=== PATIENT | male | born 1955 | race Two or more races ===

== ENCOUNTER 2023-08-20 12:10 | Inpatient (IN) | payer MEDICARE, MEDICAID ==
[~2023-08-20] VITALS: Ht 185.4 cm; Wt 116.0 kg
[2023-08-20] MEDS: HYDROmorphone HCL 2 MG/ML VL/or syr IV ONE (15:00)
[2023-08-20] MEDS: METOCLOPRAMIDE HCL 5MG/ml INJ 2ml VIAL IM ONE (15:00)
[2023-08-20] MEDS: CLINDAMYCIN 900MG IV 50 ML IV ONE (15:10)
[2023-08-20] MEDS: SODIUM CHLORIDE 0.9% 1,000 ML IV ONE (15:10)
[2023-08-20 16:13] LABS: Basophils # (auto) 0 10 ^3/uL (0-0.2); Basophils % (auto) 0.7 % (0.0-2.0); Eosinophils # (auto) 0.2 10 ^3/uL (0-0.8); Eosinophils % (auto) 2.4 % (0.0-7.0); Hemoglobin 12.8 g/dL (13.5-17.5); Mean Corpuscular Hemoglobin 29.1 pg (28.0-32.0); Mean Corpuscular Hgb Conc. 32.9 g/dL (32.0-36.0); Mean Corpuscular Volume 88.5 fL (80.0-100.0); Monocytes # (auto) 0.7 10 ^3/uL (0-1.3); Monocytes % (auto) 11.3 % (0.0-12.0); Neutrophils # (auto) 4.5 10 ^3/uL (1.6-8.6); Neutrophils % (auto) 69.6 % (37.0-80.0); Nucleated Red Blood Cells % 0.1 %; Red Blood Cells 4.41 10^6/uL (4.5-5.90); Red Cell Distribution Width 15.5 % (11.8-14.3); White Blood Cell 6.4 10^3/uL (4.4-10.8)
[2023-08-20 16:28] LABS: INR 1.22 (0.9-1.15); Partial Thromboplastin Time 29.7 SEC (24.5-34.5); Prothrombin Time 12.7 sec (9.3-11.8)
[2023-08-20 16:29] LABS: Alanine Aminotransferase 15 U/L (7-40); Alkaline Phosphatase 85 U/L (46-116); Anion Gap 7 (5-15); BUN/Creatinine Ratio 17.4 (10.0-20.0); Blood Urea Nitrogen 23 mg/dL (9-23); Calcium 9.4 mg/dL (8.7-10.4); Carbon Dioxide 25 mmol/L (20-30); Chloride 105 mmol/L (98-107); Glucose 234 mg/dL (74-106); Magnesium 2.2 mg/dL (1.6-2.6); Potassium 4.3 mmol/L (3.5-5.1); Sodium 137 mmol/L (136-145)
[2023-08-20 16:30] LABS: Albumin 3.8 g/dL (3.2-4.8); Aspartate Aminotransferase 15 U/L (13-40); Bilirubin, Total 0.4 mg/dL (0.2-1.0)
[2023-08-20] MEDS ORDERED: HYDROcodone-ACET 5/325MG TAB PO PRN (16:45)
[2023-08-20] MEDS ORDERED: VANCOMYCIN PER PHARMACY 0 MG IV SCH (16:45)
[2023-08-20] MEDS ORDERED: ACETAMINOPHEN 325 MG TAB PO PRN (16:45)
[2023-08-20] MEDS: cefTRIAXone 1GM/50ML D5W 50 ML IV ONE (17:00)
[2023-08-20] MEDS: VANCOMYCIN 1GM/200ML 200 ML IV ONE (17:01)
[2023-08-20 17:14] LABS: Erythrocyte Sedimentation Rate 46 mm/hr (0-20)
[2023-08-20 17:20] LABS: Triglycerides 174 mg/dL (< 150)
[2023-08-20 17:21] LABS: LDL Cholesterol 108 mg/dL (< 100)
[2023-08-20 17:22] LABS: Cholesterol 156 mg/dL (< 200); HDL Cholesterol 29 mg/dL (40-59)
[2023-08-20 17:31] LABS: Urine Bacteria FEW /hpf (None Seen); Urine Blood Negative /uL (Negative); Urine Clarity Clear (Clear); Urine Color Light-Yellow (Yellow); Urine Protein, UAD TRACE (Negative); Urine Urobilinogen Normal (Negative); Urine WBC 9 /hpf (0 - 3)
[2023-08-20 18:24] VITALS: RESP 21; O2SAT 94
[2023-08-20] MEDS ORDERED: SACU1TAB PO (18:52)
[2023-08-20] MEDS ORDERED: METO25TA5 PO (18:52)
[2023-08-20] MEDS ORDERED: ATOR20TA50 PO (18:52)
[2023-08-20] MEDS ORDERED: GABA-339 PO (18:52)
[2023-08-20] MEDS ORDERED: FURO1TAB33 PO ×2 (18:52)
[2023-08-20] MEDS ORDERED: APIX5TAB PO ×2 (18:52)
[2023-08-20 21:00] VITALS: BP 129/85; PULSE 65; RESP 20; O2SAT 90
[2023-08-20] MEDS ORDERED: ONDANSETRON HCL 4 MG/2 ML VIAL IV PRN (21:00)
[2023-08-20] MEDS ORDERED: DEXTROSE (50%) 50ML SYRG IV PRN (21:00)
[2023-08-20] MEDS: ASCORBIC ACID 500 MG TAB PO SCH (22:01)
[2023-08-20] MEDS: traZODone HCL 50 MG TAB PO ONE (22:01)
[2023-08-21] MEDS: ACCU-CHEK COMFORT CURVE STRIP VI SCH (00:11)
[2023-08-21] MEDS: InsuLIN REG 1unit/0.01ml Soln (100units/ml) SC SCH (00:13)
[2023-08-21 01:00] VITALS: BP 117/64; PULSE 76; RESP 20; O2SAT 95
[2023-08-21] MEDS: VANCOMYCIN 1GM/200ML 200 ML IV SCH (04:37)
[2023-08-21 05:00] VITALS: BP 133/89; PULSE 73; RESP 20; TEMP 97.3; O2SAT 96
[2023-08-21 06:18] LABS: Basophils # (auto) 0 10 ^3/uL (0-0.2); Basophils % (auto) 0.6 % (0.0-2.0); Eosinophils # (auto) 0.1 10 ^3/uL (0-0.8); Eosinophils % (auto) 2.9 % (0.0-7.0); Hematocrit 38.8 % (41.0-53.0); Hemoglobin 12.8 g/dL (13.5-17.5); Lymphocytes # (auto) 0.7 10 ^3/uL (0.4-5.4); Mean Corpuscular Hemoglobin 29.3 pg (28.0-32.0); Mean Corpuscular Hgb Conc. 32.9 g/dL (32.0-36.0); Monocytes # (auto) 0.5 10 ^3/uL (0-1.3); Monocytes % (auto) 9.5 % (0.0-12.0); Neutrophils # (auto) 3.7 10 ^3/uL (1.6-8.6); Nucleated Red Blood Cells % 0.1 %; Red Blood Cells 4.36 10^6/uL (4.5-5.90); Red Cell Distribution Width 15.2 % (11.8-14.3); White Blood Cell 5.1 10^3/uL (4.4-10.8)
[2023-08-21 06:34] LABS: Alanine Aminotransferase 15 U/L (7-40); Alkaline Phosphatase 76 U/L (46-116); Calcium 9.7 mg/dL (8.7-10.4); Carbon Dioxide 28 mmol/L (20-30); Chloride 104 mmol/L (98-107)
[2023-08-21 06:35] LABS: Albumin 3.7 g/dL (3.2-4.8); Anion Gap 6 (5-15); BUN/Creatinine Ratio 17.7 (10.0-20.0); Blood Urea Nitrogen 22 mg/dL (9-23); Glucose 221 mg/dL (74-106); Potassium 4.3 mmol/L (3.5-5.1); Sodium 138 mmol/L (136-145)
[2023-08-21 06:36] LABS: Aspartate Aminotransferase 12 U/L (13-40); Bilirubin, Total 0.5 mg/dL (0.2-1.0); Total Protein 7.1 g/dL (5.7-8.2)
[2023-08-21] MEDS ORDERED: cefTRIAXone 1GM/50ML D5W 50 ML IV SCH (09:00)
[2023-08-21] MEDS ORDERED: ZINC SULFATE 220mg CAP or TAB PO SCH (10:00)
[2023-08-21] MEDS ORDERED: MULTIPLE VITAMIN TAB PO SCH (10:00)
== END 2023-08-21 08:30 | disposition left against medical advice (07) | DRG 380 ==
LOC: ER 12:10 → OVERFLOW 16:44 → EAST 18:00
PROVIDERS: ADMIT Nurse Practitioner Family; ATTEND Nurse Practitioner Family
DX: E11.621 Type 2 diabetes mellitus with foot ulcer (principal); L97.512 Non-pressure chronic ulcer of other part of right foot with fat layer exposed; E11.40 Type 2 diabetes mellitus with diabetic neuropathy, unspecified; E11.618 Type 2 diabetes mellitus with other diabetic arthropathy; L03.115 Cellulitis of right lower limb; L02.611 Cutaneous abscess of right foot; S91.239A Puncture wound without foreign body of unspecified toe(s) with damage to nail, initial encounter; Z53.29 Procedure and treatment not carried out because of patient's decision for other reasons; I50.42 Chronic combined systolic (congestive) and diastolic (congestive) heart failure; N30.00 Acute cystitis without hematuria; E66.01 Morbid (severe) obesity due to excess calories; H54.8 Legal blindness, as defined in USA; I48.91 Unspecified atrial fibrillation; I25.10 Atherosclerotic heart disease of native coronary artery without angina pectoris; Z85.038 Personal history of other malignant neoplasm of large intestine; Z95.1 Presence of aortocoronary bypass graft; Z79.4 Long term (current) use of insulin
CPT/HCPCS: 36415; 71046; 73700; 80053; 80061; 81001; 82962; 83036; 83735; 83880; 84443; 85025; 85379; 85610; 85652; 85730; 86141; 87086; 87088; 93005; 96365; 96372; 96375; G0378; J1815; J3490

== ENCOUNTER 2023-08-21 17:41 | Inpatient (IN) | payer MEDICARE, MEDICAID ==
[~2023-08-21] VITALS: Ht 185.4 cm; Wt 112.0 kg
[~2023-08-21 17:41] MED LIST: APIX5TAB PO; ATOR20TA50 PO; FURO1TAB33 PO; GABA-339 PO; METO25TA5 PO; SACU1TAB PO
[2023-08-21 19:49] LABS: Chloride 105 mmol/L (98-107); Potassium 4.3 mmol/L (3.5-5.1); Sodium 136 mmol/L (136-145)
[2023-08-21 19:50] LABS: Anion Gap 6 (5-15); Carbon Dioxide 25 mmol/L (20-30)
[2023-08-21 19:51] LABS: Calcium 9.8 mg/dL (8.5-10.1)
[2023-08-21 19:54] LABS: Basophils # (auto) 0.1 10 ^3/uL (0-0.2); Basophils % (auto) 0.7 % (0.0-2.0); Eosinophils # (auto) 0.2 10 ^3/uL (0-0.8); Eosinophils % (auto) 2.4 % (0.0-7.0); Hematocrit 42.6 % (41.0-53.0); Hemoglobin 13.9 g/dL (13.5-17.5); Lymphocytes # (auto) 0.7 10 ^3/uL (0.4-5.4); Lymphocytes % (auto) 8.7 % (10.0-50.0); Mean Corpuscular Hemoglobin 29.1 pg (28.0-32.0); Mean Corpuscular Hgb Conc. 32.7 g/dL (32.0-36.0); Mean Corpuscular Volume 88.9 fL (80.0-100.0); Monocytes # (auto) 0.7 10 ^3/uL (0-1.3); Monocytes % (auto) 8.4 % (0.0-12.0); Neutrophils # (auto) 6.4 10 ^3/uL (1.6-8.6); Neutrophils % (auto) 79.8 % (37.0-80.0); Nucleated Red Blood Cells % 0.1 %; Red Blood Cells 4.79 10^6/uL (4.5-5.90); Red Cell Distribution Width 15.3 % (11.8-14.3)
[2023-08-21 19:55] LABS: BUN/Creatinine Ratio 13.1 (10.0-20.0); Blood Urea Nitrogen 17 mg/dL (9-23)
[2023-08-21 19:56] LABS: Glucose 140 mg/dL (74-106)
[2023-08-21] MEDS: PIPERACILLIN-TAZOB 3.375GM 100 ML IV ONE (19:56)
[2023-08-21] MEDS: VANCOMYCIN 1GM/200ML 200 ML IV ONE (19:56)
[2023-08-21 19:58] VITALS: O2SAT 95
[2023-08-21] MEDS ORDERED: ONDANSETRON HCL 4 MG/2 ML VIAL IV PRN (21:00)
[2023-08-21] MEDS ORDERED: VANCOMYCIN PER PHARMACY 0 MG IV SCH (21:00)
[2023-08-21] MEDS ORDERED: DEXTROSE (50%) 50ML SYRG IV PRN (21:00)
[2023-08-21] MEDS ORDERED: ACETAMINOPHEN 325 MG TAB PO PRN (21:00)
[2023-08-21] MEDS ORDERED: DOCUSATE SOD 100 MG CAP PO PRN (21:00)
[2023-08-21] MEDS: SODIUM CHLOR 0.9% PF (SALINE LOCK) 10ML VIAL/SYR IV SCH (22:13)
[2023-08-21] MEDS: ACCU-CHEK COMFORT CURVE STRIP VI SCH (22:13)
[2023-08-21] MEDS ORDERED: NITROGLYCERIN 0.4 MG SL TAB SL PRN (22:15)
[2023-08-21] MEDS ORDERED: MORPHINE SULFATE INJ 2 MG/ml SYRG IV PRN (22:15)
[2023-08-21] MEDS: ATORVASTATIN 20 MG TAB PO SCH (22:22)
[2023-08-21] MEDS: CARVEDILOL 12.5 MG TAB PO SCH (22:23)
[2023-08-21] MEDS: FUROSEMIDE 20 MG/2 ML VIAL IV ONE (22:24)
[2023-08-21] MEDS: InsuLIN REG 1unit/0.01ml Soln (100units/ml) SC SCH (22:24)
[2023-08-21 22:57] VITALS: PULSE 114; RESP 18; O2SAT 93
[2023-08-22] VITALS (7 sets, daily range): BP systolic 118–128; BP diastolic 64–93; PULSE 74–109; RESP 16–20; TEMP 97.8–98; O2SAT 94–98
[2023-08-22 04:09] LABS: Basophils # (auto) 0.1 10 ^3/uL (0-0.2); Basophils % (auto) 0.8 % (0.0-2.0); Eosinophils # (auto) 0.2 10 ^3/uL (0-0.8); Eosinophils % (auto) 3.7 % (0.0-7.0); Hematocrit 40.9 % (41.0-53.0); Hemoglobin 13.5 g/dL (13.5-17.5); Lymphocytes # (auto) 0.8 10 ^3/uL (0.4-5.4); Lymphocytes % (auto) 11.2 % (10.0-50.0); Mean Corpuscular Hemoglobin 29.3 pg (28.0-32.0); Mean Corpuscular Volume 88.7 fL (80.0-100.0); Monocytes # (auto) 0.7 10 ^3/uL (0-1.3); Monocytes % (auto) 9.7 % (0.0-12.0); Neutrophils # (auto) 5.1 10 ^3/uL (1.6-8.6); Neutrophils % (auto) 74.6 % (37.0-80.0); Nucleated Red Blood Cells % 0.1 %; Red Blood Cells 4.61 10^6/uL (4.5-5.90); Red Cell Distribution Width 15.5 % (11.8-14.3); White Blood Cell 6.8 10^3/uL (4.4-10.8)
[2023-08-22 04:24] LABS: Alanine Aminotransferase 18 U/L (7-40); Alkaline Phosphatase 87 U/L (46-116); Anion Gap 7 (5-15); Aspartate Aminotransferase 15 U/L (13-40); BUN/Creatinine Ratio 12.7 (10.0-20.0); Blood Urea Nitrogen 18 mg/dL (9-23); Calcium 9.5 mg/dL (8.5-10.1); Carbon Dioxide 27 mmol/L (20-30); Chloride 102 mmol/L (98-107); Potassium 4.4 mmol/L (3.5-5.1); Sodium 136 mmol/L (136-145)
[2023-08-22 04:25] LABS: Bilirubin, Total 0.4 mg/dL (0.2-1.0); Total Protein 7.4 g/dL (5.7-8.2)
[2023-08-22 04:32] LABS: Glucose 252 mg/dL (74-106)
[2023-08-22] MEDS: PIPERACILLIN-TAZOB 3.375GM 100 ML IV SCH (06:22)
[2023-08-22] MEDS: VANCOMYCIN 1GM/200ML 200 ML IV SCH (09:17)
[2023-08-22] MEDS: FUROSEMIDE 20 MG/2 ML VIAL IV SCH (09:18)
[2023-08-22] MEDS: ASPirin 81 mg TAB PO SCH (09:18)
[2023-08-22] MEDS: GABAPENTIN 300 MG CAP PO SCH (16:42)
[2023-08-22] MEDS: SACUBITRIL-VALSARTAN 24mg/26mg TAB PO SCH (21:28)
[2023-08-22] MEDS: HYDROcodone-ACET 5/325MG TAB PO PRN (21:29)
[2023-08-22] MEDS: APIXABAN 5 MG TAB PO SCH (21:30)
[2023-08-22] MEDS ORDERED: METOPROLOL TARTRATE 25 MG TAB PO SCH (22:00)
[2023-08-23] VITALS (8 sets, daily range): BP systolic 98–121; BP diastolic 51–80; PULSE 56–106; RESP 18–20; TEMP 97.7–99.1; O2SAT 91–97
[2023-08-23 05:32] LABS: Basophils # (auto) 0.1 10 ^3/uL (0-0.2); Eosinophils # (auto) 0.3 10 ^3/uL (0-0.8); Eosinophils % (auto) 4.3 % (0.0-7.0); Hematocrit 43.2 % (41.0-53.0); Hemoglobin 14.3 g/dL (13.5-17.5); Lymphocytes # (auto) 0.9 10 ^3/uL (0.4-5.4); Lymphocytes % (auto) 13.6 % (10.0-50.0); Mean Corpuscular Hemoglobin 29.1 pg (28.0-32.0); Mean Corpuscular Volume 88.1 fL (80.0-100.0); Monocytes # (auto) 0.6 10 ^3/uL (0-1.3); Monocytes % (auto) 9.8 % (0.0-12.0); Neutrophils # (auto) 4.5 10 ^3/uL (1.6-8.6); Neutrophils % (auto) 71.3 % (37.0-80.0); Red Cell Distribution Width 15.4 % (11.8-14.3); White Blood Cell 6.3 10^3/uL (4.4-10.8)
[2023-08-23 05:34] LABS: Chloride 104 mmol/L (98-107); Potassium 4.2 mmol/L (3.5-5.1); Sodium 138 mmol/L (136-145)
[2023-08-23 05:35] LABS: Anion Gap 5 (5-15); Carbon Dioxide 29 mmol/L (20-30)
[2023-08-23 05:40] LABS: BUN/Creatinine Ratio 16.3 (10.0-20.0); Blood Urea Nitrogen 20 mg/dL (9-23); Glucose 257 mg/dL (74-106)
[2023-08-23] MEDS ORDERED: GABA800T97 PO ×2 (13:36)
[2023-08-23] MEDS ORDERED: ATOR80TA PO ×2 (13:36)
[2023-08-23] MEDS ORDERED: METO1TAB9 PO ×2 (13:36)
[2023-08-23] MEDS ORDERED: LANS30CA57 PO ×2 (13:42)
[2023-08-23] MEDS ORDERED: INSU100I54 SC ×2 (13:42)
[2023-08-23] MEDS ORDERED: INSU100I70 SC ×2 (13:42)
[2023-08-23] MEDS ORDERED: FLUT50SP28 EACHNOSTRI ×2 (13:42)
[2023-08-23] MEDS ORDERED: FLUT1AER17 INH ×2 (13:42)
[2023-08-23] MEDS ORDERED: TRI05TP TOP ×2 (13:42)
[2023-08-23] MEDS ORDERED: TRAZ-227 PO (13:42)
[2023-08-23] MEDS ORDERED: EMPA1TAB PO ×2 (13:42)
[2023-08-23] MEDS ORDERED: SPIR25TA8 PO ×2 (13:42)
[2023-08-23] MEDS ORDERED: ASPI81CH59 PO ×2 (13:42)
[2023-08-24 01:00] VITALS: BP 115/69; PULSE 62; RESP 18; TEMP 98.3; O2SAT 92
[2023-08-24 05:00] VITALS: BP 111/59; PULSE 98; RESP 17; TEMP 98.2; O2SAT 95
[2023-08-24 07:39] LABS: Anion Gap 4 (5-15); Calcium 9.7 mg/dL (8.5-10.1); Carbon Dioxide 30 mmol/L (20-30); Chloride 103 mmol/L (98-107); Potassium 4.2 mmol/L (3.5-5.1); Sodium 137 mmol/L (136-145)
[2023-08-24 07:42] LABS: Basophils # (auto) 0.1 10 ^3/uL (0-0.2); Basophils % (auto) 0.9 % (0.0-2.0); Eosinophils # (auto) 0.2 10 ^3/uL (0-0.8); Eosinophils % (auto) 3.9 % (0.0-7.0); Hematocrit 43.5 % (41.0-53.0); Hemoglobin 14.6 g/dL (13.5-17.5); Lymphocytes # (auto) 0.9 10 ^3/uL (0.4-5.4); Lymphocytes % (auto) 14.6 % (10.0-50.0); Mean Corpuscular Hemoglobin 29.3 pg (28.0-32.0); Mean Corpuscular Hgb Conc. 33.5 g/dL (32.0-36.0); Mean Corpuscular Volume 87.4 fL (80.0-100.0); Monocytes # (auto) 0.6 10 ^3/uL (0-1.3); Neutrophils # (auto) 4.2 10 ^3/uL (1.6-8.6); Neutrophils % (auto) 70.6 % (37.0-80.0); Red Blood Cells 4.97 10^6/uL (4.5-5.90); Red Cell Distribution Width 15.3 % (11.8-14.3)
[2023-08-24 07:45] LABS: Glucose 237 mg/dL (74-106)
[2023-08-24 07:46] LABS: Blood Urea Nitrogen 16 mg/dL (9-23)
[2023-08-24 08:00] VITALS: PULSE 90
[2023-08-24 09:00] VITALS: BP 129/77; PULSE 70; RESP 18; TEMP 98.2; O2SAT 93
[2023-08-24] MEDS ORDERED: AUG875T PO ×2 (11:11)
[2023-08-24] MEDS ORDERED: SACU1TAB PO ×2 (11:28)
[2023-08-24] MEDS ORDERED: TRAZ-227 PO ×2 (11:28)
[2023-08-24 12:49] VITALS: BP 105/72; PULSE 58; RESP 20; TEMP 97.6; O2SAT 97
[2023-08-24 17:00] VITALS: BP 110/71; PULSE 72; RESP 18; TEMP 98; O2SAT 94
== END 2023-08-24 18:50 | disposition home or self-care (01) | DRG 844 ==
LOC: ER 17:41 → TELE 22:11 → TELE-WESTW 08-22 09:35
PROVIDERS: ADMIT Nurse Practitioner Family; ATTEND Internal Medicine
DX: T25.021A Burn of unspecified degree of right foot, initial encounter (principal); N17.0 Acute kidney failure with tubular necrosis; A41.9 Sepsis, unspecified organism; I50.33 Acute on chronic diastolic (congestive) heart failure; L03.115 Cellulitis of right lower limb; E11.40 Type 2 diabetes mellitus with diabetic neuropathy, unspecified; I11.0 Hypertensive heart disease with heart failure; I48.91 Unspecified atrial fibrillation; R06.03 Acute respiratory distress; I25.10 Atherosclerotic heart disease of native coronary artery without angina pectoris; E78.5 Hyperlipidemia, unspecified; X08.8XXA Exposure to other specified smoke, fire and flames, initial encounter; E11.51 Type 2 diabetes mellitus with diabetic peripheral angiopathy without gangrene; Z95.1 Presence of aortocoronary bypass graft; Z85.038 Personal history of other malignant neoplasm of large intestine; Z79.899 Other long term (current) drug therapy; Y93.89 Activity, other specified; Y92.89 Other specified places as the place of occurrence of the external cause; Y99.8 Other external cause status; Z79.01 Long term (current) use of anticoagulants; Z79.82 Long term (current) use of aspirin
CPT/HCPCS: 36415; 80048; 80053; 80202; 82962; 83605; 83880; 84484; 85025; 87040; 93005; G0378; J1815; J2543

== ENCOUNTER 2023-09-04 22:45 | Inpatient (IN) | payer MEDICARE, MEDICAID ==
[~2023-09-04] VITALS: Ht 185.4 cm; Wt 109.5 kg
[~2023-09-04 22:45] MED LIST changes: +ASPI81CH59 PO; -ATOR20TA50 PO; +ATOR80TA PO; +AUG875T PO; +EMPA1TAB PO; +FLUT1AER17 INH; +FLUT50SP28 EACHNOSTRI; -GABA-339 PO; +GABA800T97 PO; +INSU100I54 SC; +INSU100I70 SC; +LANS30CA57 PO; +METO1TAB9 PO; -METO25TA5 PO; +SPIR25TA8 PO; +TRAZ-227 PO; +TRI05TP TOP
[2023-09-04 23:54] VITALS: PULSE 141; RESP 22; O2SAT 96
[2023-09-04 23:59] LABS: Chloride 99 mmol/L (98-107); Sodium 136 mmol/L (136-145)
[2023-09-05] VITALS (11 sets, daily range): BP systolic 106–112; BP diastolic 64–70; PULSE 74–112; RESP 18; TEMP 97.7–98; O2SAT 94–98
[2023-09-05] LABS: Anion Gap 10 (5-15); Calcium 10.9 mg/dL (8.7-10.4); Carbon Dioxide 27 mmol/L (20-30)
[2023-09-05 00:03] LABS: Basophils # (auto) 0.1 10 ^3/uL (0-0.2); Basophils % (auto) 0.9 % (0.0-2.0); Eosinophils # (auto) 0.1 10 ^3/uL (0-0.8); Eosinophils % (auto) 0.7 % (0.0-7.0); Hematocrit 49.5 % (41.0-53.0); Hemoglobin 16.3 g/dL (13.5-17.5); Lymphocytes # (auto) 1.3 10 ^3/uL (0.4-5.4); Lymphocytes % (auto) 12.8 % (10.0-50.0); Mean Corpuscular Hemoglobin 29.3 pg (28.0-32.0); Mean Corpuscular Volume 88.7 fL (80.0-100.0); Monocytes # (auto) 0.9 10 ^3/uL (0-1.3); Monocytes % (auto) 8.2 % (0.0-12.0); Neutrophils # (auto) 8.1 10 ^3/uL (1.6-8.6); Neutrophils % (auto) 77.4 % (37.0-80.0); Nucleated Red Blood Cells % 0.1 %; Red Blood Cells 5.58 10^6/uL (4.5-5.90); Red Cell Distribution Width 15.5 % (11.8-14.3); White Blood Cell 10.4 10^3/uL (4.4-10.8)
[2023-09-05 00:05] LABS: BUN/Creatinine Ratio 11.6 (10.0-20.0); Blood Urea Nitrogen 24 mg/dL (9-23)
[2023-09-05] MEDS: dilTIAZem 25 MG/5 ML VIAL IV ONE (00:12)
[2023-09-05 00:17] LABS: Glucose 401 mg/dL (74-106)
[2023-09-05] MEDS: InsuLIN REG 1unit/0.01ml Soln (100units/ml) IV ONE (00:35)
[2023-09-05] MEDS: FUROSEMIDE 100 MG/10ML VIAL IV ONE (00:58)
[2023-09-05] MEDS ORDERED: DOCUSATE SOD 100 MG CAP PO PRN (01:15)
[2023-09-05] MEDS ORDERED: ACETAMINOPHEN 325 MG TAB PO PRN (01:15)
[2023-09-05] MEDS ORDERED: DEXTROSE (50%) 50ML SYRG IV PRN (01:15)
[2023-09-05] MEDS ORDERED: NITROGLYCERIN 0.4 MG SL TAB SL PRN (01:45)
[2023-09-05 02:59] LABS: Basophils # (auto) 0.1 10 ^3/uL (0-0.2); Basophils % (auto) 1.2 % (0.0-2.0); Eosinophils # (auto) 0.1 10 ^3/uL (0-0.8); Eosinophils % (auto) 0.5 % (0.0-7.0); Hematocrit 48.8 % (41.0-53.0); Hemoglobin 16.3 g/dL (13.5-17.5); Lymphocytes # (auto) 1.7 10 ^3/uL (0.4-5.4); Lymphocytes % (auto) 16.7 % (10.0-50.0); Mean Corpuscular Hemoglobin 29.4 pg (28.0-32.0); Mean Corpuscular Hgb Conc. 33.5 g/dL (32.0-36.0); Mean Corpuscular Volume 87.9 fL (80.0-100.0); Monocytes % (auto) 9.6 % (0.0-12.0); Neutrophils # (auto) 7.3 10 ^3/uL (1.6-8.6); Nucleated Red Blood Cells % 0.1 %; Red Blood Cells 5.55 10^6/uL (4.5-5.90); Red Cell Distribution Width 15.6 % (11.8-14.3); White Blood Cell 10.1 10^3/uL (4.4-10.8)
[2023-09-05] MEDS ORDERED: VANCOMYCIN PER PHARMACY 0 MG IV SCH (03:00)
[2023-09-05 03:07] LABS: Alanine Aminotransferase 30 U/L (7-40); Albumin 4.4 g/dL (3.2-4.8); Alkaline Phosphatase 86 U/L (46-116); Anion Gap 8 (5-15); Aspartate Aminotransferase 14 U/L (13-40); BUN/Creatinine Ratio 12.9 (10.0-20.0); Blood Urea Nitrogen 23 mg/dL (9-23); Calcium 10.9 mg/dL (8.7-10.4); Carbon Dioxide 28 mmol/L (20-30); Chloride 102 mmol/L (98-107); Potassium 3.9 mmol/L (3.5-5.1); Sodium 138 mmol/L (136-145)
[2023-09-05 03:08] LABS: Bilirubin, Total 0.9 mg/dL (0.2-1.0); Total Protein 8.7 g/dL (5.7-8.2)
[2023-09-05] MEDS ORDERED: ALBUTEROL SULF 2.5 MG/0.5ML(0.5%) NEB SOLN NEB PRN (03:15)
[2023-09-05 03:22] LABS: Glucose 146 mg/dL (74-106)
[2023-09-05] MEDS: ONDANSETRON HCL 4 MG/2 ML VIAL IV PRN (03:35)
[2023-09-05] MEDS: MORPHINE SULFATE INJ 2 MG/ml SYRG IV PRN ×2 (03:36→13:29)
[2023-09-05] MEDS: VANCOMYCIN 1GM/200ML 200 ML IV ONE (03:36)
[2023-09-05] MEDS: InsuLIN REG 1unit/0.01ml Soln (100units/ml) SC SCH (04:00)
[2023-09-05] MEDS: ACCU-CHEK COMFORT CURVE STRIP VI SCH (04:09)
[2023-09-05] MEDS: SODIUM CHLOR 0.9% PF (SALINE LOCK) 10ML VIAL/SYR IV SCH (06:18)
[2023-09-05] MEDS ORDERED: APIXABAN 5 MG TAB PO SCH (10:00)
[2023-09-05] MEDS ORDERED: CARVEDILOL 3.125 MG TAB PO SCH (10:00)
[2023-09-05 10:14] LABS: Magnesium 2.3 mg/dL (1.6-2.6)
[2023-09-05] MEDS: FUROSEMIDE 40 MG/4 ML VIAL IV SCH (10:21)
[2023-09-05] MEDS: FUROSEMIDE 20 MG TAB PO ONE (10:45)
[2023-09-05 10:50] LABS: Hepatitis B Surface Antigen Negative (Negative)
[2023-09-05] MEDS ORDERED: CEPH500C PO (10:53)
[2023-09-05 11:12] LABS: Hepatitis C Antibody Negative (Negative)
[2023-09-05] MEDS: SPIRONOLACTONE 25 MG TAB PO ONE (11:30)
[2023-09-05] MEDS: METOPROLOL TARTRATE 25 MG TAB PO ONE (11:31)
[2023-09-05] MEDS: ASPirin 81 mg TAB PO ONE (11:32)
[2023-09-05] MEDS: VANCOMYCIN 1GM/200ML 200 ML IV SCH (20:27)
[2023-09-05] MEDS: traZODone HCL 50 MG TAB PO SCH (21:13)
[2023-09-05] MEDS: APIXABAN 5 MG TAB PO SCH (21:13)
[2023-09-05] MEDS: ATORVASTATIN 20 MG TAB PO SCH (21:13)
[2023-09-05] MEDS: METOPROLOL TARTRATE 25 MG TAB PO SCH (21:21)
[2023-09-05] MEDS: CEFEPIME 1GM/ 50ML 50 ML IV SCH (21:47)
[2023-09-05] MEDS ORDERED: ATORVASTATIN 20 MG TAB PO SCH (22:00)
[2023-09-05] MEDS ORDERED: ENOXAPARIN SOD 120 MG/0.8 ML SYRINGE SC SCH (22:00)
[2023-09-05] MEDS ORDERED: ENOXAPARIN SOD 100 MG/1 ML SYRINGE SC SCH (22:00)
[2023-09-06] VITALS (12 sets, daily range): BP systolic 92–129; BP diastolic 57–77; PULSE 53–109; RESP 16–22; TEMP 97.1–98.6; O2SAT 92–98
[2023-09-06] MEDS: INSULIN LANTUS (GLARGINE) 1 /0.01ml (100units/ml) SC SCH (05:57)
[2023-09-06 07:10] LABS: Basophils # (auto) 0.1 10 ^3/uL (0-0.2); Basophils % (auto) 0.8 % (0.0-2.0); Eosinophils # (auto) 0.3 10 ^3/uL (0-0.8); Eosinophils % (auto) 4.7 % (0.0-7.0); Hematocrit 43.5 % (41.0-53.0); Hemoglobin 14.4 g/dL (13.5-17.5); Lymphocytes # (auto) 1.6 10 ^3/uL (0.4-5.4); Lymphocytes % (auto) 21.9 % (10.0-50.0); Mean Corpuscular Hemoglobin 29.2 pg (28.0-32.0); Mean Corpuscular Hgb Conc. 33.1 g/dL (32.0-36.0); Mean Corpuscular Volume 88.3 fL (80.0-100.0); Monocytes # (auto) 0.7 10 ^3/uL (0-1.3); Neutrophils # (auto) 4.5 10 ^3/uL (1.6-8.6); Neutrophils % (auto) 62.6 % (37.0-80.0); Nucleated Red Blood Cells % 0.1 %; Red Blood Cells 4.92 10^6/uL (4.5-5.90); Red Cell Distribution Width 15.3 % (11.8-14.3); White Blood Cell 7.2 10^3/uL (4.4-10.8)
[2023-09-06 07:15] LABS: Alanine Aminotransferase 24 U/L (7-40); Alkaline Phosphatase 79 U/L (46-116); Anion Gap 9 (5-15); BUN/Creatinine Ratio 19.5 (10.0-20.0); Blood Urea Nitrogen 31 mg/dL (9-23); Calcium 9.6 mg/dL (8.7-10.4); Carbon Dioxide 28 mmol/L (20-30); Chloride 98 mmol/L (98-107); Glucose 167 mg/dL (74-106); Potassium 3.8 mmol/L (3.5-5.1); Sodium 135 mmol/L (136-145)
[2023-09-06 07:16] LABS: Albumin 3.8 g/dL (3.2-4.8); Aspartate Aminotransferase 17 U/L (13-40); Bilirubin, Total 0.7 mg/dL (0.2-1.0); Total Protein 7.4 g/dL (5.7-8.2)
[2023-09-06] MEDS: SPIRONOLACTONE 25 MG TAB PO SCH (08:46)
[2023-09-06] MEDS: ASPirin 81 mg TAB PO SCH (08:46)
[2023-09-06] MEDS: FUROSEMIDE 20 MG TAB PO SCH (08:48)
[2023-09-06 16:58] LABS: Amphetamine Screen, Urine Pos (NEGATIVE); Barbiturate Scree,Urine Neg (NEGATIVE); Benzodiazephine Screen, Urine Neg (NEGATIVE); Cannabinoid Screen, Urine Neg (NEGATIVE); Cocaine Screen, Urine Neg (NEGATIVE); Opiate Scree,Urine Neg (NEGATIVE); Phencyclidine Screen, Urine Neg (NEGATIVE)
[2023-09-06] MEDS: HYDROcodone-ACET 5/325MG TAB PO PRN (19:50)
[2023-09-07] VITALS (9 sets, daily range): BP systolic 92–133; BP diastolic 52–95; PULSE 71–92; RESP 18–22; TEMP 97.3–98.7; O2SAT 90–97
[2023-09-07] MEDS: INSULIN LISPRO (HUMAN) 100 UNITS/ML ML SC SCH ×2 (06:34→22:00)
[2023-09-07] MEDS: EMPAGLIFLOZIN 10 MG TAB PO SCH (08:43)
[2023-09-07 08:49] LABS: Basophils # (auto) 0 10 ^3/uL (0-0.2); Basophils % (auto) 0.7 % (0.0-2.0); Eosinophils # (auto) 0.2 10 ^3/uL (0-0.8); Eosinophils % (auto) 3.8 % (0.0-7.0); Hematocrit 45.7 % (41.0-53.0); Hemoglobin 14.8 g/dL (13.5-17.5); Lymphocytes # (auto) 0.8 10 ^3/uL (0.4-5.4); Mean Corpuscular Hemoglobin 28.4 pg (28.0-32.0); Mean Corpuscular Hgb Conc. 32.4 g/dL (32.0-36.0); Mean Corpuscular Volume 87.9 fL (80.0-100.0); Monocytes # (auto) 0.4 10 ^3/uL (0-1.3); Neutrophils # (auto) 4.5 10 ^3/uL (1.6-8.6); Neutrophils % (auto) 74.5 % (37.0-80.0); Nucleated Red Blood Cells % 0.2 %; Red Blood Cells 5.21 10^6/uL (4.5-5.90)
[2023-09-07 09:11] LABS: Alanine Aminotransferase 24 U/L (7-40); Alkaline Phosphatase 84 U/L (46-116); Anion Gap 4 (5-15); Aspartate Aminotransferase 18 U/L (13-40); BUN/Creatinine Ratio 20.4 (10.0-20.0); Blood Urea Nitrogen 23 mg/dL (9-23); Calcium 9.6 mg/dL (8.5-10.1); Carbon Dioxide 29 mmol/L (20-30); Chloride 102 mmol/L (98-107); Glucose 173 mg/dL (74-106); Potassium 4.5 mmol/L (3.5-5.1); Sodium 135 mmol/L (136-145)
[2023-09-07 09:12] LABS: Bilirubin, Total 0.8 mg/dL (0.2-1.0); Total Protein 7.6 g/dL (5.7-8.2)
[2023-09-07] MEDS: GABAPENTIN 400 MG CAP PO SCH (16:08)
[2023-09-07] MEDS: LACTULOSE 20Gm/30ML SOLN PO SCH (17:37)
[2023-09-07] MEDS: ACCU-CHEK COMFORT CURVE STRIP VI SCH (17:37)
[2023-09-07] MEDS: SACUBITRIL-VALSARTAN 24mg/26mg TAB PO SCH (23:28)
[2023-09-08] VITALS (11 sets, daily range): BP systolic 101–121; BP diastolic 58–76; PULSE 54–119; RESP 1–20; TEMP 97.6–98.6; O2SAT 92–100
[2023-09-08] MEDS ORDERED: VANCOMYCIN PER PHARMACY 0 MG IV SCH (14:30)
[2023-09-08] MEDS: FLUCONAZOLE 100 MG TAB PO SCH (15:43)
[2023-09-08] MEDS: VANCOMYCIN 1GM/200ML 200 ML IV SCH (22:37)
[2023-09-08] MEDS: DAKINS QUARTER STR 0.125% (NaHypochlorite) 473 ML TOPICAL SOL TOP SCH (23:16)
[2023-09-09] VITALS (11 sets, daily range): BP systolic 94–142; BP diastolic 60–85; PULSE 54–96; RESP 16–20; TEMP 97.7–99; O2SAT 91–96
[2023-09-09 08:08] LABS: INR 1.18 (0.9-1.15); Partial Thromboplastin Time 29.9 SEC (24.5-34.5); Prothrombin Time 12.4 sec (9.3-11.8)
[2023-09-09] MEDS: SULFAMETHOX W/TRIMETH(800/160MG) DS TAB PO SCH (10:41)
[2023-09-09] MEDS ORDERED: fentaNYL CITRATE 100 MCG/2 ML VL IV PRN (12:30)
[2023-09-09] MEDS ORDERED: HYDROmorphone HCL 2 MG/ML VL/or syr IV PRN ×2 (12:30)
[2023-09-09] MEDS ORDERED: MORPHINE SULFATE INJ 2 MG/ml SYRG IV PRN (12:30)
[2023-09-09] MEDS: ACCU-CHEK COMFORT CURVE STRIP VI ONE (12:30)
[2023-09-09] MEDS: KETOROLAC TROMETH 30 MG/ML 1ML VIAL IV ONE (12:30)
[2023-09-09] MEDS: METOCLOPRAMIDE HCL 5MG/ml INJ 2ml VIAL IV ONE (12:30)
[2023-09-10] VITALS (10 sets, daily range): BP systolic 109–138; BP diastolic 69–103; PULSE 57–98; RESP 16–19; TEMP 97.9–98.7; O2SAT 91–96
[2023-09-10 06:08] LABS: Basophils # (auto) 0.1 10 ^3/uL (0-0.2); Basophils % (auto) 0.9 % (0.0-2.0); Eosinophils # (auto) 0.2 10 ^3/uL (0-0.8); Eosinophils % (auto) 3.5 % (0.0-7.0); Hematocrit 45.9 % (41.0-53.0); Hemoglobin 15.3 g/dL (13.5-17.5); Lymphocytes # (auto) 1.4 10 ^3/uL (0.4-5.4); Lymphocytes % (auto) 22.5 % (10.0-50.0); Mean Corpuscular Hemoglobin 29.4 pg (28.0-32.0); Mean Corpuscular Hgb Conc. 33.3 g/dL (32.0-36.0); Mean Corpuscular Volume 88.1 fL (80.0-100.0); Monocytes # (auto) 0.7 10 ^3/uL (0-1.3); Monocytes % (auto) 11.3 % (0.0-12.0); Neutrophils % (auto) 61.8 % (37.0-80.0); Nucleated Red Blood Cells % 0.1 %; Red Blood Cells 5.21 10^6/uL (4.5-5.90); Red Cell Distribution Width 15.5 % (11.8-14.3); White Blood Cell 6.4 10^3/uL (4.4-10.8)
[2023-09-10 06:20] LABS: Alanine Aminotransferase 27 U/L (7-40); Albumin 4.1 g/dL (3.2-4.8); Alkaline Phosphatase 84 U/L (46-116); Anion Gap 3 (5-15); Aspartate Aminotransferase 19 U/L (13-40); BUN/Creatinine Ratio 17.5 (10.0-20.0); Blood Urea Nitrogen 22 mg/dL (9-23); Calcium 9.9 mg/dL (8.5-10.1); Carbon Dioxide 31 mmol/L (20-30); Chloride 104 mmol/L (98-107); Glucose 151 mg/dL (74-106); Potassium 3.8 mmol/L (3.5-5.1); Sodium 138 mmol/L (136-145)
[2023-09-10 06:21] LABS: Bilirubin, Total 0.5 mg/dL (0.2-1.0); Total Protein 7.6 g/dL (5.7-8.2)
[2023-09-11] VITALS (10 sets, daily range): BP systolic 101–140; BP diastolic 57–85; PULSE 58–96; RESP 16–20; TEMP 97.7–98.4; O2SAT 10–98
[2023-09-12] VITALS (8 sets, daily range): BP systolic 108–120; BP diastolic 67–92; PULSE 62–91; RESP 16–20; TEMP 97.9–98.6; O2SAT 92–98
[2023-09-12] MEDS ORDERED: ATOR80TA PO (06:13)
[2023-09-12] MEDS ORDERED: INSUINJ37 SC (06:13)
[2023-09-12] MEDS ORDERED: ASPI-325 PO (06:13)
[2023-09-12] MEDS ORDERED: METO25TA93 PO (06:13)
[2023-09-12] MEDS ORDERED: APIX5TAB PO (06:13)
[2023-09-12] MEDS ORDERED: BACDST PO (06:13)
[2023-09-12] MEDS ORDERED: INSU100I74 SC (06:13)
[2023-09-12] MEDS ORDERED: ASPI1TAB59 PO (06:17)
[2023-09-12] MEDS ORDERED: SILV1CRE82 TOP (06:26)
== END 2023-09-12 19:10 | disposition home health service (06) | DRG 133 ==
LOC: ER 22:45 → TELE 09-05 01:42 → TELE-E-ADS 09-05 09:00 → TELE-WESTW 09-05 18:05 → TELE-EAST 09-07 21:50
PROVIDERS: ADMIT Internal Medicine; ATTEND Internal Medicine
PROC: 0JBQ0ZZ Excision of Right Foot Subcutaneous Tissue and Fascia, Open Approach (ICD-10-PCS; principal; 2023-09-09)
DX: J96.00 Acute respiratory failure, unspecified whether with hypoxia or hypercapnia (principal); N17.0 Acute kidney failure with tubular necrosis; I50.23 Acute on chronic systolic (congestive) heart failure; E11.52 Type 2 diabetes mellitus with diabetic peripheral angiopathy with gangrene; I48.19 Other persistent atrial fibrillation; L03.115 Cellulitis of right lower limb; L97.519 Non-pressure chronic ulcer of other part of right foot with unspecified severity; E86.1 Hypovolemia; I13.0 Hypertensive heart and chronic kidney disease with heart failure and stage 1 through stage 4 chronic kidney disease, or unspecified chronic kidney disease; L02.611 Cutaneous abscess of right foot; T25.221A Burn of second degree of right foot, initial encounter; E11.621 Type 2 diabetes mellitus with foot ulcer; E66.01 Morbid (severe) obesity due to excess calories; E11.22 Type 2 diabetes mellitus with diabetic chronic kidney disease; E11.65 Type 2 diabetes mellitus with hyperglycemia; I25.10 Atherosclerotic heart disease of native coronary artery without angina pectoris; E78.5 Hyperlipidemia, unspecified; I25.5 Ischemic cardiomyopathy; F15.10 Other stimulant abuse, uncomplicated; N18.2 Chronic kidney disease, stage 2 (mild); X11.8XXA Contact with other hot tap-water, initial encounter; Z95.1 Presence of aortocoronary bypass graft; Z85.038 Personal history of other malignant neoplasm of large intestine; Z90.49 Acquired absence of other specified parts of digestive tract; Z86.79 Personal history of other diseases of the circulatory system; Z80.0 Family history of malignant neoplasm of digestive organs; Y93.89 Activity, other specified; Z83.3 Family history of diabetes mellitus; Z87.891 Personal history of nicotine dependence; Z82.49 Family history of ischemic heart disease and other diseases of the circulatory system; Z79.01 Long term (current) use of anticoagulants; Z79.82 Long term (current) use of aspirin; Y92.89 Other specified places as the place of occurrence of the external cause; Y99.8 Other external cause status; Z68.31 Body mass index [BMI] 31.0-31.9, adult
CPT/HCPCS: 11042; 36415; 71045; 73700; 74176; 80048; 80053; 80061; 80202; 80307; 82565; 82962; 83735; 83880; 84443; 84484; 85025; 85610; 85730; 86803; 87077; 87186; 87205; 87340; 93005; 93306; G0378; J1815; J2405

== ENCOUNTER 2023-09-19 09:33 | Inpatient (IN) | payer MEDICARE, MEDICAID ==
[2023-09-19] VITALS (7 sets, daily range): BP systolic 114–132; BP diastolic 81–95; PULSE 51–100; RESP 18–24; TEMP 97.6–97.9; O2SAT 93–97
[~2023-09-19] VITALS: Ht 185.4 cm; Wt 110.8 kg
[~2023-09-19 09:33] MED LIST changes: +ASPI-325 PO; -ASPI81CH59 PO; -AUG875T PO; +BACDST PO; -FLUT1AER17 INH; -FLUT50SP28 EACHNOSTRI; -INSU100I54 SC; -INSU100I70 SC; +INSUINJ37 SC; -LANS30CA57 PO; -METO1TAB9 PO; +METO25TA93 PO; +SILV1CRE82 TOP; -TRI05TP TOP
[2023-09-19 10:52] LABS: Basophils # (auto) 0.1 10 ^3/uL (0-0.2); Eosinophils # (auto) 0.2 10 ^3/uL (0-0.8); Eosinophils % (auto) 2.6 % (0.0-7.0); Hematocrit 45.7 % (41.0-53.0); Hemoglobin 15.6 g/dL (13.5-17.5); Lymphocytes # (auto) 1.6 10 ^3/uL (0.4-5.4); Lymphocytes % (auto) 26.1 % (10.0-50.0); Mean Corpuscular Hemoglobin 30.1 pg (28.0-32.0); Mean Corpuscular Hgb Conc. 34.1 g/dL (32.0-36.0); Mean Corpuscular Volume 88.2 fL (80.0-100.0); Monocytes # (auto) 0.6 10 ^3/uL (0-1.3); Monocytes % (auto) 10.4 % (0.0-12.0); Neutrophils # (auto) 3.7 10 ^3/uL (1.6-8.6); Neutrophils % (auto) 59.9 % (37.0-80.0); Nucleated Red Blood Cells % 0.1 %; Red Blood Cells 5.18 10^6/uL (4.5-5.90); Red Cell Distribution Width 15.4 % (11.8-14.3); White Blood Cell 6.1 10^3/uL (4.4-10.8)
[2023-09-19 11:28] LABS: Chloride 102 mmol/L (98-107); Potassium 5.2 mmol/L (3.5-5.1); Sodium 134 mmol/L (136-145)
[2023-09-19 11:29] LABS: Anion Gap 7 (5-15); Calcium 9.8 mg/dL (8.5-10.1); Carbon Dioxide 25 mmol/L (20-30)
[2023-09-19 11:34] LABS: Blood Urea Nitrogen 63 mg/dL (9-23); Glucose 184 mg/dL (74-106)
[2023-09-19] MEDS: FUROSEMIDE 40 MG/4 ML VIAL IV ONE (12:23)
[2023-09-19] MEDS ORDERED: ACETAMINOPHEN 325 MG TAB PO PRN (14:00)
[2023-09-19] MEDS ORDERED: DOCUSATE SOD 100 MG CAP PO PRN (14:00)
[2023-09-19] MEDS ORDERED: MORPHINE SULFATE INJ 2 MG/ml SYRG IV PRN (14:00)
[2023-09-19] MEDS ORDERED: DEXTROSE (50%) 50ML SYRG IV ONE (14:00)
[2023-09-19] MEDS ORDERED: ONDANSETRON HCL 4 MG/2 ML VIAL IV PRN (14:00)
[2023-09-19] MEDS ORDERED: DEXTROSE (50%) 50ML SYRG IV PRN (14:00)
[2023-09-19] MEDS ORDERED: NITROGLYCERIN 0.4 MG SL TAB SL PRN (14:00)
[2023-09-19] MEDS: InsuLIN REG 1unit/0.01ml Soln (100units/ml) IV ONE (14:50)
[2023-09-19 15:29] LABS: Urine Bacteria None Seen /hpf (None Seen)
[2023-09-19] MEDS: SODIUM BICARB 8.4% 50Meq/50ml SYR INJ ONE (15:29)
[2023-09-19] MEDS: SODIUM BICARB 8.4% 50Meq/50ml SYR INJ IV ONE (15:29)
[2023-09-19] MEDS: HYDROcodone-ACET 5/325MG TAB PO PRN (15:29)
[2023-09-19 15:49] LABS: Urine Blood Negative /uL (Negative); Urine Clarity Clear (Clear); Urine Color Light-Yellow (Yellow); Urine Hyaline Cast MOD /lpf (0 - 2); Urine Protein, UAD Negative (Negative); Urine Specific Gravity 1.013 (1.001-1.035); Urine Urobilinogen Normal (Negative); Urine WBC 1 /hpf (0 - 3)
[2023-09-19] MEDS: ACCU-CHEK COMFORT CURVE STRIP VI SCH (16:38)
[2023-09-19] MEDS: InsuLIN REG 1unit/0.01ml Soln (100units/ml) SC SCH (16:39)
[2023-09-19] MEDS ORDERED: ALBUTEROL SULF 2.5 MG/0.5ML(0.5%) NEB SOLN NEB PRN (18:15)
[2023-09-19] MEDS ORDERED: IPRATROPIUM BROM 0.5 MG/2.5ML INH SOL NEB PRN (18:15)
[2023-09-19] MEDS: APIXABAN 5 MG TAB PO SCH (22:36)
[2023-09-19] MEDS: METOPROLOL TARTRATE 25 MG TAB PO SCH (22:36)
[2023-09-20] VITALS (11 sets, daily range): BP systolic 104–133; BP diastolic 54–90; PULSE 57–91; RESP 16–20; TEMP 97.2–98.8; O2SAT 91–96
[2023-09-20 06:04] LABS: Basophils # (auto) 0.1 10 ^3/uL (0-0.2); Basophils % (auto) 0.9 % (0.0-2.0); Eosinophils # (auto) 0.3 10 ^3/uL (0-0.8); Eosinophils % (auto) 4.9 % (0.0-7.0); Hematocrit 43.5 % (41.0-53.0); Hemoglobin 14.4 g/dL (13.5-17.5); Lymphocytes # (auto) 1.8 10 ^3/uL (0.4-5.4); Lymphocytes % (auto) 27.4 % (10.0-50.0); Mean Corpuscular Hemoglobin 29.3 pg (28.0-32.0); Mean Corpuscular Hgb Conc. 33.1 g/dL (32.0-36.0); Mean Corpuscular Volume 88.4 fL (80.0-100.0); Monocytes # (auto) 0.7 10 ^3/uL (0-1.3); Monocytes % (auto) 10.2 % (0.0-12.0); Neutrophils # (auto) 3.7 10 ^3/uL (1.6-8.6); Neutrophils % (auto) 56.6 % (37.0-80.0); Nucleated Red Blood Cells % 0.1 %; Red Blood Cells 4.92 10^6/uL (4.5-5.90); Red Cell Distribution Width 15.3 % (11.8-14.3); White Blood Cell 6.5 10^3/uL (4.4-10.8)
[2023-09-20 06:18] LABS: Alanine Aminotransferase 29 U/L (7-40); Alkaline Phosphatase 83 U/L (46-116); Anion Gap 5 (5-15); BUN/Creatinine Ratio 17.4 (10.0-20.0); Calcium 9.3 mg/dL (8.5-10.1); Carbon Dioxide 28 mmol/L (20-30); Chloride 102 mmol/L (98-107); Glucose 198 mg/dL (74-106); Potassium 4.8 mmol/L (3.5-5.1); Sodium 135 mmol/L (136-145)
[2023-09-20 06:20] LABS: Albumin 3.8 g/dL (3.2-4.8); Aspartate Aminotransferase 20 U/L (13-40); Bilirubin, Total 0.5 mg/dL (0.2-1.0); Total Protein 7.3 g/dL (5.7-8.2)
[2023-09-20 06:29] LABS: Blood Urea Nitrogen 46 mg/dL (9-23)
[2023-09-20] MEDS ORDERED: DEXTROSE (50%) 50ML SYRG IV PRN (09:45)
[2023-09-20] MEDS: ATORVASTATIN 20 MG TAB PO SCH (09:58)
[2023-09-20] MEDS ORDERED: FUROSEMIDE 20 MG TAB PO SCH (10:00)
[2023-09-20] MEDS ORDERED: ENOXAPARIN SOD 40 MG/0.4 ML SYRINGE SC SCH (10:00)
[2023-09-20] MEDS ORDERED: ENOXAPARIN SOD 30 MG/0.3 ML SYRINGE SC SCH (10:00)
[2023-09-20] MEDS: EMPAGLIFLOZIN 10 MG TAB PO SCH (12:54)
[2023-09-20] MEDS: ASPirin-EC 81 mg tab PO SCH (12:54)
[2023-09-20] MEDS: MORPHINE SULFATE INJ 2 MG/ml SYRG IV PRN (12:55)
[2023-09-20] MEDS: SODIUM CHLORIDE 0.9% 1,000 ML IV ONE (13:00)
[2023-09-20] MEDS: ACCU-CHEK COMFORT CURVE STRIP VI SCH (13:06)
[2023-09-20] MEDS: InsuLIN REG 1unit/0.01ml Soln (100units/ml) SC SCH ×2 (13:09→21:34)
[2023-09-20] MEDS: TAMSULOSIN HYDROCHLORIDE 0.4 MG CAP PO SCH (18:22)
[2023-09-21] VITALS (10 sets, daily range): BP systolic 99–121; BP diastolic 63–90; PULSE 70–92; RESP 18–78; TEMP 97.1–97.9; O2SAT 93–99
[2023-09-21 05:38] LABS: Basophils # (auto) 0 10 ^3/uL (0-0.2); Basophils % (auto) 0.7 % (0.0-2.0); Eosinophils # (auto) 0.2 10 ^3/uL (0-0.8); Eosinophils % (auto) 3.1 % (0.0-7.0); Hematocrit 45.8 % (41.0-53.0); Hemoglobin 15.3 g/dL (13.5-17.5); Lymphocytes # (auto) 1.2 10 ^3/uL (0.4-5.4); Mean Corpuscular Hemoglobin 29.6 pg (28.0-32.0); Mean Corpuscular Hgb Conc. 33.4 g/dL (32.0-36.0); Mean Corpuscular Volume 88.4 fL (80.0-100.0); Monocytes # (auto) 0.6 10 ^3/uL (0-1.3); Monocytes % (auto) 8.3 % (0.0-12.0); Neutrophils # (auto) 4.7 10 ^3/uL (1.6-8.6); Neutrophils % (auto) 69.9 % (37.0-80.0); Nucleated Red Blood Cells % 0.1 %; Red Blood Cells 5.18 10^6/uL (4.5-5.90); Red Cell Distribution Width 15.1 % (11.8-14.3); White Blood Cell 6.7 10^3/uL (4.4-10.8)
[2023-09-21 05:45] LABS: Chloride 106 mmol/L (98-107); Potassium 5.5 mmol/L (3.5-5.1); Sodium 137 mmol/L (136-145)
[2023-09-21 05:46] LABS: Anion Gap 1 (5-15); Carbon Dioxide 30 mmol/L (20-30)
[2023-09-21 05:51] LABS: BUN/Creatinine Ratio 18.5 (10.0-20.0); Glucose 140 mg/dL (74-106)
[2023-09-21 06:13] LABS: Blood Urea Nitrogen 31 mg/dL (9-23)
[2023-09-21 08:06] LABS: PSA Free 0.13 ng/mL; Prostate Specific Antigen 0.3 ng/mL (0.0-4.0)
[2023-09-21] MEDS: SODIUM ZIRCONIUM CYCL 10 GM PAK PO SCH (12:01)
[2023-09-22] VITALS (8 sets, daily range): BP systolic 124–145; BP diastolic 54–89; PULSE 72–91; RESP 17–20; TEMP 36.4; O2SAT 94–97
[2023-09-22 06:38] LABS: Anion Gap 4 (5-15); Carbon Dioxide 30 mmol/L (20-30); Chloride 105 mmol/L (98-107); Sodium 139 mmol/L (136-145)
[2023-09-22 06:39] LABS: Calcium 9.7 mg/dL (8.5-10.1)
[2023-09-22 06:44] LABS: Blood Urea Nitrogen 23 mg/dL (9-23); Glucose 114 mg/dL (74-106)
[2023-09-22] MEDS ORDERED: TAMS-35 PO (11:42)
== END 2023-09-22 14:32 | disposition home or self-care (01) | DRG 501 ==
LOC: ER 09:33 → TELE 14:01 → TELE-EAST 21:46
PROVIDERS: ADMIT Nurse Practitioner Family; ATTEND Internal Medicine
DX: N40.1 Benign prostatic hyperplasia with lower urinary tract symptoms (principal); J96.20 Acute and chronic respiratory failure, unspecified whether with hypoxia or hypercapnia; N17.0 Acute kidney failure with tubular necrosis; J44.1 Chronic obstructive pulmonary disease with (acute) exacerbation; D68.69 Other thrombophilia; N13.8 Other obstructive and reflux uropathy; I13.0 Hypertensive heart and chronic kidney disease with heart failure and stage 1 through stage 4 chronic kidney disease, or unspecified chronic kidney disease; I50.9 Heart failure, unspecified; E11.22 Type 2 diabetes mellitus with diabetic chronic kidney disease; E78.5 Hyperlipidemia, unspecified; E87.5 Hyperkalemia; I25.10 Atherosclerotic heart disease of native coronary artery without angina pectoris; I48.91 Unspecified atrial fibrillation; J98.11 Atelectasis; N18.2 Chronic kidney disease, stage 2 (mild); R33.8 Other retention of urine; E11.51 Type 2 diabetes mellitus with diabetic peripheral angiopathy without gangrene; E66.9 Obesity, unspecified; Z86.79 Personal history of other diseases of the circulatory system; Z85.038 Personal history of other malignant neoplasm of large intestine; Z95.1 Presence of aortocoronary bypass graft; Z79.01 Long term (current) use of anticoagulants; Z82.49 Family history of ischemic heart disease and other diseases of the circulatory system; Z83.3 Family history of diabetes mellitus; Z80.0 Family history of malignant neoplasm of digestive organs; Z68.32 Body mass index [BMI] 32.0-32.9, adult
CPT/HCPCS: 36415; 71045; 76775; 80048; 80053; 81001; 82962; 83880; 84154; 84484; 85025; 87040; 87081; 97163; 99291; G0378; J1815

== ENCOUNTER 2023-10-01 10:27 | Inpatient (IN) | payer MEDICARE, MEDICAID ==
[~2023-10-01] VITALS: Ht 182.9 cm; Wt 110.0 kg
[~2023-10-01 10:27] MED LIST changes: +TAMS-35 PO
[2023-10-01 11:43] LABS: Basophils # (auto) 0.1 10 ^3/uL (0-0.2); Basophils % (auto) 0.9 % (0.0-2.0); Eosinophils # (auto) 0.1 10 ^3/uL (0-0.8); Eosinophils % (auto) 0.8 % (0.0-7.0); Hematocrit 42.2 % (41.0-53.0); Hemoglobin 14.1 g/dL (13.5-17.5); Lymphocytes # (auto) 1.3 10 ^3/uL (0.4-5.4); Lymphocytes % (auto) 20.1 % (10.0-50.0); Mean Corpuscular Hemoglobin 29.5 pg (28.0-32.0); Mean Corpuscular Hgb Conc. 33.5 g/dL (32.0-36.0); Mean Corpuscular Volume 88.1 fL (80.0-100.0); Monocytes # (auto) 0.8 10 ^3/uL (0-1.3); Monocytes % (auto) 12.4 % (0.0-12.0); Neutrophils # (auto) 4.3 10 ^3/uL (1.6-8.6); Neutrophils % (auto) 65.8 % (37.0-80.0); Red Blood Cells 4.79 10^6/uL (4.5-5.90); Red Cell Distribution Width 15.7 % (11.8-14.3); White Blood Cell 6.5 10^3/uL (4.4-10.8)
[2023-10-01 11:58] LABS: Alanine Aminotransferase 32 U/L (7-40); Alkaline Phosphatase 72 U/L (46-116); Anion Gap 9 (5-15); Aspartate Aminotransferase 26 U/L (13-40); BUN/Creatinine Ratio 18.1 (10.0-20.0); Blood Alcohol < 3.0 mg/dL (<10); Blood Urea Nitrogen 35 mg/dL (9-23); Calcium 10.4 mg/dL (8.5-10.1); Carbon Dioxide 24 mmol/L (20-30); Chloride 107 mmol/L (98-107); Glucose 109 mg/dL (74-106); Potassium 4.5 mmol/L (3.5-5.1); Sodium 140 mmol/L (136-145)
[2023-10-01 11:59] LABS: Albumin 4.3 g/dL (3.2-4.8); Bilirubin, Total 0.7 mg/dL (0.2-1.0); Total Protein 7.2 g/dL (5.7-8.2)
[2023-10-01] MEDS: HYDROcodone-ACET 10/325MG TAB PO ONE (12:04)
[2023-10-01 12:44] LABS: Erythrocyte Sedimentation Rate 35 mm/hr (0-20)
[2023-10-01 13:11] LABS: Amphetamine Screen, Urine Pos (NEGATIVE); Barbiturate Scree,Urine Neg (NEGATIVE); Benzodiazephine Screen, Urine Neg (NEGATIVE); Cannabinoid Screen, Urine Neg (NEGATIVE); Cocaine Screen, Urine Neg (NEGATIVE); Opiate Scree,Urine Neg (NEGATIVE); Phencyclidine Screen, Urine Neg (NEGATIVE)
[2023-10-01 13:16] LABS: Urine Bacteria FEW /hpf (None Seen); Urine Blood Negative /uL (Negative); Urine Clarity Clear (Clear); Urine Color Light-Yellow (Yellow); Urine Hyaline Cast MANY /lpf (0 - 2); Urine Mucus FEW (None Seen); Urine Protein, UAD TRACE (Negative); Urine Specific Gravity 1.014 (1.001-1.035); Urine Urobilinogen Normal (Negative); Urine WBC 1 /hpf (0 - 3); Urine pH 5.5 (5.0-9.0)
[2023-10-01] MEDS: ONDANSETRON HCL 4 MG/2 ML VIAL IV ONE (14:49)
[2023-10-01] MEDS: MORPHINE SULFATE 4 MG/ML SYR/VIAL IV ONE (14:50)
[2023-10-01] MEDS ORDERED: ACETAMINOPHEN 325 MG TAB PO PRN (18:15)
[2023-10-01] MEDS: SODIUM CHLORIDE 0.9% 1,000 ML IV ONE (19:58)
[2023-10-01 20:48] VITALS: RESP 29; O2SAT 92
[2023-10-01] MEDS: ASCORBIC ACID 500 MG TAB PO SCH (21:51)
[2023-10-01] MEDS: APIXABAN 5 MG TAB PO SCH (21:51)
[2023-10-01] MEDS: GABAPENTIN 400 MG CAP PO SCH (21:51)
[2023-10-01] MEDS: METOPROLOL SUCCINATE XL 50 MG TAB PO SCH (21:52)
[2023-10-01] MEDS: SACUBITRIL-VALSARTAN 24mg/26mg TAB PO SCH (21:52)
[2023-10-01 22:30] VITALS: BP 111/72; PULSE 75; RESP 20; TEMP 97.8; O2SAT 92
[2023-10-01 23:04] VITALS: RESP 16; O2SAT 98
[2023-10-02] VITALS (8 sets, daily range): BP systolic 90–105; BP diastolic 53–73; PULSE 61–79; RESP 16–20; TEMP 97.6–98.9; O2SAT 93–98
[2023-10-02 06:20] LABS: Basophils # (auto) 0 10 ^3/uL (0-0.2); Basophils % (auto) 0.8 % (0.0-2.0); Eosinophils # (auto) 0.2 10 ^3/uL (0-0.8); Eosinophils % (auto) 4.4 % (0.0-7.0); Hematocrit 41.6 % (41.0-53.0); Hemoglobin 13.9 g/dL (13.5-17.5); Lymphocytes # (auto) 1.6 10 ^3/uL (0.4-5.4); Lymphocytes % (auto) 32.2 % (10.0-50.0); Mean Corpuscular Hemoglobin 29.8 pg (28.0-32.0); Mean Corpuscular Hgb Conc. 33.3 g/dL (32.0-36.0); Mean Corpuscular Volume 89.4 fL (80.0-100.0); Monocytes # (auto) 0.6 10 ^3/uL (0-1.3); Monocytes % (auto) 12.3 % (0.0-12.0); Neutrophils # (auto) 2.4 10 ^3/uL (1.6-8.6); Neutrophils % (auto) 50.3 % (37.0-80.0); Red Blood Cells 4.66 10^6/uL (4.5-5.90); Red Cell Distribution Width 15.9 % (11.8-14.3); White Blood Cell 4.9 10^3/uL (4.4-10.8)
[2023-10-02 06:59] LABS: Alanine Aminotransferase 29 U/L (7-40); Albumin 3.8 g/dL (3.2-4.8); Alkaline Phosphatase 69 U/L (46-116); Anion Gap 5 (5-15); Aspartate Aminotransferase 26 U/L (13-40); BUN/Creatinine Ratio 20.1 (10.0-20.0); Blood Urea Nitrogen 31 mg/dL (9-23); Calcium 9.7 mg/dL (8.7-10.4); Carbon Dioxide 26 mmol/L (20-30); Chloride 105 mmol/L (98-107); Glucose 163 mg/dL (74-106); Potassium 4.3 mmol/L (3.5-5.1); Sodium 136 mmol/L (136-145)
[2023-10-02 07:00] LABS: Bilirubin, Total 0.4 mg/dL (0.2-1.0); Total Protein 6.9 g/dL (5.7-8.2)
[2023-10-02] MEDS: SPIRONOLACTONE 25 MG TAB PO SCH (10:38)
[2023-10-02] MEDS: ZINC SULFATE 220mg CAP or TAB PO SCH (10:38)
[2023-10-02] MEDS: MULTIPLE VITAMIN TAB PO SCH (10:39)
[2023-10-02] MEDS: SILVER SULFADIAZINE 1 % TOPICAL CREAM 50GM TOP SCH (10:39)
[2023-10-02] MEDS: ATORVASTATIN 20 MG TAB PO SCH (10:39)
[2023-10-02] MEDS: ASPirin-EC 81 mg tab PO SCH (13:31)
[2023-10-02] MEDS ORDERED: DEXTROSE (50%) 50ML SYRG IV PRN (17:45)
[2023-10-02] MEDS: TAMSULOSIN HYDROCHLORIDE 0.4 MG CAP PO SCH (18:02)
[2023-10-02] MEDS: HYDROcodone-ACET 5/325MG TAB PO PRN (20:43)
[2023-10-02] MEDS: PIPERACILLIN-TAZOB 3.375GM 100 ML IV SCH (21:44)
[2023-10-02] MEDS: ACCU-CHEK COMFORT CURVE STRIP VI SCH (21:52)
[2023-10-02] MEDS: InsuLIN REG 1unit/0.01ml Soln (100units/ml) SC SCH (22:23)
[2023-10-03] VITALS (8 sets, daily range): BP systolic 105–122; BP diastolic 68–81; PULSE 57–89; RESP 16–20; TEMP 97.4–98.3; O2SAT 92–99
[2023-10-03 11:57] LABS: Anion Gap 3 (5-15); Calcium 9.7 mg/dL (8.5-10.1); Carbon Dioxide 26 mmol/L (20-30); Chloride 105 mmol/L (98-107); Potassium 4.6 mmol/L (3.5-5.1); Sodium 134 mmol/L (136-145)
[2023-10-03 12:02] LABS: Glucose 201 mg/dL (74-106)
[2023-10-03 12:03] LABS: BUN/Creatinine Ratio 14.7 (10.0-20.0); Blood Urea Nitrogen 15 mg/dL (9-23)
[2023-10-03] MEDS: LORazepam 2MG/ML-1ML VIAL IV ONE (16:45)
[2023-10-03] MEDS ORDERED: VANCOMYCIN PER PHARMACY 0 MG IV SCH (16:45)
[2023-10-03] MEDS: VANCOMYCIN 1GM/200ML 200 ML IV ONE (21:25)
[2023-10-03] MEDS: CEFEPIME 2GM/50ML NS 50 ML IV SCH (23:14)
[2023-10-03] MEDS: traZODone HCL 50 MG TAB PO PRN (23:27)
[2023-10-04] VITALS (7 sets, daily range): BP systolic 98–121; BP diastolic 58–85; PULSE 61–105; RESP 17–21; TEMP 97.4–98.5; O2SAT 94–98
[2023-10-04] MEDS: VANCOMYCIN 1GM/200ML 200 ML IV ONE (05:23)
[2023-10-04 06:12] LABS: Chloride 106 mmol/L (98-107); Potassium 4.5 mmol/L (3.5-5.1); Sodium 137 mmol/L (136-145)
[2023-10-04 06:13] LABS: Anion Gap 5 (5-15); Carbon Dioxide 26 mmol/L (20-30)
[2023-10-04 06:14] LABS: Calcium 9.5 mg/dL (8.5-10.1)
[2023-10-04 06:18] LABS: Glucose 194 mg/dL (74-106)
[2023-10-04 06:19] LABS: BUN/Creatinine Ratio 14.3 (10.0-20.0); Blood Urea Nitrogen 16 mg/dL (9-23)
[2023-10-04] MEDS: VANCOMYCIN 1GM/200ML 200 ML IV SCH (18:54)
[2023-10-05 05:00] VITALS: BP 146/71; PULSE 81; RESP 19; TEMP 98.2; O2SAT 93
[2023-10-05 08:00] VITALS: PULSE 79; RESP 18; O2SAT 94
[2023-10-05 09:00] VITALS: BP 125/81; PULSE 63; RESP 17; TEMP 97.2; O2SAT 96
[2023-10-05] MEDS ORDERED: AUG875T PO (11:44)
[2023-10-05 12:31] VITALS: BP 130/79; PULSE 70; RESP 17; TEMP 97.5; O2SAT 96
== END 2023-10-05 15:38 | disposition home or self-care (01) | DRG 380 ==
LOC: ER 10:27 → OVERFLOW 18:15 → WEST WING 22:30 → EAST 10-04 06:50
PROVIDERS: ADMIT Nurse Practitioner Family; ATTEND Internal Medicine
DX: E11.621 Type 2 diabetes mellitus with foot ulcer (principal); L97.519 Non-pressure chronic ulcer of other part of right foot with unspecified severity; N17.0 Acute kidney failure with tubular necrosis; D68.69 Other thrombophilia; I13.0 Hypertensive heart and chronic kidney disease with heart failure and stage 1 through stage 4 chronic kidney disease, or unspecified chronic kidney disease; I50.42 Chronic combined systolic (congestive) and diastolic (congestive) heart failure; L03.031 Cellulitis of right toe; E11.22 Type 2 diabetes mellitus with diabetic chronic kidney disease; J44.1 Chronic obstructive pulmonary disease with (acute) exacerbation; J96.10 Chronic respiratory failure, unspecified whether with hypoxia or hypercapnia; E66.01 Morbid (severe) obesity due to excess calories; I25.10 Atherosclerotic heart disease of native coronary artery without angina pectoris; I48.91 Unspecified atrial fibrillation; K59.00 Constipation, unspecified; N18.32 Chronic kidney disease, stage 3b; S20.211A Contusion of right front wall of thorax, initial encounter; T25.021A Burn of unspecified degree of right foot, initial encounter; I71.40 Abdominal aortic aneurysm, without rupture, unspecified; E78.5 Hyperlipidemia, unspecified; N40.0 Benign prostatic hyperplasia without lower urinary tract symptoms; Z79.4 Long term (current) use of insulin; Z85.038 Personal history of other malignant neoplasm of large intestine; Z83.3 Family history of diabetes mellitus; Z68.32 Body mass index [BMI] 32.0-32.9, adult; Z82.49 Family history of ischemic heart disease and other diseases of the circulatory system; Z80.0 Family history of malignant neoplasm of digestive organs; Z95.1 Presence of aortocoronary bypass graft; X58.XXXA Exposure to other specified factors, initial encounter; Y93.89 Activity, other specified; Y92.89 Other specified places as the place of occurrence of the external cause; Y99.8 Other external cause status
CPT/HCPCS: 36415; 71250; 73630; 73718; 74176; 80048; 80053; 80202; 80307; 80320; 81001; 82565; 82962; 83605; 83880; 83930; 84484; 85025; 85652; 87040; 87081; 87205; 93005; 93925; 93970; 96361; 96374; 96375; G0378; J0692; J1815; J2405; J2543

== ENCOUNTER 2023-10-12 09:13 | Emergency (ER) | payer MEDICARE, MEDICAID ==
[~2023-10-12] VITALS: Ht 185.4 cm; Wt 107.0 kg
[~2023-10-12 09:13] MED LIST changes: +AUG875T PO; -BACDST PO
[2023-10-12 09:16] VITALS: BP 116/70; PULSE 83; RESP 20; O2SAT 95
== END 2023-10-12 09:33 | disposition left against medical advice (07) ==
LOC: ER 09:13
DX: R06.02 Shortness of breath (principal); Z53.21 Procedure and treatment not carried out due to patient leaving prior to being seen by health care provider

== ENCOUNTER 2023-11-01 00:10 | Emergency (ER) | payer MEDICARE, MEDICAID ==
[~2023-11-01] VITALS: Ht 185.4 cm; Wt 122.7 kg
[2023-11-01 00:23] VITALS: BP 142/100; PULSE 70; RESP 20; O2SAT 98
[2023-11-01] MEDS ORDERED: HYDR-4798 PO (03:04)
[2023-11-01] MEDS: HYDROcodone-ACET 10/325MG TAB PO ONE (03:06)
== END 2023-11-01 03:19 | disposition home or self-care (01) ==
LOC: ER 00:10
DX: M54.89 Other dorsalgia (principal); M25.531 Pain in right wrist; M79.672 Pain in left foot; M79.671 Pain in right foot; I48.91 Unspecified atrial fibrillation; I11.0 Hypertensive heart disease with heart failure; I50.89 Other heart failure; E11.9 Type 2 diabetes mellitus without complications; Z79.899 Other long term (current) drug therapy; Z79.82 Long term (current) use of aspirin; Z79.4 Long term (current) use of insulin; Z98.890 Other specified postprocedural states; W19.XXXA Unspecified fall, initial encounter; Y93.89 Activity, other specified; Y92.89 Other specified places as the place of occurrence of the external cause; Y99.8 Other external cause status

== ENCOUNTER 2023-11-06 11:44 | Inpatient (IN) | payer MEDICARE, MEDICAID ==
[~2023-11-06] VITALS: Ht 188 cm; Wt 105.0 kg
[2023-11-06] VITALS (7 sets, daily range): BP systolic 87–117; BP diastolic 42–82; PULSE 99–126; RESP 24–29; TEMP 98.3–98.5; O2SAT 82–100
[~2023-11-06 11:44] MED LIST changes: +HYDR-4798 PO
[2023-11-06] MEDS: LORazepam 2MG/ML-1ML VIAL IV ONE (12:02)
[2023-11-06] MEDS: SODIUM CHLORIDE 0.9% 1,000 ML IV ONE (12:17)
[2023-11-06] MEDS: PANTOPRAZOLE 40 MG/10 ML VIAL INJ IV ONE (12:17)
[2023-11-06] MEDS: ONDANSETRON HCL 4 MG/2 ML VIAL IV ONE (12:18)
[2023-11-06] MEDS: MORPHINE SULFATE 4 MG/ML SYR/VIAL IV ONE (12:31)
[2023-11-06 12:37] LABS: Basophils # (auto) 0 10 ^3/uL (0-0.2); Basophils % (auto) 0.6 % (0.0-2.0); Eosinophils # (auto) 0.1 10 ^3/uL (0-0.8); Eosinophils % (auto) 1.7 % (0.0-7.0); Hematocrit 39.1 % (41.0-53.0); Hemoglobin 12.9 g/dL (13.5-17.5); Lymphocytes # (auto) 1.1 10 ^3/uL (0.4-5.4); Lymphocytes % (auto) 16.6 % (10.0-50.0); Mean Corpuscular Hemoglobin 30.1 pg (28.0-32.0); Mean Corpuscular Volume 91.1 fL (80.0-100.0); Monocytes # (auto) 0.6 10 ^3/uL (0-1.3); Monocytes % (auto) 8.4 % (0.0-12.0); Neutrophils # (auto) 4.9 10 ^3/uL (1.6-8.6); Neutrophils % (auto) 72.7 % (37.0-80.0); Red Blood Cells 4.29 10^6/uL (4.5-5.90); Red Cell Distribution Width 16.1 % (11.8-14.3); White Blood Cell 6.8 10^3/uL (4.4-10.8)
[2023-11-06 13:19] LABS: Alanine Aminotransferase 25 U/L (7-40); Albumin 3.9 g/dL (3.2-4.8); Alkaline Phosphatase 81 U/L (46-116); Anion Gap 7 (5-15); Aspartate Aminotransferase 23 U/L (13-40); BUN/Creatinine Ratio 16.8 (10.0-20.0); Blood Alcohol < 3.0 mg/dL (<10); Blood Urea Nitrogen 32 mg/dL (9-23); Calcium 9.3 mg/dL (8.7-10.4); Carbon Dioxide 29 mmol/L (20-30); Chloride 105 mmol/L (98-107); Glucose 164 mg/dL (74-106); Potassium 4.1 mmol/L (3.5-5.1); Sodium 141 mmol/L (136-145)
[2023-11-06 13:20] LABS: Bilirubin, Total 0.5 mg/dL (0.2-1.0); Total Protein 6.9 g/dL (5.7-8.2)
[2023-11-06 13:29] LABS: Urine Bacteria None Seen /hpf (None Seen)
[2023-11-06 13:34] LABS: Lipase 23 U/L (12-53)
[2023-11-06 13:40] LABS: Urine Blood Negative /uL (Negative); Urine Clarity Clear (Clear); Urine Protein, UAD 1+ (Negative); Urine Specific Gravity 1.007 (1.001-1.035); Urine Urobilinogen Normal (Negative); Urine WBC <1 /hpf (0 - 3); Urine pH 5.5 (5.0-9.0)
[2023-11-06 13:41] LABS: Urine Color Straw (Yellow)
[2023-11-06 13:54] LABS: Amphetamine Screen, Urine Neg (NEGATIVE); Barbiturate Scree,Urine Neg (NEGATIVE)
[2023-11-06 13:55] LABS: Benzodiazephine Screen, Urine Neg (NEGATIVE); Cannabinoid Screen, Urine Neg (NEGATIVE); Cocaine Screen, Urine Neg (NEGATIVE); Opiate Scree,Urine Neg (NEGATIVE); Phencyclidine Screen, Urine Neg (NEGATIVE)
[2023-11-06] MEDS: IOHEXOL 350 MG/ML 100ML IJ ONE (14:32)
[2023-11-06] MEDS ORDERED: NITROGLYCERIN 0.4 MG SL TAB SL PRN (16:30)
[2023-11-06] MEDS: AZITHROMYCIN 500MG/ 250ML 250 ML IV ONE (16:55)
[2023-11-06 16:56] LABS: Triglycerides 102 mg/dL (< 150)
[2023-11-06 16:57] LABS: LDL Cholesterol 56 mg/dL (< 100)
[2023-11-06 16:59] LABS: Cholesterol 104 mg/dL (< 200); HDL Cholesterol 27 mg/dL (40-59)
[2023-11-06] MEDS ORDERED: DEXTROSE (50%) 50ML SYRG IV PRN (17:15)
[2023-11-06] MEDS: TAMSULOSIN HYDROCHLORIDE 0.4 MG CAP PO SCH (18:00)
[2023-11-06] MEDS: cefTRIAXone 1GM/50ML D5W 50 ML IV ONE (18:01)
[2023-11-06] MEDS: INSULIN LANTUS (GLARGINE) 1 /0.01ml (100units/ml) SC SCH (18:28)
[2023-11-06 18:31] LABS: Base Excess -4.1 mmol/L (-2.0-2.0)
[2023-11-06] MEDS: SODIUM CHLORIDE 0.9% 500 ML IV ONE (19:37)
[2023-11-06 20:33] LABS: Base Excess -2.5 mmol/L (-2.0-2.0)
[2023-11-06] MEDS: APIXABAN 5 MG TAB PO SCH (21:17)
[2023-11-06] MEDS: SACUBITRIL-VALSARTAN 24mg/26mg TAB PO SCH (21:18)
[2023-11-06] MEDS: ATORVASTATIN 20 MG TAB PO SCH (21:18)
[2023-11-06] MEDS: GABAPENTIN 400 MG CAP PO SCH (21:20)
[2023-11-06] MEDS: ACCU-CHEK COMFORT CURVE STRIP VI SCH (21:20)
[2023-11-06] MEDS: InsuLIN REG 1unit/0.01ml Soln (100units/ml) SC SCH (21:26)
[2023-11-06] MEDS ORDERED: METOPROLOL SUCCINATE XL 50 MG TAB PO SCH (22:00)
[2023-11-06] MEDS: TEMAZEPAM 15 MG CAP PO ONE (23:38)
[2023-11-07] VITALS (28 sets, daily range): BP systolic 92–144; BP diastolic 24–86; PULSE 76–127; RESP 12–23; TEMP 97–98.8; O2SAT 92–100
[2023-11-07 00:17] LABS: Base Excess -2.3 mmol/L (-2.0-2.0)
[2023-11-07] MEDS: FUROSEMIDE 20 MG/2 ML VIAL IV ONE (02:35)
[2023-11-07 05:08] LABS: Basophils # (auto) 0 10 ^3/uL (0-0.2); Basophils % (auto) 0.4 % (0.0-2.0); Eosinophils # (auto) 0 10 ^3/uL (0-0.8); Eosinophils % (auto) 0.2 % (0.0-7.0); Hematocrit 36.9 % (41.0-53.0); Hemoglobin 12.2 g/dL (13.5-17.5); Lymphocytes # (auto) 0.7 10 ^3/uL (0.4-5.4); Lymphocytes % (auto) 6.2 % (10.0-50.0); Mean Corpuscular Hemoglobin 30.6 pg (28.0-32.0); Mean Corpuscular Hgb Conc. 33.1 g/dL (32.0-36.0); Mean Corpuscular Volume 92.4 fL (80.0-100.0); Monocytes # (auto) 0.6 10 ^3/uL (0-1.3); Monocytes % (auto) 6.1 % (0.0-12.0); Neutrophils # (auto) 9.1 10 ^3/uL (1.6-8.6); Neutrophils % (auto) 87.1 % (37.0-80.0); Red Blood Cells 3.99 10^6/uL (4.5-5.90); Red Cell Distribution Width 16.2 % (11.8-14.3); White Blood Cell 10.5 10^3/uL (4.4-10.8)
[2023-11-07 05:45] LABS: Alanine Aminotransferase 19 U/L (7-40); Albumin 3.5 g/dL (3.2-4.8); Alkaline Phosphatase 60 U/L (46-116); Anion Gap 7 (5-15); Aspartate Aminotransferase 19 U/L (13-40); BUN/Creatinine Ratio 18.9 (10.0-20.0); Bilirubin, Total 1.1 mg/dL (0.2-1.0); Blood Urea Nitrogen 34 mg/dL (9-23); Calcium 8.8 mg/dL (8.7-10.4); Carbon Dioxide 26 mmol/L (20-30); Chloride 106 mmol/L (98-107); Glucose 208 mg/dL (74-106); Potassium 4.7 mmol/L (3.5-5.1); Sodium 139 mmol/L (136-145); Total Protein 6.2 g/dL (5.7-8.2)
[2023-11-07] MEDS: INSULIN LANTUS (GLARGINE) 1 /0.01ml (100units/ml) SC SCH (06:36)
[2023-11-07] MEDS: cefTRIAXone 1GM/50ML D5W 50 ML IV SCH (09:05)
[2023-11-07] MEDS: FUROSEMIDE 20 MG/2 ML VIAL IV SCH (09:06)
[2023-11-07] MEDS: AZITHROMYCIN 500MG/ 250ML 250 ML IV SCH (09:06)
[2023-11-07] MEDS ORDERED: EMPAGLIFLOZIN 10 MG TAB PO SCH (10:00)
[2023-11-07] MEDS ORDERED: ENOXAPARIN SOD 40 MG/0.4 ML SYRINGE SC SCH (10:00)
[2023-11-07] MEDS ORDERED: FUROSEMIDE 40 MG TAB PO SCH (10:00)
[2023-11-07] MEDS: SPIRONOLACTONE 25 MG TAB PO SCH (11:15)
[2023-11-07] MEDS: HYDROcodone-ACET 5/325MG TAB PO PRN (11:16)
[2023-11-07] MEDS: EMPAGLIFLOZIN 10 MG TAB PO SCH (11:16)
[2023-11-07] MEDS: ASPirin-EC 81 mg tab PO SCH (14:01)
[2023-11-07] MEDS: LACTULOSE 20Gm/30ML SOLN PO SCH (16:39)
[2023-11-07] MEDS: LEVALBUTEROL HCL 1.25 MG/3 ML NEB NEB SCH (18:00)
[2023-11-07] MEDS: APIXABAN 5 MG TAB PO SCH (22:04)
[2023-11-07] MEDS: FUROSEMIDE 40 MG/4 ML VIAL IV SCH (22:06)
[2023-11-07] MEDS: MORPHINE SULFATE INJ 2 MG/ml SYRG IV PRN (22:49)
[2023-11-08] VITALS (27 sets, daily range): BP systolic 90–163; BP diastolic 46–139; PULSE 89–146; RESP 14–25; TEMP 97.2–99.1; O2SAT 89–100
[2023-11-08] MEDS: dilTIAZem 25 MG/5 ML VIAL IV ONE (05:16)
[2023-11-08 06:10] LABS: Basophils # (auto) 0 10 ^3/uL (0-0.2); Basophils % (auto) 0.2 % (0.0-2.0); Eosinophils # (auto) 0.1 10 ^3/uL (0-0.8); Eosinophils % (auto) 1.3 % (0.0-7.0); Hematocrit 39.1 % (41.0-53.0); Hemoglobin 12.8 g/dL (13.5-17.5); Lymphocytes # (auto) 0.6 10 ^3/uL (0.4-5.4); Lymphocytes % (auto) 6.9 % (10.0-50.0); Mean Corpuscular Hemoglobin 30.2 pg (28.0-32.0); Mean Corpuscular Hgb Conc. 32.8 g/dL (32.0-36.0); Mean Corpuscular Volume 92.2 fL (80.0-100.0); Monocytes # (auto) 0.8 10 ^3/uL (0-1.3); Monocytes % (auto) 8.8 % (0.0-12.0); Neutrophils # (auto) 7.7 10 ^3/uL (1.6-8.6); Neutrophils % (auto) 82.8 % (37.0-80.0); Nucleated Red Blood Cells % 0.2 %; Red Blood Cells 4.24 10^6/uL (4.5-5.90); Red Cell Distribution Width 16.4 % (11.8-14.3); White Blood Cell 9.3 10^3/uL (4.4-10.8)
[2023-11-08 07:25] LABS: Urine Bacteria FEW /hpf (None Seen); Urine Blood 3+ /uL (Negative); Urine Clarity Turbid (Clear); Urine Color Yellow (Yellow); Urine Mucus FEW (None Seen); Urine Protein, UAD 1+ (Negative); Urine Specific Gravity 1.023 (1.001-1.035); Urine Urobilinogen Normal (Negative); Urine WBC 30 /hpf (0 - 3); Urine pH 5.5 (5.0-9.0)
[2023-11-08 08:16] LABS: Anion Gap 9 (5-15); Carbon Dioxide 24 mmol/L (20-30); Chloride 102 mmol/L (98-107); Potassium 4.3 mmol/L (3.5-5.1); Sodium 135 mmol/L (136-145)
[2023-11-08 08:17] LABS: Calcium 9.3 mg/dL (8.7-10.4)
[2023-11-08 08:22] LABS: BUN/Creatinine Ratio 19.9 (10.0-20.0); Blood Urea Nitrogen 38 mg/dL (9-23); Glucose 151 mg/dL (74-106); Magnesium 1.7 mg/dL (1.6-2.6)
[2023-11-08] MEDS: METOPROLOL TARTRATE 1MG/1ML-5ML VIAL IV ONE (08:37)
[2023-11-08 08:54] LABS: Base Excess -0.5 mmol/L (-2.0-2.0)
[2023-11-08] MEDS: FUROSEMIDE 40 MG/4 ML VIAL IV SCH (10:23)
[2023-11-08] MEDS: METOPROLOL SUCCINATE XL 50 MG TAB PO SCH (10:24)
[2023-11-08] MEDS: GABAPENTIN 300 MG CAP PO SCH (14:00)
[2023-11-08] MEDS ORDERED: CLINIMIX PER PHARMACY 0 ML IV SCH (14:15)
[2023-11-08] MEDS: PIPERACILLIN-TAZOB 3.375GM 100 ML IV SCH (16:39)
[2023-11-08] MEDS: MORPHINE SULFATE INJ 2 MG/ml SYRG IV PRN (17:05)
[2023-11-08] MEDS: AMIODARONE BOLUS KIT 100 ML IV ONE (19:36)
[2023-11-08] MEDS: AMIODARONE 450mg/250ml AE 250 ML IV SCH (19:55)
[2023-11-08] MEDS: AMINO ACID INFUSION IN D10W 1,000 ML IV SCH (20:06)
[2023-11-08] MEDS ORDERED: ENOXAPARIN SOD 100 MG/1 ML SYRINGE SC SCH (22:00)
[2023-11-08] MEDS: ENOXAPARIN SOD 120 MG/0.8 ML SYRINGE SC SCH (22:32)
[2023-11-09] VITALS (33 sets, daily range): BP systolic 114–213; BP diastolic 37–108; PULSE 116–156; RESP 14–29; TEMP 97.6–98.6; O2SAT 84–100
[2023-11-09] MEDS: METOPROLOL TARTRATE 1MG/1ML-5ML VIAL IV PRN (00:09)
[2023-11-09] MEDS: hydrALAZINE HCL 20 MG/ML VL IV ONE (01:49)
[2023-11-09] MEDS: AMIODARONE 450mg/250ml AE 250 ML IV SCH (01:50)
[2023-11-09 02:58] LABS: INR 1.29 (0.9-1.15); Partial Thromboplastin Time 29.4 SEC (24.5-34.5); Prothrombin Time 13.4 sec (9.3-11.8)
[2023-11-09 03:04] LABS: Alanine Aminotransferase 17 U/L (7-40); Albumin 3.8 g/dL (3.2-4.8); Alkaline Phosphatase 72 U/L (46-116); Anion Gap 10 (5-15); Aspartate Aminotransferase 19 U/L (13-40); BUN/Creatinine Ratio 27.8 (10.0-20.0); Blood Urea Nitrogen 37 mg/dL (9-23); Calcium 9.4 mg/dL (8.7-10.4); Carbon Dioxide 27 mmol/L (20-30); Chloride 102 mmol/L (98-107); Glucose 213 mg/dL (74-106); Magnesium 1.8 mg/dL (1.6-2.6); Potassium 4.1 mmol/L (3.5-5.1); Sodium 139 mmol/L (136-145)
[2023-11-09 03:05] LABS: Phosphorus 2.8 mg/dL (2.4-5.1); Total Protein 7.2 g/dL (5.7-8.2)
[2023-11-09] MEDS: METOPROLOL SUCCINATE XL 50 MG TAB PO SCH (04:04)
[2023-11-09] MEDS: DIGOXIN (250MCG/ML) 2 ML AMPULE IV ONE (09:41)
[2023-11-09] MEDS: MAGNESIUM SULFATE 1GM/100ML 100 ML IV ONE (09:41)
[2023-11-09] MEDS ORDERED: POLYETHYLENE GLYCOL 17 GM PWDR PO PRN (12:00)
[2023-11-09] MEDS ORDERED: DEXTROSE (50%) 50ML SYRG IV SCH (14:30)
[2023-11-09] MEDS: hydrALAZINE HCL 20 MG/ML VL IV PRN (16:16)
[2023-11-09] MEDS: ACCU-CHEK COMFORT CURVE STRIP VI SCH (17:52)
[2023-11-09] MEDS: InsuLIN REG 1unit/0.01ml Soln (100units/ml) SC SCH (17:53)
[2023-11-09] MEDS: METOPROLOL TARTRATE 1MG/1ML-5ML VIAL IV ONE (18:40)
[2023-11-09] MEDS: PANTOPRAZOLE 40 MG/10 ML VIAL INJ IV SCH (20:58)
[2023-11-09 21:14] LABS: Basophils # (auto) 0 10 ^3/uL (0-0.2); Basophils % (auto) 0.1 % (0.0-2.0); Eosinophils # (auto) 0 10 ^3/uL (0-0.8); Eosinophils % (auto) 0.2 % (0.0-7.0); Hematocrit 46.4 % (41.0-53.0); Hemoglobin 15.5 g/dL (13.5-17.5); Lymphocytes # (auto) 0.2 10 ^3/uL (0.4-5.4); Lymphocytes % (auto) 3.1 % (10.0-50.0); Mean Corpuscular Hemoglobin 30.2 pg (28.0-32.0); Mean Corpuscular Hgb Conc. 33.4 g/dL (32.0-36.0); Mean Corpuscular Volume 90.4 fL (80.0-100.0); Monocytes # (auto) 0.6 10 ^3/uL (0-1.3); Monocytes % (auto) 10.1 % (0.0-12.0); Neutrophils # (auto) 5.2 10 ^3/uL (1.6-8.6); Neutrophils % (auto) 86.5 % (37.0-80.0); Nucleated Red Blood Cells % 0.1 %; Red Blood Cells 5.13 10^6/uL (4.5-5.90); Red Cell Distribution Width 16.5 % (11.8-14.3)
[2023-11-10] VITALS (33 sets, daily range): BP systolic 120–167; BP diastolic 55–108; PULSE 98–146; RESP 13–24; TEMP 97.1–98.2; O2SAT 89–100
[2023-11-10 05:35] LABS: Alanine Aminotransferase 15 U/L (7-40); Albumin 3.8 g/dL (3.2-4.8); Alkaline Phosphatase 69 U/L (46-116); Anion Gap 9 (5-15); Aspartate Aminotransferase 17 U/L (13-40); BUN/Creatinine Ratio 29.1 (10.0-20.0); Bilirubin, Total 1.2 mg/dL (0.2-1.0); Blood Urea Nitrogen 30 mg/dL (9-23); Calcium 9.7 mg/dL (8.7-10.4); Carbon Dioxide 29 mmol/L (20-30); Chloride 106 mmol/L (98-107); Glucose 192 mg/dL (74-106); Phosphorus 2.5 mg/dL (2.4-5.1); Potassium 3.4 mmol/L (3.5-5.1); Sodium 144 mmol/L (136-145); Total Protein 7.4 g/dL (5.7-8.2)
[2023-11-10] MEDS: POTASSIUM CHL 20MEQ/100ML 100 ML IV ONE (08:54)
[2023-11-10] MEDS: POTASSIUM CHLORIDE 40 MEQ, LIDOCAINE 1% (LOCAL ANESTH.) 4 ML in SODIUM CHL 0.9% 250 ML IV ONE (09:45)
[2023-11-10] MEDS ORDERED: DIGOXIN 0.125 MG TAB PO SCH (10:00)
[2023-11-10] MEDS ORDERED: METOPROLOL SUCCINATE XL 50 MG TAB PO SCH (10:00)
[2023-11-10] MEDS: METOPROLOL TARTRATE 1MG/1ML-5ML VIAL IV SCH (10:15)
[2023-11-10] MEDS: DIGOXIN (250MCG/ML) 2 ML AMPULE IV ONE (10:42)
[2023-11-10] MEDS: METOPROLOL TARTRATE 25 MG TAB PO ONE (11:37)
[2023-11-10] MEDS: GASTROGRAFIN 120 ML SOL ONE ×2 (12:36→15:30)
[2023-11-10] MEDS: METOPROLOL TARTRATE 1MG/1ML-5ML VIAL IV PRN (19:43)
[2023-11-10] MEDS: METOPROLOL TARTRATE 25 MG TAB PO SCH (20:10)
[2023-11-10] MEDS: MUPIROCIN 2% OINT 15gm or 22gm FOR MRSA NARES EACHNOSTRI SCH (21:49)
[2023-11-11] VITALS (36 sets, daily range): BP systolic 134–185; BP diastolic 67–101; PULSE 101–141; RESP 14–23; TEMP 97.1–98.4; O2SAT 87–100
[2023-11-11 05:08] LABS: Alanine Aminotransferase 14 U/L (7-40); Albumin 3.6 g/dL (3.2-4.8); Alkaline Phosphatase 68 U/L (46-116); Anion Gap 12 (5-15); Aspartate Aminotransferase 14 U/L (13-40); BUN/Creatinine Ratio 35.2 (10.0-20.0); Blood Urea Nitrogen 32 mg/dL (9-23); Calcium 9.6 mg/dL (8.7-10.4); Carbon Dioxide 29 mmol/L (20-30); Chloride 110 mmol/L (98-107); Glucose 175 mg/dL (74-106); Magnesium 2.2 mg/dL (1.6-2.6); Phosphorus 3.4 mg/dL (2.4-5.1); Potassium 3.5 mmol/L (3.5-5.1)
[2023-11-11 05:09] LABS: Bilirubin, Total 0.9 mg/dL (0.2-1.0)
[2023-11-11 05:43] LABS: Sodium 151 mmol/L (136-145)
[2023-11-11 07:46] LABS: Hematocrit 47.3 % (41.0-53.0); Hemoglobin 15.6 g/dL (13.5-17.5); Mean Corpuscular Hgb Conc. 32.9 g/dL (32.0-36.0); Mean Corpuscular Volume 91.1 fL (80.0-100.0); Red Blood Cells 5.19 10^6/uL (4.5-5.90); Red Cell Distribution Width 16.3 % (11.8-14.3); White Blood Cell 4.3 10^3/uL (4.4-10.8)
[2023-11-11 07:53] LABS: Basophils % (manual) 0 (0.0-2.0); Blast Cells 0; Metamyelocytes % 0; Myelocytes % 0; Promyelocytes % 0; Reactive Lymphocytes 0
[2023-11-11] MEDS: DIGOXIN (250MCG/ML) 2 ML AMPULE IV SCH (08:24)
[2023-11-11 08:29] LABS: Band Neutrophils % (manual) 5; Eosinophils % (manual) 1 (0-7); Lymphocytes % (manual) 10 (10.0-50.0); Monocytes % (manual) 20 (0-12)
[2023-11-11 08:30] LABS: Anisocytosis Slight; Platelet Estimate Adequate
[2023-11-11] MEDS: POTASSIUM CHLORIDE 40 MEQ, LIDOCAINE 1% (LOCAL ANESTH.) 4 ML in SODIUM CHL 0.9% 250 ML IV ONE (12:15)
[2023-11-12] VITALS (31 sets, daily range): BP systolic 120–147; BP diastolic 74–99; PULSE 81–152; RESP 11–25; TEMP 97.1–97.8; O2SAT 8–100
[2023-11-12 05:32] LABS: Hematocrit 47.9 % (41.0-53.0); Hemoglobin 15.8 g/dL (13.5-17.5); Mean Corpuscular Hemoglobin 30.3 pg (28.0-32.0); Mean Corpuscular Hgb Conc. 33.1 g/dL (32.0-36.0); Mean Corpuscular Volume 91.6 fL (80.0-100.0); Red Blood Cells 5.23 10^6/uL (4.5-5.90); Red Cell Distribution Width 15.9 % (11.8-14.3)
[2023-11-12 05:35] LABS: Basophils % (manual) 0 (0.0-2.0); Blast Cells 0; Metamyelocytes % 0; Myelocytes % 0; Promyelocytes % 0; Reactive Lymphocytes 0
[2023-11-12 05:49] LABS: Alanine Aminotransferase 13 U/L (7-40); Albumin 3.8 g/dL (3.2-4.8); Alkaline Phosphatase 71 U/L (46-116); Anion Gap 8 (5-15); Aspartate Aminotransferase 15 U/L (13-40); BUN/Creatinine Ratio 31.5 (10.0-20.0); Bilirubin, Total 0.9 mg/dL (0.2-1.0); Blood Urea Nitrogen 29 mg/dL (9-23); Calcium 9.8 mg/dL (8.7-10.4); Carbon Dioxide 32 mmol/L (20-30); Chloride 110 mmol/L (98-107); Glucose 168 mg/dL (74-106); Magnesium 2.3 mg/dL (1.6-2.6); Phosphorus 3.7 mg/dL (2.4-5.1); Potassium 3.4 mmol/L (3.5-5.1); Sodium 150 mmol/L (136-145)
[2023-11-12 05:50] LABS: Band Neutrophils % (manual) 2; Eosinophils % (manual) 1 (0-7); Lymphocytes % (manual) 13 (10.0-50.0); Monocytes % (manual) 17 (0-12); Platelet Estimate Adequate
[2023-11-12] MEDS: POTASSIUM CHL 20MEQ/100ML 100 ML IV ONE (12:20)
[2023-11-12] MEDS: POLYETHYLENE GLYCOL 17 GM PWDR PO ONE (15:13)
[2023-11-13] VITALS (34 sets, daily range): BP systolic 95–152; BP diastolic 56–97; PULSE 75–130; RESP 11–22; TEMP 97.6–98.8; O2SAT 93–100
[2023-11-13 05:29] LABS: Basophils # (auto) 0 10 ^3/uL (0-0.2); Basophils % (auto) 0.6 % (0.0-2.0); Eosinophils # (auto) 0.1 10 ^3/uL (0-0.8); Eosinophils % (auto) 1.9 % (0.0-7.0); Hematocrit 47.4 % (41.0-53.0); Hemoglobin 15.6 g/dL (13.5-17.5); Lymphocytes # (auto) 0.6 10 ^3/uL (0.4-5.4); Lymphocytes % (auto) 9.4 % (10.0-50.0); Mean Corpuscular Hemoglobin 30.2 pg (28.0-32.0); Mean Corpuscular Volume 91.5 fL (80.0-100.0); Monocytes # (auto) 0.8 10 ^3/uL (0-1.3); Monocytes % (auto) 11.8 % (0.0-12.0); Neutrophils # (auto) 4.9 10 ^3/uL (1.6-8.6); Neutrophils % (auto) 76.3 % (37.0-80.0); Red Blood Cells 5.17 10^6/uL (4.5-5.90); Red Cell Distribution Width 16.1 % (11.8-14.3); White Blood Cell 6.5 10^3/uL (4.4-10.8)
[2023-11-13 05:50] LABS: Alanine Aminotransferase 20 U/L (7-40); Albumin 3.5 g/dL (3.2-4.8); Alkaline Phosphatase 68 U/L (46-116); Anion Gap 5 (5-15); Aspartate Aminotransferase 22 U/L (13-40); BUN/Creatinine Ratio 31.7 (10.0-20.0); Blood Urea Nitrogen 32 mg/dL (9-23); Calcium 9.6 mg/dL (8.7-10.4); Carbon Dioxide 35 mmol/L (20-30); Chloride 111 mmol/L (98-107); Glucose 120 mg/dL (74-106); Magnesium 2.3 mg/dL (1.6-2.6); Potassium 3.6 mmol/L (3.5-5.1); Sodium 151 mmol/L (136-145)
[2023-11-13 05:51] LABS: Bilirubin, Total 0.9 mg/dL (0.2-1.0); Total Protein 6.4 g/dL (5.7-8.2)
[2023-11-13] MEDS: AMIODARONE BOLUS KIT 100 ML IV ONE (10:22)
[2023-11-13] MEDS: AMIODARONE 450mg/250ml AE 250 ML IV SCH ×2 (10:34→15:45)
[2023-11-13] MEDS ORDERED: DEXTROSE (50%) 50ML SYRG IV PRN ×2 (17:30→17:45)
[2023-11-13] MEDS: ACCU-CHEK COMFORT CURVE STRIP VI SCH (21:33)
[2023-11-13] MEDS: InsuLIN REG 1unit/0.01ml Soln (100units/ml) SC SCH (21:34)
[2023-11-13] MEDS ORDERED: ACCU-CHEK COMFORT CURVE STRIP VI SCH (22:00)
[2023-11-13] MEDS ORDERED: InsuLIN REG 1unit/0.01ml Soln (100units/ml) SC SCH (22:00)
[2023-11-14] VITALS (35 sets, daily range): BP systolic 92–147; BP diastolic 47–86; PULSE 76–126; RESP 12–32; TEMP 97.6–98.2; O2SAT 94–100
[2023-11-14] MEDS: InsuLIN REG 1unit/0.01ml Soln (100units/ml) SC SCH (06:31)
[2023-11-14 07:20] LABS: Alanine Aminotransferase 29 U/L (7-40); Albumin 3.6 g/dL (3.2-4.8); Alkaline Phosphatase 81 U/L (46-116); Anion Gap 6 (5-15); Aspartate Aminotransferase 31 U/L (13-40); BUN/Creatinine Ratio 27.5 (10.0-20.0); Blood Urea Nitrogen 28 mg/dL (9-23); Calcium 9.5 mg/dL (8.7-10.4); Carbon Dioxide 33 mmol/L (20-30); Chloride 103 mmol/L (98-107); Glucose 168 mg/dL (74-106); Magnesium 2.2 mg/dL (1.6-2.6); Potassium 3.4 mmol/L (3.5-5.1); Sodium 142 mmol/L (136-145)
[2023-11-14 07:21] LABS: Bilirubin, Total 1.3 mg/dL (0.2-1.0); Total Protein 6.6 g/dL (5.7-8.2)
[2023-11-14 07:36] LABS: Basophils # (auto) 0 10 ^3/uL (0-0.2); Basophils % (auto) 0.1 % (0.0-2.0); Eosinophils # (auto) 0.1 10 ^3/uL (0-0.8); Eosinophils % (auto) 0.9 % (0.0-7.0); Hematocrit 47.6 % (41.0-53.0); Hemoglobin 15.5 g/dL (13.5-17.5); Lymphocytes # (auto) 0.7 10 ^3/uL (0.4-5.4); Lymphocytes % (auto) 6.4 % (10.0-50.0); Mean Corpuscular Hemoglobin 29.6 pg (28.0-32.0); Mean Corpuscular Hgb Conc. 32.4 g/dL (32.0-36.0); Mean Corpuscular Volume 91.1 fL (80.0-100.0); Monocytes # (auto) 0.6 10 ^3/uL (0-1.3); Monocytes % (auto) 5.4 % (0.0-12.0); Neutrophils # (auto) 9.7 10 ^3/uL (1.6-8.6); Neutrophils % (auto) 87.2 % (37.0-80.0); Red Blood Cells 5.23 10^6/uL (4.5-5.90); Red Cell Distribution Width 15.9 % (11.8-14.3); White Blood Cell 11.1 10^3/uL (4.4-10.8)
[2023-11-14] MEDS: DICYCLOMINE HCL 10 MG CAP PO ONE (10:47)
[2023-11-14] MEDS: POTASSIUM CHLORIDE 40 MEQ, LIDOCAINE 1% (LOCAL ANESTH.) 4 ML in SODIUM CHL 0.9% 250 ML IV ONE (10:57)
[2023-11-14] MEDS: DIGOXIN 0.125 MG TAB PO ONE (17:54)
[2023-11-15] VITALS (21 sets, daily range): BP systolic 88–145; BP diastolic 32–78; PULSE 77–119; RESP 11–20; TEMP 97.5–98; O2SAT 80–100
[2023-11-15 05:14] LABS: Basophils # (auto) 0 10 ^3/uL (0-0.2); Basophils % (auto) 0.2 % (0.0-2.0); Eosinophils # (auto) 0.1 10 ^3/uL (0-0.8); Eosinophils % (auto) 0.7 % (0.0-7.0); Hematocrit 46.5 % (41.0-53.0); Hemoglobin 15.6 g/dL (13.5-17.5); Lymphocytes # (auto) 0.7 10 ^3/uL (0.4-5.4); Lymphocytes % (auto) 6.4 % (10.0-50.0); Mean Corpuscular Hemoglobin 30.2 pg (28.0-32.0); Mean Corpuscular Hgb Conc. 33.5 g/dL (32.0-36.0); Mean Corpuscular Volume 90.2 fL (80.0-100.0); Monocytes # (auto) 0.6 10 ^3/uL (0-1.3); Monocytes % (auto) 5.8 % (0.0-12.0); Neutrophils # (auto) 8.8 10 ^3/uL (1.6-8.6); Neutrophils % (auto) 86.9 % (37.0-80.0); Red Blood Cells 5.16 10^6/uL (4.5-5.90); Red Cell Distribution Width 15.5 % (11.8-14.3); White Blood Cell 10.2 10^3/uL (4.4-10.8)
[2023-11-15 05:36] LABS: Alanine Aminotransferase 32 U/L (7-40); Albumin 3.4 g/dL (3.2-4.8); Alkaline Phosphatase 78 U/L (46-116); Anion Gap 7 (5-15); Aspartate Aminotransferase 30 U/L (13-40); Blood Urea Nitrogen 26 mg/dL (9-23); Calcium 9.2 mg/dL (8.7-10.4); Carbon Dioxide 30 mmol/L (20-30); Chloride 103 mmol/L (98-107); Glucose 141 mg/dL (74-106); Magnesium 2.2 mg/dL (1.6-2.6); Potassium 3.8 mmol/L (3.5-5.1); Sodium 140 mmol/L (136-145)
[2023-11-15 05:37] LABS: Bilirubin, Total 1.3 mg/dL (0.2-1.0); Total Protein 6.8 g/dL (5.7-8.2)
[2023-11-15] MEDS ORDERED: DOCUSATE SOD 100 MG CAP PO PRN (09:30)
[2023-11-15] MEDS: DIGOXIN 0.125 MG TAB PO SCH (09:38)
[2023-11-16] VITALS (14 sets, daily range): BP systolic 101–124; BP diastolic 40–85; PULSE 83–108; RESP 16–18; TEMP 97.5–98; O2SAT 90–100
[2023-11-16 07:00] LABS: Basophils # (auto) 0 10 ^3/uL (0-0.2); Basophils % (auto) 0.2 % (0.0-2.0); Eosinophils # (auto) 0.1 10 ^3/uL (0-0.8); Hematocrit 40.9 % (41.0-53.0); Hemoglobin 13.9 g/dL (13.5-17.5); Lymphocytes # (auto) 0.7 10 ^3/uL (0.4-5.4); Lymphocytes % (auto) 8.2 % (10.0-50.0); Mean Corpuscular Hemoglobin 30.3 pg (28.0-32.0); Mean Corpuscular Hgb Conc. 33.9 g/dL (32.0-36.0); Mean Corpuscular Volume 89.1 fL (80.0-100.0); Monocytes # (auto) 0.7 10 ^3/uL (0-1.3); Monocytes % (auto) 8.2 % (0.0-12.0); Neutrophils # (auto) 7.5 10 ^3/uL (1.6-8.6); Neutrophils % (auto) 82.4 % (37.0-80.0); Nucleated Red Blood Cells % 0.1 %; Red Blood Cells 4.59 10^6/uL (4.5-5.90); Red Cell Distribution Width 15.3 % (11.8-14.3); White Blood Cell 9.1 10^3/uL (4.4-10.8)
[2023-11-16 07:09] LABS: Anion Gap 4 (5-15); Carbon Dioxide 34 mmol/L (20-30); Chloride 101 mmol/L (98-107); Potassium 3.5 mmol/L (3.5-5.1); Sodium 139 mmol/L (136-145)
[2023-11-16 07:10] LABS: Calcium 8.9 mg/dL (8.7-10.4)
[2023-11-16 07:15] LABS: BUN/Creatinine Ratio 22.3 (10.0-20.0); Blood Urea Nitrogen 27 mg/dL (9-23); Glucose 175 mg/dL (74-106)
== END 2023-11-16 18:10 | disposition home or self-care (01) | DRG 133 ==
LOC: EDBD 11:44 → EDUNIT# 11:44 → ER 11:44 → TELE 16:25 → TELE-EAST 22:43 → DOU IN ICU 11-07 00:56 → TELE-EAST 11-15 16:04
PROVIDERS: ADMIT Registered Nurse; ATTEND Nurse Practitioner Acute Care
PROC: 5A09357 Assistance with Respiratory Ventilation, Less than 24 Consecutive Hours, Continuous Positive Airway Pressure (ICD-10-PCS; principal; 2023-11-06)
PROC: 5A09357 Assistance with Respiratory Ventilation, Less than 24 Consecutive Hours, Continuous Positive Airway Pressure (ICD-10-PCS; 2023-11-08)
DX: J96.21 Acute and chronic respiratory failure with hypoxia (principal); G93.41 Metabolic encephalopathy; I50.23 Acute on chronic systolic (congestive) heart failure; I13.0 Hypertensive heart and chronic kidney disease with heart failure and stage 1 through stage 4 chronic kidney disease, or unspecified chronic kidney disease; E87.0 Hyperosmolality and hypernatremia; I48.11 Longstanding persistent atrial fibrillation; I49.5 Sick sinus syndrome; I48.20 Chronic atrial fibrillation, unspecified; N17.9 Acute kidney failure, unspecified; E11.22 Type 2 diabetes mellitus with diabetic chronic kidney disease; N18.32 Chronic kidney disease, stage 3b; E78.5 Hyperlipidemia, unspecified; E87.6 Hypokalemia; K31.89 Other diseases of stomach and duodenum; I25.10 Atherosclerotic heart disease of native coronary artery without angina pectoris; I71.40 Abdominal aortic aneurysm, without rupture, unspecified; J44.1 Chronic obstructive pulmonary disease with (acute) exacerbation; G89.29 Other chronic pain; M54.9 Dorsalgia, unspecified; F15.10 Other stimulant abuse, uncomplicated; S91.301A Unspecified open wound, right foot, initial encounter; X58.XXXA Exposure to other specified factors, initial encounter; Z95.1 Presence of aortocoronary bypass graft; Z79.891 Long term (current) use of opiate analgesic; Z79.899 Other long term (current) drug therapy; Z79.4 Long term (current) use of insulin; Z79.01 Long term (current) use of anticoagulants; Z85.038 Personal history of other malignant neoplasm of large intestine; Z90.49 Acquired absence of other specified parts of digestive tract; Z80.0 Family history of malignant neoplasm of digestive organs; Z83.3 Family history of diabetes mellitus; Z82.49 Family history of ischemic heart disease and other diseases of the circulatory system; Y93.89 Activity, other specified; Y92.89 Other specified places as the place of occurrence of the external cause; Y99.8 Other external cause status; Z87.891 Personal history of nicotine dependence
CPT/HCPCS: 36415; 36600; 71045; 71260; 74018; 74176; 74177; 74250; 80048; 80053; 80061; 80162; 80307; 80320; 81001; 82378; 82805; 82962; 83036; 83605; 83690; 83735; 83880; 84100; 84443; 84484; 85007; 85025; 85027; 85379; 85610; 85730; 87040; 87070; 87081; 87086; 87205; 93005; 93886; 94640; 94660; 97110; 97116; 97163; 99291; G0378; J1815; J2001; J2405; J2470; J2543; J3480

== ENCOUNTER 2023-12-15 13:28 | Emergency (ER) | payer MEDICARE, OTHER ==
[~2023-12-15] VITALS: Ht 185.4 cm; Wt 122.7 kg
[~2023-12-15 13:28] MED LIST changes: -AUG875T PO; -HYDR-4798 PO; -TRAZ-227 PO
[2023-12-15] MEDS: IPRATROPIUM BROM 0.5 MG/2.5ML INH SOL NEB ONE (15:33)
[2023-12-15] MEDS: ALBUTEROL SULF 2.5 MG/0.5ML(0.5%) NEB SOLN NEB ONE (15:34)
[2023-12-15] MEDS: DexAMETHasone SOD PHOS 10MG/1ML VIAL INJ IM ONE (15:37)
[2023-12-15 15:40] VITALS: PULSE 115; RESP 18; O2SAT 95
[2023-12-15 16:27] LABS: Basophils # (auto) 0.1 10 ^3/uL (0-0.2); Basophils % (auto) 0.8 % (0.0-2.0); Eosinophils # (auto) 0.2 10 ^3/uL (0-0.8); Eosinophils % (auto) 2.5 % (0.0-7.0); Hematocrit 37.9 % (41.0-53.0); Hemoglobin 12.8 g/dL (13.5-17.5); Lymphocytes % (auto) 28.8 % (10.0-50.0); Mean Corpuscular Hemoglobin 30.1 pg (28.0-32.0); Mean Corpuscular Hgb Conc. 33.7 g/dL (32.0-36.0); Mean Corpuscular Volume 89.2 fL (80.0-100.0); Monocytes # (auto) 0.7 10 ^3/uL (0-1.3); Monocytes % (auto) 9.4 % (0.0-12.0); Neutrophils % (auto) 58.5 % (37.0-80.0); Nucleated Red Blood Cells % 0.2 %; Platelet Count (auto) 293 10^3/uL (140-450); Red Blood Cells 4.25 10^6/uL (4.5-5.90); Red Cell Distribution Width 16.3 % (11.8-14.3); White Blood Cell 6.9 10^3/uL (4.4-10.8)
[2023-12-15 16:36] LABS: Alanine Aminotransferase 28 U/L (7-40); Albumin 3.9 g/dL (3.2-4.8); Alkaline Phosphatase 113 U/L (46-116); Anion Gap 5 (5-15); Aspartate Aminotransferase 24 U/L (13-40); BUN/Creatinine Ratio 19.4 (10.0-20.0); Blood Urea Nitrogen 24 mg/dL (9-23); Calcium 9.5 mg/dL (8.7-10.4); Carbon Dioxide 30 mmol/L (20-30); Chloride 104 mmol/L (98-107); Glucose 236 mg/dL (74-106); Lipase 34 U/L (12-53); Sodium 139 mmol/L (136-145)
[2023-12-15 16:37] LABS: Bilirubin, Total 0.4 mg/dL (0.2-1.0); Total Protein 7.5 g/dL (5.7-8.2)
[2023-12-15 19:37] LABS: Urine Bacteria None Seen /hpf (None Seen)
[2023-12-15 20:15] LABS: Urine Blood Negative /uL (Negative); Urine Clarity Clear (Clear); Urine Color Yellow (Yellow); Urine Mucus FEW (None Seen); Urine Protein, UAD 1+ (Negative); Urine Urobilinogen 2 mg/dL (Negative); Urine WBC 1 /hpf (0 - 3); Urine pH 5.5 (5.0-9.0)
[2023-12-15] MEDS: SODIUM CHLORIDE 0.9% 1,000 ML IV ONE (20:37)
[2023-12-15 20:40] VITALS: BP 125/78; PULSE 84; RESP 19; TEMP 97.9; O2SAT 95
== END 2023-12-15 22:04 | disposition left against medical advice (07) ==
LOC: ER 13:28 → EDBD 13:28 → ER 22:04
DX: I48.91 Unspecified atrial fibrillation (principal); E11.65 Type 2 diabetes mellitus with hyperglycemia; D64.9 Anemia, unspecified; I11.0 Hypertensive heart disease with heart failure; I50.9 Heart failure, unspecified
CPT/HCPCS: 36415; 71045; 80053; 81001; 82962; 83605; 83690; 83880; 84484; 85025; 93005; 94640; 96360; 96372; 99285; J1100; J7030

== ENCOUNTER 2024-03-14 15:06 | Emergency (ER) | payer MEDICARE, OTHER ==
[~2024-03-14] VITALS: Ht 185.4 cm; Wt 118.1 kg
[2024-03-14 15:14] VITALS: BP 130/97; PULSE 86; RESP 20; O2SAT 94
== END 2024-03-14 18:57 | disposition left against medical advice (07) ==
LOC: EDBD 15:06 → ER 15:06
DX: T81.89XD Other complications of procedures, not elsewhere classified, subsequent encounter (principal); Z53.21 Procedure and treatment not carried out due to patient leaving prior to being seen by health care provider; X58.XXXD Exposure to other specified factors, subsequent encounter

== ENCOUNTER 2024-05-21 15:58 | Inpatient (IN) | payer MEDICARE, OTHER ==
[~2024-05-21] VITALS: Ht 185.4 cm; Wt 122.7 kg
--- NOTE | 2024-05-21 16:26 | ED.PDOC ---
SOB-HPI HPI Comments HPI: Poor Historian. 68 y.o male presents to the ED for a chief complaint of exertional SOB associated with generalized weakness that started 2 weeks ago. Patient reports SOB has worsened the past couple of days. Patient took all his medications today and is compliant. Patient denies any chest pain, fever, chills, nausea, vomiting. He reports recently finishing Doxycycline medication due to foot infection. No improvement despite being on 2 liters of oxygen via NC. On eliquis Vitals BP: 106/86 HR: 82 Temp: 98.6 F SPO2: 95% on 2 liters NC RR:20 Past medical history: Colon cancer, CHF, hyperlipidemia, HTN, DM, triple AAA, On eliquis, AFIB, Neuropathy, Gabapentin, insomnia Past surgical history: CABG and hernia repair No allergies reported REVIEW OF SYSTEMS: CONSTITUTIONAL: Denies acute: fever, diaphoresis, chills, HEAD: Denies acute: headache, photophobia Eyes: Denies acute: Double vision, vision loss, eye pain, eye discharge. EARS: Denies acute: tinnitus, hearing loss, ear discharge, ear pain, THROAT: Denies acute: sore throat, swelling, difficulty swallowing , pain with swallowing, change in voice. NECK: Denies acute: neck pain, neck swelling, stiff neck. HEART: Denies acute : chest pain, palpitations, LUNGS: Denies acute: wheezing, cough, hemoptysis ABDOMEN: Denies acute: abdominal pain, Nausea, Vomiting, diarrhea, melena , hematemesis, hematochezia SKIN: Denies acute: rash, redness, lesions, itchiness. EXTREMITIES: Denies acute: calf pain, numbness, tingling, weakness, denies pain in extremity. Denies acute: Low back pain. Neuro: Denies acute: focal neurological deficit, motor or sensory focal neurological deficit, tremors, seizure like activity, confusion, dizziness, change in mental status, loss of bowel or bladder function, cauda equina like symptoms. : Denies acute: dysuria, hematuria, flank pain, increase in urinary frequency. PSYCH: Denies acute: hallucination, suicidal ideation, homicidal ideation. PHYSICAL EXAM: General: no acute distress, awake and alert. Head: normocephalic, atraumatic. Neck: supple, trachea is midline, no swelling. Throat: Normal phonation. Eyes:, no erythema, no purulent discharge, no proptosis, no icterus. Heart: regular rate, regular rhythm, no significant murmur appreciated. Lungs: no apparent respiratory distress, Able to speak in full sentences. No wheezing, no rhonchi, no crackles. No stridors Clear to auscultation bilaterally. Abdomen: non tender to palpation, non distended, soft, no guarding, no rebound, + bowel sounds. Neuro: Awake, Alert, oriented to name, self, situation, follows commands GCS=15. Speech is normal. Skin: no petechia, no purpura, no cyanosis, non-pale, not jaundice. Lower extremities: --no - Pitting edema no deformity, no focal swelling, no calf TTP. Makes eye contact. moves all four extremities. Face: no apparent facial droop. ED COURSE: Chief Complaint: Shortness of Breath Time Seen by MD: 16:13 Primary Care Provider: NICHOLE Reviewed notes: Nurses Notes, Allergies Information Source: Patient Mode of Arrival: Wheelchair Severity: Moderate Past Medical History PAST MEDICAL HISTORY: AFIB, CAD, Cancer, CHF, DM, HTN Surgical History: CABG, Hernia Repair Family History Family History: Reviewed,noncontributory to illness, No family hx of Cancer, No family hx of DM, No family hx of Heart christie, No family hx of HTN, No family hx ofKidney christie, No family hx of Liver christie, No family hx of Lung christie, No family hx of Stroke Social History Smoker: Non-Smoker Alcohol: Denies ETOH Use Drugs: Denies Drug Use Lives In: Home Was a procedure done? Was a procedure done?: No Differential Dx Differential Diagnosis: Bronchitis, CHF, COPD, Pneumonia, Respiratory Distress, Other (DDx include ACS, unstable angina, anxiety, PE, pneumothroax, neoplasm, cardiac ischemia, COPD, asthma, CHF, pleural effusion, tobacco abuse, pneumonia, hypoxia, hypercapnia, anemia., infection/sepsis., pulmonary edema. Asthma, Cardiac tamponade, infection.) X-Ray, Labs, Meds, VS Vital Signs Date Time Temp Pulse Resp B/P (MAP) Pulse Ox O2 Delivery O2 Flow Rate FiO2 05/21/24 16:15 98.6 82 20 106/86 (93) 95 05/21/24 16:14 20 95 Nasal Cannula* 2 28 Lab Test 05/21/24 18:50 05/21/24 18:18 05/21/24 16:44 Range/Units Influenza Type A Antigen Pending Influenza Type B Antigen Pending SARS-CoV-2 Antigen (Rapid) Pending Troponin I High Sensitivity Pending 5 </=54 ng/L White Blood Count 7.2 4.4-10.8 10^3/uL Red Blood Count 5.49 4.5-5.90 10^6/uL Hemoglobin 15.3 13.5-17.5 g/dL Hematocrit 46.6 41.0-53.0 % Mean Corpuscular Volume 84.9 80.0-100.0 fL Mean Corpuscular Hemoglobin 28.0 28.0-32.0 pg Mean Corpuscular Hemoglobin Concent 32.9 32.0-36.0 g/dL Red Cell Distribution Width 17.5 H 11.8-14.3 % Platelet Count 207 140-450 10^3/uL Mean Platelet Volume 8.4 6.9-10.8 fL Neutrophils (%) (Auto) 60.4 37.0-80.0 % Lymphocytes (%) (Auto) 23.0 10.0-50.0 % Monocytes (%) (Auto) 11.5 0.0-12.0 % Eosinophils (%) (Auto) 4.2 0.0-7.0 % Basophils (%) (Auto) 0.9 0.0-2.0 % Neutrophils # (Auto) 4.3 1.6-8.6 10 ^3/uL Lymphocytes # (Auto) 1.7 0.4-5.4 10 ^3/uL Monocytes # (Auto) 0.8 0-1.3 10 ^3/uL Eosinophils # (Auto) 0.3 0-0.8 10 ^3/uL Basophils # (Auto) 0.1 0-0.2 10 ^3/uL Nucleated Red Blood Cells 0.0 % Sodium Level 140 136-145 mmol/L Potassium Level 4.3 3.5-5.1 mmol/L Chloride Level 105 98-107 mmol/L Carbon Dioxide Level 27 20-31 mmol/L Anion Gap 8 5-15 Blood Urea Nitrogen 34 H 9-23 mg/dL Creatinine 1.56 H 0.700-1.30 mg/dL Glomerular Filtration Rate Calc 49 >90 mL/min BUN/Creatinine Ratio 21.8 H 10.0-20.0 Serum Glucose 180 H 74-106 mg/dL Lactic Acid Level 1.3 0.4-2.0 mmol/L Calcium Level 10.0 8.7-10.4 mg/dL Total Bilirubin 0.4 0.2-1.0 mg/dL Aspartate Amino Transferase (AST) 15 13-40 U/L Alanine Aminotransferase (ALT) 22 7-40 U/L Alkaline Phosphatase 70 46-116 U/L B-Type Natriuretic Peptide 70.74 0-100 pg/mL Total Protein 7.1 5.7-8.2 g/dL Albumin 4.5 3.2-4.8 g/dL [place] [id number] Ph: [phone] DIAGNOSTIC IMAGING Diagnostic Imaging Report : [id number] Signed PATIENT: NICOLAS INGRAM ACCT: [id number] UNIT: [id number] : 1955 LOC: ER ROOM / BED: / AGE / SEX: 68 / M ADM STATUS: REG ER SERVICE 1606 ORDERING PHYSICIAN: ZORAN LOPEZ DO PROCEDURE(s): CXRP - CHEST PORTABLE REASON: sob ORDER NUMBER(s): [id number], ACCESSION NUMBER(s): [id number] EXAM: XR Chest, 1 View CLINICAL INDICATION: sob TECHNIQUE: Frontal view of the chest. COMPARISON: XY CHEST PORTABLE on DOS: 12/15/23, XY CHEST PORTABLE on DOS: 11/12/23, XY CHEST PORTABLE on DOS: 11/10/23, XY CHEST XRAY 1 VIEW on DOS: 11/08/23, XY CHEST PORTABLE on DOS: 11/08/23 FINDINGS: LUNGS AND PLEURAL SPACES: See below. HEART: Cardiomegaly with mild congestion. MEDIASTINUM: Unremarkable. Normal mediastinal contour. BONES/JOINTS: Unremarkable. No acute fracture. OTHER FINDINGS: . . . .. IMPRESSION: Cardiomegaly with mild congestion. ATED BY: SAMMIE SPRAGUE MD DICTATED DATE/TIME: 05/21/24 163 SIGNED BY: SAMMIE SPRAGUE MD SIGNED DATE/TIME: 05/21/24 1632 CC: Time of 1ST Reevaluation: 16:19 Reevaluation 1ST: Unchanged Patient Education/Counseling: Diagnosis, Treatment Family Education/Counseling: No Family Present Comments Patient presented with the above HPI.---dyspnea---workup was initiated. patient was found with the above mentioned diagnosis. the following medications were ordered: please refer to order lists of meds and tests obtained by myself Dr. Lopez. Patient ED course and VS have been stabilized. Patient has been reassessed in the ED and remained in a stable condition. Pertinent incidental findings were discussed with the patient and/or family. Patient/family voices understanding and is agreeable with plan. Patient has been observed in the ED adequate length of time to insure improvement/stability. Escalation of care considered: Consideration of escalation to observation or admission Patient was ADMITTED to the medicine team for further evaluation and treatment of their presentation. All the reports of any imaging studies that were ordered by myself were reviewed by myself. Departure 1 Departure Time of Disposition: 19:06 Impression: Primary Impression: Dyspnea Additional Impression: CHF exacerbation Disposition: ADMITTED INPATIENT Admit to: Tele Condition: Guarded Discharged With: Self Critical Care Note Critical Care Time?: No I personally scribed for ZORAN LOPEZ DO ([email or web address]) on 05/21/24 at 16:26. Electronically submitted by Jaquelin Jay ([facility]). I personally scribed for ZORAN LOPEZ DO ([email or web address]) on 05/21/24 at 18:10. Electronically submitted by Jaquelin Jay ([facility]). ZORAN LOPEZ DO May 21, 2024 16:26
--- NOTE | 2024-05-21 16:34 | DVH ---
EXAM: XR Chest, 1 View CLINICAL INDICATION: sob TECHNIQUE: Frontal view of the chest. COMPARISON: XY CHEST PORTABLE on DOS: 12/15/23, XY CHEST PORTABLE on DOS: 11/12/23, XY CHEST PORTABLE on DOS: 11/10/23, XY CHEST XRAY 1 VIEW on DOS: 11/08/23, XY CHEST PORTABLE on DOS: 11/08/23 FINDINGS: LUNGS AND PLEURAL SPACES: See below. HEART: Cardiomegaly with mild congestion. MEDIASTINUM: Unremarkable. Normal mediastinal contour. BONES/JOINTS: Unremarkable. No acute fracture. OTHER FINDINGS: . . . .. IMPRESSION: Cardiomegaly with mild congestion.
[2024-05-21 17:07] LABS: Basophils # (auto) 0.1 10 ^3/uL (0-0.2); Basophils % (auto) 0.9 % (0.0-2.0); Eosinophils # (auto) 0.3 10 ^3/uL (0-0.8); Eosinophils % (auto) 4.2 % (0.0-7.0); Hematocrit 46.6 % (41.0-53.0); Hemoglobin 15.3 g/dL (13.5-17.5); Lymphocytes # (auto) 1.7 10 ^3/uL (0.4-5.4); Mean Corpuscular Hgb Conc. 32.9 g/dL (32.0-36.0); Mean Corpuscular Volume 84.9 fL (80.0-100.0); Monocytes # (auto) 0.8 10 ^3/uL (0-1.3); Monocytes % (auto) 11.5 % (0.0-12.0); Neutrophils # (auto) 4.3 10 ^3/uL (1.6-8.6); Neutrophils % (auto) 60.4 % (37.0-80.0); Platelet Count (auto) 207 10^3/uL (140-450); Red Blood Cells 5.49 10^6/uL (4.5-5.90); Red Cell Distribution Width 17.5 % (11.8-14.3); White Blood Cell 7.2 10^3/uL (4.4-10.8)
[2024-05-21 17:25] LABS: Alanine Aminotransferase 22 U/L (7-40); Albumin 4.5 g/dL (3.2-4.8); Alkaline Phosphatase 70 U/L (46-116); Anion Gap 8 (5-15); Aspartate Aminotransferase 15 U/L (13-40); BUN/Creatinine Ratio 21.8 (10.0-20.0); Bilirubin, Total 0.4 mg/dL (0.2-1.0); Carbon Dioxide 27 mmol/L (20-31); Chloride 105 mmol/L (98-107); Potassium 4.3 mmol/L (3.5-5.1); Sodium 140 mmol/L (136-145); Total Protein 7.1 g/dL (5.7-8.2)
[2024-05-21 17:26] LABS: Blood Urea Nitrogen 34 mg/dL (9-23); Glucose 180 mg/dL (74-106)
[2024-05-21 19:00] VITALS: O2SAT 95
[2024-05-21 19:27] LABS: Rapid Influenza A Negative (Negative); Rapid Influenza B Negative (Negative)
[2024-05-21 19:28] LABS: COVID19 ANTIGEN SOFIA FIA NEGATIVE (NEGATIVE)
[2024-05-21] MEDS ORDERED: ONDANSETRON HCL 4 MG/2 ML VIAL IV PRN (19:45)
[2024-05-21] MEDS ORDERED: ACETAMINOPHEN 325 MG TAB PO PRN (19:45)
[2024-05-21] MEDS ORDERED: DEXTROSE (50%) 50ML SYRG IV PRN (19:45)
[2024-05-21] MEDS ORDERED: ALBUTEROL SULF 2.5 MG/0.5ML(0.5%) NEB SOLN NEB PRN (19:45)
[2024-05-21 21:22] VITALS: BP 106/86; PULSE 82; RESP 18; TEMP 98.6; O2SAT 95
--- NOTE | 2024-05-22 01:07 | DVH ---
Exam: CT CT AB PEL WO CON-NO ORAL OR IV History: abd. pain Comparison Study: CT CT AB PEL WO CON-NO ORAL OR IV on DOS: 11/08/23, CT CHST AB PEL WO CON-NO IV/ORAL on DOS: 10/01/23, CT CT AB PEL WO CON-NO ORAL OR IV on DOS: 09/08/23 Technique: Multidetector spiral CT of the abdomen was performed from lung bases to pubic symphysis. Imaging was performed without IV contrast. Axial, coronal and sagittal multiplanar reformats were ob tained from the axial data set by the technologist. Radiation Dose : 1. Abdomen/Pelvis: CTDIvol 27.47 mGy, DLP 1675.14 mGy*cm. Findings: Evaluation of solid organs is limited due to lack of intravenous contrast use. Lung Bases: Lung bases are clear with no pleural or pericardial effusion. Extensive coronary artery c alcifications noted. Liver: Liver is normal in size. No focal lesions. Gallbladder and Biliary Tree: No abnormality demonstrated. Spleen: No abnormality demonstrated. Pancreas: No abnormality demonstrated. Adrenal Glands: No abnormality demonstrated. Kidneys: No abnormality demonstrated. No evidence of renal calculus or hydroureteronephrosis. Bladder: Grossly unremarkable for degree of distention. Bowel: Stomach appears grossly unremarkable. No dilated or thick-walled loops of large or small bowel noted. Appendix is not visualized; however, no secondary findings of acute appendicitis identified. Ascites: Absent Lymphadenopathy: No evidence of lymphadenopathy. Abdominal Wall and Mesentery: Unremarkable. Vasculature: Atherosclerotic changes in abdominal aorta and iliac arteries with mild infrarenal AAA m easuring up to 3.8 cm. Pelvic Organs: Unremarkable Musculoskeletal: No bony lesions or fracture. IMPRESSION: 1. No acute abdominal or pelvic findings. Radiation optimization: All CT scans at this facility use at least one of these dose optimization marlene hniques: automated exposure control mA and/or kV adjustment per patient size (includes targeted exam s where dose is matched to clinical indication) or iterative reconstruction.
[2024-05-22] MEDS ORDERED: HYDROcodone-ACET 5/325MG TAB PO PRN (03:15)
[2024-05-22] MEDS ORDERED: ACETAMINOPHEN 325 MG TAB PO PRN (03:15)
[2024-05-22] MEDS: FUROSEMIDE 40 MG/4 ML VIAL IV ONE (04:25)
[2024-05-22 04:54] LABS: Chloride 105 mmol/L (98-107); Potassium 4.5 mmol/L (3.5-5.1); Sodium 140 mmol/L (136-145)
[2024-05-22 04:55] LABS: Anion Gap 6 (5-15); Calcium 9.9 mg/dL (8.7-10.4); Carbon Dioxide 29 mmol/L (20-31)
[2024-05-22 05:00] LABS: BUN/Creatinine Ratio 19.1 (10.0-20.0)
[2024-05-22 05:03] LABS: Blood Urea Nitrogen 27 mg/dL (9-23); Glucose 172 mg/dL (74-106)
--- NOTE | 2024-05-22 05:18 | DVHHP2 ---
History of Present Illness Reason for Visit: Shortness of breath History of Present Illness 68-year-old male presents for evaluation of shortness for breath. Patient with a history of congestive heart failure presents with complaints of worsening shortness for breath over the past two days. He also reports mild substernal chest pressure. Denies cough or fever. No nausea or vomiting. Past Medical History CHF, colon cancer, diabetes mellitus, hypertension, AAA, AFib Past Surgical History Hernia repair and CABG Family History Noncontributory Smoke: No ALCOHOL: none Drugs: None Lives: with Family Review of Systems Review of Systems Review of systems are currently negative otherwise addressed in HPI. Allergies: Coded Allergies: Morphine (Verified Allergy, Unknown, 05/21/24) Medications Current Medications Medications Dose Ordered Sig/Delilah Route Start Time Stop Time Status Last Admin Dose Admin Furosemide 20 mg BIDD IV 05/22/24 06:00 Apixaban 5 mg BID PO 05/21/24 22:00 Amiodarone HCl 200 mg DAILY PO 05/22/24 10:00 Aspirin 81 mg DAILY PO 05/22/24 10:00 Atorvastatin Calcium 80 mg HS PO 05/21/24 22:00 Gabapentin 800 mg BID PO 05/21/24 22:00 Metoprolol Tartrate 25 mg BID PO 05/21/24 22:00 Sacubitril/ Valsartan 1 tab BID PO 05/21/24 22:00 Tamsulosin HCl 0.4 mg QPM PO 05/22/24 18:00 Albuterol 2.5 mg Q6HPRN PRN NEB 05/21/24 19:45 Diagnostic Test (Pha) 1 strip ACHS 05/21/24 22:00 Insulin Human Regular ACHS SC 05/21/24 22:00 Dextrose 50 ml UD PRN IV 05/21/24 19:45 Ondansetron HCl 4 mg Q4HP PRN IV 05/21/24 19:45 Acetaminophen 650 mg Q6HP PRN PO 05/21/24 19:45 Acetaminophen/ Hydrocodone Bitart 1 tab Q4HP PRN PO 05/22/24 03:15 UNV Acetaminophen 650 mg Q6HP PRN PO 05/22/24 03:15 Exam Vital Signs Vital Signs Date Time Temp Pulse Resp B/P (MAP) Pulse Ox O2 Delivery O2 Flow Rate FiO2 05/21/24 21:22 98.6 82 18 106/86 95 2.0 28 98.6 05/21/24 19:00 Nasal Cannula Exam Gen: 68-year-old male in mild distress Skin: Warm, dry, normal color and texture, no rash. HEENT: Normocephalic atraumatic, mucous membranes moist and pink. Neck: Cervical and supraclavicular nodes normal without enlargement, trachea is midline, thyroid gland is normal without masses. Pulmonary: Clear to auscultation and percussion bilaterally. Cardiac: Regular rate and rhythm. No murmur Abdomen: Soft, nontender, nondistended, bowel sounds present all 4 quadrants, no guarding, no rigidity, no organomegaly. Extremities: No cyanosis, clubbing, no edema Neuro: Cranial nerves II through XII grossly intact, normal affect and speech, no focal motor deficits. Labs/Xrays ORDERING PHYSICIAN: ZAYRA ROMERO DNP PROCEDURE(s): ECIDC - ECHO 2D MODE CARDIAC DOP REASON: CHF exacerbation, unspecified ORDER NUMBER(s): [id number], ACCESSION NUMBER(s): [id number] APPROVED REPORT EXAM: Two-dimensional and M-mode echocardiogram with Doppler and color Doppler. Blood Pressure: 116/85 mmHg INDICATION CHF Exacerbation, unspecified RISK FACTORS Height: 73, Weight: 249 DIMENSIONS LVDd 3.9 (3.8-5.7cm) LA (2D) 4.2 (1.9-4.0cm) Aortic Root 3.4 (2.0- 3.7cm) LVDs 3.2 (2.5-4.0cm) LA (MM) (1.9-4.0cm) Aortic Cusp Exc 1.2 (1.5- 2.0cm) EF (%) 38.0 (55-70%) Rt. Atrium 3.8 (1.9-4.0cm) Asc. Aorta cm IVSd 1.3 (0.7-1.1cm) RV (D) (1.8-2.4cm) PWd 1.3 (0.7-1.1cm) Mitral Valve Mitral Mitral Stenosis A wave m/s MV Peak GR. 63mmHg E/A ratio 0.0 2D MVA cm2 Aortic Valve Aortic Valve Aortic Stenosis V1 0.67m/s AO Mean GR. 5mmHg V2 1.42m/s AO Peak GR. 8mmHg LVOT Diameter 1.8 (1.8-2.4cm) Doppler SHANELLE 1.20cm2 Pulmonic Valve V2 0.84m/s Tricuspid Valve TR Velocity 2.48m/s RVSP 30mmHg Conclusion Normal left ventricular size and dimension. Moderately reduced left ventricular systolic function, estimated ejection fraction of 35% ,there is a global wall hypokinesia. Patient is in atrial fibrillation so diastolic function could not be assessed. Normal right ventricular size and dimension. Normal right ventricular systolic function. Mildly elevated right ventricular systolic pressure 30 mm of mercury. Normal biatrial size and dimension. The aortic valve is mildly thickened no significant stenosis or regurgitation. Normal mitral valve structure and function Normal tricuspid valve structure and function. The pulmonary valve is grossly normal. No pericardial effusion. SIGNED BY: ANDRA ALMAGUER MD SIGNED DATE/TIME: 09/06/23822 ORDERING PHYSICIAN: ZORAN LOPEZ DO PROCEDURE(s): CXRP - CHEST PORTABLE REASON: sob ORDER NUMBER(s): [id number], ACCESSION NUMBER(s): [id number] EXAM: XR Chest, 1 View CLINICAL INDICATION: sob TECHNIQUE: Frontal view of the chest. COMPARISON: XY CHEST PORTABLE on DOS: 12/15/23, XY CHEST PORTABLE on DOS: 11/12/23, XY CHEST PORTABLE on DOS: 11/10/23, XY CHEST XRAY 1 VIEW on DOS: 11/08/23, XY CHEST PORTABLE on DOS: 11/08/23 FINDINGS: LUNGS AND PLEURAL SPACES: See below. HEART: Cardiomegaly with mild congestion. MEDIASTINUM: Unremarkable. Normal mediastinal contour. BONES/JOINTS: Unremarkable. No acute fracture. OTHER FINDINGS: . . . .. IMPRESSION: Cardiomegaly with mild congestion. RING PHYSICIAN: INGE ESCOBARCNVanita PROCEDURE(s): ABPL - CT AB PEL WO CON-NO ORAL OR IV REASON: abd. pain ORDER NUMBER(s): [id number], ACCESSION NUMBER(s): [id number] Exam: CT CT AB PEL WO CON-NO ORAL OR IV History: abd. pain Comparison Study: CT CT AB PEL WO CON-NO ORAL OR IV on DOS: 11/08/23, CT CHST AB PEL WO CON-NO IV/ORAL on DOS: 10/01/23, CT CT AB PEL WO CON-NO ORAL OR IV on DOS: 09/08/23 Technique: Multidetector spiral CT of the abdomen was performed from lung bases to pubic symphysis. Imaging was performed without IV contrast. Axial, coronal and sagittal multiplanar reformats were obtained from the axial data set by the technologist. Radiation Dose : 1. Abdomen/Pelvis: CTDIvol 27.47 mGy, DLP 1675.14 mGy*cm. Findings: Evaluation of solid organs is limited due to lack of intravenous contrast use. Lung Bases: Lung bases are clear with no pleural or pericardial effusion. Extensive coronary artery calcifications noted. Liver: Liver is normal in size. No focal lesions. Gallbladder and Biliary Tree: No abnormality demonstrated. Spleen: No abnormality demonstrated. Pancreas: No abnormality demonstrated. Adrenal Glands: No abnormality demonstrated. Kidneys: No abnormality demonstrated. No evidence of renal calculus or hydroureteronephrosis. Bladder: Grossly unremarkable for degree of distention. Bowel: Stomach appears grossly unremarkable. No dilated or thick-walled loops of large or small bowel noted. Appendix is not visualized; however, no secondary findings of acute appendicitis identified. Ascites: Absent Lymphadenopathy: No evidence of lymphadenopathy. Abdominal Wall and Mesentery: Unremarkable. Vasculature: Atherosclerotic changes in abdominal aorta and iliac arteries with mild infrarenal AAA measuring up to 3.8 cm. Pelvic Organs: Unremarkable Musculoskeletal: No bony lesions or fracture. IMPRESSION: 1. No acute abdominal or pelvic findings. Radiation optimization: All CT scans at this facility use at least one of these dose optimization techniques: automated exposure control mA and/or kV adjustment per patient size (includes targeted exams where dose is matched to clinical indication) or iterative reconstruction. Labs Test 05/22/24 04:30 05/21/24 20:44 05/21/24 20:18 05/21/24 18:50 Range/Units Sodium Level 140 136-145 mmol/L Potassium Level 4.5 3.5-5.1 mmol/L Chloride Level 105 98-107 mmol/L Carbon Dioxide Level 29 20-31 mmol/L Anion Gap 6 5-15 Blood Urea Nitrogen 27 H 9-23 mg/dL Creatinine 1.41 H 0.700-1.30 mg/dL Glomerular Filtration Rate Calc 55 >90 mL/min BUN/Creatinine Ratio 19.1 10.0-20.0 Serum Glucose 172 H 74-106 mg/dL Calcium Level 9.9 8.7-10.4 mg/dL D-Dimer, Quantitative 0.30 0.0-0.49 mg/L FEU Troponin I High Sensitivity 4 </=54 ng/L Influenza Type A Antigen Negative Negative Influenza Type B Antigen Negative Negative SARS-CoV-2 Antigen (Rapid) Negative NEGATIVE Test 05/21/24 16:44 Range/Units Eosinophils (%) (Auto) 4.2 0.0-7.0 % Eosinophils # (Auto) 0.3 0-0.8 10 ^3/uL Basophils # (Auto) 0.1 0-0.2 10 ^3/uL Nucleated Red Blood Cells 0.0 % Lactic Acid Level 1.3 0.4-2.0 mmol/L Total Bilirubin 0.4 0.2-1.0 mg/dL Aspartate Amino Transferase (AST) 15 13-40 U/L Alanine Aminotransferase (ALT) 22 7-40 U/L Alkaline Phosphatase 70 46-116 U/L B-Type Natriuretic Peptide 70.74 0-100 pg/mL Total Protein 7.1 5.7-8.2 g/dL Albumin 4.5 3.2-4.8 g/dL Assessment/Plan Assessment/Plan Assessment Acute on chronic respiratory failure CHF exacerbation Hypertension Diabetes mellitus acute kidney injury Plan Admit the patient to [facility] to the hospitalist CECILLE Mckenna Resume home medications Continue treatment per orders. Plan discussed with: Patient My Orders Orders - INGE ESCOBAR AGACNP Procedure Category Date Status Time Furosemide Injection PHA 05/22/24 In Process (Lasix Injection) 06:00 Apixaban (Eliquis) PHA 05/21/24 In Process 22:00 Amiodarone Tablet PHA 05/22/24 In Process (Cordarone Tablet) 10:00 Aspirin Tablet PHA 05/22/24 In Process 10:00 Atorvastatin (Lipitor) PHA 05/21/24 In Process 22:00 Gabapentin Capsule PHA 05/21/24 In Process (Neurontin Capsule) 22:00 Metoprolol Tartrate PHA 05/21/24 In Process Tablet (Lopressor Ta 22:00 Sacubitril-Valsartan PHA 05/21/24 In Process (Entresto 24-26 Mg 22:00 Tamsulosin PHA 05/22/24 In Process Hydrochloride (Flomax) 18:00 Albuterol Medneb PHA 05/21/24 In Process (Ventolin Medneb) 19:45 Glucose Blood PHA 05/21/24 In Process (Accu-Chek Comfort 22:00 Insulin R (Human) PHA 05/21/24 In Process (Insulin R) 22:00 Dextrose 50% Syringe PHA 05/21/24 In Process 19:45 Admit ADMIT 05/21/24 Transmitted 19:34 Ondansetron Hcl PHA 05/21/24 In Process (Zofran) 19:45 Complete Blood Count LAB 05/22/24 In Process 04:00 Cardiac DIET 05/22/24 Transmitted Diet-2gna,Lofat,Lochol Breakfast Condition: Stable ORIN 05/21/24 In Process 19:34 Acetaminophen Tablet PHA 05/21/24 In Process (Tylenol Tablet) 19:45 Bedrest With Bathroom ORIN 05/21/24 In Process Privileg 19:34 Ct Ab Pel Wo Con-No CT 05/22/24 Resulted Oral Or Iv 00:07 Hydrocodone-Acet PHA 05/22/24 Pending 5/325mg Tab (Banks 03:15 Acetaminophen Tablet PHA 05/22/24 In Process (Tylenol Tablet) 03:15 Date of Service: May 21, 2024 Billing Provider: INGE ESCOBAR Common Visit Codes: [id number] INP/OBS CARE (HIGH) INGE ESCOBAR May 22, 2024 05:18
[2024-05-22 05:25] VITALS: BP 129/73; PULSE 65; RESP 16; TEMP 97.6; O2SAT 98
[2024-05-22] MEDS: ACCU-CHEK COMFORT CURVE STRIP VI SCH (05:27)
[2024-05-22] MEDS: METOPROLOL TARTRATE 25 MG TAB PO SCH (05:35)
[2024-05-22] MEDS: GABAPENTIN 400 MG CAP PO SCH (05:35)
[2024-05-22] MEDS: APIXABAN 5 MG TAB PO SCH (05:35)
[2024-05-22] MEDS: InsuLIN REG 1unit/0.01ml Soln (100units/ml) SC SCH (05:36)
[2024-05-22] MEDS: ATORVASTATIN 20 MG TAB PO SCH (05:36)
[2024-05-22] MEDS: SACUBITRIL-VALSARTAN 24mg/26mg TAB PO SCH (05:36)
[2024-05-22] MEDS ORDERED: FUROSEMIDE 20 MG/2 ML VIAL IV SCH (06:00)
[2024-05-22 07:03] LABS: Basophils # (auto) 0 10 ^3/uL (0-0.2); Basophils % (auto) 0.7 % (0.0-2.0); Eosinophils # (auto) 0.2 10 ^3/uL (0-0.8); Eosinophils % (auto) 3.9 % (0.0-7.0); Hematocrit 47.7 % (41.0-53.0); Hemoglobin 15.3 g/dL (13.5-17.5); Lymphocytes # (auto) 1.5 10 ^3/uL (0.4-5.4); Lymphocytes % (auto) 23.2 % (10.0-50.0); Mean Corpuscular Hemoglobin 27.5 pg (28.0-32.0); Mean Corpuscular Volume 85.9 fL (80.0-100.0); Monocytes # (auto) 0.7 10 ^3/uL (0-1.3); Monocytes % (auto) 11.6 % (0.0-12.0); Neutrophils # (auto) 3.9 10 ^3/uL (1.6-8.6); Neutrophils % (auto) 60.6 % (37.0-80.0); Nucleated Red Blood Cells % 0.2 %; Platelet Count (auto) 204 10^3/uL (140-450); Red Blood Cells 5.55 10^6/uL (4.5-5.90); Red Cell Distribution Width 18.3 % (11.8-14.3); White Blood Cell 6.4 10^3/uL (4.4-10.8)
[2024-05-22] MEDS ORDERED: AMIODARONE HCL 200 MG TAB PO SCH (10:00)
[2024-05-22] MEDS ORDERED: ASPirin 81 mg TAB PO SCH (10:00)
[2024-05-22] MEDS ORDERED: TAMSULOSIN HYDROCHLORIDE 0.4 MG CAP PO SCH (18:00)
== END 2024-05-22 06:18 | disposition left against medical advice (07) | DRG 189 ==
LOC: ER 15:58 → OVERFLOW 19:34
PROVIDERS: ADMIT Nurse Practitioner Acute Care; ATTEND Nurse Practitioner Acute Care
DX: J96.20 Acute and chronic respiratory failure, unspecified whether with hypoxia or hypercapnia (principal); N17.9 Acute kidney failure, unspecified; I11.0 Hypertensive heart disease with heart failure; I50.9 Heart failure, unspecified; Z20.822 Contact with and (suspected) exposure to COVID-19; E78.5 Hyperlipidemia, unspecified; Z53.29 Procedure and treatment not carried out because of patient's decision for other reasons; E11.40 Type 2 diabetes mellitus with diabetic neuropathy, unspecified; I25.10 Atherosclerotic heart disease of native coronary artery without angina pectoris; I48.91 Unspecified atrial fibrillation; Z85.038 Personal history of other malignant neoplasm of large intestine; Z88.5 Allergy status to narcotic agent; Z95.1 Presence of aortocoronary bypass graft
CPT/HCPCS: 36415; 36600; 71045; 74176; 80048; 80053; 82805; 82962; 83605; 83880; 84484; 85025; 85379; 87426; 87804; G0378; J1815

== ENCOUNTER 2024-07-17 01:51 | Emergency (ER) | payer MEDICAID, OTHER ==
[~2024-07-17] VITALS: Ht 177.8 cm; Wt 113.0 kg
[2024-07-17] MEDS ORDERED: METOPROLOL TARTRATE 1MG/1ML-5ML VIAL IV ONE (02:15)
[2024-07-17 02:20] VITALS: PULSE 138; TEMP 98.4; O2SAT 95
--- NOTE | 2024-07-17 02:25 | ED.PDOC ---
GI ASSESSMENT HPI Comments HPI: Poor Historian. 69-year-old male brought in by ambulance from home for evaluation of nausea episode with the associated weakness and dizziness. Patient states he ate some bad food at a restaurant today and felt nauseated afterwards and felt dizzy. He was stopped by urgent care and he was given some pill in his mouth and was discharged home. Patient went home in stepped outside to go grab something and he felt very winded and weak and tired and had to sit down and rest. Denies any fall or trauma or injury or loss of consciousness. Patient uses oxygen at home 247. Patient states compliance with all his medications including Eliquis and Lasix. Past Medical History: Hypertension, hyperlipidemia, diabetes, atrial fibrillation, Past Surgical History: REVIEW OF SYSTEMS: CONSTITUTIONAL: Denies acute: fever, diaphoresis, chills, HEAD: Denies acute: headache, photophobia Eyes: Denies acute: Double vision, vision loss, eye pain, eye discharge. EARS: Denies acute: tinnitus, hearing loss, ear discharge, ear pain, THROAT: Denies acute: sore throat, swelling, difficulty swallowing , pain with swallowing, change in voice. NECK: Denies acute: neck pain, neck swelling, stiff neck. HEART: Denies acute : chest pain, palpitations, LUNGS: Denies acute: , wheezing, cough, hemoptysis ABDOMEN: Denies acute: , Vomiting, diarrhea, melena , hematemesis, hematochezia SKIN: Denies acute: rash, redness, lesions, itchiness. EXTREMITIES: Denies acute: calf pain, numbness, tingling, weakness, denies pain in extremity. Denies acute: Low back pain. Neuro: Denies acute: focal neurological deficit, motor or sensory focal neurological deficit, tremors, seizure like activity, confusion, , change in mental status, loss of bowel or bladder function, cauda equina like symptoms. : Denies acute: dysuria, hematuria, flank pain, increase in urinary frequency. PSYCH: Denies acute: hallucination, suicidal ideation, homicidal ideation. PHYSICAL EXAM: General: ----[id number]----acute distress, awake and alert. Head: normocephalic, atraumatic. Neck: supple, trachea is midline, no swelling. Throat: Normal phonation. Eyes:, no erythema, no purulent discharge, no proptosis, no icterus. Heart: Tachycardia, irregular, EKG shows atrial fibrillation with RVR. no significant murmur appreciated. Lungs: Mild respiratory distress, Able to speak in full sentences. No wheezing, no rhonchi, no crackles. No stridors Clear to auscultation bilaterally. Abdomen: Nonspecific generalized tender to palpation, non distended, soft, no guarding, no rebound, + bowel sounds. Obese. Neuro: Awake, Alert, oriented to name, self, situation, follows commands GCS=15. Speech is normal. Skin: no petechia, no purpura, no cyanosis, non-pale, not jaundice. Lower extremities: --2/4 b/l - Pitting edema no deformity, no focal swelling, no calf TTP. Makes eye contact. moves all four extremities. Face: no apparent facial droop. ED COURSE: Chief Complaint: Nausea/Vomiting Time Seen by MD: 01:54 Reviewed Notes: Nurses Notes, Allergies Allergies: Coded Allergies: Morphine (Verified Allergy, Unknown, 05/21/24) Home Meds Active Scripts Tamsulosin Hcl (Flomax) 0.4 Mg Cap, 0.4 MG PO QPM for 30 Days, #30 CAP 3 Refills Prov:INGE MENON MD 09/22/23 Silver Sulfadiazine (Silvadene) 1 % Cre, 1 APPLIC TOP DAILY, #50 GRAMS Prov:LUIS E DURAN MD 09/12/23 Insulin Glargine (Lantus Solostar) 100 Unit/Ml Inj, 25 UNIT SC QAM, 10 units sub Q QPM for 50 Days, #5 INJ Prov:LUIS E DURAN MD 09/12/23 Aspirin (Aspirin Low Dose) 81 Mg Tab, 81 MG PO DAILY@1400 for 90 Days, TAB Hold if internal bleeding Called PMD if internal bleeding Prov:LUIS E DURAN MD 09/12/23 Metoprolol Succinate (Metoprolol Succinate Er) 25 Mg Tab, 1 TAB PO BID, #180 TAB 1 Refill Prov:LUIS E DURAN MD 09/12/23 Atorvastatin Calcium (Lipitor) 80 Mg Tab, 1 TAB PO DAILY, #90 TAB 5 Refills Hold if calf muscle pains Prov:LUIS E DURAN MD 09/12/23 Apixaban Base (ELIQUIS) 5 Mg Tab, 5 MG PO BID for 90 Days, #180 TAB Hold if internal bleeding Called PMD if internal bleeding Prov:LUIS E DURAN MD 09/12/23 Sacubitril-Valsartan (Entresto 24-26 mg) 1 Tab Tab, 1 TAB PO BID for 90 Days, #180 TAB Prov:BIENVENIDO MADRIGAL MD 08/24/23 Reported Medications Spironolactone (Spironolactone) 25 Mg Tab, 1 TAB PO DAILY 08/23/23 Empagliflozin (Jardiance) 10 Mg Tab, 1 TAB PO DAILY 08/23/23 Gabapentin (Gabapentin) 800 Mg Tab, 1 TAB PO TID, TAB 08/23/23 Furosemide (Lasix) 20 Mg Tb, 2 TAB PO DAILY 08/20/23 Information Source: Patient, Emergency Med Personnel Mode of Arrival: EMS Was a procedure done? Was a procedure done?: No GI differential Dx Differential Diagnosis: Other (DDX include but not limited to diverticulitis, colitis, gastroenteritis, acute abdomen, SBO, enteritis, constipation, volvulus, appendicitis, Gallbladder disease, choledocolithiasis, ascending cholangitis, pancreatitis, intraAbdominal mass/neoplasm, hepatitis, UTI, pylonephritis, kidney stone, aneurysm, dissection, Inflammatory bowel disease, gastroparesis, ischemic bowel.) X-Ray, Labs, Meds, VS Vital Signs Date Time Temp Pulse Resp B/P (MAP) Pulse Ox O2 Delivery O2 Flow Rate FiO2 07/17/24 03:00 127 33 123/81 (95) 96 07/17/24 02:20 138 95 Nasal Cannula* 2 28 07/17/24 02:20 98.4 138 17 119/91 (100) 91 98.4 07/17/24 01:57 150 07/17/24 01:51 97.7 120 22 122/85 (97) 90 97.7 PATIENT: PARAS INGRAMCCT: [id number]: [id number] : 1955 LOC: ER ROOM / BED: / AGE / SEX: 69 / M ADM STATUS: REG ER SERVICE 0155 ORDERING PHYSICIAN: ZORAN LOPEZ DO PROCEDURE(s): CXRP - CHEST PORTABLE REASON: n/ abd pain/ sob/ weakness ORDER NUMBER(s): [id number], ACCESSION NUMBER(s): [id number] CHEST RADIOGRAPH Indication: n/ abd pain/ sob/ weakness Technique: Single frontal view of the chest was obtained Comparison: None IMPRESSION: Heart appears enlarged with postsurgical changes and median sternotomy wires. The lungs appear clear without focal airspace opacity, effusion, or pneumothorax ATED BY: JUAN CARLOS LOPEZ MD DICTATED DATE/TIME: 07/17/24241 SIGNED BY: JUAN CARLOS LOPEZ MD SIGNED DATE/TIME: 07/17/24241 PATIENT: NICOLAS INGRAM ACCT: [id number] UNIT: [id number] : 1955 LOC: ER ROOM / BED: / AGE / SEX: 69 / M ADM STATUS: REG ER SERVICE ORDERING PHYSICIAN: ZORAN LOPEZ DO PROCEDURE(s): ABPL - CT AB PEL WO CON-NO ORAL OR IV REASON: n/ abd pain/ sob/ weakness ORDER NUMBER(s): [id number], ACCESSION NUMBER(s): [id number] Exam: CT CT AB PEL WO CON-NO ORAL OR IV History: n/ abd pain/ sob/ weakness Comparison Study: None available at time of dictation. TECHNIQUE: Multidetector CT of the abdomen and pelvis was performed from lung bases to pubic symphysis. Imaging was performed without IV contrast. Axial, coronal and sagittal multiplanar reformats were obtained from the axial data set by the technologist. Radiation optimization: All CT scans at this facility use at least one of these dose optimization techniques: automated exposure control mA and/or kV adjustment per patient size (includes targeted exams where dose is matched to clinical indication) or iterative reconstruction. Radiation Dose Information: CT Dose: CTDI volume is 26.98 mGy. Dose-length product is 1658.78 mGy*cm FINDINGS: Evaluation of solid organs is limited due to lack of intravenous contrast use. Imaged portions of the lung bases demonstrate dependent changes. There are coronary artery calcifications and post CABG changes. Small hiatal hernia. Liver is mildly lobulated in contour. Gallbladder, spleen pancreas and adrenal glands appear unremarkable. Kidneys appear symmetric with small renal cysts. No hydronephrosis or calculus. No evidence of bowel obstruction or focal bowel wall thickening. Postsurgical changes. Appendix appears normal. No free fluid, free air, or adenopathy. 4.2 cm infrarenal peripherally calcified abdominal aortic aneurysm. Diffuse arterial calcifications. No suspicious osseous lesion. IMPRESSION: 1. No acute abdominal or pelvic finding. 2. 4.2 cm abdominal aortic aneurysm. ATED BY: JUAN CARLOS LOPEZ MD DICTATED DATE/TIME: 07/17/24243 SIGNED BY: JUAN CARLOS LOPEZ MD SIGNED DATE/TIME: 07/17/24243 Time of 1ST Reevaluation: 03:02 (Patient refused all lab draws. Patient wants to leave against medical advice.) Reevaluation 1ST: Unchanged Time of 2ND Reevaluation: 03:15 (Medicine team is at bedside now speaking to the patient. The nurse attempted to reach the family members to come picker feeder the patient per his request. ) Reevaluation 2ND: Unchanged Patient Education/Counseling: Diagnosis, Treatment Family Education/Counseling: Other Comments As far as dizziness shortness of breath. DDx include ACS, unstable angina, anxiety, PE, pneumothroax, neoplasm, cardiac ischemia, COPD, asthma, CHF, pleural effusion, tobacco abuse, pneumonia, hypoxia, hypercapnia, anemia., infection/sepsis., pulmonary edema. Asthma, Cardiac tamponade, infection. Patient presented with the above HPI.--dizziness/shortness of breath----workup was initiated. patient was found with the above mentioned diagnosis. the following medications were ordered: please refer to order lists of meds and tests obtained by myself Dr. Lopez. Patient ED course and VS have been stabilized. Patient has been reassessed in the ED and remained in a stable condition. Pertinent incidental findings were discussed with the patient and/or family. Escalation of care considered: Consideration of escalation to observation or admission Patient refused all lab draws. Patient signed against medical advice. We contacted his family who came and picked him up. Patient refused any IV medications. All the reports of any imaging studies that were ordered by myself were reviewed by myself. Departure 1 Departure Time of Disposition: 02:25 Impression: Primary Impression: Atrial fibrillation with RVR Additional Impressions: Left against medical advice Acute respiratory distress Abdominal aortic aneurysm Disposition: ADMITTED INPATIENT Admit to: Tele Condition: Critical Additional Instructions: You are leaving against medical advice. Please seek medical attention CHEL. Please return to the emergency department if you change your mind. Below is a copy of your CT scan of the abdomen and pelvis to follow up on abnormal incidental findings. Follow up with cardiology and pulmonology [place]. [place] [address] Ph: [phone] DIAGNOSTIC IMAGING Diagnostic Imaging Report : [id number] Signed PATIENT: NICOLAS INGRAM ACCT: [id number] UNIT: [id number] : 1955 LOC: ER ROOM / BED: / AGE / SEX: 69 / M ADM STATUS: REG ER SERVICE 0155 ORDERING PHYSICIAN: ZORAN LOPEZ DO PROCEDURE(s): ABPL - CT AB PEL WO CON-NO ORAL OR IV REASON: n/ abd pain/ sob/ weakness ORDER NUMBER(s): [id number], ACCESSION NUMBER(s): [id number] Exam: CT CT AB PEL WO CON-NO ORAL OR IV History: n/ abd pain/ sob/ weakness Comparison Study: None available at time of dictation. TECHNIQUE: Multidetector CT of the abdomen and pelvis was performed from lung bases to pubic symphysis. Imaging was performed without IV contrast. Axial, coronal and sagittal multiplanar reformats were obtained from the axial data set by the technologist. Radiation optimization: All CT scans at this facility use at least one of these dose optimization techniques: automated exposure control mA and/or kV adjustment per patient size (includes targeted exams where dose is matched to clinical indication) or iterative reconstruction. Radiation Dose Information: CT Dose: CTDI volume is 26.98 mGy. Dose-length product is 1658.78 mGy*cm FINDINGS: Evaluation of solid organs is limited due to lack of intravenous contrast use. Imaged portions of the lung bases demonstrate dependent changes. There are coronary artery calcifications and post CABG changes. Small hiatal hernia. Liver is mildly lobulated in contour. Gallbladder, spleen pancreas and adrenal glands appear unremarkable. Kidneys appear symmetric with small renal cysts. No hydronephrosis or calculus. No evidence of bowel obstruction or focal bowel wall thickening. Postsurgical changes. Appendix appears normal. No free fluid, free air, or adenopathy. 4.2 cm infrarenal peripherally calcified abdominal aortic aneurysm. Diffuse arterial calcifications. No suspicious osseous lesion. IMPRESSION: 1. No acute abdominal or pelvic finding. 2. 4.2 cm abdominal aortic aneurysm. ATED BY: JUAN CARLOS LOPEZ MD DICTATED DATE/TIME: 07/17/24243 SIGNED BY: JUAN CARLOS LOPEZ MD SIGNED DATE/TIME: 07/17/24243 CC: Discharged With: Self Critical Care Note Critical Care Time?: Yes (35 min-critical care time only) Heart Score Heart Score: Heart Score Response (Comments) Value History Moderate Suspicious [address]-Deviation 2 Age >65 2 Risk Factors >3 or Hx ASHD 2 Troponin N/A 0 Total 7 I personally scribed for ZORAN LOPEZ DO ([email or web address]) on 07/17/24 at 02:56. Electronically submitted by Jordan Singh ([email or web address]). ZORAN LOPEZ DO Jul 17, 2024 02:25
[2024-07-17] MEDS ORDERED: ONDANSETRON HCL 4 MG/2 ML VIAL IV ONE (02:30)
[2024-07-17] MEDS ORDERED: FUROSEMIDE 40 MG/4 ML VIAL IV ONE (02:30)
--- NOTE | 2024-07-17 02:44 | DVH ---
CHEST RADIOGRAPH Indication: n/ abd pain/ sob/ weakness Technique: Single frontal view of the chest was obtained Comparison: None IMPRESSION: Heart appears enlarged with postsurgical changes and median sternotomy wires. The lungs appear clear without focal airspace opacity, effusion, or pneumothorax
--- NOTE | 2024-07-17 02:47 | DVH ---
Exam: CT CT AB PEL WO CON-NO ORAL OR IV History: n/ abd pain/ sob/ weakness Comparison Study: None available at time of dictation. TECHNIQUE: Multidetector CT of the abdomen and pelvis was performed from lung bases to pubic symphysi s. Imaging was performed without IV contrast. Axial, coronal and sagittal multiplanar reformats were obtained from the axial data set by the technologist. Radiation optimization: All CT scans at this facility use at least one of these dose optimization marlene hniques: automated exposure control mA and/or kV adjustment per patient size (includes targeted exam s where dose is matched to clinical indication) or iterative reconstruction. Radiation Dose Information: CT Dose: CTDI volume is 26.98 mGy. Dose-length product is 1658.78 mGy*cm FINDINGS: Evaluation of solid organs is limited due to lack of intravenous contrast use. Imaged portions of the lung bases demonstrate dependent changes. There are coronary artery calcificat ions and post CABG changes. Small hiatal hernia. Liver is mildly lobulated in contour. Gallbladder, spleen pancreas and adrenal glands appear unremark able. Kidneys appear symmetric with small renal cysts. No hydronephrosis or calculus. No evidence of bowel obstruction or focal bowel wall thickening. Postsurgical changes. Appendix appe ars normal. No free fluid, free air, or adenopathy. 4.2 cm infrarenal peripherally calcified abdomina l aortic aneurysm. Diffuse arterial calcifications. No suspicious osseous lesion. IMPRESSION: 1. No acute abdominal or pelvic finding. 2. 4.2 cm abdominal aortic aneurysm.
[2024-07-17 03:00] VITALS: BP 123/81; PULSE 127; RESP 33; O2SAT 96
--- NOTE | 2024-07-18 09:05 | ECG ---
[facility] Test Date: 2024-07-17 Test Time: 01:57:22 Pat Name: NICOLAS IGNRAM Department: ED Room: Gender: M Relief Mate: : 1955 Requested By: ZORAN LOPEZ Order Number: [id number] Reading MD: Finn Ridley Measurements Intervals [place] Rate: 150 P: 0 AK: 0 QRS: 142 QRSD: 97 T: 58 QT: 320 QTc: 506 Interpretive Statements Atrial fibrillation Multiple ventricular premature complexes Low voltage, precordial leads Right ventricular hypertrophy Nonspecific T abnormalities, anterior leads Prolonged QT interval Electronically Signed On 07-18-2024 21:05:20 PDT by Finn Ridley Please click the below link to view image of tracing.
== END 2024-07-17 03:06 | disposition left against medical advice (07) ==
LOC: EDBD 01:51 → ER 01:57 → EDUNIT# 01:57 → ER 03:06
DX: I48.91 Unspecified atrial fibrillation (principal); R06.03 Acute respiratory distress; I71.40 Abdominal aortic aneurysm, without rupture, unspecified; I10 Essential (primary) hypertension; E11.9 Type 2 diabetes mellitus without complications; E78.5 Hyperlipidemia, unspecified; Z79.82 Long term (current) use of aspirin; Z79.84 Long term (current) use of oral hypoglycemic drugs; Z79.899 Other long term (current) drug therapy; Z88.5 Allergy status to narcotic agent
CPT/HCPCS: 71045; 74176; 93005; 99291

== ENCOUNTER 2024-10-29 15:21 | Inpatient (IN) | payer MEDICAID, OTHER ==
[~2024-10-29] VITALS: Ht 185.4 cm; Wt 107.0 kg
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
[2024-10-29] MEDS: NEOMYCIN-BACITRACIN-POLYM UNITDOSE PKG TOP OINT TOP ONE (16:00)
[2024-10-29] MEDS: LIDOCAINE 1% (LOCAL ANESTH.) PF 5ml SDV ID ONE (16:00)
--- NOTE | 2024-10-29 16:25 | DVH ---
Chest x-ray Technique: PA and lateral views Comparison: 05/05/2024 CLINICAL INDICATION: sob FINDINGS: Heart size enlarged. There is been prior coronary artery surgery. There are no infiltrates or effusions.. IMPRESSION: 1. No acute cardiopulmonary pathology
[2024-10-29 16:35] LABS: Hematocrit 45.2 % (41.0-53.0); Hemoglobin 15.2 g/dL (13.5-17.5); Mean Corpuscular Hemoglobin 30.2 pg (28.0-32.0); Mean Corpuscular Volume 89.6 fL (80.0-100.0); Nucleated Red Blood Cells % 0.0 %
[2024-10-29 16:43] LABS: Chloride 103 mmol/L (98-107); Potassium 4.4 mmol/L (3.5-5.1); Sodium 137 mmol/L (136-145)
[2024-10-29 16:44] LABS: Anion Gap 9 (5-15); Calcium 10.1 mg/dL (8.7-10.4); Carbon Dioxide 25 mmol/L (20-31)
[2024-10-29 16:49] LABS: BUN/Creatinine Ratio 22.0 (10.0-20.0); Blood Urea Nitrogen 40 mg/dL (9-23); Glucose 172 mg/dL (74-106)
--- NOTE | 2024-10-29 19:15 | ECG ---
[facility] Test Date: 2024-10-29 Test Time: 16:47:02 Pat Name: NICOLAS INGRAM Department: ED Room: 0217 Gender: M Patient Relations Representative: olesya : 1955 Requested By: ANJANA BECKER Order Number: [id number] Reading MD: Finn Ridley Measurements Intervals [place] Rate: 105 P: 0 MI: 0 QRS: 113 QRSD: 122 T: 83 QT: 377 QTc: 499 Interpretive Statements Atrial fibrillation Nonspecific intraventricular conduction delay Electronically Signed On 10-31-2024 17:50:44 PDT by Finn Ridley Please click the below link to view image of tracing.
[2024-10-29 20:00] VITALS: PULSE 95; RESP 20; O2SAT 94
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
[2024-10-29] MEDS: SODIUM CHLORIDE 0.9% 500 ML IV ONE (22:00)
[2024-10-29] MEDS: SODIUM CHLOR 0.9% PF (SALINE LOCK) 10ML VIAL/SYR IV SCH (22:00)
[2024-10-29] MEDS ORDERED: ACETAMINOPHEN 325 MG TAB PO PRN (22:00)
[2024-10-29] MEDS ORDERED: MORPHINE SULFATE INJ 2 MG/ml SYRG IV PRN (22:00)
[2024-10-29] MEDS ORDERED: NITROGLYCERIN 0.4 MG SL TAB SL PRN (22:00)
[2024-10-29] MEDS: METOPROLOL SUCCINATE XL 50 MG TAB PO ONE (22:35)
[2024-10-29] MEDS ORDERED: DEXTROSE (50%) 50ML SYRG IV PRN (23:45)
[2024-10-30] VITALS (7 sets, daily range): BP systolic 100–127; BP diastolic 60–89; PULSE 62–106; RESP 15–20; TEMP 97.5–97.9; O2SAT 87–98
[2024-10-30] MEDS: GABAPENTIN 400 MG CAP PO SCH (00:51)
[2024-10-30] MEDS: APIXABAN 5 MG TAB PO SCH (00:51)
[2024-10-30] MEDS: FUROSEMIDE 20 MG/2 ML VIAL IV SCH (00:53)
[2024-10-30 06:47] LABS: Hematocrit 43.5 % (41.0-53.0); Hemoglobin 14.9 g/dL (13.5-17.5); Mean Corpuscular Hemoglobin 30.9 pg (28.0-32.0); Mean Corpuscular Volume 90.0 fL (80.0-100.0); Nucleated Red Blood Cells % 0.0 %
[2024-10-30 06:57] LABS: Albumin 4.3 g/dL (3.2-4.8); Anion Gap 10 (5-15); BUN/Creatinine Ratio 22.5 (10.0-20.0); Bilirubin, Total 0.7 mg/dL (0.2-1.0); Calcium 10.0 mg/dL (8.7-10.4); Carbon Dioxide 26 mmol/L (20-31); Chloride 101 mmol/L (98-107); Potassium 4.1 mmol/L (3.5-5.1); Sodium 137 mmol/L (136-145); Total Protein 7.4 g/dL (5.7-8.2)
[2024-10-30 07:02] LABS: Alanine Aminotransferase 50 U/L (7-40); Alkaline Phosphatase 144 U/L (46-116); Blood Urea Nitrogen 38 mg/dL (9-23); Glucose 223 mg/dL (74-106)
[2024-10-30] MEDS: ACCU-CHEK COMFORT CURVE STRIP VI SCH (07:27)
[2024-10-30] MEDS: InsuLIN REG 1unit/0.01ml Soln (100units/ml) SC SCH (07:27)
[2024-10-30] MEDS: ATORVASTATIN 20 MG TAB PO SCH (09:40)
[2024-10-30] MEDS: EMPAGLIFLOZIN 10 MG TAB PO SCH (09:40)
[2024-10-30] MEDS: METOPROLOL SUCCINATE XL 50 MG TAB PO SCH (09:41)
[2024-10-30] MEDS: SPIRONOLACTONE 25 MG TAB PO SCH (09:41)
[2024-10-30] MEDS: HYDROcodone-ACET 5/325MG TAB PO PRN (09:49)
[2024-10-30] MEDS: PANTOPRAZOLE 40 MG/10 ML VIAL INJ IV SCH (10:11)
--- NOTE | 2024-10-30 11:22 | DVH ---
Indication: dizziness Technique: Real-time ultrasound images of the neck vessels with chan-scale, color and wave Doppler we re obtained. Comparison: US CAROTID DUPLX W COLOR DOP on DOS: 11/07/23 Findings: There is [id number] bilateral atherosclerotic plaque. The following peak systolic velocities were recorded in cm/sec: Right internal carotid: 58 Right common carotid: 68 Right external carotid: 89 Right internal/common carotid ratio: 0.9 Left internal carotid: 42 Left common carotid: 81 Left external carotid: 08 Left internal/common carotid ratio: 0.5 Right vertebral artery: Patent with normal antegrade direction of flow. Left vertebral artery: Patent with normal antegrade direction of flow. Impression: No hemodynamically significant stenosis by velocity criteria. [id number] bilateral atherosclerotic plaque.
--- NOTE | 2024-10-30 11:23 | DVHPNRES ---
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 he came to the ED with chief complaint of shortness of breath and chest pain which is 3/10 in intensity, kind of sharp since last 4 days, not radiating, no aggravating and relieving factors and dizziness since last 4 years which increases when standing and walking, yesterday he felt dizzy and tripped and fell down on the fireplace causing a laceration to his left pinky finger but had no head trauma, he states that he can tell when he is going to fall, because he feels dizzy and his legs shake. he denies any nausea, vomiting, headaches, fever, chills, cough, palpitations,. He uses 2 L of oxygen at home 6 months. patient takes Eliquis, furosemide, aspirin, atorvastatin, Jardiance, gabapentin, Entresto, metoprolol, spironolactone, Lantus 25. Patient also complained of nonbloody, diarrhea 2-3 times a day and foul smell in his breath since since 1 month, but denies any recent travels or any sick contacts. 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 Cardiology was consulted and recommended surgical history: Surgery 15 years ago in 2016, hernia repair with mesh placement, CABG surgery personal history: denies smoking, occasional alcohol use, patient states that he had two shots of methamphetamine 2 days ago Constitutional: Denies weight loss, fever and chills. HEENT: Denies changes in vision and hearing. Respiratory: has shortness of breath and denies cough Cardiovascular: mild chest pain GI: denies abdominal pain or nausea, vomiting, has diarrhea : Denies dysuria and urinary frequency. Musculoskeletal: Denies myalgias and joint pain Skin: Denies rash and pruritus. Neurological: has dizziness, mild headache Objective vital signs Vital Sign Date Time Temp Pulse Resp B/P (MAP) Pulse Ox O2 Delivery O2 Flow Rate FiO2 10/30/24 09:42 111/76 10/30/24 09:41 108 7/29/25 09:30 17 98 10/30/24 08:23 Nasal Cannula* 2 28 10/30/24 07:30 98.3 98.3 Total Intake and Output 10/29/24 10/29/24 10/30/24 15:00 23:00 07:00 Intake Total 500 ml Balance 500 ml medications Current Medications Medications Dose Ordered Sig/Delilah Route Start Time Stop Time Status Last Admin Dose Admin Sodium Chloride 10 ml Q8HR IV 10/29/24 22:00 10/30/24 05:52 10 ML Acetaminophen/ Hydrocodone Bitart 1 tab Q4HP PRN PO 10/29/24 22:00 10/30/24 09:49 1 TAB Acetaminophen 650 mg Q6HP PRN PO 10/29/24 22:00 Nitroglycerin 0.4 mg Q5MINP PRN SL 10/29/24 22:00 Morphine Sulfate 2 mg Q30M PRN IV 10/29/24 22:00 Apixaban 5 mg BID PO 10/29/24 22:00 10/30/24 09:41 5 MG Aspirin 81 mg DAILY@1400 PO 10/30/24 14:00 Empaglifozin 10 mg DAILY PO 10/30/24 10:00 10/30/24 09:40 10 MG Spironolactone 25 mg DAILY PO 10/30/24 10:00 10/30/24 09:41 25 MG Tamsulosin HCl 0.4 mg QPM PO 10/30/24 18:00 Atorvastatin Calcium 80 mg DAILY PO 10/30/24 10:00 10/30/24 09:40 80 MG Gabapentin 800 mg TID PO 10/29/24 22:30 10/30/24 05:52 800 MG Metoprolol Succinate 25 mg BID PO 10/30/24 10:00 10/30/24 09:41 25 MG Trazodone HCl 50 mg HS PO 10/29/24 22:00 10/30/24 00:51 50 MG Furosemide 20 mg BID IV 10/29/24 22:00 10/30/24 09:42 20 MG Diagnostic Test (Pha) 1 strip ACHS 10/30/24 07:00 10/30/24 07:27 1 STRIP Insulin Human Regular ACHS SC 10/30/24 07:00 10/30/24 07:27 6 UNITS Dextrose 50 ml UD PRN IV 10/29/24 23:45 Pantoprazole Sodium 40 mg DAILY IV 10/30/24 10:00 10/30/24 10:11 40 MG Examination General: Patient alert and oriented in person, place and time. Patient following commands. HEENT: Normocephalic, atraumatic, moist mucous membranes Respiratory/pulmonary: Clear lungs bilaterally, vesicular murmurs present in almost all lung wilburn, no associated crackles or wheezes. Cardiovascular: Normal heart sounds S1 and S2 with no associated murmurs Abdomen: Abdomen nondistended, there is no pain to palpation in any of the abdominal quadrants, no palpable masses. Extremities: There is 1 + mild bilateral edema Peripheral Pulses: 3+ Radial (R). 3+ Radial (L). 3+ Dorsalis pedis (R). 3+ Dorsalis pedis(L) Skin: No rashes or pruritus, Right little finger laceration, and right foot ulcer Neurological: Intact cranial nerves with no focal neurologic deficits laboratory and microbiology Laboratory Tests 10/30/24 05:57 Test 10/30/24 05:57 Range/Units Serum Glucose 223 H 74-106 mg/dL Problem List/Assessment/Plan Problem List/Assessment/Plan # Dizziness # Mechanical Falls - Monitor blood pressure closely due to current low readings - Evaluate for orthostatic hypotension with orthostatic vitals - Consider cardiac workup to assess heart function - Assess fall risk and implement fall prevention strategies # Right Hand Laceration - wound care consulted - Clean and assess the laceration - Provide appropriate wound care - Administer Topical antibiotics # Chest Pain ruled out ACS # history of CABG # chronic hypoxic respiratory failure due to acute exacerbation of systolic heart failure # Chronic Oxygen Dependency - on 2 L oxygen - last echo on 07/13/2024 EF was 45% - BNP is 215 - continue GDMT has tolerated - Lasix IV 20 mg b.i.d. - continue aspirin, Lipitor, , metoprolol - troponin negative - cardiology consulted and recomended Continue NOAC therapy, Eliquis, and Continue beta-jaime, Avoid antiarrhythmic agents given persistent atrial fibrillation, and Single antiplatelet therapy and lipid-lowering agent given history of CABG -[id number] VASc score: 5 points, HAS-BLED: 2 points # Chronic Afib - Metoprolol, Eliquis # LEO on CKD likely due to VMN - Creatinine 1.82/GFR 40 - Avoid nephrotoxic drugs # Type 2 DM - HGB A1c pending - Regular insulin mild SS a.c. and HS - Accu-Cheks per protocol # History of Colon Cancer - Consider referral to oncology for follow-up # Substance Use - urine drug screen shows amphetamine positive - counseling on risks of substance use, especially with cardiac history - Consider referral to substance abuse treatment program - Educate on the dangers of driving under the influence DVT prophylaxis: Ambulatory PPI prophylaxis: None Goals of care discussed with patient for 29 minutes: Full code Case discussed with Dr. Pang Plan discussed with: Patient My Orders My Orders Orders - ARIK BRAXTON RESIDENT Procedure Category Date Status Time Strict I&O ED NURSING 10/30/24 Transmitted Maintain Fluid ORIN 10/30/24 In Process Restrictions 09:53 Stool Occult Blood LAB 10/30/24 Logged 09:53 Stool Wbc LAB 10/30/24 Logged 09:53 * Wound Consult CONS 10/30/24 Transmitted Pantoprazole PHA 10/30/24 In Process (Protonix) 10:00 * Cardiology Consult CONS 10/30/24 Transmitted 09:53 Orthostatic Vital ORDERS 10/30/24 Transmitted Signs 09:53 Carotid Duplx W Color US 10/30/24 Taken DOP 09:53 Date of Service: Oct 30, 2024 Billing Provider: DANIELLA PEREA MD Common Visit Codes: [id number] INP/OBS CARE(HIGH) ARIK BRAXTON RESIDENT Oct 30, 2024 11:23 DANIELLA PEREA MD Oct 31, 2024 02:05
[2024-10-30 11:39] LABS: Protein, Urine 7.6 mg/dL (1-14)
[2024-10-30 11:41] LABS: Amphetamine Screen, Urine Pos (NEGATIVE); Barbiturate Scree,Urine Neg (NEGATIVE); Benzodiazephine Screen, Urine Neg (NEGATIVE); Cannabinoid Screen, Urine Neg (NEGATIVE); Cocaine Screen, Urine Neg (NEGATIVE); Opiate Scree,Urine Neg (NEGATIVE); Phencyclidine Screen, Urine Neg (NEGATIVE)
--- NOTE | 2024-10-30 13:30 | DVHINCON2 ---
Date Seen: Oct 30, 2024 Referring Physician MD Uzma resident Reason for Consultation History of CABG and AFib History of Present Illness This is a 69-year-old male patient who presents to emergency room with chief complaint of worsening shortness of breath and diarrhea for one month. C ardiology has been consulted at this time for history of CABG and AFib. Initial twelve lead electrocardiogram reveals atrial fibrillation. Initial troponin level of 16ng/L with down trend thereafter. Patient denies any cardiac symptoms such as chest pain or palpitations. Significant past medical history includes congestive heart failure, severe coronary artery disease status post triple- vessel CABG in 2016 (on Aspirin), persistent atrial fibrillation (on Eliquis), hypertension, dyslipidemia, abdominal aortic aneurysm, pte-bvkewjy-mpegftdir type 2 diabetes mellitus, BPH, peripheral neuropathy, chronic back pain, history of colon cancer status post colectomy in 2016, and morbid obesity. 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 He also admits to dietary indiscretions eating high sodium foods and reports noncompliance with his heart failure medications. Past Medical History Past medical history reviewed. No other significant than mentioned above. Past Surgical History Triple-vessel CABG in 2016 Colectomy in 2016 Hernia repair Family History: Colon cancer G8 FATHER Diabetes mellitus G8 MOTHER Hypertension G8 MOTHER Family History Family history reviewed. Social History Patient has a 15 pack-year history, quit smoking approximately 30 years ago Patient denies any illicit drug use. Toxicology screen positive for amphetamines Patient denies any alcohol use Allergies: Coded Allergies: Morphine (Verified Allergy, Unknown, 05/21/24) Home Meds Active Scripts Tamsulosin Hcl (Flomax) 0.4 Mg Cap, 0.4 MG PO QPM for 30 Days, #30 CAP 3 Refills Prov:INGE MENON MD 09/22/23 Silver Sulfadiazine (Silvadene) 1 % Cre, 1 APPLIC TOP DAILY, #50 GRAMS Prov:LUIS E DURAN MD 09/12/23 Insulin Glargine (Lantus Solostar) 100 Unit/Ml Inj, 25 UNIT SC QAM, 10 units sub Q QPM for 50 Days, #5 INJ Prov:LUIS E DURAN MD 09/12/23 Aspirin (Aspirin Low Dose) 81 Mg Tab, 81 MG PO DAILY@1400 for 90 Days, TAB Hold if internal bleeding Called PMD if internal bleeding Prov:LUIS E DURAN MD 09/12/23 Metoprolol Succinate (Metoprolol Succinate Er) 25 Mg Tab, 1 TAB PO BID, #180 TAB 1 Refill Prov:LUIS E DURAN MD 09/12/23 Atorvastatin Calcium (Lipitor) 80 Mg Tab, 1 TAB PO DAILY, #90 TAB 5 Refills Hold if calf muscle pains Prov:LUIS E DURAN MD 09/12/23 Apixaban Base (ELIQUIS) 5 Mg Tab, 5 MG PO BID for 90 Days, #180 TAB Hold if internal bleeding Called PMD if internal bleeding Prov:LUIS E DURAN MD 09/12/23 Sacubitril-Valsartan (Entresto 24-26 mg) 1 Tab Tab, 1 TAB PO BID for 90 Days, #180 TAB Prov:BIENVENIDO MADRIGAL MD 08/24/23 Reported Medications Spironolactone (Spironolactone) 25 Mg Tab, 1 TAB PO DAILY 08/23/23 Empagliflozin (Jardiance) 10 Mg Tab, 1 TAB PO DAILY 08/23/23 Gabapentin (Gabapentin) 800 Mg Tab, 1 TAB PO TID, TAB 08/23/23 Furosemide (Lasix) 20 Mg Tb, 2 TAB PO DAILY 08/20/23 Home Meds Home medications reviewed. Current Medications Current Medications Medications (Trade) Dose Ordered Sig/Delilah Route PRN Reason Start Time Stop Time Status Last Admin Sodium Chloride (Saline Lock Ns) 10 ml Q8HR IV 10/29/24 22:00 10/30/24 05:52 Acetaminophen/ Hydrocodone Bitart (Grubbs 5/325MG Tab) 1 tab Q4HP PRN PO MODERATE PAIN (4-6 PAIN SCALE) 10/29/24 22:00 10/30/24 09:49 Acetaminophen (Tylenol Tablet) 650 mg Q6HP PRN PO PAIN SCALE 1-3 OR TEMP>100.4 10/29/24 22:00 Nitroglycerin (Ntrostat Sublingual) 0.4 mg Q5MINP PRN SL FOR CHEST PAIN 10/29/24 22:00 Morphine Sulfate 2 mg Q30M PRN IV FOR CHEST PAIN 10/29/24 22:00 Apixaban (Eliquis) 5 mg BID PO 10/29/24 22:00 10/30/24 09:41 Aspirin (Ecotrin Enteric Coated Tablet) 81 mg DAILY@1400 PO 10/30/24 14:00 Empaglifozin (Jardiance) 10 mg DAILY PO 10/30/24 10:00 10/30/24 09:40 Spironolactone (Aldactone) 25 mg DAILY PO 10/30/24 10:00 10/30/24 09:41 Tamsulosin HCl (Flomax) 0.4 mg QPM PO 10/30/24 18:00 Atorvastatin Calcium (Lipitor) 80 mg DAILY PO 10/30/24 10:00 10/30/24 09:40 Gabapentin (Neurontin Capsule) 800 mg TID PO 10/29/24 22:30 10/30/24 05:52 Metoprolol Succinate (Toprol Xl) 25 mg BID PO 10/30/24 10:00 10/30/24 09:41 Trazodone HCl (Desyrel) 50 mg HS PO 10/29/24 22:00 10/30/24 00:51 Furosemide (Lasix Injection) 20 mg BID IV 10/29/24 22:00 10/30/24 09:42 Diagnostic Test (Pha) (Accu-Chek Comfort Curve T) 1 strip ACHS 10/30/24 07:00 10/30/24 11:30 Insulin Human Regular (InsuLIN R) ACHS SC 10/30/24 07:00 10/30/24 11:51 Dextrose 50 ml UD PRN IV Blood Sugar LESS THAN 60 10/29/24 23:45 Pantoprazole Sodium (Protonix) 40 mg DAILY IV 10/30/24 10:00 10/30/24 10:11 Review of Systems Constitutional: No symptom reported Ears, Nose, & Throat: No symptom reported Eyes: No symptom reported Neurological: No symptoms reported Pulmonary/Respiratory: Shortness of breath Cardiovascular: No symptom reported Gastrointestinal: Diarrhea Genitourinary: No symptom reported Musculoskeletal: No symptom reported Skin: No symptom reported Psychiatric: No symptom reported Endocrine: No symptom reported Hematologic/Lymphatic: No symptom reported Vital Signs Vital Signs Date Time Temp Pulse Resp B/P (MAP) Pulse Ox O2 Delivery O2 Flow Rate FiO2 10/30/24 12:00 97 10/30/24 11:30 14 100/73 (82) 98 10/30/24 08:23 Nasal Cannula* 2 28 10/30/24 07:30 98.3 98.3 Physical Exam General Appearance: Cooperative. Obese Pulmonary/Respiratory: Clear, bilateral breaths sounds. Cardiovascular/Chest: Regular rate and rhythm. Peripheral Pulses: 2+ Radial (R). 2+ Radial (L). Abdominal Exam: Normal bowel sounds. Ankle Exam: Negative ankle edema Lower extremities: Negative lower extremity edema Neuro/Mental Status: A/OX4, coherent. Thoughts/Psych: Normal thought pattern. Appropriate mood and affect. Good judgment and insight. Appearance: No acute distress. Skin Exam: Right foot open ulcer on plantar aspect Labs/Diagnostic Data Labs Test 10/30/24 10:51 10/30/24 10:50 10/30/24 05:57 10/29/24 19:17 Range/Units Urine Creatinine 32.04 30.0-125.0 mg/dL Urine Protein/Creatinine Ratio 0.24 Urine Sodium 71 40-220 mmol/L Urine Total Protein 7.6 1-14 mg/dL Urine Opiates Screen Neg NEGATIVE Urine Fentanyl Screen Neg NEGATIVE Urine Barbiturates Screen Neg NEGATIVE Urine Phencyclidine Screen Neg NEGATIVE Urine Amphetamines Screen Pos NEGATIVE Urine Benzodiazepines Screen Neg NEGATIVE Urine Cocaine Screen Neg NEGATIVE Urine Cannabinoids Screen Neg NEGATIVE Urine Ketones Negative Negative White Blood Count 7.3 4.4-10.8 10^3/uL Red Blood Count 4.83 4.5-5.90 10^6/uL Hemoglobin 14.9 13.5-17.5 g/dL Hematocrit 43.5 41.0-53.0 % Mean Corpuscular Volume 90.0 80.0-100.0 fL Mean Corpuscular Hemoglobin 30.9 28.0-32.0 pg Mean Corpuscular Hemoglobin Concent 34.4 32.0-36.0 g/dL Red Cell Distribution Width 14.8 H 11.8-14.3 % Platelet Count 220 140-450 10^3/uL Mean Platelet Volume 9.6 6.9-10.8 fL Neutrophils (%) (Auto) 69.2 37.0-80.0 % Lymphocytes (%) (Auto) 17.8 10.0-50.0 % Monocytes (%) (Auto) 9.3 0.0-12.0 % Eosinophils (%) (Auto) 3.1 0.0-7.0 % Basophils (%) (Auto) 0.6 0.0-2.0 % Neutrophils # (Auto) 5.1 1.6-8.6 10 ^3/uL Lymphocytes # (Auto) 1.3 0.4-5.4 10 ^3/uL Monocytes # (Auto) 0.7 0-1.3 10 ^3/uL Eosinophils # (Auto) 0.2 0-0.8 10 ^3/uL Basophils # (Auto) 0 0-0.2 10 ^3/uL Nucleated Red Blood Cells 0.0 % Sodium Level 137 136-145 mmol/L Potassium Level 4.1 3.5-5.1 mmol/L Chloride Level 101 98-107 mmol/L Carbon Dioxide Level 26 20-31 mmol/L Anion Gap 10 5-15 Blood Urea Nitrogen 38 H 9-23 mg/dL Creatinine 1.69 H 0.700-1.30 mg/dL Glomerular Filtration Rate Calc 44 >90 mL/min BUN/Creatinine Ratio 22.5 H 10.0-20.0 Serum Glucose 223 H 74-106 mg/dL Hemoglobin A1c 9.0 H <5.7 % A1C Calcium Level 10.0 8.7-10.4 mg/dL Magnesium Level 2.1 1.6-2.6 mg/dL Total Bilirubin 0.7 0.2-1.0 mg/dL Aspartate Amino Transferase (AST) 30 13-40 U/L Alanine Aminotransferase (ALT) 50 H 7-40 U/L Alkaline Phosphatase 144 H 46-116 U/L Total Protein 7.4 5.7-8.2 g/dL Albumin 4.3 3.2-4.8 g/dL Vitamin B12 Level 265 211-911 pg/mL Vitamin D 25-Hydroxy 26.3 L 30.0-100 ng/mL Thyroid Stimulating Hormone (TSH) 0.66 0.55-4.78 uIU/mL Troponin I High Sensitivity 14 </=54 ng/L Test 10/29/24 16:16 Range/Units D-Dimer, Quantitative 0.37 0.0-0.49 mg/L FEU B-Type Natriuretic Peptide 215.62 0-100 pg/mL Assessment Longstanding persistent atrial fibrillation, Stage 3c (on Eliquis) Acute on chronic HFmrEF, NYHA class III (last echo 07/13/24 EF 45%) Severe coronary artery disease status post triple-vessel CABG (on Aspirin) Hypertension Dyslipidemia Stable aneurysm of abdominal aorta Acute hypoxic respiratory failure [id number] type 2 diabetes mellitus, uncontrolled (Hgb A1c 9.0%) Morbid obesity History of tobacco use Methamphetamine use Medical noncompliance Plan/Recommendation We will continue with following plan/recommendations (Jack): * Transthoracic echocardiogram from 07/13/2024 reveals an EF of 45% * Initiate GDMT for CHF as tolerated * And ARNI, Entresto with improved renal function * Strict intake and output, daily weights, maintain fluid restriction * [id number] VASc score: 5 points, HAS-BLED: 2 points * Continue NOAC therapy, Eliquis * Continue beta-jaime * Avoid antiarrhythmic agents given persistent atrial fibrillation * Single antiplatelet therapy and lipid-lowering agent given history of CABG * Continuous telemetry monitoring * Risk factor modifications, counseled * Dietary and lifestyle changes * Medication compliance Case discussed with . Continue with medical management. Thank you for allowing us to care for this patient. Please call with any questions or concerns. Critical care time spent: 44 minutes This medical document was created using an electronic medical record system with voice recognition software and computerized dictation system. Although this document has been carefully reviewed, there might still be some phonetic and typographical errors. Occasional wrong-word or ``sound-alike substitutions may have occurred due to the inherent limitations of voice recognition software. These areas are purely typographical due to imperfections of the software programs and do not reflect any compromise in the patient's medical care. Please read the chart carefully and recognize, using context, where these substitutions have occurred. Plan discussed with: Patient NYHA Physical activity limitations: Class3(Marked) ordinary (activity causes symtoms) Date of Service: Oct 30, 2024 Billing Provider: GARRY BROWN Cardiology Common Codes: 62820-[id number] INP/OBS CARE (High) Cardiology Consultation Codes: [id number] CONSULT <45MIN GARRY BROWN Oct 30, 2024 13:30
[2024-10-30] MEDS: ASPirin-EC 81 mg tab PO SCH (14:11)
[2024-10-30] MEDS: TAMSULOSIN HYDROCHLORIDE 0.4 MG CAP PO SCH (17:35)
[2024-10-31] VITALS (8 sets, daily range): BP systolic 83–131; BP diastolic 53–99; PULSE 60–103; RESP 17–20; TEMP 97.3–98.6; O2SAT 89–98
[2024-10-31 06:48] LABS: Hematocrit 43.8 % (41.0-53.0); Hemoglobin 14.8 g/dL (13.5-17.5); Mean Corpuscular Hemoglobin 30.4 pg (28.0-32.0); Mean Corpuscular Volume 89.7 fL (80.0-100.0); Nucleated Red Blood Cells % 0.1 %
[2024-10-31 07:06] LABS: Albumin 4.1 g/dL (3.2-4.8); Anion Gap 10 (5-15); BUN/Creatinine Ratio 18.1 (10.0-20.0); Blood Urea Nitrogen 23 mg/dL (9-23); Calcium 9.8 mg/dL (8.7-10.4); Carbon Dioxide 28 mmol/L (20-31); Chloride 101 mmol/L (98-107); Potassium 4.0 mmol/L (3.5-5.1); Sodium 139 mmol/L (136-145); Total Protein 7.1 g/dL (5.7-8.2)
[2024-10-31 07:07] LABS: Bilirubin, Total 0.6 mg/dL (0.2-1.0)
[2024-10-31 07:10] LABS: Alanine Aminotransferase 41 U/L (7-40); Alkaline Phosphatase 139 U/L (46-116); Glucose 149 mg/dL (74-106)
[2024-10-31] MEDS: CYANOCOBALAMIN (B-12) 1000 MCG/1 ML VIAL IM ONE (10:04)
[2024-10-31] MEDS: cefTRIAXone 1GM/50ML D5W 50 ML IV SCH (10:05)
[2024-10-31] MEDS: ERGOCALCIFEROL 50,000 UNIT(1.25MG) CAP PO SCH (10:05)
[2024-10-31] MEDS: LACTATED RINGER'S 1,000 ML IV ONE (15:37)
--- NOTE | 2024-10-31 16:44 | DVHPNRES ---
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 he came to the ED with chief complaint of shortness of breath and chest pain which is 3/10 in intensity, kind of sharp since last 4 days, not radiating, no aggravating and relieving factors and dizziness since last 4 years which increases when standing and walking, yesterday he felt dizzy and tripped and fell down on the fireplace causing a laceration to his left pinky finger but had no head trauma, he states that he can tell when he is going to fall, because he feels dizzy and his legs shake. he denies any nausea, vomiting, headaches, fever, chills, cough, palpitations,. He uses 2 L of oxygen at home 6 months. patient takes Eliquis, furosemide, aspirin, atorvastatin, Jardiance, gabapentin, Entresto, metoprolol, spironolactone, Lantus 25. Patient also complained of nonbloody, diarrhea 2-3 times a day and foul smell in his breath since since 1 month, but denies any recent travels or any sick contacts. Patient states that he needs a superintendent car construction. Patient At bedside. Patient is alert x3, appears very tired, patient possibly in withdrawal from amphetamines. Patient was not compliant with full liquid diet and an outside meal, and patient was shifted to soft diet. Overnight patient had 5 times watery diarrhea. Pending C diff culture results. Given ceftriaxone, metronidazole. Objective vital signs Vital Sign Date Time Temp Pulse Resp B/P (MAP) Pulse Ox O2 Delivery O2 Flow Rate FiO2 10/31/24 13:00 97.3 60 18 114/84 (94) 98 97.3 10/31/24 08:10 Nasal Cannula* 2 28 Total Intake and Output 10/30/24 10/30/24 10/31/24 15:00 23:00 07:00 Intake Total 750 ml 300 ml Balance 750 ml 300 ml medications Current Medications Medications Dose Ordered Sig/Delilah Route Start Time Stop Time Status Last Admin Dose Admin Sodium Chloride 10 ml Q8HR IV 10/29/24 22:00 10/31/24 13:51 10 ML Acetaminophen/ Hydrocodone Bitart 1 tab Q4HP PRN PO 10/29/24 22:00 10/30/24 09:49 1 TAB Acetaminophen 650 mg Q6HP PRN PO 10/29/24 22:00 Nitroglycerin 0.4 mg Q5MINP PRN SL 10/29/24 22:00 Morphine Sulfate 2 mg Q30M PRN IV 10/29/24 22:00 Apixaban 5 mg BID PO 10/29/24 22:00 10/31/24 10:04 5 MG Aspirin 81 mg DAILY@1400 PO 10/30/24 14:00 10/31/24 13:50 81 MG Empaglifozin 10 mg DAILY PO 10/30/24 10:00 10/31/24 10:05 10 MG Spironolactone 25 mg DAILY PO 10/30/24 10:00 10/31/24 10:05 25 MG Tamsulosin HCl 0.4 mg QPM PO 10/30/24 18:00 10/30/24 17:35 0.4 MG Atorvastatin Calcium 80 mg DAILY PO 10/30/24 10:00 10/31/24 10:05 80 MG Gabapentin 800 mg TID PO 10/29/24 22:30 10/31/24 13:50 800 MG Metoprolol Succinate 25 mg BID PO 10/30/24 10:00 10/31/24 10:05 25 MG Trazodone HCl 50 mg HS PO 10/29/24 22:00 10/30/24 22:12 50 MG Furosemide 20 mg BID IV 10/29/24 22:00 10/31/24 10:04 20 MG Diagnostic Test (Pha) 1 strip ACHS 10/30/24 07:00 10/31/24 11:30 1 STRIP Insulin Human Regular ACHS SC 10/30/24 07:00 10/31/24 12:03 4 UNITS Dextrose 50 ml UD PRN IV 10/29/24 23:45 Pantoprazole Sodium 40 mg DAILY IV 10/30/24 10:00 10/31/24 10:03 40 MG Ergocalciferol 50,000 unit Q7D PO 10/31/24 06:45 10/31/24 10:05 50,000 UNIT Ceftriaxone Sodium 50 ml @ 100 mls/hr DAILY@09 IV 10/31/24 09:00 10/31/24 10:05 100 MLS/HR Metronidazole 100 ml @ 100 mls/hr Q8HR IV 10/31/24 14:00 10/31/24 13:50 100 MLS/HR Examination General: Patient alert and oriented in person, place and time. Patient following commands. HEENT: Normocephalic, atraumatic, moist mucous membranes Respiratory/pulmonary: Clear lungs bilaterally, vesicular murmurs present in almost all lung wilburn, no associated crackles or wheezes. Cardiovascular: Normal heart sounds S1 and S2 with no associated murmurs Abdomen: Abdomen nondistended, there is no pain to palpation in any of the abdominal quadrants, no palpable masses. Extremities: There is 1 + mild bilateral edema Peripheral Pulses: 3+ Radial (R). 3+ Radial (L). 3+ Dorsalis pedis (R). 3+ Dorsalis pedis(L) Skin: No rashes or pruritus, Right little finger laceration, and right foot ulcer Neurological: Intact cranial nerves with no focal neurologic deficits laboratory and microbiology Laboratory Tests 10/31/24 06:03 Test 10/31/24 06:03 Range/Units Serum Glucose 149 H 74-106 mg/dL Microbiology Date/Time Source Procedure Growth Status 10/30/24 17:00 Stool Clostridium difficile Toxin Assay - Final Complete Problem List/Assessment/Plan Problem List/Assessment/Plan # Dizziness # Mechanical Falls - Evaluate for orthostatic hypotension with orthostatic vitals - Assess fall risk and implement fall prevention strategies # Right Hand Laceration - wound care consulted and - Clean and assess the laceration - Provide appropriate wound care - Administer Topical antibiotics # Chest Pain ruled out ACS # history of CABG # chronic hypoxic respiratory failure due to acute exacerbation of systolic heart failure # Chronic Oxygen Dependency - on 2 L oxygen - last echo on 07/13/2024 EF was 45% - BNP is 215 - continue GDMT has tolerated - Lasix IV 20 mg b.i.d. 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 and HS - Accu-Cheks per protocol # History of Colon Cancer - Consider referral to oncology for follow-up # Substance Use - urine drug screen shows amphetamine positive - counseling on risks of substance use, especially with cardiac history - Consider referral to substance abuse treatment program - Educate on the dangers of driving under the influence DVT prophylaxis: Ambulatory PPI prophylaxis: None Goals of care discussed with patient for 29 minutes: Full code Case discussed with Dr. Pang Plan discussed with: Patient Dietary Evaluation Review Comments: [facility] Cardiac [facility] Monitor Glucosed and PO intake for tigher DM control Wt loss manangement upon D/C Provided DM handbook for outpatient F.U Expected Outcomes/Goals: controlled DM, gradual wt loss Date of Service: Oct 31, 2024 Billing Provider: DANIELLA PEREA MD Common Visit Codes: 74671-[id number] INP/OBS CARE(HIGH) ARIK BRAXTON RESIDENT Oct 31, 2024 16:44 DANIELLA PEREA MD Nov 05, 2024 00:11
[2024-10-31 20:52] LABS: Urine Protein, UAD Negative (Negative)
[2024-10-31] MEDS: MORPHINE SULFATE INJ 2 MG/ml SYRG IV ONE (23:08)
[2024-11-01 01:00] VITALS: BP 137/83; PULSE 53; RESP 17; TEMP 97.8; O2SAT 95
[2024-11-01 05:00] VITALS: BP 117/74; PULSE 61; RESP 18; TEMP 97.4; O2SAT 95
[2024-11-01 06:39] LABS: Anion Gap 10 (5-15); Carbon Dioxide 30 mmol/L (20-31); Chloride 100 mmol/L (98-107); Potassium 3.8 mmol/L (3.5-5.1); Sodium 140 mmol/L (136-145)
[2024-11-01 06:40] LABS: Calcium 9.9 mg/dL (8.7-10.4)
[2024-11-01 06:45] LABS: BUN/Creatinine Ratio 15.4 (10.0-20.0); Blood Urea Nitrogen 19 mg/dL (9-23)
[2024-11-01 06:46] LABS: Glucose 169 mg/dL (74-106)
[2024-11-01 08:25] VITALS: PULSE 77; RESP 20; O2SAT 99
[2024-11-01 09:00] VITALS: BP 136/98; PULSE 77; RESP 20; TEMP 98.8; O2SAT 99
[2024-11-01 13:00] VITALS: BP 125/95; PULSE 68; RESP 20; TEMP 97.8; O2SAT 96
[2024-11-01 17:00] VITALS: BP 121/77; PULSE 62; RESP 21; TEMP 98; O2SAT 94
--- NOTE | 2024-11-01 19:14 | DVHDSRES ---
Discharge Summary Date of Admission Resident Creating Document: ARIK BRAXTON RESIDENT Oct 29, 2024 at 21:49 Date of Discharge: Nov 01, 2024 Admitting Diagnosis # Dizziness due to drug abuse Labs/Diagnostic Data: Laboratory Results Test 11/01/24 17:21 11/01/24 05:22 10/31/24 11:42 10/31/24 07:38 POC Glucose 246 mg/dl (70-106) Sodium Level 140 mmol/L (136-145) Potassium Level 3.8 mmol/L (3.5-5.1) Chloride Level 100 mmol/L (98-107) Carbon Dioxide Level 30 mmol/L (20-31) Anion Gap 10 (5-15) Blood Urea Nitrogen 19 mg/dL (9-23) Creatinine 1.23 mg/dL (0.700-1.30) Glomerular Filtration Rate Calc 64 mL/min (>90) BUN/Creatinine Ratio 15.4 (10.0-20.0) Serum Glucose 169 mg/dL (74-106) Calcium Level 9.9 mg/dL (8.7-10.4) Urine Color Light-yellow (Yellow) Urine Clarity Clear (Clear) Urine pH 5.0 (5.0-9.0) Urine Specific [place] 1.013 (1.001-1.035) Urine Protein Negative (Negative) Urine Ketones Negative (Negative) Urine Blood Negative /uL (Negative) Urine Nitrite Negative (Negative) Urine Bilirubin Negative (Negative) Urine Urobilinogen Normal mg/dL (Negative) Urine Leukocyte Esterase Trace /uL (Negative) Urine RBC <1 /hpf (0 - 3) Urine Microscopic WBC 4 /HPF (0-3) Urine Squamous Epithelial Cells Few /hpf (<5) Urine Bacteria Mod /hpf (None Seen) Urine Mucus Few (None Seen) Urine Glucose 4+ mg/dL (Normal) Ammonia 24 umol/L (11-32) Test 10/31/24 06:03 10/30/24 17:00 10/30/24 10:51 10/30/24 05:57 White Blood Count 7.6 10^3/uL (4.4-10.8) Red Blood Count 4.88 10^6/uL (4.5-5.90) Hemoglobin 14.8 g/dL (13.5-17.5) Hematocrit 43.8 % (41.0-53.0) Mean Corpuscular Volume 89.7 fL (80.0-100.0) Mean Corpuscular Hemoglobin 30.4 pg (28.0-32.0) Mean Corpuscular Hemoglobin Concent 33.9 g/dL (32.0-36.0) Red Cell Distribution Width 14.9 % (11.8-14.3) Platelet Count 227 10^3/uL (140-450) Mean Platelet Volume 9.6 fL (6.9-10.8) Neutrophils (%) (Auto) 71.5 % (37.0-80.0) Lymphocytes (%) (Auto) 13.3 % (10.0-50.0) Monocytes (%) (Auto) 10.0 % (0.0-12.0) Eosinophils (%) (Auto) 4.6 % (0.0-7.0) Basophils (%) (Auto) 0.6 % (0.0-2.0) Neutrophils # (Auto) 5.4 10 ^3/uL (1.6-8.6) Lymphocytes # (Auto) 1.0 10 ^3/uL (0.4-5.4) Monocytes # (Auto) 0.8 10 ^3/uL (0-1.3) Eosinophils # (Auto) 0.3 10 ^3/uL (0-0.8) Basophils # (Auto) 0 10 ^3/uL (0-0.2) Nucleated Red Blood Cells 0.1 % Total Bilirubin 0.6 mg/dL (0.2-1.0) Aspartate Amino Transferase (AST) 23 U/L (13-40) Alanine Aminotransferase (ALT) 41 U/L (7-40) Alkaline Phosphatase 139 U/L (46-116) Total Protein 7.1 g/dL (5.7-8.2) Albumin 4.1 g/dL (3.2-4.8) Stool Occult Blood Negative (Negative) Stool Occult Blood Sample #3 (Negative) Stool for White Cells None seen Urine Creatinine 32.04 mg/dL (30.0-125.0) Urine Protein/Creatinine Ratio 0.24 Urine Sodium 71 mmol/L (40-220) Urine Total Protein 7.6 mg/dL (1-14) Urine Opiates Screen Neg (NEGATIVE) Urine Fentanyl Screen Neg (NEGATIVE) Urine Barbiturates Screen Neg (NEGATIVE) Urine Phencyclidine Screen Neg (NEGATIVE) Urine Amphetamines Screen Pos (NEGATIVE) Urine Benzodiazepines Screen Neg (NEGATIVE) Urine Cocaine Screen Neg (NEGATIVE) Urine Cannabinoids Screen Neg (NEGATIVE) Hemoglobin A1c 9.0 % A1C (<5.7) Magnesium Level 2.1 mg/dL (1.6-2.6) Vitamin B12 Level 265 pg/mL (211-911) Vitamin D 25-Hydroxy 26.3 ng/mL (30.0-100) Thyroid Stimulating Hormone (TSH) 0.66 uIU/mL (0.55-4.78) Test 10/29/24 19:17 10/29/24 16:16 Troponin I High Sensitivity 14 ng/L (</=54) D-Dimer, Quantitative 0.37 mg/L FEU (0.0-0.49) B-Type Natriuretic Peptide 215.62 pg/mL (0-100) Other Laboratory Tests 11/01/24 05:22 10/31/24 06:03 Brief Hx & Hospital Course: Patient is a 69-year-old male with past medical history of insulin-dependent diabetes mellitus, HFmrEF with EF of 45%, hyperlipidemia, hypertension, COPD, AFib, abdominal aneurysm of 4.2 cm, PUD, history of colon cancer. he came to the ED with chief complaint of shortness of breath and chest pain which is 3/10 in intensity, kind of sharp since last 4 days, not radiating, no aggravating and relieving factors and dizziness since last 4 years which increases when standing and walking, yesterday he felt dizzy and tripped and fell down on the fireplace causing a laceration to his left pinky finger but had no head trauma, he states that he can tell when he is going to fall, because he feels dizzy and his legs shake. he denies any nausea, vomiting, headaches, fever, chills, cough, palpitations,. He uses 2 L of oxygen at home 6 months. patient takes Eliquis, furosemide, aspirin, atorvastatin, Jardiance, gabapentin, Entresto, metoprolol, spironolactone, Lantus 25. Patient also complained of nonbloody, diarrhea 2-3 times a day and foul smell in his breath since since 1 month, but denies any recent travels or any sick contacts. Patient states that he needs a ecd. Brief Hospital course: Patient came to the ED with dizziness probably due to acute substance abuse, a mechanical fall and he was evaluated for orthostatic hypotension with orthostatic vitals which were negative, and he was assessed for fall risk and implemented fall risk precautions. He had a right hand laceration for which Wound Care was consulted and the wound was cleaned and assist the laceration which did not need any stitches, provided appropriate wound care. Patient had chest pain for which ACS was ruled out, he had a history of CABG, he had chronic hypoxic failure due to acute exacerbation of systolic heart failure, he also has chronic oxygen dependency and is on 2 L oxygen at home and in the hospital. Patient's last echo showed EF of 45%, his BNP is 215, he is continued on GDMT as tolerated. Lasix 20 mg b.i.d., aspirin, Lipitor, metoprolol was started. Was consulted and recommended to Continue NOAC therapy, Eliquis, and Continue beta- jaime, Avoid antiarrhythmic agents given persistent atrial fibrillation, and Single antiplatelet therapy and lipid-lowering agent given history of CABG. [id number] VASc score: 5 points, HAS-BLED: 2 points. For his gastroenteritis probably due to infectious etiology patient was started on ceftriaxone, metronidazole. For his chronic AFib metoprolol and Eliquis were continued. 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 He has history of substance abuse drug screen showed amphetamine use positive, patient was counseled on discussed benefit of drug abuse especially with his cardiac history, considered referred to substance abuse treatment program, he was educated on the dangers of driving under the influence over 20 minutes. Patient is stable for discharge, he communicated understanding of his discharge plan and to follow-up with discharge Clinic in 1 week. General: Patient alert and oriented in person, place and time. Patient following commands. HEENT: Normocephalic, atraumatic, moist mucous membranes Respiratory/pulmonary: Clear lungs bilaterally, vesicular murmurs present in almost all lung wilburn, no associated crackles or wheezes. Cardiovascular: Normal heart sounds S1 and S2 with no associated murmurs Abdomen: Abdomen nondistended, there is no pain to palpation in any of the abdominal quadrants, no palpable masses. Extremities: There is 1 + mild bilateral edema Peripheral Pulses: 3+ Radial (R). 3+ Radial (L). 3+ Dorsalis pedis (R). 3+ Dorsalis pedis(L) Skin: No rashes or pruritus, Right little finger laceration, and right foot ulcer Neurological: Intact cranial nerves with no focal neurologic deficits Instructions: Follow-up with PCP in 1-2 weeks Continue dash diet, cardiac diet, low-salt diet Resume home medications Recommended substance abuse treatment program, follow-up Continue GDMT Operations or Procedures ORDERING PHYSICIAN: ARIK BRAXTON PROCEDURE(s): CARCL - CAROTID DUPLX W COLOR DOP REASON: dizziness ORDER NUMBER(s): [id number], ACCESSION NUMBER(s): [id number] Indication: dizziness Technique: Real-time ultrasound images of the neck vessels with chan-scale, color and wave Doppler were obtained. Comparison: US CAROTID DUPLX W COLOR DOP on DOS: 11/07/23 Findings: There is [id number] bilateral atherosclerotic plaque. The following peak systolic velocities were recorded in cm/sec: Right internal carotid: 58 Right common carotid: 68 Right external carotid: 89 Right internal/common carotid ratio: 0.9 Left internal carotid: 42 Left common carotid: 81 Left external carotid: 08 Left internal/common carotid ratio: 0.5 Right vertebral artery: Patent with normal antegrade direction of flow. Left vertebral artery: Patent with normal antegrade direction of flow. Impression: No hemodynamically significant stenosis by velocity criteria. Yijs-ti-[id number] bilateral atherosclerotic plaque. --- ORDERING PHYSICIAN: ANJANA BECKER MD PROCEDURE(s): CXR2 - CHEST TWO VIEWS ROUTINE REASON: sob ORDER NUMBER(s): [id number], ACCESSION NUMBER(s): [id number] Chest x-ray Technique: PA and lateral views Comparison: 05/05/2024 CLINICAL INDICATION: sob FINDINGS: Heart size enlarged. There is been prior coronary artery surgery. There are no infiltrates or effusions.. IMPRESSION: 1. 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 b.i.d. aspirin 81 mg p.o., atorvastatin 80 mg PO, furosemide 20 mg p.o. daily, gabapentin 800 mg, Lantus 25, metoprolol 25 mg, Entresto 1 tablet p.o. b.i.d. spironolactone 1 tablet daily Flomax 0.4 mg p.o. Scheduled Apixaban Base (Eliquis), 5 MG PO BID Aspirin (Aspirin Low Dose), 81 MG PO DAILY@1400 Atorvastatin Calcium (Lipitor), 1 TAB PO DAILY Empagliflozin (Jardiance), 1 TAB PO DAILY, (Reported) Furosemide (Lasix), 2 TAB PO DAILY, (Reported) Gabapentin (Gabapentin), 1 TAB PO TID, (Reported) Insulin Glargine (Lantus Solostar), 25 UNIT SC QAM, 10 units sub Q QPM Metoprolol Succinate (Metoprolol Succinate Er), 1 TAB PO BID Sacubitril-Valsartan (Entresto 24-26 mg), 1 TAB PO BID Silver Sulfadiazine (Silvadene), 1 APPLIC TOP DAILY Spironolactone (Spironolactone), 1 TAB PO DAILY, (Reported) Tamsulosin Hcl (Flomax), 0.4 MG PO QPM Discharge Statement: "Patient was advised to return to the ER or call 911 if any headaches, dizziness, shortness of breath, chest pain, abdominal pain, bleeding, fevers, or worsening of medical condition. Patient was counseled about treatment plan, medications, possible side effects, patientverbalized understanding. All questions were answered to the best of my ability. This discharge took greater then 30 minutes in planning, reviewing documentation, counseling the patient, and discussing with other team members." ASSESSMENT ASSESSMENT Assessment Dizziness due to substance abuse Date of Service: Nov 01, 2024 Billing Provider: DANIELLA PEREA MD Common Visit Codes: 58507-IQW/[id number] DISCH DAY >30min ARIK BRAXTON RESIDENT Nov 01, 2024 19:14 DANIELLA PEREA MD Nov 05, 2024 00:53
--- NOTE | 2024-11-07 11:52 | ECG ---
[facility] Test Date: 2024-10-29 Test Time: 15:30:32 Pat Name: NICOLAS INGRAM Department: [facility] ED Room: 0217 A Gender: M Structural Fitter: olesya : 1955 Requested By: ANJANA EBCKER Order Number: [id number] Reading MD: Finn Ridley Measurements Intervals [place] Rate: 104 P: 0 IA: 0 QRS: 123 QRSD: 98 T: 82 QT: 345 QTc: 454 Interpretive Statements Atrial fibrillation Left posterior fascicular block Consider anterior infarct, age undetermined Electronically Signed On 11-12-2024 16:40:02 PDT by Finn Ridley Please click the below link to view image of tracing.
== END 2024-11-01 19:09 | disposition home or self-care (01) | DRG 291 ==
LOC: ER 15:21 → OVERFLOW 21:49 → TELE-CENTR 10-30 12:51 → CENTRAL 10-31 12:25
PROVIDERS: ADMIT Student in an Organized Health Care Education/Training Program; ATTEND Student in an Organized Health Care Education/Training Program
PROC: 0HQFXZZ Repair Right Hand Skin, External Approach (ICD-10-PCS; principal; 2024-10-29)
DX: I11.0 Hypertensive heart disease with heart failure (principal); I50.23 Acute on chronic systolic (congestive) heart failure; N17.0 Acute kidney failure with tubular necrosis; I24.9 Acute ischemic heart disease, unspecified; I48.11 Longstanding persistent atrial fibrillation; A09 Infectious gastroenteritis and colitis, unspecified; J96.11 Chronic respiratory failure with hypoxia; S61.411A Laceration without foreign body of right hand, initial encounter; E66.01 Morbid (severe) obesity due to excess calories; E11.65 Type 2 diabetes mellitus with hyperglycemia; I71.40 Abdominal aortic aneurysm, without rupture, unspecified; E78.5 Hyperlipidemia, unspecified; N18.9 Chronic kidney disease, unspecified; F15.90 Other stimulant use, unspecified, uncomplicated; I25.10 Atherosclerotic heart disease of native coronary artery without angina pectoris; N40.0 Benign prostatic hyperplasia without lower urinary tract symptoms; G89.29 Other chronic pain; T50.995A Adverse effect of other drugs, medicaments and biological substances, initial encounter; Z79.82 Long term (current) use of aspirin; Z79.899 Other long term (current) drug therapy; Z79.01 Long term (current) use of anticoagulants; Z79.84 Long term (current) use of oral hypoglycemic drugs; Z85.038 Personal history of other malignant neoplasm of large intestine; Z95.1 Presence of aortocoronary bypass graft; Z87.891 Personal history of nicotine dependence; Z82.49 Family history of ischemic heart disease and other diseases of the circulatory system; Z80.0 Family history of malignant neoplasm of digestive organs; Z83.3 Family history of diabetes mellitus; Z79.4 Long term (current) use of insulin; Z91.199 Patient's noncompliance with other medical treatment and regimen due to unspecified reason; Z90.49 Acquired absence of other specified parts of digestive tract; W18.39XA Other fall on same level, initial encounter; Y93.89 Activity, other specified; Y92.89 Other specified places as the place of occurrence of the external cause; Y99.8 Other external cause status
CPT/HCPCS: 12002; 36415; 71046; 80048; 80053; 80307; 81001; 82140; 82270; 82306; 82570; 82607; 82962; 83036; 83735; 83880; 84156; 84300; 84443; 84484; 85025; 85048; 85379; 87177; 87493; 93005; 93886; 99291; G0378; J1815; J2470; J3490

== ENCOUNTER 2024-12-13 19:57 | Inpatient (IN) | payer MEDICAID, OTHER ==
[~2024-12-13] VITALS: Ht 185.4 cm; Wt 99.4 kg
--- NOTE | 2024-12-13 20:13 | ED.PDOC ---
History of Present Illness HPI Comments HPI: 69-year-old male who came via EMS chest/abdominal pain. Per EMS, initial call of chest pain, sternal, 8/10 intensity, non radiating. While being assessed patient started complaining of abdominal pain, 10/10 intensity Patient was discharged your last October 29, 2024, with a Final Diagnosis/Problems List # Dizziness # Mechanical Falls # Right hand Laceration # Chest Pain ruled out ACS # history of CABG # chronic hypoxic respiratory failure due to acute exacerbation of systolic heart failure # Chronic Oxygen Dependency # gastroenteritis of infectious etiology # Chronic Afib # LEO on CKD likely due to VMN # Type 2 DM # History of Colon Cancer # Substance Use/methamphetamine Initial Vitals BP: 115/72 HR: 92 RR: 24 O2: 95% Temp: 98.4 F Past Medical History: Hypertension, diabetes, dyslipidemia, afib, CHF, COPD, colon cancer Past Surgical History: CABG Social History: Denies ETOH, smoking, and drug use. Medications: Eliquis, Lasix, insulin Allergies: None nowak: chest pain and abdominal pain. HPI: Poor Historian. REVIEW OF SYSTEMS: CONSTITUTIONAL: Denies acute: fever, diaphoresis, chills, generalized weakness. HEAD: Denies acute: headache, photophobia Eyes: Denies acute: Double vision, vision loss, eye pain, eye discharge. EARS: Denies acute: tinnitus, hearing loss, ear discharge, ear pain, THROAT: Denies acute: sore throat, swelling, difficulty swallowing , pain with swallowing, change in voice. NECK: Denies acute: neck pain, neck swelling, stiff neck. HEART: Denies acute : palpitations, LUNGS: Denies acute: SOB, wheezing, cough, hemoptysis ABDOMEN: Denies acute: Nausea, Vomiting, diarrhea, melena , hematemesis, hematochezia SKIN: Denies acute: rash, redness, lesions, itchiness. EXTREMITIES: Denies acute: calf pain, numbness, tingling, weakness, denies pain in extremity. Denies acute: Low back pain. Neuro: Denies acute: focal neurological deficit, motor or sensory focal neurological deficit, tremors, seizure like activity, confusion, dizziness, change in mental status, loss of bowel or bladder function, cauda equina like symptoms. : Denies acute: dysuria, hematuria, flank pain, increase in urinary frequency. PSYCH: Denies acute: hallucination, suicidal ideation, homicidal ideation. PHYSICAL EXAM: General: ----jeiy-[id number]-[id number]----acute distress, awake and alert. Head: normocephalic, atraumatic. Neck: supple, trachea is midline, no swelling. Throat: Normal phonation. Eyes:, no erythema, no purulent discharge, no proptosis, no icterus. Heart: regular rate, regular rhythm, no significant murmur appreciated. Lungs: no apparent respiratory distress, Able to speak in full sentences. No wheezing, no rhonchi, no crackles. No stridors Clear to auscultation bilaterally. Abdomen: Mild nonspecific generalized tender to palpation, non distended, soft, no guarding, no rebound, + bowel sounds. Neuro: Awake, Alert, oriented to name, self, situation, follows commands GCS=15. Speech is normal. Skin: no petechia, no purpura, no cyanosis, non-pale, not jaundice. Lower extremities: --no - Pitting edema no deformity, no focal swelling, no calf TTP. Makes eye contact. moves all four extremities. Face: no apparent facial droop. ED COURSE: DISCLAIMER: This medical document was created using an electronic medical record system with voice recognition software and computerized dictation system. Although this document has been carefully reviewed, there might still be some phonetic and typographical errors. Occasional wrong-word or "sound-alike" substitutions may have occurred due to the inherent limitations of voice recognition software. These areas are purely typographical due to imperfections of the software programs and do not reflect any compromise in the patient's medical care. Please read the chart carefully and recognize, using context, where these substitutions have occurred. Chief Complaint: Abdominal Pain Time Seen by MD: 20:12 Primary Care Provider: aba Reviewed Notes: Visual Arts Teacher Notes, Allergies Allergies: Coded Allergies: No Known Drug Allergy (Verified Allergy, Unknown, 10/31/24) Home Meds Active Scripts Tamsulosin Hcl (Flomax) 0.4 Mg Cap, 0.4 MG PO QPM for 30 Days, #30 CAP 3 Refills Prov:INGE MENON MD 09/22/23 Silver Sulfadiazine (Silvadene) 1 % Cre, 1 APPLIC TOP DAILY, #50 GRAMS Prov:LUIS E DURAN MD 09/12/23 Insulin Glargine (Lantus Solostar) 100 Unit/Ml Inj, 25 UNIT SC QAM, 10 units sub Q QPM for 50 Days, #5 INJ Prov:LUIS E DURAN MD 09/12/23 Aspirin (Aspirin Low Dose) 81 Mg Tab, 81 MG PO DAILY@1400 for 90 Days, TAB Hold if internal bleeding Called PMD if internal bleeding Prov:LUIS E DURAN MD 09/12/23 Metoprolol Succinate (Metoprolol Succinate Er) 25 Mg Tab, 1 TAB PO BID, #180 TAB 1 Refill Prov:LUIS E DURAN MD 09/12/23 Atorvastatin Calcium (Lipitor) 80 Mg Tab, 1 TAB PO DAILY, #90 TAB 5 Refills Hold if calf muscle pains Prov:LUIS E DURAN MD 09/12/23 Apixaban Base (ELIQUIS) 5 Mg Tab, 5 MG PO BID for 90 Days, #180 TAB Hold if internal bleeding Called PMD if internal bleeding Prov:LUIS E DURAN MD 09/12/23 Sacubitril-Valsartan (Entresto 24-26 mg) 1 Tab Tab, 1 TAB PO BID for 90 Days, #180 TAB Prov:BIENVENIDO MADRIGAL MD 08/24/23 Reported Medications Spironolactone (Spironolactone) 25 Mg Tab, 1 TAB PO DAILY 08/23/23 Empagliflozin (Jardiance) 10 Mg Tab, 1 TAB PO DAILY 08/23/23 Gabapentin (Gabapentin) 800 Mg Tab, 1 TAB PO TID, TAB 08/23/23 Furosemide (Lasix) 20 Mg Tb, 2 TAB PO DAILY 08/20/23 Information Source: Patient, Emergency Med Personnel Mode of Arrival: EMS Past Medical History PAST MEDICAL HISTORY: AFIB, CAD, Cancer, CHF, COPD, DM, High Lipids, HTN Past Medical History (Other): Colon cancer Surgical History: CABG, Hernia Repair Family History Family History: Reviewed,noncontributory to illness, No family hx of Cancer, No family hx of DM, No family hx of Heart christie, No family hx of HTN, No family hx ofKidney christie, No family hx of Liver christie, No family hx of Lung christie, No family hx of Stroke Social History Smoker: Non-Smoker Alcohol: Occasionally Drugs: Methamphetamine Lives In: Home Was a procedure done? Was a procedure done?: No EKG EKG : Pulse Rate (adult): 92 Cardiac Rhythm: Afib Differential Dx Considerations may include: Congestive heart failure, coronary artery disease, AFib, colon cancer, gastritis As far as chest pain: Ddx include but not limitied to gastritis, musculoskeletal pain, radiculopathy, atypical chest pain, dissection, aneurysm, ACS, unstable angina, hiatal hernia, GERD, anxiety, costochondritis, PE, pneumothroax, neoplasm, cardiac ischemia, drug abuse, anemia. As far as abdominal pain: DDX include but not limited to diverticulitis, colitis, gastroenteritis, acute abdomen, SBO, enteritis, constipation, volvulus, appendicitis, Gallbladder disease, choledocolithiasis, ascending cholangitis, pancreatitis, intraAbdominal mass/neoplasm, hepatitis, UTI, pylonephritis, kidney stone, aneurysm, dissection, Inflammatory bowel disease, gastroparesis, ischemic bowel. X-Ray, Labs, Meds, VS Vital Signs Date Time Temp Pulse Resp B/P (MAP) Pulse Ox O2 Delivery O2 Flow Rate FiO2 12/13/24 20:19 92 12/13/24 19:57 92 12/13/24 19:57 98.3 80 24 115/72 95 98.3 Lab Test 12/13/24 23:24 12/13/24 22:28 12/13/24 21:43 12/13/24 20:29 Range/Units Troponin I High Sensitivity 3 L 5 4 </=54 ng/L Lactic Acid Level 1.3 0.4-2.0 mmol/L White Blood Count 9.3 4.4-10.8 10^3/uL Red Blood Count 3.90 L 4.5-5.90 10^6/uL Hemoglobin 11.7 L 13.5-17.5 g/dL Hematocrit 34.6 L 41.0-53.0 % Mean Corpuscular Volume 88.8 80.0-100.0 fL Mean Corpuscular Hemoglobin 30.0 28.0-32.0 pg Mean Corpuscular Hemoglobin Concent 33.7 32.0-36.0 g/dL Red Cell Distribution Width 17.2 H 11.8-14.3 % Platelet Count 505 H 140-450 10^3/uL Mean Platelet Volume 8.6 6.9-10.8 fL Neutrophils (%) (Auto) 75.5 37.0-80.0 % Lymphocytes (%) (Auto) 14.0 10.0-50.0 % Monocytes (%) (Auto) 9.3 0.0-12.0 % Eosinophils (%) (Auto) 0.9 0.0-7.0 % Basophils (%) (Auto) 0.3 0.0-2.0 % Neutrophils # (Auto) 7.0 1.6-8.6 10 ^3/uL Lymphocytes # (Auto) 1.3 0.4-5.4 10 ^3/uL Monocytes # (Auto) 0.9 0-1.3 10 ^3/uL Eosinophils # (Auto) 0.1 0-0.8 10 ^3/uL Basophils # (Auto) 0 0-0.2 10 ^3/uL Nucleated Red Blood Cells 0.1 % Sodium Level 141 136-145 mmol/L Potassium Level 3.7 3.5-5.1 mmol/L Chloride Level 101 98-107 mmol/L Carbon Dioxide Level 28 20-31 mmol/L Anion Gap 12 5-15 Blood Urea Nitrogen 21 9-23 mg/dL Creatinine 1.15 0.700-1.30 mg/dL Glomerular Filtration Rate Calc 70 >90 mL/min BUN/Creatinine Ratio 18.3 10.0-20.0 Serum Glucose 89 74-106 mg/dL Calcium Level 8.9 8.7-10.4 mg/dL Magnesium Level 1.8 1.6-2.6 mg/dL Total Bilirubin 2.2 H 0.2-1.0 mg/dL Aspartate Amino Transferase (AST) 48 H 13-40 U/L Alanine Aminotransferase (ALT) 49 H 7-40 U/L Alkaline Phosphatase 234 H 46-116 U/L Total Protein 7.5 5.7-8.2 g/dL Albumin 3.6 3.2-4.8 g/dL Lipase 687 H 12-53 U/L Test 12/13/24 20:24 Range/Units Lactic Acid Level 2.2 *H 0.4-2.0 mmol/L B-Type Natriuretic Peptide 189.18 0-100 pg/mL [facility] [id number] [place] [id number] Ph: [phone] DIAGNOSTIC IMAGING Diagnostic Imaging Report : [id number] Signed PATIENT: NICOLAS NOWAK ACCT: [id number] UNIT: [id number] : 1955 LOC: ER ROOM / BED: / AGE / SEX: 69 / M ADM STATUS: REG ER SERVICE 04 ORDERING PHYSICIAN: ZORAN LOPEZ DO PROCEDURE(s): ABPL - CT AB PEL WO CON-NO ORAL OR IV REASON: abd pain ORDER NUMBER(s): [id number], ACCESSION NUMBER(s): [id number] Exam: CT CT AB PEL WO CON-NO ORAL OR IV History: abd pain Comparison Study: CT CT AB PEL WO CON-NO ORAL OR IV on DOS: 07/17/24, CT CT AB PE L WO CON-NO ORAL OR IV on DOS: 05/22/24, CT CT AB PEL WO CON-NO ORAL OR IV on DOS: 11/08/23, CT CHST AB PEL WO CON-NO IV/ORAL on DOS: 10/01/23, CT CT AB PEL WO CON-NO ORAL OR IV on DOS: 09/08/23 TECHNIQUE: Multidetector CT of the abdomen and pelvis was performed from lung bases to pubic symphysis. Imaging was performed without IV contrast. Axial, coronal, and sagittal multiplanar reformats were obtained from the axial data set by the technologist. RADIATION DOSE: CTDI vol 60.16 mGy. DLP 1005.38 mGy.cm Findings: Limited evaluation of the solid organs in the absence of IV contrast. Lungs: Minimal basilar atelectasis/scarring. Liver: Nodular contour of the liver. Spleen: Unremarkable. Pancreas: Unremarkable. Gallbladder: A stent is seen in the distal common bile duct. Additional stents are seen within the pancreas and within the common bile duct extending to the liver. Correlation with procedural history is suggested. There is pneumobilia. Adrenals: Unremarkable Kidneys: Left renal cysts. No hydronephrosis. Pelvic Viscera: Unremarkable. Vasculature: Atherosclerotic aortoiliac calcification. 3.7 cm infrarenal abdominal aortic aneurysm. Retroperitoneum: Unremarkable. Bowel: No bowel obstruction. Musculoskeletal: Mild chronic appearing compression fracture of L2, though new compared to the prior study dated 05/22/2024. Soft tissues: Unremarkable Impression: 1. No acute abdominopelvic abnormality. 2. Interval placement of multiple stents as detailed, correlation with procedural history is suggested. 3. Additional findings as detailed. ATED BY: MEENA GUILLERMO MD DICTATED DATE/TIME: 12/13/242127 SIGNED BY: MEENA GUILLERMO MD SIGNED DATE/TIME: 12/13/242127 CC: [place] [address] Ph: [phone] DIAGNOSTIC IMAGING Diagnostic Imaging Report : [id number] Signed PATIENT: NICOLAS NOWAK ACCT: [id number] UNIT: [id number] : 1955 LOC: ER ROOM / BED: / AGE / SEX: 69 / M ADM STATUS: REG ER SERVICE 04 ORDERING PHYSICIAN: ZORAN LOPEZ DO PROCEDURE(s): CXRP - CHEST PORTABLE REASON: cp ORDER NUMBER(s): [id number], ACCESSION NUMBER(s): [id number] CHEST RADIOGRAPH REASON FOR EXAM: Chest pain COMPARISON: XY CHEST TWO VIEWS ROUTINE on DOS: 10/29/24, XY CHEST PORTABLE on DOS: 07/17/24, XY CHEST PORTABLE on DOS: 05/21/24, XY CHEST PORTABLE on DOS: 12/15/23, XY CHEST PORTABLE on DOS: 11/12/23 TECHNIQUE: One view of the chest is provided FINDINGS: There are surgical changes in the mediastinum. The cardiomediastinal silhouette is mildly enlarged. There is no focal airspace disease. There is diffuse interstitial prominence, likely chronic changes. There is no significant pleural effusion. There is no pneumothorax. IMPRESSION: No radiographic evidence of acute cardiopulmonary process. ATED BY: BAIRON CARTER MD DICTATED DATE/TIME: 12/13/242125 SIGNED BY: BAIRON CARTER MD SIGNED DATE/TIME: 12/13/242125 CC: Time of 1ST Reevaluation: 20:06 Reevaluation 1ST: Unchanged Patient Education/Counseling: Diagnosis, Treatment Family Education/Counseling: No Family Present Comments MDM: patient presented with the above HPI.---multiple complaints of chest pain and abdominal pain---workup was initiated. patient was found with the above mentioned diagnosis. the following medications were ordered: please refer to order lists of meds and tests obtained by myself Dr. Lopez. Patient ED course and VS have been stabilized. Patient has been reassessed in the ED and remained in a stable condition. Pertinent incidental findings were discussed with the patient and/or family. Patient/family voices understanding and is agreeable with plan. Patient has been observed in the ED adequate length of time to insure improvement/stability. Escalation of care considered: Consideration of escalation to observation or admission Patient was ADMITTED to the medicine team for further evaluation and treatment of their presentation. All the reports of any imaging studies that were ordered by myself were reviewed by myself. SEPSIS Sepsis Screen Physician Orders Electrocardigram (12/13/24 19:58) Department Store Manager (12/13/24 ) Urinalysis (12/13/24 20:05) Chest Portable (12/13/24 20:05) Ct Ab Pel Wo Con-No Oral Or Iv (12/13/24 20:05) Drug Screen (12/13/24 20:08) Vital Signs Date Time Temp Pulse Resp B/P (MAP) Pulse Ox O2 Delivery O2 Flow Rate FiO2 12/13/24 20:19 92 12/13/24 19:57 92 12/13/24 19:57 98.3 80 24 115/72 95 98.3 Laboratory Tests Test 12/13/24 20:24 12/13/24 20:29 12/13/24 22:28 Lactic Acid Level 2.2 mmol/L (0.4-2.0) *H 1.3 mmol/L (0.4-2.0) White Blood Count 9.3 10^3/uL (4.4-10.8) Departure 1 Departure Time of Disposition: 22:02 Impression: Primary Impression: Acute pancreatitis Additional Impression: Chest pain Disposition: 09 ADMITTED INPATIENT Admit to: [facility] Condition: Guarded Discharged With: Self Critical Care Note Critical Care Time?: Yes (45 min-critical care time only) Stability Stability form required: No Heart Score Heart Score: Heart Score Response (Comments) Value History Moderate Suspicious 1 EKG Repolarization Disturb 1 Age >65 2 Risk Factors >3 or Hx ASHD 2 Troponin Normal limit 0 Total 6 I personally scribed for ZORAN LOPEZ DO ([email or web address]) on 12/13/24 at 20:13. E lectronically submitted by Jhony Durant ([facility]). I personally scribed for ZORAN LOPEZ DO ([email or web address]) on 12/13/24 at 20:19. Electronically submitted by Jhony Durant ([facility]). I personally scribed for ZORAN LOPEZ DO ([email or web address]) on 12/13/24 at 21:33. Electronically submitted by Jhony Durant ([facility]). I personally scribed for ZORAN LOPEZ DO ([email or web address]) on 12/13/24 at 23:16. Electronically submitted by Jhony Durant ([facility]). ZORAN LOPEZ DO Dec 13, 2024 20:13
[2024-12-13 20:39] LABS: Hematocrit 34.6 % (41.0-53.0); Hemoglobin 11.7 g/dL (13.5-17.5); Mean Corpuscular Hemoglobin 30.0 pg (28.0-32.0); Mean Corpuscular Volume 88.8 fL (80.0-100.0); Nucleated Red Blood Cells % 0.1 %
[2024-12-13 20:52] LABS: Albumin 3.6 g/dL (3.2-4.8); Anion Gap 12 (5-15); BUN/Creatinine Ratio 18.3 (10.0-20.0); Blood Urea Nitrogen 21 mg/dL (9-23); Calcium 8.9 mg/dL (8.7-10.4); Carbon Dioxide 28 mmol/L (20-31); Chloride 101 mmol/L (98-107); Glucose 89 mg/dL (74-106); Magnesium 1.8 mg/dL (1.6-2.6); Potassium 3.7 mmol/L (3.5-5.1); Sodium 141 mmol/L (136-145); Total Protein 7.5 g/dL (5.7-8.2)
[2024-12-13 20:58] LABS: Alanine Aminotransferase 49 U/L (7-40); Alkaline Phosphatase 234 U/L (46-116); Bilirubin, Total 2.2 mg/dL (0.2-1.0); Lipase 687 U/L (12-53)
[2024-12-13 21:19] LABS: Lactic Acid w/Reflex 2.2 mmol/L (0.4-2.0)
--- NOTE | 2024-12-13 21:29 | DVH ---
CHEST RADIOGRAPH REASON FOR EXAM: Chest pain COMPARISON: XY CHEST TWO VIEWS ROUTINE on DOS: 10/29/24, XY CHEST PORTABLE on DOS: 07/17/24, XY CHEST P ORTABLE on DOS: 05/21/24, XY CHEST PORTABLE on DOS: 12/15/23, XY CHEST PORTABLE on DOS: 11/12/23 TECHNIQUE: One view of the chest is provided FINDINGS: There are surgical changes in the mediastinum. The cardiomediastinal silhouette is mildly enlarged. There is no focal airspace disease. There is diffuse interstitial prominence, likely chroni c changes. There is no significant pleural effusion. There is no pneumothorax. IMPRESSION: No radiographic evidence of acute cardiopulmonary process.
--- NOTE | 2024-12-13 21:31 | DVH ---
Exam: CT CT AB PEL WO CON-NO ORAL OR IV History: abd pain Comparison Study: CT CT AB PEL WO CON-NO ORAL OR IV on DOS: 07/17/24, CT CT AB PEL WO CON-NO ORAL OR I V on DOS: 05/22/24, CT CT AB PEL WO CON-NO ORAL OR IV on DOS: 11/08/23, CT CHST AB PEL WO CON-NO IV/ORAL on DOS: 10/01/23, CT CT AB PEL WO CON-NO ORAL OR IV on DOS: 09/08/23 TECHNIQUE: Multidetector CT of the abdomen and pelvis was performed from lung bases to pubic symphysi s. Imaging was performed without IV contrast. Axial, coronal, and sagittal multiplanar reformats were obtained from the axial data set by the technologist. RADIATION DOSE: CTDI vol 60.16 mGy. DLP 1005.38 mGy.cm Findings: Limited evaluation of the solid organs in the absence of IV contrast. Lungs: Minimal basilar atelectasis/scarring. Liver: Nodular contour of the liver. Spleen: Unremarkable. Pancreas: Unremarkable. Gallbladder: A stent is seen in the distal common bile duct. Additional stents are seen within the pa ncreas and within the common bile duct extending to the liver. Correlation with procedural history i s suggested. There is pneumobilia. Adrenals: Unremarkable Kidneys: Left renal cysts. No hydronephrosis. Pelvic Viscera: Unremarkable. Vasculature: Atherosclerotic aortoiliac calcification. 3.7 cm infrarenal abdominal aortic aneurysm. Retroperitoneum: Unremarkable. Bowel: No bowel obstruction. Musculoskeletal: Mild chronic appearing compression fracture of L2, though new compared to the prior study dated 05/22/2024. Soft tissues: Unremarkable Impression: 1. No acute abdominopelvic abnormality. 2. Interval placement of multiple stents as detailed, correlation with procedural history is suggeste d. 3. Additional findings as detailed.
--- NOTE | 2024-12-14 02:46 | DVH ---
INDICATION: transaminitis TECHNIQUE: Multiple real-time sonographic images were obtained of the right upper quadrant. COMPARISON: None FINDINGS: The liver demonstrates diffusely increased echotexture without focal mass lesions. The live r measures 20.3 cm. Normal hepatopetal portal flow identified. No evidence of pleural effusion or ab dominal ascites. There is no intrahepatic or extrahepatic ductal dilatation. The common duct is not adequately visuali zed. The gallbladder is without evidence of stone or sludge. The gallbladder wall measures 0.2 cm and is w ithin normal limits. Negative sonographic ram's sign. The right kidney measures 12.2 cm. The right kidney is normal in contour, size, and shape. The echoge nicity is normal. There is no hydronephrosis. The pancreas is not well visualized due to overlying bowel gas. IMPRESSION: 1. Hepatic steatosis and hepatomegaly. 2. No ultrasound evidence of acute cholecystitis.
[2024-12-14] MEDS: SODIUM CHLORIDE 0.9% 1,000 ML IV ONE (03:17)
[2024-12-14] MEDS: MORPHINE SULFATE INJ 2 MG/ml SYRG IV PRN (03:17)
[2024-12-14] MEDS ORDERED: ALBUTEROL SULF 2.5 MG/0.5ML(0.5%) NEB SOLN NEB PRN (04:45)
[2024-12-14] MEDS ORDERED: IPRATROPIUM BROM 0.5 MG/2.5ML INH SOL NEB PRN (04:45)
--- NOTE | 2024-12-14 06:08 | DVHHPRES ---
History of Present Illness Resident Creating Document: ARIK BRAXTON RESIDENT History of Present Illness Lavelle Burns is a 69-year-old male past medical history of hypertension, diabetes, dyslipidemia, AFib, CHF, COPD, colon cancer in remission, came to the ED with chief complaints of abdominal pain mostly in the epigastric region which is radiating to the back, 8/10 in intensity, increases with eating or drinking water, constant and associated with shortness of breath, chest pain which is nonradiating. He also complained of itchiness, jaundice of his whole body. Patient also states that he had history of 1 month of watery diarrhea, had stents placed in his gallbladder in [place]. Patient also states that he has lost 40 lb in the last 2 months. Liver ultrasound showed Hepatic steatosis and hepatomegaly. Lipase levels are elevated. Patient denies any nausea, vomiting, fever, chills, dysuria, headaches, dizziness. Patient is admitted for further evaluation. Past surgical history: Hernia repair, CABG Family history: Reviewed, noncontributory Personal history: Known meth user, denies smoking, drinking alcohol PCP: Review of Systems Constitutional: No: Fever, Chills, Sweats, Weakness, Malaise, Other Eyes: No: Pain, Vision change, Conjunctivae inflammation, Eyelid inflammation, Other, Redness ENT: No: Ear pain, Ear discharge, Nose pain, Nose discharge, Nose congestion, Mouth pain, Mouth swelling, Throat pain, Throat swelling, Other Respiratory: Shortness of breath; No: Cough, Dry, SOB with excertion, Wheezing, Hemoptysis, Pleuritic Pain, Sputum, Wheezing, Other Cardiovascular: Chest Pain; No: Palpitations, Orthopnea, Paroxysmal Noc. Dyspnea, Edema, Lt Headedness, Other Gastrointestinal: Abdominal Pain, Diarrhea; No: Nausea, Vomiting, Constipation, Melena, Hematochezia, Other Genitourinary: No Dysuria, No Frequency, No Incontinence, No Hematuria, No Retention, No Other Musculoskeletal: No: other, neck pain, shoulder pain, arm pain, back pain, hand pain, leg pain, foot pain Skin: No: Rash, Lesions, Jaundice, Bruising, Other Neurological: No: Weakness, Numbness, Incoordination, Change in speech, Confusion, Seizures, Other Allergies: Coded Allergies: No Known Drug Allergy (Verified Allergy, Unknown, 10/31/24) Medications Current Medications Medications Dose Ordered Sig/Delilah Route Start Time Stop Time Status Last Admin Dose Admin Morphine Sulfate 1 mg Q4HP PRN IV 12/14/24 01:30 12/14/24 03:17 1 MG Albuterol 2.5 mg Q4HPRN PRN NEB 12/14/24 04:45 Ipratropium Hessel 0.5 mg Q4HPRN PRN NEB 12/14/24 04:45 Exam Vital Signs Vital Signs Date Time Temp Pulse Resp B/P (MAP) Pulse Ox O2 Delivery O2 Flow Rate FiO2 12/14/24 04:19 98.8 102 18 111/45 (67) 98 98.8 Exam General: Patient alert and oriented in person, place and time. Patient following commands. Moderate distress HEENT: Normocephalic, atraumatic, moist mucous membranes Respiratory/pulmonary: Clear lungs bilaterally, vesicular murmurs present in almost all lung wilburn, no associated crackles or wheezes. Cardiovascular: Normal heart sounds S1 and S2 with no associated murmurs Abdomen: Epigastric tenderness, Extremities: There is no peripheral edema present at the lower extremities. Peripheral Pulses: 3+ Radial (R). 3+ Radial (L). 3+ Dorsalis pedis (R). 3+ Dorsalis pedis(L) Skin: Multiple scratch lake on both hands Neurological: Intact cranial nerves with no focal neurologic deficits Labs/Xrays Labs Test 12/13/24 23:24 12/13/24 22:28 12/13/24 20:29 12/13/24 20:24 Range/Units Troponin I High Sensitivity 3 L </=54 ng/L Lactic Acid Level 1.3 0.4-2.0 mmol/L White Blood Count 9.3 4.4-10.8 10^3/uL Red Blood Count 3.90 L 4.5-5.90 10^6/uL Hemoglobin 11.7 L 13.5-17.5 g/dL Hematocrit 34.6 L 41.0-53.0 % Mean Corpuscular Volume 88.8 80.0-100.0 fL Mean Corpuscular Hemoglobin 30.0 28.0-32.0 pg Mean Corpuscular Hemoglobin Concent 33.7 32.0-36.0 g/dL Red Cell Distribution Width 17.2 H 11.8-14.3 % Platelet Count 505 H 140-450 10^3/uL Mean Platelet Volume 8.6 6.9-10.8 fL Neutrophils (%) (Auto) 75.5 37.0-80.0 % Lymphocytes (%) (Auto) 14.0 10.0-50.0 % Monocytes (%) (Auto) 9.3 0.0-12.0 % Eosinophils (%) (Auto) 0.9 0.0-7.0 % Basophils (%) (Auto) 0.3 0.0-2.0 % Neutrophils # (Auto) 7.0 1.6-8.6 10 ^3/uL Lymphocytes # (Auto) 1.3 0.4-5.4 10 ^3/uL Monocytes # (Auto) 0.9 0-1.3 10 ^3/uL Eosinophils # (Auto) 0.1 0-0.8 10 ^3/uL Basophils # (Auto) 0 0-0.2 10 ^3/uL Nucleated Red Blood Cells 0.1 % Sodium Level 141 136-145 mmol/L Potassium Level 3.7 3.5-5.1 mmol/L Chloride Level 101 98-107 mmol/L Carbon Dioxide Level 28 20-31 mmol/L Anion Gap 12 5-15 Blood Urea Nitrogen 21 9-23 mg/dL Creatinine 1.15 0.700-1.30 mg/dL Glomerular Filtration Rate Calc 70 >90 mL/min BUN/Creatinine Ratio 18.3 10.0-20.0 Serum Glucose 89 74-106 mg/dL Calcium Level 8.9 8.7-10.4 mg/dL Magnesium Level 1.8 1.6-2.6 mg/dL Total Bilirubin 2.2 H 0.2-1.0 mg/dL Aspartate Amino Transferase (AST) 48 H 13-40 U/L Alanine Aminotransferase (ALT) 49 H 7-40 U/L Alkaline Phosphatase 234 H 46-116 U/L Total Protein 7.5 5.7-8.2 g/dL Albumin 3.6 3.2-4.8 g/dL Lipase 687 H 12-53 U/L B-Type Natriuretic Peptide 189.18 0-100 pg/mL SEPSIS Sepsis Screen Date sepsis recognized/suspect: Dec 13, 2024 Time Sepsis recognized/suspect: 1956 Recent Procedure: No On Antibiotic Therapy: No Respiratory Rate >20: No Heart Rate >90: No Temp<36 C (96.8 F) or >38.3 C: No SBP <90 or MAP <65 mmHG: No New Acute Mental Status Change: No Is the patient on CPAP, BIPAP,: No Physician Orders Admit (12/14/24) Oxygen By Nasal Cannula (12/14/24) Stat Ekg For Chest Pain (12/14/24) Notify Md Of Changes From Base (12/14/24) Operations Team Leader For 24 Hours (12/14/24) Emergency Dysrhythmia Protocol (12/14/24) Rhythm Strips Once Every Shift (12/14/24) Sodium Chloride 0.9% (12/14/24) LIVER (12/14/24) Npo Except Ice Chips (12/14/24) Npo (Nothing By Mouth) Diet (12/14/24 Breakfast) Morphine Sulfate Injection (12/14/24) * [facility] Travel Ot (12/14/24:) Albuterol Medneb (Ventolin Medneb) (12/14/24 04:45) Ipratropium Medneb (Atrovent Medneb) (12/14/24 04:45) Vital Signs Date Time Temp Pulse Resp B/P (MAP) Pulse Ox O2 Delivery O2 Flow Rate FiO2 12/14/24 04:19 98.8 102 18 111/45 (67) 98 98.8 12/14/24 03:17 77 19 111/60 12/14/24 01:59 97.9 56 18 121/75 (90) 100 97.9 Laboratory Tests Test 12/13/24 20:24 12/13/24 20:29 12/13/24 22:28 Lactic Acid Level 2.2 mmol/L (0.4-2.0) *H 1.3 mmol/L (0.4-2.0) White Blood Count 9.3 10^3/uL (4.4-10.8) Medications Medications Dose Ordered Sig/Delilah Route Start Time Stop Time Status Last Admin Dose Admin Morphine Sulfate 1 mg Q4HP PRN IV 12/14/24 01:30 12/14/24 03:17 1 MG Sodium Chloride 1,000 ml @ 75 mls/hr [id number] ONCE IV 12/14/24 01:30 12/14/24 14:49 12/14/24 03:17 75 MLS/HR Assessment/Plan Assessment/Plan Assessment and plan # acute pancreatitis # hepatic steatosis # Hepatomegaly #S/p gallbladder stent placement - Abdomen CT showed Interval placement of multiple stents as detailed, correlation with procedural history is suggested. - Liver ultrasound Hepatic steatosis and hepatomegaly. - GI consulted, pending - IV fluids judicious use considering heart failure - pain management -NPO # hyperbilirubinemia with transaminitis - liver ultrasound - monitor labs # dyslipidemia - resume home meds # chronic HFrEF echo 08/26 EF is about 45% with normal RV function. Judicious use of IV fluids # chronic hypoxic respiratory failure , due to CHF and COPD On home oxygen 2 L # diabetes mellitus, HbA1c 8.3 - mild insulin sliding scale # hypertension - resume home meds # COPD - albuterol, ipratropium med nebs # Chronic Afib - resume home meds # H/O Mechanical Falls # history of CABG # Chronic Oxygen Dependency # History of Colon Cancer # Substance Use/methamphetamine - patient is counseled on cessation of methamphetamine. PPI prophylaxis: Pantoprazole DVT prophylaxis: Lovenox Goals of care addressed with the patient for more than 31 minutes: Full code status Case discussed with , patient and nurse Plan discussed with: Patient My Orders Orders - ARIK BRAXTON RESIDENT Procedure Category Date Status Time Admit ADMIT 12/14/24 Transmitted 01:28 Oxygen By Nasal RT 12/14/24 Transmitted Cannula 01:28 Stat Ekg For Chest [facility] 12/14/24 In Process Pain 01:28 Notify Of Changes [facility] 12/14/24 In Process From Base 01:28 Operations Team Leader For [facility] 12/14/24 In Process 24 Hours 01:28 Emergency Dysrhythmia [facility] 12/14/24 In Process Protocol 01:28 Rhythm Strips Once [facility] 12/14/24 In Process Every Shift 01:28 Sodium Chloride 0.9% PHA 12/14/24 In Process 01:30 LIVER US 12/14/24 Resulted 01:28 Npo Except Ice Chips [facility] 12/14/24 In Process 01:28 Npo (Nothing By DIET 12/14/24 Transmitted Mouth) Diet Breakfast Morphine Sulfate PHA 12/14/24 In Process Injection 01:30 * [facility] Travel Ot CONS 12/14/24 Transmitted 01:28 Albuterol Medneb PHA 12/14/24 In Process (Ventolin Medneb) 04:45 Ipratropium Medneb PHA 12/14/24 In Process (Atrovent Medneb) 04:45 Date of Service: Dec 14, 2024 Billing Provider: LOUISE VELAZQUEZ MD Common Visit Codes: [id number] INP/OBS CARE (HIGH) Secondary Visit Codes: [id number] CARE PLAN 30 MINUTES ARIK BRAXTON RESIDENT Dec 14, 2024 06:08 GALINDO SEVILLA RESIDENT Dec 14, 2024 09:09
--- NOTE | 2024-12-14 06:33 | ECG ---
[facility] Test Date: 2024-12-13 Test Time: 19:56:02 Pat Name: NICOLAS INGRAM Department: Room: 0277 B Gender: M Emergency Services Professional: KAELA : 1955 Requested By: EMERGENCY EMERGENCY Order Number: [id number] Reading MD: Finn Ridley Measurements Intervals [employer] Rate: 92 P: 0 CO: 0 QRS: 68 QRSD: 101 T: 64 QT: 380 QTc: 471 Interpretive Statements Atrial fibrillation Ventricular premature complex Anteroseptal infarct, age indeterminate Electronically Signed On 12-19-2024 9:23:55 PDT by Finn Ridley Please click the below link to view image of tracing.
[2024-12-14] MEDS ORDERED: DEXTROSE (50%) 50ML SYRG IV PRN (07:00)
[2024-12-14 07:51] LABS: Nucleated Red Blood Cells % 0.0 %
[2024-12-14 07:54] LABS: Hematocrit 34.1 % (41.0-53.0); Hemoglobin 11.8 g/dL (13.5-17.5); Mean Corpuscular Hemoglobin 30.8 pg (28.0-32.0); Mean Corpuscular Volume 88.7 fL (80.0-100.0)
[2024-12-14 08:08] LABS: INR 1.19 (0.9-1.15); Partial Thromboplastin Time 30.4 SEC (24.5-34.5); Prothrombin Time 12.4 sec (9.3-11.8)
[2024-12-14 08:15] LABS: Albumin 4.2 g/dL (3.2-4.8); Anion Gap 12 (5-15); BUN/Creatinine Ratio 16.7 (10.0-20.0); Blood Urea Nitrogen 19 mg/dL (9-23); Calcium 9.6 mg/dL (8.7-10.4); Carbon Dioxide 28 mmol/L (20-31); Chloride 99 mmol/L (98-107); Cholesterol 185 mg/dL (< 200); Magnesium 2.1 mg/dL (1.6-2.6); Potassium 3.6 mmol/L (3.5-5.1); Sodium 139 mmol/L (136-145)
[2024-12-14 08:22] LABS: Alanine Aminotransferase 49 U/L (7-40); Alkaline Phosphatase 231 U/L (46-116); Bilirubin, Total 2.7 mg/dL (0.2-1.0); Glucose 145 mg/dL (74-106); HDL Cholesterol 21 mg/dL (40-59); Total Protein 8.6 g/dL (5.7-8.2); Triglycerides 192 mg/dL (< 150)
[2024-12-14 08:40] LABS: Lipase 300 U/L (12-53)
[2024-12-14 09:00] VITALS: BP 135/87; PULSE 87; RESP 18; TEMP 97.4; O2SAT 96
--- NOTE | 2024-12-14 09:54 | DVHPNRES ---
Progress Note Date Seen: Dec 14, 2024 Resident Creating Document: YAEL BELTRAN RESIDENT Medical Necessity Reason Pt with a Central, PICC or Fol: No Subjective Review of Systems This is a 69-year-old male with past medical history of HTN, DM2, H LD, AFib on Eliquis, CHF with markedly reduced ejection fraction 45%, COPD on 2 L home oxygen, colon cancer status post surgical treatment 2016 on remission, CABG 2016, abdominal aortic aneurysm came to ER with a complaint of epigastric and right upper quadrant abdominal pain which is worsen for last 3 days, 8/10 intensity, localized, spasmodic pain, no radiation, no aggravating or relieving factor. patient stated he had a history of diarrhea approximately month and resolved 10 days earlier. as per patient, months earlier patient went to urgent care and found yellowish discoloration of eyes and sent patient to [facility]. After extensive worker biliary stent placed and discharged from hospital. patient stated he lost weight > 30 lb past few months, dark color urine, undigested food particles and generalized itching. History of fall recently and admitted to [facility]. No intracranial hemorrhage or any abnormal finding on that admission- as per patient. Past medical history: as above Past surgical history: Hernia repair, CABG, stent placed [facility], colorectal surgery 2016 due to colon cancer Family history: father colon cancer diagnosed at the age of 59 Personal history: Known meth user, Ex smoker stopped 30 years ago, history of EtOH disorder PCP: Objective vital signs Vital Sign Date Time Temp Pulse Resp B/P (MAP) Pulse Ox O2 Delivery O2 Flow Rate FiO2 12/14/24 07:08 Nasal Cannula* 4 36 12/14/24 04:19 98.8 102 18 111/45 (67) 98 98.8 medications Current Medications Medications Dose Ordered Sig/Delilah Route Start Time Stop Time Status Last Admin Dose Admin Morphine Sulfate 1 mg Q4HP PRN IV 12/14/24 01:30 12/14/24 03:17 1 MG Albuterol 2.5 mg Q4HPRN PRN NEB 12/14/24 04:45 Ipratropium [place] 0.5 mg Q4HPRN PRN NEB 12/14/24 04:45 Enoxaparin Sodium 100 mg Q12HR SC 12/14/24 10:00 UNV Empaglifozin 10 mg DAILY PO 12/14/24 10:00 UNV Sacubitril/ Valsartan 1 tab BID PO 12/14/24 10:00 UNV Spironolactone 25 mg DAILY PO 12/14/24 10:00 UNV Tamsulosin HCl 0.4 mg QPM PO 12/14/24 18:00 UNV Patient Own Medication 1 tab DAILY PO 12/14/24 10:00 UNV Patient Own Medication 1 tab BID PO 12/14/24 10:00 UNV Diagnostic Test (Pha) 1 strip Q6HR 12/14/24 12:00 UNV Insulin Human Regular Q6HR SC 12/14/24 12:00 UNV Dextrose 50 ml UD PRN IV 12/14/24 07:00 UNV Ceftriaxone Sodium 50 ml @ 100 mls/hr DAILY@09 IV 12/14/24 09:00 UNV Metronidazole 100 ml @ 100 mls/hr Q8HR IV 12/14/24 14:00 UNV Pantoprazole Sodium 40 mg DAILY IV 12/14/24 10:00 UNV Examination General: Patient alert and oriented in person, place and time. Patient following commands. Moderate distress HEENT: Normocephalic, atraumatic, moist mucous membranes Respiratory/pulmonary: Clear lungs bilaterally, vesicular murmurs present in almost all lung wilburn, no associated crackles or wheezes. Cardiovascular: Normal heart sounds S1 and S2 with no associated murmurs Abdomen: Epigastric tenderness and right upper quadrant tenderness on deep palpation Extremities: There is no peripheral edema present at the lower extremities. Peripheral Pulses: 3+ Radial (R). 3+ Radial (L). 3+ Dorsalis pedis (R). 3+ Dorsalis pedis(L) Skin: Multiple scratch lake on both hands Neurological: Intact cranial nerves with no focal neurologic deficits laboratory and microbiology Laboratory Tests 12/14/24 07:27 Test 12/14/24 07:27 Range/Units Serum Glucose 145 H 74-106 mg/dL Problem List/Assessment/Plan Problem List/Assessment/Plan # Acute pancreatitis # Ruled out cholangitis/choledocholithiasis # Hepatic steatosis # Hepatomegaly with nodular contour of the liver # S/p stent common bile duct and pancreas -ultrasound liver shows hepatic steatosis and hepatomegaly with no evidence of acute cholecystitis. -X-ray chest no radiographic evidence of acute cardiopulmonary disease -CT abdomen and pelvis without contrast shows: no abdominopelvic abnormality except a stent seen in the distal common bile duct. Additional stent seen within the pancreas and within the common bile duct extending to liver. Liver: Nodular contour of the liver. -Lipase 300 CEA 1.62 Lactic acidosis -resolved - GI consulted, pending - IV fluids judicious use considering heart failure -empiric antibiotic ceftriaxone and metronidazole -MRCP - pain management -NPO #Lactic acidosis 2.3>1.8>2.0 # Hyperbilirubinemia with transaminitis AST 48, ALT 49, ALP 231, total bilirubin 2.7-on admission Liver: Nodular contour of the liver. - monitor labs # Dyslipidemia Triglyceride 192, cholesterol 185, LDL 139, HDL 21-on admission - hold for now due to transaminitis We will resume when trans and manage result # Chronic HFrEF Echo 08/26 EF is about 45% with normal RV function. GDMT -home meds # Chronic hypoxic respiratory failure , due to CHF and COPD On home oxygen 2 L # Type 2 diabetes mellitus, HbA1c 8.3 - mild insulin sliding scale # Essential hypertension - resume home meds # CT abdomen shows3.7 cm infrarenal abdominal aortic aneurysm. # Chronic Afib Start Lovenox therapeutic dose - Will resume home meds # vitamin-D deficiency Vitamin-D 13462 units q.weekly # H/O Mechanical Falls # history of CABG # Chronic Oxygen Dependency # History of Colon Cancer status post surgery # Substance Use/methamphetamine - patient is counseled on cessation of methamphetamine. PPI prophylaxis: Pantoprazole DVT prophylaxis: Lovenox Goals of care discussions, full code status. More than 25 minutes spent with patient. Case discussed with Dr. Fletcher Plan discussed with: Patient, Other (Nurse) My Orders My Orders Orders - YAEL BELTRAN RESIDENT Procedure Category Date Status Time Metronidazole PHA 12/14/24 Logged 500mg/100ml (Flagyl 14:00 Urine Bacterial LUPILLO 12/14/24 Logged Culture 07:57 Blood Culture LUPILLO 12/14/24 Logged 07:57 Respiratory Culture LUPILLO 12/14/24 Logged W/ Gs 07:57 Mrcp Mri MRI 12/14/24 Logged 08:36 Ceftriaxone 1gm/50ml PHA 12/15/24 In Process (Rocephin) 09:00 Date of Service: Dec 14, 2024 Billing Provider: PARVEZ FLETCHER MD Common Visit Codes: [id number] INP/OBS CARE(HIGH) YAEL BELTRAN RESIDENT Dec 14, 2024 09:54 AMBREEN LONG RESIDENT Dec 16, 2024 09:47 PARVEZ FLETCHER MD Dec 16, 2024 10:42
[2024-12-14] MEDS ORDERED: PATIENTS OWN MEDICATION (Metoprolol Succinate (Metoprolol Succinate Er) 1 TAB) PO SCH (10:00)
[2024-12-14] MEDS: PANTOPRAZOLE 40 MG/10 ML VIAL INJ IV SCH (11:11)
[2024-12-14] MEDS: SACUBITRIL-VALSARTAN 24mg/26mg TAB PO SCH (11:12)
[2024-12-14] MEDS: SPIRONOLACTONE 25 MG TAB PO SCH (11:12)
[2024-12-14] MEDS: EMPAGLIFLOZIN 10 MG TAB PO SCH (11:12)
[2024-12-14] MEDS: InsuLIN REG 1unit/0.01ml Soln (100units/ml) SC SCH (12:00)
[2024-12-14 12:11] LABS: Hepatitis B Surface Antigen Negative (Negative)
[2024-12-14 12:29] LABS: Hepatitis C Antibody Negative (Negative)
[2024-12-14 12:47] VITALS: BP 105/65; PULSE 50; RESP 18; TEMP 97.6; O2SAT 97
[2024-12-14] MEDS: ACCU-CHEK COMFORT CURVE STRIP VI SCH (12:52)
--- NOTE | 2024-12-14 13:27 | DVHINCON2 ---
GI Consult Consult Note GI consult note Date of Consultation: 12/14/2024 Chief Complaint: Pancreatitis Referring Physician: Dr. Gusman H&P: 69-year-old male admitted with complains of epigastric abdominal pain radiating to his back, which is getting worse when patient is eating or drinking water. Patient also has noticed more itchiness and jaundice of his body. Patient diagnosed with gallstone pancreatitis few months ago and treated at [facility] multiple stents placed in his common bile duct. Patient admits to having loose stool for the past one month and has lost 40 lb since symptoms have started. No nausea or vomiting. Patient has history of colon cancer which is in remission Past Medical History: HTN, DM, dyslipidemia, AFib, CHF, COPD, colon cancer in remission Past Surgical History: Hernia repair, CABG, biliary stent Social History: Known meth user, denies smoking, drinking alcohol Family History: Noncontributory Review of Systems: Constitutional: no fever, chill, weight loss HEENT: no eye pain, no hearing loss, no oral lesion, no scleral icterus Heart: no chest pain, no chest pressure Lung: no cough, no dyspnea with exertion Abdomen: see HPI Physical exam: General: NAD, AAOX3 Chest: lung wilburn clear to auscultation Heart: RRR, no murmur Abdomen:+ upper abdominal tenderness to palpation, +BS Labs: Labs Test 12/14/24 07:27 12/13/24 23:24 12/13/24 20:24 Range/Units White Blood Count 8.1 4.4-10.8 10^3/uL Red Blood Count 3.85 L 4.5-5.90 10^6/uL Hemoglobin 11.8 L 13.5-17.5 g/dL Hematocrit 34.1 L 41.0-53.0 % Mean Corpuscular Volume 88.7 80.0-100.0 fL Mean Corpuscular Hemoglobin 30.8 28.0-32.0 pg Mean Corpuscular Hemoglobin Concent 34.7 32.0-36.0 g/dL Red Cell Distribution Width 17.0 H 11.8-14.3 % Platelet Count 474 H 140-450 10^3/uL Mean Platelet Volume 8.6 6.9-10.8 fL Neutrophils (%) (Auto) 73.8 37.0-80.0 % Lymphocytes (%) (Auto) 13.0 10.0-50.0 % Monocytes (%) (Auto) 11.0 0.0-12.0 % Eosinophils (%) (Auto) 1.5 0.0-7.0 % Basophils (%) (Auto) 0.7 0.0-2.0 % Neutrophils # (Auto) 6.0 1.6-8.6 10 ^3/uL Lymphocytes # (Auto) 1.1 0.4-5.4 10 ^3/uL Monocytes # (Auto) 0.9 0-1.3 10 ^3/uL Eosinophils # (Auto) 0.1 0-0.8 10 ^3/uL Basophils # (Auto) 0.1 0-0.2 10 ^3/uL Nucleated Red Blood Cells 0.0 % Prothrombin Time 12.4 H 9.3-11.8 sec Prothrombin Time INR 1.19 H 0.9-1.15 Activated Partial Thromboplast Time 30.4 24.5-34.5 SEC Sodium Level 139 136-145 mmol/L Potassium Level 3.6 3.5-5.1 mmol/L Chloride Level 99 98-107 mmol/L Carbon Dioxide Level 28 20-31 mmol/L Anion Gap 12 5-15 Blood Urea Nitrogen 19 9-23 mg/dL Creatinine 1.14 0.700-1.30 mg/dL Glomerular Filtration Rate Calc 70 >90 mL/min BUN/Creatinine Ratio 16.7 10.0-20.0 Serum Glucose 145 H 74-106 mg/dL Hemoglobin A1c 8.3 H <5.7 % A1C Lactic Acid Level 2.0 0.4-2.0 mmol/L Calcium Level 9.6 8.7-10.4 mg/dL Phosphorus Level 3.3 2.4-5.1 mg/dL Magnesium Level 2.1 1.6-2.6 mg/dL Total Bilirubin 2.7 H 0.2-1.0 mg/dL Aspartate Amino Transferase (AST) 48 H 13-40 U/L Alanine Aminotransferase (ALT) 49 H 7-40 U/L Alkaline Phosphatase 231 H 46-116 U/L Ammonia < 10 L 11-32 umol/L Total Protein 8.6 H 5.7-8.2 g/dL Albumin 4.2 3.2-4.8 g/dL Triglycerides Level 192 H < 150 mg/dL Cholesterol Level 185 < 200 mg/dL LDL Cholesterol 139 H < 100 mg/dL HDL Cholesterol 21 L 40-59 mg/dL Lipase 300 H 12-53 U/L Vitamin B12 Level 737 211-911 pg/mL Vitamin D 25-Hydroxy 20.2 L 30.0-100 ng/mL Thyroid Stimulating Hormone (TSH) 0.76 0.55-4.78 uIU/mL Hepatitis B Surface Antigen Negative Negative Hepatitis C Antibody Negative Negative Troponin I High Sensitivity 3 L </=54 ng/L B-Type Natriuretic Peptide 189.18 0-100 pg/mL Imaging: CT abdomen pelvis Impression: 1. No acute abdominopelvic abnormality. 2. Interval placement of multiple stents as detailed, correlation with procedural history is suggested. 3. Additional findings as detailed. Liver ultrasound IMPRESSION: 1. Hepatic steatosis and hepatomegaly. 2. No ultrasound evidence of acute cholecystitis. Assessment: Acute pancreatitis Hepatic steatosis Status post stent in common bile duct and pancreas Transaminitis Diarrhea History of colon cancer in remission Substance use methamphetamine Plan: Discussed with Dr. Leger Monitor labs Stool studies Continue antibiotic Recommend follow[facility]up at [facility] for prior biliary procedure after discharge We will continue to monitor patient Plan discussed with patient and RN Thank you for this consult Date of Service: Dec 14, 2024 Billing Provider: AMBAR WEBER Common Visit Codes: CONSULT ONLY Consultation Codes: [id number] CONSULT <60MIN AMBAR WEBER Dec 14, 2024 13:27
[2024-12-14] MEDS: ENOXAPARIN SOD 100 MG/1 ML SYRINGE SC SCH (16:43)
[2024-12-14 16:53] VITALS: BP 101/65; PULSE 87; RESP 18; TEMP 97.9; O2SAT 98
[2024-12-14] MEDS ORDERED: TAMSULOSIN HYDROCHLORIDE 0.4 MG CAP PO SCH (18:00)
[2024-12-14] MEDS: ERGOCALCIFEROL 50,000 UNIT(1.25MG) CAP PO SCH (19:00)
[2024-12-14 19:48] VITALS: O2SAT 95
[2024-12-14 20:56] VITALS: BP 105/65; PULSE 87; RESP 18; O2SAT 95
[2024-12-14 21:00] VITALS: BP 117/92; PULSE 99; RESP 20; TEMP 97.8; O2SAT 97
[2024-12-14] MEDS: MELATONIN 5 MG TAB PO SCH (21:44)
[2024-12-14] MEDS: ATORVASTATIN 20 MG TAB PO SCH (22:12)
[2024-12-15] VITALS (9 sets, daily range): BP systolic 112–138; BP diastolic 60–83; PULSE 59–120; RESP 15–20; TEMP 96.7–98.6; O2SAT 92–99
[2024-12-15 06:40] LABS: Hematocrit 32.0 % (41.0-53.0); Hemoglobin 10.8 g/dL (13.5-17.5); Mean Corpuscular Hemoglobin 30.1 pg (28.0-32.0); Mean Corpuscular Volume 89.3 fL (80.0-100.0); Nucleated Red Blood Cells % 0.0 %
[2024-12-15 06:58] LABS: Albumin 3.6 g/dL (3.2-4.8); Anion Gap 10 (5-15); BUN/Creatinine Ratio 16.0 (10.0-20.0); Blood Urea Nitrogen 15 mg/dL (9-23); Calcium 9.0 mg/dL (8.7-10.4); Carbon Dioxide 27 mmol/L (20-31); Chloride 102 mmol/L (98-107); Potassium 3.7 mmol/L (3.5-5.1); Sodium 139 mmol/L (136-145); Total Protein 7.7 g/dL (5.7-8.2)
[2024-12-15 06:59] LABS: Alanine Aminotransferase 42 U/L (7-40); Alkaline Phosphatase 208 U/L (46-116); Bilirubin, Total 2.3 mg/dL (0.2-1.0); Glucose 136 mg/dL (74-106); Lipase 255 U/L (12-53)
--- NOTE | 2024-12-15 08:13 | DVH ---
[id number] MRI MRCP MRI Attending Name: YAEL BELTRAN RESIDENT COMPARISON: CT done 02 21 INDICATION: Transaminitis with recent biliary stent placement TECHNIQUE: MRCP was performed without the use of intravenous contrast using a MRI imaging system. Three-dimensional MRCP was performed using maximum intensity projection reconstruction on an [facility] [employer] workstation under concurrent supervision. FINDINGS: Visualized lower thorax: Limited imaging of the thorax demonstrates no suspicious pleural or parenchy mal disease. Liver: Normal in morphology and signal intensity. Gallbladder: Slight gallbladder wall thickening. No stones. Biliary system: There is a biliary stent in place. There are no dilated intrahepatic bile ducts. Spleen: Normal in morphology and signal intensity. Pancreas: Normal in morphology and signal intensity. Adrenal glands: Normal in morphology and signal intensity. Kidneys: The kidneys are symmetric in size and appearance. No hydronephrosis. Small renal cysts. Urinary tract: The included ureters, as visualized, are normal in course and caliber. GI tract: The included portions of the bowel are within normal limits. Lymph nodes: No enlarged lymph nodes. Peritoneum: No ascites. Musculoskeletal: The bone marrow signal intensity is within normal limits. IMPRESSION: 1. No intra or extra hepatic biliary ductal dilatation. No MRI evidence of cholelithiasis or choledocho lithiasis.
[2024-12-15 10:43] LABS: Urine Protein, UAD TRACE (Negative)
[2024-12-15 10:55] LABS: Amphetamine Screen, Urine Neg (NEGATIVE); Barbiturate Scree,Urine Neg (NEGATIVE); Benzodiazephine Screen, Urine Neg (NEGATIVE); Cocaine Screen, Urine Neg (NEGATIVE); Opiate Scree,Urine Pos (NEGATIVE)
[2024-12-15 10:56] LABS: Cannabinoid Screen, Urine Neg (NEGATIVE); Phencyclidine Screen, Urine Neg (NEGATIVE)
[2024-12-15] MEDS: HYDROcodone-ACET 10/325MG TAB PO ONE ×2 (11:14→18:40)
[2024-12-15] MEDS ORDERED: SALINE 0.65 % NASAL SPRAY 45ML BOTTLE EACHNOSTRI PRN (12:00)
[2024-12-15] MEDS ORDERED: DEXTROSE (50%) 50ML SYRG IV PRN (13:00)
[2024-12-15] MEDS ORDERED: CALAMINE TOPical LOTION180 ML TOP ONE (15:45)
--- NOTE | 2024-12-15 16:10 | DVHPN2 ---
Progress Note - Dictate Date Seen: Dec 15, 2024 Medical Necessity Reason Pt with a Central, PICC or Fol: No Subjective 69-year-old male admitted with complains of epigastric abdominal pain radiating to his back, which is getting worse when patient is eating or drinking water. Patient also has noticed more itchiness and jaundice of his body. Patient diagnosed with gallstone pancreatitis few months ago and treated at [place] multiple stents placed in his common bile duct apparently in Nov 2024. Patient admits to having loose stool for the past one month and has lost 40 lb since symptoms have started. No nausea or vomiting. Patient has history of colon cancer which is in remission. Patient also had a wound infection Patient was seen at bedside today He is ambulating in no acute distress Complains of itchiness dry nasal mucosa and wanted [place] for pain management His liver enzymes are trending down Both the MRCP and the ultrasound do not show any evidence of gallstones or CBD stones Patient has a biliary stent in place vital signs Vital Sign Date Time Temp Pulse Resp B/P (MAP) Pulse Ox O2 Delivery O2 Flow Rate FiO2 12/15/24 12:18 97.9 100 16 138/83 (101) 96 97.9 12/15/24 09:42 Room Air* 0 21 Total Intake and Output 12/14/24 12/14/24 12/15/24 15:00 23:00 07:00 Intake Total 250 ml 100 ml Balance 250 ml 100 ml medications Current Medications Medications Dose Ordered Sig/Delilah Route Start Time Stop Time Status Last Admin Dose Admin Morphine Sulfate 1 mg Q4HP PRN IV 12/14/24 01:30 12/15/24 09:28 1 MG Albuterol 2.5 mg Q4HPRN PRN NEB 12/14/24 04:45 Ipratropium [place] 0.5 mg Q4HPRN PRN NEB 12/14/24 04:45 Enoxaparin Sodium 100 mg Q12HR SC 12/14/24 10:00 12/15/24 09:26 100 MG Empaglifozin 10 mg DAILY PO 12/14/24 10:00 12/15/24 09:25 10 MG Sacubitril/ Valsartan 1 tab BID PO 12/14/24 10:00 12/15/24 09:25 1 TAB Spironolactone 25 mg DAILY PO 12/14/24 10:00 12/15/24 09:25 25 MG Tamsulosin HCl 0.4 mg QPM PO 12/14/24 18:00 Hold Atorvastatin Calcium 80 mg HS PO 12/14/24 22:00 12/14/24 22:12 80 MG Patient Own Medication 1 tab BID PO 12/14/24 10:00 Hold Ceftriaxone Sodium 50 ml @ 100 mls/hr DAILY@09 IV 12/15/24 09:00 12/15/24 09:25 100 MLS/HR Metronidazole 100 ml @ 100 mls/hr Q8HR IV 12/14/24 14:00 12/15/24 13:31 100 MLS/HR Pantoprazole Sodium 40 mg DAILY IV 12/14/24 10:00 12/15/24 09:25 40 MG Ergocalciferol 50,000 unit Q7D PO 12/14/24 17:15 12/14/24 19:00 50,000 UNIT Diphenhydramine HCl 25 mg HS PO 12/15/24 22:00 Melatonin 10 mg HS PO 12/14/24 22:00 12/14/24 21:44 10 MG Sodium Chloride 1 spr Q4HR PRN EACHNOSTRI 12/15/24 12:00 Diagnostic Test (Pha) 1 strip ACHS 12/15/24 17:00 Insulin Human Regular ACHS SC 12/15/24 17:00 Dextrose 50 ml UD PRN IV 12/15/24 13:00 Calamine 1 applic QIDP PRN TOP 12/15/24 15:45 objective General: NAD, AAOX3 Chest: lung wil[place] clear to auscultation Heart: RRR, no murmur Abdomen:+ upper abdominal tenderness to palpation, +BS laboratory and microbiology Laboratory Tests 12/15/24 05:27 Test 12/15/24 05:27 Range/Units Serum Glucose 136 H 74-106 mg/dL Problems(with codes): (1) History of biliary stent insertion (2) Elevated liver enzymes (3) Abdominal pain (4) Foot ulcer, right (5) Acute pancreatitis Prognosis Plan Trial of [place] 10 mg p.o. q.6 hours as needed for abdominal pain one dose given Benadryl 25 mg IV as needed for itching q.6 hours one dose given Saline spray for his nasal mucosa Advance diet as tolerated Possible pancreatitis and elevated liver enzymes due to biliary stent placement Reviewing records from [place] his bilirubin was in the range of 6-7 at that time so it is trending down The patient may have partial occlusion also of the biliary stent Patient is to follow up with his interventional endoscopist at [place] for removal of the stent in 4-8 weeks Keep NPO except for ice chips because of rising lipase Check CA 19 nine to rule out any pancreatic malignancy Continue to monitor labs If his liver enzymes worsen or symptoms worsen then consider referral to [facility] for removal of the stent Dietary Evaluation Review Comments: CCHO-60 Cardiac Diet Try [place] A BID for wound healing [place] and Monitor PO intake to meet his needs @100% Expected Outcomes/Goals: controlled DM, gradully healed wounds, gradual wt loss Plan discussed with: Patient, Other (Nurse) JUANITA HORNE MD Dec 15, 2024 16:10
--- NOTE | 2024-12-15 16:52 | DVHPNRES ---
Progress Note Date Seen: Dec 15, 2024 Resident Creating Document: SHELBIE CRAWLEY RESIDENT Medical Necessity Reason Pt with a Central, PICC or Fol: No Subjective Review of Systems This is a 69-year-old male with past medical history of HTN, DM2, H LD, AFib on Eliquis, CHF with markedly reduced ejection fraction 45%, COPD on 2 L home oxygen, colon cancer status post surgical treatment 2016 on remission, CABG 2016, abdominal aortic aneurysm came to ER with a complaint of epigastric and right upper quadrant abdominal pain which is worsen for last 3 days, 8/10 intensity, localized, spasmodic pain, no radiation, no aggravating or relieving factor. patient stated he had a history of diarrhea approximately month and resolved 10 days earlier. as per patient, months earlier patient went to urgent care and found yellowish discoloration of eyes and sent patient to [facility]. After extensive worker biliary stent placed and discharged from hospital. patient stated he lost weight > 30 lb past few months, dark color urine, undigested food particles and generalized itching. History of fall recently and admitted to [facility]. No intracranial hemorrhage or any abnormal finding on that admission- as per patient. Past medical history: as above Past surgical history: Hernia repair, CABG, stent placed [facility], colorectal surgery 2016 due to colon cancer Family history: father colon cancer diagnosed at the age of 59 Personal history: Known meth user, Ex smoker stopped 30 years ago, history of EtOH disorder PCP: The patient was seen and examined at bedside. Overnight events were reviewed. The patient reports having mild abdominal pain, itching not relieved by Benadryl and requested to advance his diet. He denies any chest pain, shortness of breath, fever, abdominal pain or any other complaints today. Objective vital signs Vital Sign Date Time Temp Pulse Resp B/P (MAP) Pulse Ox O2 Delivery O2 Flow Rate FiO2 12/15/24 16:25 96.7 100 15 122/74 (90) 99 96.7 12/15/24 09:42 Room Air* 0 21 Total Intake and Output 12/14/24 12/14/24 12/15/24 15:00 23:00 07:00 Intake Total 250 ml 100 ml Balance 250 ml 100 ml medications Current Medications Medications Dose Ordered Sig/Delilah Route Start Time Stop Time Status Last Admin Dose Admin Morphine Sulfate 1 mg Q4HP PRN IV 12/14/24 01:30 12/15/24 09:28 1 MG Albuterol 2.5 mg Q4HPRN PRN NEB 12/14/24 04:45 Ipratropium [place] 0.5 mg Q4HPRN PRN NEB 12/14/24 04:45 Enoxaparin Sodium 100 mg Q12HR SC 12/14/24 10:00 12/15/24 09:26 100 MG Empaglifozin 10 mg DAILY PO 12/14/24 10:00 12/15/24 09:25 10 MG Sacubitril/ Valsartan 1 tab BID PO 12/14/24 10:00 12/15/24 09:25 1 TAB Spironolactone 25 mg DAILY PO 12/14/24 10:00 12/15/24 09:25 25 MG Tamsulosin HCl 0.4 mg QPM PO 12/14/24 18:00 Hold Atorvastatin Calcium 80 mg HS PO 12/14/24 22:00 12/14/24 22:12 80 MG Patient Own Medication 1 tab BID PO 12/14/24 10:00 Hold Ceftriaxone Sodium 50 ml @ 100 mls/hr DAILY@09 IV 12/15/24 09:00 12/15/24 09:25 100 MLS/HR Metronidazole 100 ml @ 100 mls/hr Q8HR IV 12/14/24 14:00 12/15/24 13:31 100 MLS/HR Pantoprazole Sodium 40 mg DAILY IV 12/14/24 10:00 12/15/24 09:25 40 MG Ergocalciferol 50,000 unit Q7D PO 12/14/24 17:15 12/14/24 19:00 50,000 UNIT Diphenhydramine HCl 25 mg HS PO 12/15/24 22:00 Melatonin 10 mg HS PO 12/14/24 22:00 12/14/24 21:44 10 MG Sodium Chloride 1 spr Q4HR PRN EACHNOSTRI 12/15/24 12:00 Diagnostic Test (Pha) 1 strip ACHS 12/15/24 17:00 Insulin Human Regular ACHS SC 12/15/24 17:00 Dextrose 50 ml UD PRN IV 12/15/24 13:00 Calamine 1 applic QIDP PRN TOP 12/15/24 15:45 Examination General: Patient alert and oriented in person, place and time. Patient following commands. Moderate distress HEENT: Normocephalic, atraumatic, moist mucous membranes Respiratory/pulmonary: Clear lungs bilaterally, vesicular murmurs present in almost all lung wilburn, no associated crackles or wheezes. Cardiovascular: Normal heart sounds S1 and S2 with no associated murmurs Abdomen: Epigastric tenderness and right upper quadrant tenderness on deep palpation Extremities: There is no peripheral edema present at the lower extremities. Peripheral Pulses: 3+ Radial (R). 3+ Radial (L). 3+ Dorsalis pedis (R). 3+ Dorsalis pedis(L) Skin: Multiple scratch [place] on both hands Neurological: Intact cranial nerves with no focal neurologic deficits laboratory and microbiology Laboratory Tests 12/15/24 05:27 Test 12/15/24 05:27 Range/Units Serum Glucose 136 H 74-106 mg/dL Microbiology Date/Time Source Procedure Growth Status 12/14/24 09:47 Blood Blood Culture - Preliminary NO GROWTH AFTER 24 HOURS OF INCUBATION. Resulted Problem List/Assessment/Plan Problem List/Assessment/Plan # ascending cholangitis # acute pancreatitis # hepatic steatosis # Hepatomegaly with nodular contour of the liver #S/p stent common bile duct and pancreas -ultrasound liver shows hepatic steatosis and hepatomegaly with no evidence of acute cholecystitis. -X-ray chest no radiographic evidence of acute cardiopulmonary disease -CT abdomen and pelvis without contrast shows: no abdominopelvic abnormality except a stent seen in the distal common bile duct. Additional stent seen within the pancreas and within the common bile duct extending to liver. Liver: Nodular contour of the liver. -Lipase 300 CEA 1.62 -Lactic acidosis -resolved - GI consulted, pending - IV fluids judicious use considering heart failure -empiric antibiotic ceftriaxone and metronidazole -MRCP: No intra or extra hepatic biliary ductal dilatation. No MRI evidence of cholelithiasis or choledocholithiasis. - pain management, -outpatient follow-up with GI. #Lactic acidosis 2.3>1.8>2.0 # Hyperbilirubinemia with transaminitis AST 48, ALT 49, ALP 231, total bilirubin 2.7-on admission Liver: Nodular contour of the liver. - monitor labs # Dyslipidemia Triglyceride 192, cholesterol 185, LDL 139, HDL 21-on admission - hold for now due to transaminitis We will resume when trans and manage result # Chronic HFrEF Echo 08/26 EF is about 45% with normal RV function. GDMT -home meds # Chronic hypoxic respiratory failure , due to CHF and COPD On home oxygen 2 L # Type 2 diabetes mellitus, HbA1c 8.3 - mild insulin sliding scale # Essential hypertension - resume home meds # CT abdomen shows3.7 cm infrarenal abdominal aortic aneurysm. # Chronic Afib Start Lovenox therapeutic dose - Will resume home meds # vitamin-D deficiency Vitamin-D 92450 units q.weekly # H/O Mechanical Falls # history of CABG # Chronic Oxygen Dependency # History of Colon Cancer status post surgery # Substance Use/methamphetamine - patient is counseled on cessation of methamphetamine. PPI prophylaxis: Pantoprazole DVT prophylaxis: Lovenox Case discussed with Goals of care discussions, full code status. More than 25 minutes spent with patient. Plan discussed with: Patient, Other (RN) My Orders My Orders Orders - SHELBIE CRAWLEY Procedure Category Date Status Time Soft Diet DIET 12/15/24 Transmitted Lunch Saline ([place] Nasal PHA 12/15/24 In Process [place]) 12:00 Glucose Blood PHA 12/15/24 In Process (Accu-Chek Comfort 17:00 Insulin R (Human) PHA 12/15/24 In Process (Insulin R) 17:00 Dextrose 50% Syringe PHA 12/15/24 In Process 13:00 Calamine Lotion PHA 12/15/24 In Process 15:45 Dietary Evaluation Review Comments: [facility] Card[facility] Diet Try Marco A BID for wound healing [place] and Monitor PO intake to meet his needs @100% Expected Outcomes/Goals: controlled DM, gradully healed wounds, gradual wt loss SHELBIE CRAWLEY RESIDENT Dec 15, 2024 16:52
[2024-12-15] MEDS ORDERED: HYDROcodone-ACET 10/325MG TAB PO ONE (17:00)
[2024-12-15] MEDS: InsuLIN REG 1unit/0.01ml Soln (100units/ml) SC SCH (17:22)
[2024-12-15] MEDS: ACCU-CHEK COMFORT CURVE STRIP VI SCH (17:22)
[2024-12-15] MEDS: CALAMINE TOPical LOTION180 ML TOP PRN (17:32)
[2024-12-16] VITALS (9 sets, daily range): BP systolic 105–136; BP diastolic 61–92; PULSE 64–100; RESP 16–20; TEMP 97.2–97.7; O2SAT 93–98
[2024-12-16 06:32] LABS: Hematocrit 31.2 % (41.0-53.0); Hemoglobin 10.7 g/dL (13.5-17.5); Mean Corpuscular Hemoglobin 30.7 pg (28.0-32.0); Mean Corpuscular Volume 89.3 fL (80.0-100.0); Nucleated Red Blood Cells % 0.0 %
[2024-12-16 06:38] LABS: Chloride 103 mmol/L (98-107); Potassium 3.6 mmol/L (3.5-5.1); Sodium 139 mmol/L (136-145)
[2024-12-16 06:39] LABS: Anion Gap 8 (5-15); Calcium 9.0 mg/dL (8.7-10.4); Carbon Dioxide 28 mmol/L (20-31)
[2024-12-16 06:44] LABS: BUN/Creatinine Ratio 13.9 (10.0-20.0); Blood Urea Nitrogen 14 mg/dL (9-23)
[2024-12-16 06:49] LABS: Glucose 147 mg/dL (74-106)
[2024-12-16] MEDS: HYDROcodone-ACET 5/325MG TAB PO PRN (11:48)
[2024-12-16] MEDS ORDERED: HYDROcodone-ACET 5/325MG TAB ONE ×2 (11:50→18:41)
--- NOTE | 2024-12-16 14:06 | DVHPN2 ---
Progress Note - Dictate Date Seen: Dec 16, 2024 Medical Necessity Reason Pt with a Central, PICC or Fol: No Subjective 69-year-old male admitted with complains of epigastric abdominal pain radiating to his back, which is getting worse when patient is eating or drinking water. Patient also has noticed more itchiness and jaundice of his body. Patient diagnosed with gallstone pancreatitis few months ago and treated at [place] multiple stents placed in his common bile duct apparently in Nov 2024. Patient admits to having loose stool for the past one month and has lost 40 lb since symptoms have started. No nausea or vomiting. Patient has history of colon cancer which is in remission. Patient also had a wound infection He is ambulating in no acute distress c/o itching Complains of itchiness dry nasal mucosa and wanted [place] for pain management His liver enzymes are trending down Both the MRCP and the ultrasound do not show any evidence of gallstones or CBD stones Patient has a biliary stent in place vital signs Vital Sign Date Time Temp Pulse Resp B/P (MAP) Pulse Ox O2 Delivery O2 Flow Rate FiO2 12/16/24 13:00 97.5 90 18 105/61 (76) 96 97.5 12/16/24 08:00 Room Air* 0 96 21 Total Intake and Output 12/15/24 12/15/24 12/16/24 15:00 23:00 07:00 Intake Total 150 ml 500 ml 400 ml Output Total 1000 ml Balance 150 ml -500 ml 400 ml medications Current Medications Medications Dose Ordered Sig/Delilah Route Start Time Stop Time Status Last Admin Dose Admin Albuterol 2.5 mg Q4HPRN PRN NEB 12/14/24 04:45 Ipratropium [place] 0.5 mg Q4HPRN PRN NEB 12/14/24 04:45 Enoxaparin Sodium 100 mg Q12HR SC 12/14/24 10:00 12/16/24 09:48 100 MG Empaglifozin 10 mg DAILY PO 12/14/24 10:00 12/16/24 09:48 10 MG Sacubitril/ Valsartan 1 tab BID PO 12/14/24 10:00 12/16/24 09:46 1 TAB Spironolactone 25 mg DAILY PO 12/14/24 10:00 12/16/24 09:46 25 MG Tamsulosin HCl 0.4 mg QPM PO 12/14/24 18:00 Hold Atorvastatin [place] 80 mg HS PO 12/14/24 22:00 12/15/24 21:42 80 MG Patient Own Medication 1 tab BID PO 12/14/24 10:00 Hold Ceftriaxone Sodium 50 ml @ 100 mls/hr DAILY@09 IV 12/15/24 09:00 12/16/24 09:46 100 MLS/HR Metronidazole 100 ml @ 100 mls/hr Q8HR IV 12/14/24 14:00 12/16/24 06:06 100 MLS/HR Pantoprazole Sodium 40 mg DAILY IV 12/14/24 10:00 12/16/24 09:46 40 MG Ergocalciferol 50,000 unit Q7D PO 12/14/24 17:15 12/14/24 19:00 50,000 UNIT Melatonin 10 mg HS PO 12/14/24 22:00 12/16/24 00:05 10 MG Sodium Chloride 1 spr Q4HR PRN EACHNOSTRI 12/15/24 12:00 Diagnostic Test (Pha) 1 strip ACHS 12/15/24 17:00 12/16/24 11:30 1 STRIP Insulin Human Regular ACHS SC 12/15/24 17:00 12/16/24 11:30 2 UNITS Dextrose 50 ml UD PRN IV 12/15/24 13:00 Calamine 1 applic QIDP PRN TOP 12/15/24 15:45 12/15/24 17:32 1 APPLIC Diphenhydramine HCl 25 mg Q12HR PO 12/16/24 11:15 12/16/24 11:47 25 MG Acetaminophen/ Hydrocodone Bitart 1 tab Q6HPRN PRN PO 12/16/24 11:30 12/16/24 11:48 1 TAB objective General: NAD, AAOX3 Chest: lung [place] clear to auscultation Heart: RRR, no murmur Abdomen:+ upper abdominal tenderness to palpation, +BS laboratory and microbiology Laboratory Tests 12/16/24 05:53 Test 12/16/24 05:53 Range/Units Serum Glucose 147 H 74-106 mg/dL Problems(with codes): (1) Atrial fibrillation with RVR (2) Abdominal pain (3) Elevated liver enzymes (4) History of biliary stent insertion (5) History of colon cancer (6) Acute pancreatitis (7) Jaundice (8) Itching Prognosis Plan Trial of [place] 10 mg p.o. q.6 hours as needed for abdominal pain one dose given Benadryl 25 mg IV as needed for itching q.6 hours one dose given Trial of [place] for itching Continue to monitor labs including his lipase and liver panel Saline spray for his nasal mucosa Advance diet as tolerated Possible pancreatitis and elevated liver enzymes due to biliary stent placement Reviewing records from [place] his bilirubin was in the range of 6-7 at that time so it is trending down Patient is to follow up with his interventional endoscopist at [place] for removal of the stent in 4-8 weeks Keep NPO except for ice chips because of rising lipase Check CA 19 nine to rule out any pancreatic malignancy Continue to monitor labs If his liver enzymes worsen or symptoms worsen then consider referral to [facility] for removal of the stent Dietary Evaluation Review Comments: CCHO-60 Cardiac Diet Try [place] A BID for wound healing [place] and Monitor PO intake to meet his needs @100% Expected Outcomes/Goals: controlled DM, gradully healed wounds, gradual wt loss Plan discussed with: Patient JUANITA HORNE MD Dec 16, 2024 14:06
[2024-12-16 14:30] LABS: Albumin 3.5 g/dL (3.2-4.8); Total Protein 7.3 g/dL (5.7-8.2)
[2024-12-16 14:33] LABS: Alanine Aminotransferase 47.0 U/L (7-40); Alkaline Phosphatase 196.0 U/L (46-116); Bilirubin, Direct 1.3 mg/dL (<0.3); Bilirubin, Total 1.8 mg/dL (0.2-1.0)
[2024-12-16 14:44] LABS: Lipase 156.0 U/L (12-53)
--- NOTE | 2024-12-16 15:43 | DVHPNRES ---
Progress Note Date Seen: Dec 16, 2024 Resident Creating Document: YAEL BELTRAN RESIDENT Medical Necessity Reason Pt with a Central, PICC or Fol: No Subjective Review of Systems This is a 69-year-old male with past medical history of HTN, DM2, H LD, AFib on Eliquis, CHF with markedly reduced ejection fraction 45%, COPD on 2 L home oxygen, colon cancer status post surgical treatment 2016 on remission, CABG 2016, abdominal aortic aneurysm came to ER with a complaint of epigastric and right upper quadrant abdominal pain which is worsen for last 3 days, 8/10 intensity, localized, spasmodic pain, no radiation, no aggravating or relieving factor. patient stated he had a history of diarrhea approximately month and resolved 10 days earlier. as per patient, months earlier patient went to urgent care and found yellowish discoloration of eyes and sent patient to [facility]. After extensive worker biliary stent placed and discharged from hospital. patient stated he lost weight > 30 lb past few months, dark color urine, undigested food particles and generalized itching. History of fall recently and admitted to [facility]. No intracranial hemorrhage or any abnormal finding on that admission- as per patient. Past medical history: as above Past surgical history: Hernia repair, CABG, stent placed [facility], colorectal surgery 2016 due to colon cancer Family history: father colon cancer diagnosed at the age of 59 Personal history: Known meth user, Ex smoker stopped 30 years ago, history of EtOH disorder PCP: Patient seen and evaluated bedside today. Magna ordered, Monitor pain. Monitor lipase level, Hydroxyzine ordered for generalized itching. No acute event overnight. Diet full liquid as pt complain abd pain after breakfast, will advanced tomorrow. SPOKE TO -Ruby, and discuss about current management plan and verbally agreed. Objective vital signs Vital Sign Date Time Temp Pulse Resp B/P (MAP) Pulse Ox O2 Delivery O2 Flow Rate FiO2 12/16/24 13:00 97.5 90 18 105/61 (76) 96 97.5 12/16/24 08:00 Room Air* 0 96 21 Total Intake and Output 12/15/24 12/15/24 12/16/24 15:00 23:00 07:00 Intake Total 150 ml 500 ml 400 ml Output Total 1000 ml Balance 150 ml -500 ml 400 ml medications Current Medications Medications Dose Ordered Sig/Delilah Route Start Time Stop Time Status Last Admin Dose Admin Albuterol 2.5 mg Q4HPRN PRN NEB 12/14/24 04:45 Ipratropium [place] 0.5 mg Q4HPRN PRN NEB 12/14/24 04:45 Enoxaparin Sodium 100 mg Q12HR SC 12/14/24 10:00 12/16/24 09:48 100 MG Empaglifozin 10 mg DAILY PO 12/14/24 10:00 12/16/24 09:48 10 MG Sacubitril/ Valsartan 1 tab BID PO 12/14/24 10:00 12/16/24 09:46 1 TAB Spironolactone 25 mg DAILY PO 12/14/24 10:00 12/16/24 09:46 25 MG Tamsulosin HCl 0.4 mg QPM PO 12/14/24 18:00 Hold Atorvastatin Calcium 80 mg HS PO 12/14/24 22:00 12/15/24 21:42 80 MG Patient Own Medication 1 tab BID PO 12/14/24 10:00 Hold Ceftriaxone Sodium 50 ml @ 100 mls/hr DAILY@09 IV 12/15/24 09:00 12/16/24 09:46 100 MLS/HR Metronidazole 100 ml @ 100 mls/hr Q8HR IV 12/14/24 14:00 12/16/24 14:26 100 MLS/HR Pantoprazole Sodium 40 mg DAILY IV 12/14/24 10:00 12/16/24 09:46 40 MG Ergocalciferol 50,000 unit Q7D PO 12/14/24 17:15 12/14/24 19:00 50,000 UNIT Melatonin 10 mg HS PO 12/14/24 22:00 12/16/24 00:05 10 MG Sodium Chloride 1 spr Q4HR PRN EACHNOSTRI 12/15/24 12:00 Diagnostic Test (Pha) 1 strip ACHS 12/15/24 17:00 12/16/24 11:30 1 STRIP Insulin Human Regular ACHS SC 12/15/24 17:00 12/16/24 11:30 2 UNITS Dextrose 50 ml UD PRN IV 12/15/24 13:00 Calamine 1 applic QIDP PRN TOP 12/15/24 15:45 12/15/24 17:32 1 APPLIC Diphenhydramine HCl 25 mg Q12HR PO 12/16/24 11:15 12/16/24 11:47 25 MG Acetaminophen/ Hydrocodone Bitart 1 tab Q6HPRN PRN PO 12/16/24 11:30 12/16/24 11:48 1 TAB Hydroxyzine HCl 20 mg Q6HP PRN PO 12/16/24 14:15 Examination General: Patient alert and oriented in person, place and time. Patient following commands. HEENT: Normocephalic, atraumatic, moist mucous membranes Respiratory/pulmonary: Clear lungs bilaterally, vesicular murmurs present in almost all lung wilburn, no associated crackles or wheezes. Cardiovascular: Normal heart sounds S1 and S2 with no associated murmurs Abdomen: Mild Epigastric tenderness and right upper quadrant tenderness on deep palpation Extremities: There is no peripheral edema present at the lower extremities. Peripheral Pulses: 3+ Radial (R). 3+ Radial (L). 3+ Dorsalis pedis (R). 3+ Dorsalis pedis(L) Skin: Multiple scratch lake on both hands Neurological: Intact cranial nerves with no focal neurologic deficits laboratory and microbiology Laboratory Tests 12/16/24 05:53 Test 12/16/24 05:53 Range/Units Serum Glucose 147 H 74-106 mg/dL Microbiology Date/Time Source Procedure Growth Status 12/15/24 10:20 Voided Urine Urine Culture - Preliminary Resulted 12/14/24 09:47 Blood Blood Culture - Preliminary NO GROWTH AFTER 48 HOURS OF INCUBATION. Resulted Problem List/Assessment/Plan Problem List/Assessment/Plan # Ascending cholangitis # Acute pancreatitis # Hepatic steatosis # Hepatomegaly with nodular contour of the liver #S/p stent common bile duct and pancreas -ultrasound liver shows hepatic steatosis and hepatomegaly with no evidence of acute cholecystitis. -X-ray chest no radiographic evidence of acute cardiopulmonary disease -CT abdomen and pelvis without contrast shows: no abdominopelvic abnormality except a stent seen in the distal common bile duct. Additional stent seen within the pancreas and within the common bile duct extending to liver. Liver: Nodular contour of the liver. -Lipase 687>300>255>156 - CEA 1.62 CA 19-9 ordered -Lactic acidosis -resolved - GI consulted, pending - IV fluids judicious use considering heart failure -Empiric antibiotic ceftriaxone and metronidazole -MRCP: No intra or extra hepatic biliary ductal dilatation. No MRI evidence of cholelithiasis or choledocholithiasis. - pain management-Magna 5-325 mg q.6 p.r.n. - GI recommended: Patient is to follow up with his interventional endoscopist at [place] for removal of the stent in 4-8 weeks #Lactic acidosis 2.3>1.8>2.0 # Hyperbilirubinemia with transaminitis AST 48, ALT 49, ALP 231, total bilirubin 2.7-on admission Liver: Nodular contour of the liver. - monitor labs # Dyslipidemia Triglyceride 192, cholesterol 185, LDL 139, HDL 21-on admission -atorvastatin 80 mg # Chronic HFrEF Echo 08/26 EF is about 45% with normal RV function. Empagliflozin Spironolactone Entresto # Chronic hypoxic respiratory failure , due to CHF and COPD On home oxygen 2 L # Type 2 diabetes mellitus, HbA1c 8.3 - mild insulin sliding scale # Essential hypertension . Entresto Monitor blood pressure # CT abdomen shows 3.7 cm infrarenal abdominal aortic aneurysm. # Chronic Afib Lovenox therapeutic dose -Will resume home meds # vitamin-D deficiency Vitamin-D 07776 units q.weekly # H/O Mechanical Falls # history of CABG # Chronic Oxygen Dependency # History of Colon Cancer status post surgery # Substance Use/methamphetamine - patient is counseled on cessation of methamphetamine. PPI prophylaxis: Pantoprazole DVT prophylaxis: Lovenox Case discussed with Goals of care discussions, full code status. More than 19 minutes spent with patient. Plan discussed with: Patient, Spouse My Orders My Orders Orders - YAEL BELTRAN RESIDENT Procedure Category Date Status Time Diphenhdramine PHA 12/16/24 In Process Capsule (Benadryl 11:15 Hydrocodone-Acet PHA 12/16/24 In Process 5/325mg Tab (Magna 11:30 Dietary Evaluation Review Comments: CCHO-60 Cardiac Diet Try Marco A BID for wound healing [place] and Monitor PO intake to meet his needs @100% Expected Outcomes/Goals: controlled DM, gradully healed wounds, gradual wt loss YAEL BELTRAN RESIDENT Dec 16, 2024 15:43
[2024-12-16] MEDS: hydrOXYzine HCL 10 MG TAB PO PRN (18:40)
[2024-12-16] MEDS ORDERED: hydrOXYzine 25 MG TAB or CAP ONE (18:40)
[2024-12-16] MEDS ORDERED: SACUBITRIL-VALSARTAN 24mg/26mg TAB PO ONE (22:17)
[2024-12-17] MEDS ORDERED: HYDROcodone-ACET 5/325MG TAB ONE (01:34)
[2024-12-17] MEDS ORDERED: hydrOXYzine HCL 10 MG TAB ONE (01:40)
[2024-12-17] MEDS: HYDROcodone-ACET 5/325MG TAB PO ONE (03:15)
[2024-12-17 05:00] VITALS: BP 128/78; PULSE 95; RESP 20; TEMP 98; O2SAT 96
[2024-12-17 05:22] LABS: Hematocrit 32.2 % (41.0-53.0); Hemoglobin 11.0 g/dL (13.5-17.5); Mean Corpuscular Hemoglobin 30.4 pg (28.0-32.0); Mean Corpuscular Volume 89.1 fL (80.0-100.0); Nucleated Red Blood Cells % 0.0 %
[2024-12-17 05:31] LABS: Albumin 3.6 g/dL (3.2-4.8); Anion Gap 12 (5-15); BUN/Creatinine Ratio 11.2 (10.0-20.0); Blood Urea Nitrogen 10 mg/dL (9-23); Calcium 9.0 mg/dL (8.7-10.4); Carbon Dioxide 26 mmol/L (20-31); Chloride 102 mmol/L (98-107); Sodium 140 mmol/L (136-145); Total Protein 7.5 g/dL (5.7-8.2)
[2024-12-17 05:35] LABS: Alanine Aminotransferase 44 U/L (7-40); Alkaline Phosphatase 206 U/L (46-116); Bilirubin, Total 1.9 mg/dL (0.2-1.0); Glucose 144 mg/dL (74-106); Lipase 111 U/L (12-53); Potassium 3.4 mmol/L (3.5-5.1)
[2024-12-17 06:12] VITALS: O2SAT 95
[2024-12-17 09:00] VITALS: BP 138/80; PULSE 102; RESP 22; TEMP 98; O2SAT 98
[2024-12-17] MEDS: hydrOXYzine 25 MG TAB or CAP ONE (12:06)
[2024-12-17] MEDS: POTASSIUM CHL 20 Meq TABLET PO ONE ×2 (12:12→12:35)
[2024-12-17] MEDS: hydrOXYzine HCL 10 MG TAB ONE (12:18)
[2024-12-17 13:00] VITALS: BP 122/80; PULSE 80; RESP 20; TEMP 97.3; O2SAT 99
--- NOTE | 2024-12-17 14:52 | DVHPN2 ---
Progress Note Date Seen: Dec 17, 2024 Resident Creating Document: JAN NG RESIDENT Medical Necessity Reason Pt with a Central, PICC or Fol: No Subjective Review of Systems Patient seen and examined at bedside Denies any nausea or vomiting Continues to report generalized abdominal pain 8/10 intensity Notes abdominal pain upon eating Last bowel movement this a.m. Objective vital signs Vital Sign Date Time Temp Pulse Resp B/P (MAP) Pulse Ox O2 Delivery O2 Flow Rate FiO2 12/17/24 09:00 98.0 102 22 138/80 (99) 98 98.0 12/17/24 08:30 Room Air* 0 21 Total Intake and Output 12/16/24 12/16/24 12/17/24 15:00 23:00 07:00 Intake Total 50 ml 700 ml 1500 ml Output Total 900 ml Balance 50 ml -200 ml 1500 ml medications Current Medications Medications Dose Ordered Sig/Delilah Route Start Time Stop Time Status Last Admin Dose Admin Albuterol 2.5 mg Q4HPRN PRN NEB 12/14/24 04:45 Cancel Ipratropium [place] 0.5 mg Q4HPRN PRN NEB 12/14/24 04:45 Cancel Enoxaparin Sodium 100 mg Q12HR SC 12/14/24 10:00 12/17/24 09:20 100 MG Empaglifozin 10 mg DAILY PO 12/14/24 10:00 12/17/24 09:19 10 MG Sacubitril/ Valsartan 1 tab BID PO 12/14/24 10:00 12/17/24 09:19 1 TAB Spironolactone 25 mg DAILY PO 12/14/24 10:00 12/17/24 09:20 25 MG Tamsulosin HCl 0.4 mg QPM PO 12/14/24 18:00 Hold Atorvastatin Calcium 80 mg HS PO 12/14/24 22:00 12/16/24 22:26 80 MG Patient Own Medication 1 tab BID PO 12/14/24 10:00 Hold Ceftriaxone Sodium 50 ml @ 100 mls/hr DAILY@09 IV 12/15/24 09:00 12/17/24 09:19 100 MLS/HR Metronidazole 100 ml @ 100 mls/hr Q8HR IV 12/14/24 14:00 12/17/24 14:18 100 MLS/HR Pantoprazole Sodium 40 mg DAILY IV 12/14/24 10:00 12/17/24 09:19 40 MG Ergocalciferol 50,000 unit Q7D PO 12/14/24 17:15 12/14/24 19:00 50,000 UNIT Melatonin 10 mg HS PO 12/14/24 22:00 12/16/24 22:26 10 MG Sodium Chloride 1 spr Q4HR PRN EACHNOSTRI 12/15/24 12:00 Diagnostic Test (Pha) 1 strip ACHS 12/15/24 17:00 12/17/24 11:30 1 STRIP Insulin Human Regular ACHS SC 12/15/24 17:00 12/17/24 11:30 2 UNITS Dextrose 50 ml UD PRN IV 12/15/24 13:00 Calamine 1 applic QIDP PRN TOP 12/15/24 15:45 12/15/24 17:32 1 APPLIC Acetaminophen/ Hydrocodone Bitart 1 tab Q6HPRN PRN PO 12/16/24 11:30 12/17/24 09:33 1 TAB Hydroxyzine HCl 20 mg Q6HP PRN PO 12/16/24 14:15 12/17/24 12:35 20 MG Methocarbamol 500 mg QID PO 12/17/24 18:00 Examination General: Patient alert and oriented in person, place and time. Patient following commands. Respiratory/pulmonary: Clear lungs bilaterally, vesicular murmurs present in almost all lung wilburn, no associated crackles or wheezes. Abdomen: Mild Epigastric tenderness and right upper quadrant tenderness on deep palpation Extremities: There is no peripheral edema present at the lower extremities. Neurological: Intact cranial nerves with no focal neurologic deficits laboratory and microbiology Laboratory Tests 12/17/24 04:44 Test 12/17/24 04:44 Range/Units Serum Glucose 144 H 74-106 mg/dL Microbiology Date/Time Source Procedure Growth Status 12/15/24 10:20 Voided Urine Urine Culture - Final Complete 12/14/24 09:47 Blood Blood Culture - Preliminary NO GROWTH AFTER 72 HOURS OF INCUBATION. Resulted Labs and/or images reviewed: Labs reviewed by me, Image(s) reviewed by me Problem List/Assessment/Plan Problem List/Assessment/Plan Acute pancreatitis S/p CBD stenting History of gallstone pancreatitis AFib with RVR Elevated liver enzymes History of colon cancer Itching Jaundice Plan: [place] 10 as needed for pain Can use IV Benadryl as needed for itching Trial of Atarax for itching Patient was instructed to follow up with his endoscopist at [facility] if symptoms persist for possible removal of stent Monitor lipase Advance diet as tolerated Possible pancreatitis and elevated liver enzymes due to biliary stent placement Reviewing records from [facility] his bilirubin was in the range of 6-7 at that time so it is trending down Pending CA 19 Thank you so much for the opportunity to consult on your patient. GI team will follow the patient. In case of any questions or concerns please feel free to reach out. Plan discussed with Dr. Leger Plan discussed with: Patient, Other (RN) Dietary Evaluation Review Comments: CCHO-60 Cardiac Diet Try Marco A BID for wound healing [place] and Monitor PO intake to meet his needs @100% Expected Outcomes/Goals: controlled DM, gradully healed wounds, gradual wt loss JAN NG RESIDENT Dec 17, 2024 14:52
[2024-12-17] MEDS: KETOROLAC TROMETH 30 MG/ML 1ML VIAL ONE (16:59)
[2024-12-17 17:00] VITALS: BP 138/85; PULSE 80; RESP 20; TEMP 98.2; O2SAT 97
[2024-12-17] MEDS: KETOROLAC TROMETH 30 MG/ML 1ML VIAL IV PRN (17:03)
[2024-12-17] MEDS: diphenhdrAMINE HCL 50 MG/1 ML VL IV PRN (17:15)
[2024-12-17] MEDS: METHOCARBAMOL 500 MG TAB PO SCH (18:40)
[2024-12-17 21:00] VITALS: BP 133/82; PULSE 74; RESP 20; TEMP 97.4; O2SAT 98
--- NOTE | 2024-12-17 21:14 | DVHPNRES ---
Progress Note Date Seen: Dec 17, 2024 Resident Creating Document: YAEL BELTRAN RESIDENT Medical Necessity Reason Pt with a Central, PICC or Fol: No Subjective Review of Systems This is a 69-year-old male with past medical history of HTN, DM2, H LD, AFib on Eliquis, CHF with markedly reduced ejection fraction 45%, COPD on 2 L home oxygen, colon cancer status post surgical treatment 2016 on remission, CABG 2016, abdominal aortic aneurysm came to ER with a complaint of epigastric and right upper quadrant abdominal pain which is worsen for last 3 days, 8/10 intensity, localized, spasmodic pain, no radiation, no aggravating or relieving factor. patient stated he had a history of diarrhea approximately month and resolved 10 days earlier. as per patient, months earlier patient went to urgent care and found yellowish discoloration of eyes and sent patient to [facility]. After extensive worker biliary stent placed and discharged from hospital. patient stated he lost weight > 30 lb past few months, dark color urine, undigested food particles and generalized itching. History of fall recently and admitted to [facility]. No intracranial hemorrhage or any abnormal finding on that admission- as per patient. Past medical history: as above Past surgical history: Hernia repair, CABG, stent placed [facility], colorectal surgery 2016 due to colon cancer Family history: father colon cancer diagnosed at the age of 59 Personal history: Known meth user, Ex smoker stopped 30 years ago, history of EtOH disorder PCP: Patient seen and evaluated in bedside. Patient denies any acute symptoms except generalized sitting. Continue hydroxyzine, GI consult appreciated. Patient currently on liquid diet and complained of on and off abdominal pain. Objective vital signs Vital Sign Date Time Temp Pulse Resp B/P (MAP) Pulse Ox O2 Delivery O2 Flow Rate FiO2 12/17/24 17:00 98.2 80 20 138/85 (102) 97 98.2 12/17/24 08:30 Room Air* 0 21 Total Intake and Output 12/16/24 12/16/24 12/17/24 15:00 23:00 07:00 Intake Total 50 ml 700 ml 1500 ml Output Total 900 ml Balance 50 ml -200 ml 1500 ml medications Current Medications Medications Dose Ordered Sig/Delilah Route Start Time Stop Time Status Last Admin Dose Admin Albuterol 2.5 mg Q4HPRN PRN NEB 12/14/24 04:45 Cancel Ipratropium [place] 0.5 mg Q4HPRN PRN NEB 12/14/24 04:45 Cancel Enoxaparin Sodium 100 mg Q12HR SC 12/14/24 10:00 12/17/24 09:20 100 MG Empaglifozin 10 mg DAILY PO 12/14/24 10:00 12/17/24 09:19 10 MG Sacubitril/ Valsartan 1 tab BID PO 12/14/24 10:00 12/17/24 09:19 1 TAB Spironolactone 25 mg DAILY PO 12/14/24 10:00 12/17/24 09:20 25 MG Tamsulosin HCl 0.4 mg QPM PO 12/14/24 18:00 Hold Atorvastatin Calcium 80 mg HS PO 12/14/24 22:00 12/16/24 22:26 80 MG Patient Own Medication 1 tab BID PO 12/14/24 10:00 Hold Ceftriaxone Sodium 50 ml @ 100 mls/hr DAILY@09 IV 12/15/24 09:00 12/17/24 09:19 100 MLS/HR Metronidazole 100 ml @ 100 mls/hr Q8HR IV 12/14/24 14:00 12/17/24 14:18 100 MLS/HR Pantoprazole Sodium 40 mg DAILY IV 12/14/24 10:00 12/17/24 09:19 40 MG Ergocalciferol 50,000 unit Q7D PO 12/14/24 17:15 12/14/24 19:00 50,000 UNIT Melatonin 10 mg HS PO 12/14/24 22:00 12/16/24 22:26 10 MG Sodium Chloride 1 spr Q4HR PRN EACHNOSTRI 12/15/24 12:00 Diagnostic Test (Pha) 1 strip ACHS 12/15/24 17:00 12/17/24 17:00 1 STRIP Insulin Human Regular ACHS SC 12/15/24 17:00 12/17/24 17:05 2 UNITS Dextrose 50 ml UD PRN IV 12/15/24 13:00 Calamine 1 applic QIDP PRN TOP 12/15/24 15:45 12/15/24 17:32 1 APPLIC Methocarbamol 500 mg QID PO 12/17/24 18:00 12/17/24 18:40 500 MG Ketorolac Tromethamine 15 mg Q6HPRN PRN IV 12/17/24 15:00 12/22/24 14:59 12/17/24 17:03 15 MG Diphenhydramine HCl 25 mg Q4HP PRN IV 12/17/24 15:00 12/17/24 17:15 25 MG Trazodone HCl 100 mg HS PO 12/17/24 22:00 Examination General: Patient alert and oriented in person, place and time. Patient following commands. HEENT: Normocephalic, atraumatic, moist mucous membranes Respiratory/pulmonary: Clear lungs bilaterally, vesicular murmurs present in almost all lung wilburn, no associated crackles or wheezes. Cardiovascular: Normal heart sounds S1 and S2 with no associated murmurs Abdomen: Mild Epigastric tenderness and right upper quadrant tenderness on deep palpation Extremities: There is no peripheral edema present at the lower extremities. Peripheral Pulses: 3+ Radial (R). 3+ Radial (L). 3+ Dorsalis pedis (R). 3+ Dorsalis pedis(L) Skin: Multiple scratch lake on both hands Neurological: Intact cranial nerves with no focal neurologic deficits laboratory and microbiology Laboratory Tests 12/17/24 04:44 Test 12/17/24 04:44 Range/Units Serum Glucose 144 H 74-106 mg/dL Microbiology Date/Time Source Procedure Growth Status 12/15/24 10:20 Voided Urine Urine Culture - Final Complete 12/14/24 09:47 Blood Blood Culture - Preliminary NO GROWTH AFTER 72 HOURS OF INCUBATION. Resulted Problem List/Assessment/Plan Problem List/Assessment/Plan # Ascending cholangitis # Acute pancreatitis # Hepatic steatosis # Hepatomegaly with nodular contour of the liver #S/p stent common bile duct and pancreas -ultrasound liver shows hepatic steatosis and hepatomegaly with no evidence of acute cholecystitis. -X-ray chest no radiographic evidence of acute cardiopulmonary disease -CT abdomen and pelvis without contrast shows: no abdominopelvic abnormality except a stent seen in the distal common bile duct. Additional stent seen within the pancreas and within the common bile duct extending to liver. Liver: Nodular contour of the liver. -Lipase 687>300>255>156>111 - CEA 1.62 CA 19-9 pending -Lactic acidosis -resolved - Ketorolac started and DC opiates due to itching. - IV fluids judicious use considering heart failure -Empiric antibiotic ceftriaxone and metronidazole -MRCP: No intra or extra hepatic biliary ductal dilatation. No MRI evidence of cholelithiasis or choledocholithiasis. - pain management-[place] 5-325 mg q.6 p.r.n. - GI recommended: Patient is to follow up with his interventional endoscopist at [place] for removal of the stent in 4-8 weeks #Lactic acidosis 2.3>1.8>2.0 # Hyperbilirubinemia with transaminitis AST 48, ALT 49, ALP 231, total bilirubin 2.7-on admission Serum bilirubin 1.9 on 12/17/2024 Liver: Nodular contour of the liver. - monitor labs # Dyslipidemia Triglyceride 192, cholesterol 185, LDL 139, HDL 21-on admission -atorvastatin 80 mg # Chronic HFrEF Echo 08/26 EF is about 45% with normal RV function. Empagliflozin Spironolactone Entresto # normocytic normochromic anemia hemoglobin 11.0, HCT 32.2 MCV 89.1, MCH 30.4, MCHC 34.2, RDW 17.1 no signs symptoms of active bleed # hypokalemia potassium level 3.4 on 12/17/2024 supplemented BMP # Chronic hypoxic respiratory failure , due to CHF and COPD On home oxygen 2 L # Type 2 diabetes mellitus, HbA1c 8.3 - mild insulin sliding scale # Essential hypertension . Entresto Monitor blood pressure # CT abdomen shows 3.7 cm infrarenal abdominal aortic aneurysm. # Chronic Afib Lovenox therapeutic dose -Will resume home meds # vitamin-D deficiency Vitamin-D 57186 units q.weekly # H/O Mechanical Falls # history of CABG # Chronic Oxygen Dependency # History of Colon Cancer status post surgery # Substance Use/methamphetamine #Insomnia -Trazodone 100 mg tab po qpm - patient is counseled on cessation of methamphetamine. PPI prophylaxis: Pantoprazole DVT prophylaxis: Lovenox Case discussed with Dr. Fletcher Goals of care discussions, full code status. More than 19 minutes spent with patient. Plan discussed with: Patient, Other (Nurse) My Orders My Orders Orders - YAEL BELTRAN RESIDENT Procedure Category Date Status Time Methocarbamol PHA 12/17/24 In Process (Robaxin) 18:00 Dietary Evaluation Review Comments: CCHO-60 Cardiac Diet Try Marco A BID for wound healing [place] and Monitor PO intake to meet his needs @100% Expected Outcomes/Goals: controlled DM, gradully healed wounds, gradual wt loss Date of Service: Dec 17, 2024 Billing Provider: PARVEZ FLETCHER MD Common Visit Codes: [id number] INP/OBS CARE(HIGH) YAEL BELTRAN RESIDENT Dec 17, 2024 21:14 PARVEZ FLETCHER MD Dec 20, 2024 15:45
[2024-12-18 01:00] VITALS: BP 132/76; PULSE 135; RESP 18; TEMP 97.4; O2SAT 94
[2024-12-18 05:00] VITALS: BP 124/92; PULSE 80; RESP 19; TEMP 97.4; O2SAT 99
[2024-12-18 06:12] LABS: Hematocrit 30.6 % (41.0-53.0); Hemoglobin 10.4 g/dL (13.5-17.5); Mean Corpuscular Hemoglobin 30.4 pg (28.0-32.0); Mean Corpuscular Volume 89.6 fL (80.0-100.0); Nucleated Red Blood Cells % 0.0 %
[2024-12-18 06:13] LABS: Anion Gap 10 (5-15); Carbon Dioxide 26 mmol/L (20-31); Chloride 105 mmol/L (98-107); Potassium 3.6 mmol/L (3.5-5.1); Sodium 141 mmol/L (136-145)
[2024-12-18 06:19] LABS: BUN/Creatinine Ratio 10.8 (10.0-20.0); Blood Urea Nitrogen 10 mg/dL (9-23)
[2024-12-18 06:20] LABS: Magnesium 2.0 mg/dL (1.6-2.6)
[2024-12-18 06:23] LABS: Calcium 8.7 mg/dL (8.7-10.4); Glucose 116 mg/dL (74-106); Lipase 76 U/L (12-53)
[2024-12-18 09:00] VITALS: BP 130/78; PULSE 107; RESP 20; TEMP 97.3; O2SAT 96
[2024-12-18] MEDS ORDERED: MELA5TAB16 PO (10:42)
[2024-12-18] MEDS ORDERED: CALALOT11 TOP (10:42)
[2024-12-18] MEDS ORDERED: MET500T PO (10:42)
[2024-12-18] MEDS ORDERED: PANT40T PO (10:42)
[2024-12-18] MEDS ORDERED: IBUP-1454 PO (10:42)
[2024-12-18] MEDS ORDERED: METH-1181 PO (10:42)
[2024-12-18] MEDS ORDERED: ERGO1CAP23 PO (10:42)
[2024-12-18] MEDS ORDERED: CEPH250C PO (10:42)
[2024-12-18] MEDS: METOPROLOL TARTRATE 25 MG TAB PO SCH (11:45)
[2024-12-18 12:52] VITALS: BP 124/80; PULSE 90
[2024-12-18 13:00] VITALS: BP 131/91; PULSE 63; RESP 19; TEMP 97.3; O2SAT 97
--- NOTE | 2024-12-18 13:36 | DVHDSRES ---
Discharge Summary Date of Admission Resident Creating Document: YAEL BELTRAN RESIDENT Dec 14, 2024 at 01:28 Date of Discharge: Dec 18, 2024 Labs/Diagnostic Data: Laboratory Results Test 12/18/24 11:32 12/18/24 05:25 12/17/24 04:44 12/16/24 08:53 POC Glucose 171 mg/dl (70-106) White Blood Count 5.6 10^3/uL (4.4-10.8) Red Blood Count 3.41 10^6/uL (4.5-5.90) Hemoglobin 10.4 g/dL (13.5-17.5) Hematocrit 30.6 % (41.0-53.0) Mean Corpuscular Volume 89.6 fL (80.0-100.0) Mean Corpuscular Hemoglobin 30.4 pg (28.0-32.0) Mean Corpuscular Hemoglobin Concent 33.9 g/dL (32.0-36.0) Red Cell Distribution Width 17.1 % (11.8-14.3) Platelet Count 389 10^3/uL (140-450) Mean Platelet Volume 8.5 fL (6.9-10.8) Neutrophils (%) (Auto) 70.0 % (37.0-80.0) Lymphocytes (%) (Auto) 14.2 % (10.0-50.0) Monocytes (%) (Auto) 11.7 % (0.0-12.0) Eosinophils (%) (Auto) 3.2 % (0.0-7.0) Basophils (%) (Auto) 0.9 % (0.0-2.0) Neutrophils # (Auto) 3.9 10 ^3/uL (1.6-8.6) Lymphocytes # (Auto) 0.8 10 ^3/uL (0.4-5.4) Monocytes # (Auto) 0.7 10 ^3/uL (0-1.3) Eosinophils # (Auto) 0.2 10 ^3/uL (0-0.8) Basophils # (Auto) 0.1 10 ^3/uL (0-0.2) Nucleated Red Blood Cells 0.0 % Sodium Level 141 mmol/L (136-145) Potassium Level 3.6 mmol/L (3.5-5.1) Chloride Level 105 mmol/L (98-107) Carbon Dioxide Level 26 mmol/L (20-31) Anion Gap 10 (5-15) Blood Urea Nitrogen 10 mg/dL (9-23) Creatinine 0.93 mg/dL (0.700-1.30) Glomerular Filtration Rate Calc 90 mL/min (>90) BUN/Creatinine Ratio 10.8 (10.0-20.0) Serum Glucose 116 mg/dL (74-106) Calcium Level 8.7 mg/dL (8.7-10.4) Magnesium Level 2.0 mg/dL (1.6-2.6) Lipase 76 U/L (12-53) Total Bilirubin 1.9 mg/dL (0.2-1.0) Aspartate Amino Transferase (AST) 49 U/L (13-40) Alanine Aminotransferase (ALT) 44 U/L (7-40) Alkaline Phosphatase 206 U/L (46-116) Total Protein 7.5 g/dL (5.7-8.2) Albumin 3.6 g/dL (3.2-4.8) CA 19-9 Antigen 60 U/mL (0-35) Direct Bilirubin 1.3 mg/dL (<0.3) Test 12/15/24 10:20 12/14/24 07:27 12/13/24 23:24 12/13/24 20:24 Urine Color Yellow (Yellow) Urine Clarity Clear (Clear) Urine pH 7.0 (5.0-9.0) Urine Specific [place] 1.030 (1.001-1.035) Urine Protein Trace (Negative) Urine Ketones Negative (Negative) Urine Blood Negative /uL (Negative) Urine Nitrite Negative (Negative) Urine Bilirubin Negative (Negative) Urine Urobilinogen 3 mg/dL (Negative) Urine Leukocyte Esterase Negative /uL (Negative) Urine RBC <1 /hpf (0 - 3) Urine Microscopic WBC 1 /HPF (0-3) Urine Squamous Epithelial Cells None seen /hpf (<5) Urine Bacteria None seen /hpf (None Seen) Urine Glucose 4+ mg/dL (Normal) Urine Opiates Screen Pos (NEGATIVE) Urine Fentanyl Screen Neg (NEGATIVE) Urine Barbiturates Screen Neg (NEGATIVE) Urine Phencyclidine Screen Neg (NEGATIVE) Urine Amphetamines Screen Neg (NEGATIVE) Urine Benzodiazepines Screen Neg (NEGATIVE) Urine Cocaine Screen Neg (NEGATIVE) Urine Cannabinoids Screen Neg (NEGATIVE) Prothrombin Time 12.4 sec (9.3-11.8) Prothrombin Time INR 1.19 (0.9-1.15) Activated Partial Thromboplast Time 30.4 SEC (24.5-34.5) Hemoglobin A1c 8.3 % A1C (<5.7) Lactic Acid Level 2.0 mmol/L (0.4-2.0) Phosphorus Level 3.3 mg/dL (2.4-5.1) Ammonia < 10 umol/L (11-32) Triglycerides Level 192 mg/dL (< 150) Cholesterol Level 185 mg/dL (< 200) LDL Cholesterol 139 mg/dL (< 100) HDL Cholesterol 21 mg/dL (40-59) Vitamin B12 Level 737 pg/mL (211-911) Vitamin D 25-Hydroxy 20.2 ng/mL (30.0-100) Thyroid Stimulating Hormone (TSH) 0.76 uIU/mL (0.55-4.78) Hepatitis B Surface Antigen Negative (Negative) Hepatitis C Antibody Negative (Negative) Troponin I High Sensitivity 3 ng/L (</=54) B-Type Natriuretic Peptide 189.18 pg/mL (0-100) Other Laboratory Tests 12/18/24 05:25 Brief Hx & Hospital Course: This is a 69-year-old male with past medical history of HTN, DM2, H LD, AFib on Eliquis, CHF with markedly reduced ejection fraction 45%, COPD on 2 L home oxygen, colon cancer status post surgical treatment 2016 on remission, CABG 2016, abdominal aortic aneurysm came to ER with a complaint of epigastric and right upper quadrant abdominal pain which is worsen for last 3 days, 8/10 intensity, localized, spasmodic pain, no radiation, no aggravating or relieving factor. patient stated he had a history of diarrhea approximately month and resolved 10 days earlier. as per patient, months earlier patient went to urgent care and found yellowish discoloration of eyes and sent patient to [facility]. After extensive worker biliary stent placed and discharged from hospital. patient stated he lost weight > 30 lb past few months, dark color urine, undigested food particles and generalized itching. History of fall recently and admitted to [facility]. No intracranial hemorrhage or any abnormal finding on that admission- as per patient. Past medical history: as above Past surgical history: Hernia repair, CABG, stent placed [facility], colorectal surgery 2016 due to colon cancer Family history: father colon cancer diagnosed at the age of 59 Personal history: Known meth user, Ex smoker stopped 30 years ago, history of EtOH disorder PCP: [facility] course: Patient admitted intractable abdominal pain due to acute pancreatitis s/p biliary stent placement in [facility]. On admission, serum lipase level was high which is trending down to normal level after treated conservatively with IV fluid and IV antibiotic. CT abdomen and pelvis without contrast shows- no abdominopelvic abnormality except a stent seen in the distal common bile duct, additional stent seen within the pancreas and within the common bile duct extending to liver. Ultrasound liver shows hepatic steatosis and hepatomegaly with no evidence of acute cholecystitis. Lab shows anemia but no active signs symptoms of bleeding, bilirubin level trending down in compared to [facility] labs reviewed. MRCP - No intra or extra hepatic biliary ductal dilatation. No MRI evidence of cholelithiasis or choledocholithiasis. Ultrasound and CT abdomen-Hepatomegaly with nodular contour of the liver, CA 19-9 level- 76. GI consulted and recommended Patient is to follow up with his interventional endoscopist at [place] for removal of the stent in 4-8 weeks. During hospital stay, patient treated both acute and chronic medical condition. Patient currently denies any fever, shortness of breath, abdominal pain, dysuria, headache or any other acute distress. Patient also advised to continue full liquid diet then advanced gradually mechanical soft and regular diet. Patient is hemodynamically stable for discharge. The patient has received maximum benefits from inpatient treatment. Time was given to answer patient/ parents questions and concerns in Layman terms. patient verbalized understanding and agree with treatment and follow-up. Patient was recommended to return to the ED if she experiences any worsening symptoms such as, but not limited to current symptoms. Continue current home medication. Follow-up with PCP and discharge Clinic within 2 weeks, Tuesday morning and follow up with interventional endoscopist at [place] for removal of the stent in 4-8 weeks. Patient educated and advised to resume home medication. Physical examination Constitutional: No: Fever, Chills, Sweats, Weakness, Malaise Eyes: No: Pain, Vision change, Conjunctivae inflammation, Eyelid inflammation ENT: No: Ear pain, Ear discharge, Nose pain, Nose discharge, Nose congestion, Mouth pain, Mouth swelling, Throat pain, Throat swelling Respiratory: Shortness of breath; No: Cough, Dry, SOB with excertion, Wheezing, Hemoptysis, Pleuritic Pain, Sputum, Wheezing Cardiovascular: No: Chest Pain, Palpitations, Orthopnea, Paroxysmal Noc. Dyspnea, Edema, Lt Headedness Gastrointestinal: No: Nausea, Vomiting, Abdominal Pain, Diarrhea, Constipation, Melena, Hematochezia Genitourinary: No Dysuria, No Frequency, No Incontinence, No Hematuria, No Retention Musculoskeletal: No: other, neck pain, shoulder pain, arm pain, back pain, hand pain, leg pain, foot pain Skin: No: Rash, Lesions, Jaundice, Bruising Neurological: No: Weakness, Numbness, Incoordination, Change in speech, Confusion, Seizures Operations or Procedures ORDERING PHYSICIAN: ZORAN LOPEZ DO PROCEDURE(s): ABPL - CT AB PEL WO CON-NO ORAL OR IV REASON: abd pain ORDER NUMBER(s): [id number], ACCESSION NUMBER(s): [id number] Exam: CT CT AB PEL WO CON-NO ORAL OR IV History: abd pain Comparison Study: CT CT AB PEL WO CON-NO ORAL OR IV on DOS: 07/17/24, CT CT AB PEL WO CON-NO ORAL OR IV on DOS: 05/22/24, CT CT AB PEL WO CON-NO ORAL OR IV on DOS: 11/08/23, CT [facility]ST AB PEL WO CON-NO IV/ORAL on DOS: 10/01/23, CT CT AB PEL WO CON-NO ORAL OR IV on DOS: 09/08/23 TECHNIQUE: Multidetector CT of the abdomen and pelvis was performed from lung bases to pubic symphysis. Imaging was performed without IV contrast. Axial, coronal, and sagittal multiplanar reformats were obtained from the axial data set by the technologist. RADIATION DOSE: CTDI vol 60.16 mGy. DLP 1005.38 mGy.cm Findings: Limited evaluation of the solid organs in the absence of IV contrast. Lungs: Minimal basilar atelectasis/scarring. Liver: Nodular contour of the liver. Spleen: Unremarkable. Pancreas: Unremarkable. Gallbladder: A stent is seen in the distal common bile duct. Additional stents are seen within the pancreas and within the common bile duct extending to the liver. Correlation with procedural history is suggested. There is pneumobilia. Adrenals: Unremarkable Kidneys: Left renal cysts. No hydronephrosis. Pelvic Viscera: Unremarkable. Vasculature: Atherosclerotic aortoiliac calcification. 3.7 cm infrarenal abdominal aortic aneurysm. Retroperitoneum: Unremarkable. Bowel: No bowel obstruction. Musculoskeletal: Mild chronic appearing compression fracture of L2, though new compared to the prior study dated 05/22/2024. Soft tissues: Unremarkable Impression: 1. No acute abdominopelvic abnormality. 2. Interval placement of multiple stents as detailed, correlation with procedural history is suggested. 3. Additional findings as detailed. ATED BY: MEENA GUILLERMO MD DICTATED DATE/TIME: 12/13/242127 ORDERING PHYSICIAN: ZORAN LOPEZ DO PROCEDURE(s): CXRP - CHEST PORTABLE REASON: cp ORDER NUMBER(s): [id number], ACCESSION NUMBER(s): [id number] CHEST RADIOGRAPH REASON FOR EXAM: Chest pain COMPARISON: XY CHEST TWO VIEWS ROUTINE on DOS: 10/29/24, XY CHEST PORTABLE on DOS: 07/17/24, XY CHEST PORTABLE on DOS: 05/21/24, XY CHEST PORTABLE on DOS: 12/15/23, XY CHEST PORTABLE on DOS: 11/12/23 TECHNIQUE: One view of the chest is provided FINDINGS: There are surgical changes in the mediastinum. The cardiomediastinal silhouette is mildly enlarged. There is no focal airspace disease. There is diffuse interstitial prominence, likely chronic changes. There is no significant pleural effusion. There is no pneumothorax. IMPRESSION: No radiographic evidence of acute cardiopulmonary process. ATED BY: BAIRON CARTER MD DICTATED DATE/TIME: 12/13/242125 ORDERING PHYSICIAN: ARIK BRAXTON PROCEDURE(s): LIVUS - LIVER REASON: transaminitis ORDER NUMBER(s): [id number], ACCESSION NUMBER(s): [id number] INDICATION: transaminitis TECHNIQUE: Multiple real-time sonographic images were obtained of the right upper quadrant. COMPARISON: None FINDINGS: The liver demonstrates diffusely increased echotexture without focal mass lesions. The liver measures 20.3 cm. Normal hepatopetal portal flow identified. No evidence of pleural effusion or abdominal ascites. There is no intrahepatic or extrahepatic ductal dilatation. The common duct is not adequately visualized. The gallbladder is without evidence of stone or sludge. The gallbladder wall measures 0.2 cm and is within normal limits. Negative sonographic ram's sign. The right kidney measures 12.2 cm. The right kidney is normal in contour, size, and shape. The echogenicity is normal. There is no hydronephrosis. The pancreas is not well visualized due to overlying bowel gas. IMPRESSION: 1. Hepatic steatosis and hepatomegaly. 2. No ultrasound evidence of acute cholecystitis. ATED BY: MATTHEW FALLON MD DICTATED DATE/TIME: 12/14/24 0243 ORDERING PHYSICIAN: YAEL BELTRAN PROCEDURE(s): MRCP - MRCP MRI REASON: Transaminitis with recent biliary stent placement ORDER NUMBER(s): [id number], ACCESSION NUMBER(s): [id number] MRI MRCP MRI Attending Name: YAEL BELTRAN COMPARISON: CT done 02 21 INDICATION: Transaminitis with recent biliary stent placement TECHNIQUE: MRCP was performed without the use of intravenous contrast using a MRI imaging system. Three-dimensional MRCP was performed using maximum intensity projection reconstruction on an independent workstation under concurrent supervision. FINDINGS: Visualized lower thorax: Limited imaging of the thorax demonstrates no suspicious pleural or parenchymal disease. Liver: Normal in morphology and signal intensity. Gallbladder: Slight gallbladder wall thickening. No stones. Biliary system: There is a biliary stent in place. There are no dilated intrahepatic bile ducts. Spleen: Normal in morphology and signal intensity. Pancreas: Normal in morphology and signal intensity. Adrenal glands: Normal in morphology and signal intensity. Kidneys: The kidneys are symmetric in size and appearance. No hydronephrosis. Small renal cysts. Urinary tract: The included ureters, as visualized, are normal in course and caliber. GI tract: The included portions of the bowel are within normal limits. Lymph nodes: No enlarged lymph nodes. Peritoneum: No ascites. Musculoskeletal: The bone marrow signal intensity is within normal limits. IMPRESSION: 1. No intra or extra hepatic biliary ductal dilatation. No MRI evidence of cholelithiasis or choledocholithiasis. ATED BY: BLAIR ABBOTT MD DICTATED DATE/TIME: 12/15/24 0810 Condition at Discharge: Stable Final Diagnosis/Problems List # Acute pancreatitis # Ascending cholangitis # Hepatic steatosis # Hepatomegaly with nodular contour of the liver #S/p stent common bile duct and pancreas #Lactic acidosis # Hyperbilirubinemia with transaminitis # Dyslipidemia # Chronic HFrEF, EF 45% with normal RV function. # normocytic normochromic anemia # hypokalemia # Chronic hypoxic respiratory failure , due to CHF and COPD # Type 2 diabetes mellitus, HbA1c 8.3 # Essential hypertension # CT abdomen shows 3.7 cm infrarenal abdominal aortic aneurysm. # Chronic A-fib # H/O Mechanical Falls # history of CABG # Chronic Oxygen Dependency # History of Colon Cancer status post surgery # Substance Use/methamphetamine #Insomnia Discharge Disposition: Home Discharge Instruct/Medications Diet: Cardiac 2g Na,low cholest, See Comment Diet comment: Patient also advised to continue full liquid diet then advanced gradually mechanical soft and regular diet. Activity: No Restrictions, As Tolerated Follow Up/Referral: PCP Outpatient clinic within 2 weeks after discharge, Tuesday morning Follow up with interventional endoscopist at [place] for removal of the stent in 4-8 weeks Follow-up with cardiology 4-6 weeks after discharge Scheduled Apixaban Base (Eliquis), 5 MG PO BID Aspirin (Aspirin Low Dose), 81 MG PO DAILY@1400 Atorvastatin Calcium (Lipitor), 1 TAB PO DAILY Cephalexin (Keflex Capsule), 1 CAP PO QID Empagliflozin (Jardiance), 1 TAB PO DAILY, (Reported) Ergocalciferol (Vitamin D 55653 Unit), 50,000 UNIT PO Q7D Furosemide (Lasix), 2 TAB PO DAILY, (Reported) Gabapentin (Gabapentin), 1 TAB PO TID, (Reported) Insulin Glargine (Lantus Solostar), 25 UNIT SC QAM, 10 units sub Q QPM Melatonin (Melatonin), 10 MG PO HS Methocarbamol (Methocarbamol), 500 MG PO QID Metoprolol Succinate (Metoprolol Succinate Er), 1 TAB PO BID Metronidazole (Metronidazole), 500 MG PO TID Pantoprazole Sodium Sesquihydr (Pantoprazole Sodium), 40 MG PO DAILY Sacubitril-Valsartan (Entresto 24-26 mg), 1 TAB PO BID Silver Sulfadiazine (Silvadene), 1 APPLIC TOP DAILY Spironolactone (Spironolactone), 1 TAB PO DAILY, (Reported) Tamsulosin Hcl (Flomax), 0.4 MG PO QPM Scheduled PRN Calamine (Sm Calamine), 1 APPLIC TOP QIDP PRN Ibuprofen (Ibuprofen), 600 MG PO TID PRN Discharge Statement: "Patient was advised to return to the ER or call 911 if any headaches, dizziness, shortness of breath, chest pain, abdominal pain, bleeding, fevers, or worsening of medical condition. Patient was counseled about treatment plan, medications, possible side effects, patientverbalized understanding. All questions were answered to the best of my ability. This discharge took greater then 30 minutes in planning, reviewing documentation, counseling the patient, and discussing with other team members." ASSESSMENT ASSESSMENT Assessment # Ascending cholangitis # Acute pancreatitis # Hepatic steatosis # Hepatomegaly with nodular contour of the liver #S/p stent common bile duct and pancreas #Lactic acidosis # Hyperbilirubinemia with transaminitis # Dyslipidemia # Chronic HFrEF, EF 45% with normal RV function. YAEL BELTRAN RESIDENT Dec 18, 2024 13:36
--- NOTE | 2024-12-18 22:04 | DVHPN2 ---
Progress Note - Dictate Date Seen: Dec 18, 2024 (Late entryTime of visit 1:00 p.m.) Medical Necessity Reason Pt with a Central, PICC or Fol: No Subjective No New complaints Lipase down to 77 Liver enzymes are trending down Abdominal pain is improving CA 19 nine elevated to 60 vital signs Vital Sign Date Time Temp Pulse Resp B/P (MAP) Pulse Ox O2 Delivery O2 Flow Rate FiO2 12/18/24 13:00 63 131/91 12/18/24 13:00 97.3 19 97 97.3 12/18/24 08:00 Room Air* 0 21 Total Intake and Output 12/17/24 12/17/24 12/18/24 15:00 23:00 07:00 Intake Total 500 ml 1100 ml 240 ml Output Total 1500 ml Balance 500 ml -400 ml 240 ml medications Current Medications Medications Dose Ordered Sig/Delilah Route Start Time Stop Time Status Last Admin Dose Admin Albuterol 2.5 mg Q4HPRN PRN NEB 12/14/24 04:45 Cancel Ipratropium [place] 0.5 mg Q4HPRN PRN NEB 12/14/24 04:45 Cancel objective General: NAD, AAOX3 Chest: lung wilburn clear to auscultation Heart: RRR, no murmur Abdomen:+ upper abdominal tenderness to palpation, +BS laboratory and microbiology Laboratory Tests 12/18/24 05:25 Test 12/18/24 05:25 Range/Units Serum Glucose 116 H 74-106 mg/dL Problems(with codes): (1) Jaundice (2) History of biliary stent insertion (3) Elevated liver enzymes (4) Acute pancreatitis (5) Itching Prognosis Plan Discharge planning is in progress Patient will follow up with his biliary endoscopist at [place] for removal of stents At that time I also recommend postbulbar brushings and EUS to rule out any pancreatic biliary malignancy Monitor labs including CA 19-9 I will follow up patient with you as needed Dietary Evaluation Review Comments: CCHO-60 Cardiac Diet Try Marco A BID for wound healing [place] and Monitor PO intake to meet his needs @100% Expected Outcomes/Goals: controlled DM, gradully healed wounds, gradual wt loss Plan discussed with: Other (Dr Miguel) JUANITA HORNE MD Dec 18, 2024 22:04
== END 2024-12-18 13:30 | disposition home or self-care (01) | DRG 439 ==
LOC: EDBD 19:57 → ER 19:57 → OVERFLOW 12-14 01:28 → WEST WING 12-14 06:16
PROVIDERS: ADMIT Student in an Organized Health Care Education/Training Program; ATTEND Student in an Organized Health Care Education/Training Program
DX: K85.90 Acute pancreatitis without necrosis or infection, unspecified (principal); A09 Infectious gastroenteritis and colitis, unspecified; J96.11 Chronic respiratory failure with hypoxia; I48.20 Chronic atrial fibrillation, unspecified; I13.0 Hypertensive heart and chronic kidney disease with heart failure and stage 1 through stage 4 chronic kidney disease, or unspecified chronic kidney disease; K83.09 Other cholangitis; E87.20 Acidosis, unspecified; I50.22 Chronic systolic (congestive) heart failure; N17.9 Acute kidney failure, unspecified; E11.22 Type 2 diabetes mellitus with diabetic chronic kidney disease; E55.9 Vitamin D deficiency, unspecified; N18.9 Chronic kidney disease, unspecified; R16.0 Hepatomegaly, not elsewhere classified; I71.40 Abdominal aortic aneurysm, without rupture, unspecified; K76.0 Fatty (change of) liver, not elsewhere classified; J44.9 Chronic obstructive pulmonary disease, unspecified; E78.5 Hyperlipidemia, unspecified; E80.6 Other disorders of bilirubin metabolism; I71.43 Infrarenal abdominal aortic aneurysm, without rupture; D64.9 Anemia, unspecified; E87.6 Hypokalemia; F15.90 Other stimulant use, unspecified, uncomplicated; I25.10 Atherosclerotic heart disease of native coronary artery without angina pectoris; Z95.1 Presence of aortocoronary bypass graft; Z85.038 Personal history of other malignant neoplasm of large intestine; Z79.01 Long term (current) use of anticoagulants; Z79.84 Long term (current) use of oral hypoglycemic drugs; Z99.81 Dependence on supplemental oxygen; Z79.4 Long term (current) use of insulin; Z79.899 Other long term (current) drug therapy
CPT/HCPCS: 36415; 71045; 74176; 74181; 76705; 80048; 80053; 80061; 80076; 80307; 81001; 82140; 82306; 82607; 82962; 83036; 83605; 83690; 83735; 83880; 84100; 84443; 84484; 85025; 85610; 85730; 86301; 86803; 87040; 87086; 87340; 93005; 99291; G0378; J1815; J1885; J2470; J3490

== ENCOUNTER 2025-01-29 19:28 | Inpatient (IN) | payer MEDICAID, OTHER ==
[~2025-01-29] VITALS: Ht 188 cm; Wt 225.0 kg
[~2025-01-29 19:28] MED LIST changes: +CALALOT11 TOP; +CEPH250C PO; +ERGO1CAP23 PO; +IBUP-1454 PO; +MELA5TAB16 PO; +MET500T PO; +METH-1181 PO; +PANT40T PO
[2025-01-29] MEDS: VANCOMYCIN 1GM/250ML KIT 250 ML IV ONE (20:15)
[2025-01-29] MEDS: PIPERACILLIN-TAZOB 3.375GM 100 ML IV ONE (20:15)
[2025-01-29 21:19] VITALS: PULSE 117; RESP 20; O2SAT 97
[2025-01-29 21:42] LABS: Hematocrit 35.0 % (41.0-53.0); Hemoglobin 11.4 g/dL (13.5-17.5); Mean Corpuscular Hemoglobin 28.3 pg (28.0-32.0); Mean Corpuscular Volume 86.8 fL (80.0-100.0); Nucleated Red Blood Cells % 0.0 %
[2025-01-29 21:54] LABS: Potassium 4.1 mmol/L (3.5-5.1); Sodium 139 mmol/L (136-145)
[2025-01-29 21:55] LABS: Anion Gap 12 (5-15); Carbon Dioxide 29 mmol/L (20-31)
[2025-01-29 21:56] LABS: Calcium 9.0 mg/dL (8.7-10.4)
[2025-01-29 22:00] LABS: BUN/Creatinine Ratio 18.3 (10.0-20.0)
[2025-01-29 22:12] LABS: Blood Urea Nitrogen 37 mg/dL (9-23); Chloride 98 mmol/L (98-107); Glucose 180 mg/dL (74-106)
[2025-01-29 22:28] LABS: Lactic Acid w/Reflex 3.1 mmol/L (0.4-2.0)
--- NOTE | 2025-01-29 22:43 | ED.PDOC ---
History of Present Illness HPI Comments 69-year-old male who presents to the emergency department by EMS for wound check to right elbow. He states he fell a week ago. He was admitted at [facility] for IV antibiotics on 01/25. He left AMA today. Patient was seen by his PCP today and referred to the emergency department for IV antibiotics for MRSA infection in the right elbow. Patient is reporting pain in the right elbow. He is a poor historian REVIEW OF SYSTEMS: General: No fever, no chills, or fatigue HEENT: No sore throat, no earache, no congestion, no neck pain. Cardiac: No chest pain. No palpitations. Lungs: No shortness of breath, no cough. GI: No nausea, no vomiting, no diarrhea, no constipation, no abdominal pain : No dysuria, frequency, or urgency. No hematuria. Musculoskeletal: Right elbow pain. Skin: No rash, no itching. Neuro: No headache, no dizziness, no weakness (And as sated in HPI) PHYSICAL EXAM: General: Awake, alert and oriented. No acute distress. Skin: Skin in warm, dry and intact without rashes or lesions. HEENT: The head is normocephalic and atraumatic. Conjunctivae are clear without exudates or hemorrhage. Sclera is non-icteric. Neck: Normal range of motion. No JVD. Cardiac: Regular rate Respiratory: No signs of respiratory distress. No Stridor. Extremities: Right elbow edema. Sutures in place. Neurological: The patient is awake, alert and oriented to person, place, and time with normal speech. Speech is clear. There is no facial asymmetry. Chief Complaint: Wound Check Time Seen by MD: 20:01 Primary Care Provider: aba Allergies: Coded Allergies: No Known Drug Allergy (Verified Allergy, Unknown, 10/31/24) Home Meds Active Scripts Ibuprofen (Ibuprofen) 600 Mg Tab, 600 MG PO TID PRN for 10 Days, #30 TAB Prov:AMBREEN LONG RESIDENT 12/18/24 Pantoprazole Sodium Sesquihydr (Pantoprazole Sodium) 40 Mg Tab, 40 MG PO DAILY for 30 Days, #30 TAB Prov:AMBREEN LONG RESIDENT 12/18/24 Metronidazole (Metronidazole) 500 Mg Tab, 500 MG PO TID for 7 Days, #21 TAB Prov:AMBREEN LONG RESIDENT 12/18/24 Cephalexin (KEFLEX CAPSULE) 250 Mg Cp, 1 CAP PO QID for 7 Days, #28 CAP Prov:AMBREEN LONG [facility] 12/18/24 Methocarbamol (Methocarbamol) 500 Mg Tab, 500 MG PO QID for 30 Days, #120 TAB Prov:AMBREEN LONG [facility] 12/18/24 Melatonin (Melatonin) 5 Mg Tab, 10 MG PO HS for 30 Days, #30 TAB Prov:AMBREEN LONG [facility] 12/18/24 Ergocalciferol (VITAMIN D 26714 UNIT) 50,000 [place], [address] UNIT PO Q7D for 60 Days, #10 CAP Prov:AMBREEN LONG [facility] 12/18/24 Calamine (Sm Calamine) Lot, 1 APPLIC TOP QIDP PRN for 30 Days, #10 BOTTLE Prov:AMBREEN LONG [facility] 12/18/24 Tamsulosin Hcl (Flomax) 0.4 Mg Cap, 0.4 MG PO QPM for 30 Days, #30 CAP 3 Refills Prov:INGE MENON MD 09/22/23 Silver Sulfadiazine (Silvadene) 1 % Cre, 1 APPLIC TOP DAILY, #50 GRAMS Prov:LUIS E DURAN MD 09/12/23 Insulin Glargine (Lantus Solostar) 100 Unit/Ml Inj, 25 UNIT SC QAM, 10 units sub Q QPM for 50 Days, #5 INJ Prov:LUIS E DURAN MD 09/12/23 Aspirin (Aspirin Low Dose) 81 Mg Tab, 81 MG PO DAILY@1400 for 90 Days, TAB Hold if internal bleeding Called PMD if internal bleeding Prov:LUIS E DURAN MD 09/12/23 Metoprolol Succinate (Metoprolol Succinate Er) 25 Mg Tab, 1 TAB PO BID, #180 TAB 1 Refill Prov:LUIS E DURAN MD 09/12/23 Atorvastatin Calcium (Lipitor) 80 Mg Tab, 1 TAB PO DAILY, #90 TAB 5 Refills Hold if calf muscle pains Prov:LUIS E DURAN MD 09/12/23 Apixaban Base (ELIQUIS) 5 Mg Tab, 5 MG PO BID for 90 Days, #180 TAB Hold if internal bleeding Called PMD if internal bleeding Prov:LUIS E DURAN MD 09/12/23 Sacubitril-Valsartan (Entresto 24-26 mg) 1 Tab Tab, 1 TAB PO BID for 90 Days, #180 TAB Prov:BIENVENIDO MADRIGAL MD 08/24/23 Reported Medications Spironolactone (Spironolactone) 25 Mg Tab, 1 TAB PO DAILY 08/23/23 Empagliflozin (Jardiance) 10 Mg Tab, 1 TAB PO DAILY 08/23/23 Gabapentin (Gabapentin) 800 Mg Tab, 1 TAB PO TID, TAB 08/23/23 Furosemide (Lasix) 20 Mg Tb, 2 TAB PO DAILY 08/20/23 Mode of Arrival: EMS Past Medical History PAST MEDICAL HISTORY: AFIB, CAD, Cancer, CHF, COPD, DM, High Lipids, HTN Surgical History: CABG, Hernia Repair Family History Family History: Reviewed,noncontributory to illness, No family hx of Cancer, No family hx of DM, No family hx of Heart christie, No family hx of HTN, No family hx ofKidney christie, No family hx of Liver christie, No family hx of Lung christie, No family hx of Stroke Social History Smoker: Non-Smoker Alcohol: Occasionally Drugs: Methamphetamine Lives In: Home Was a procedure done? Was a procedure done?: No Differential Dx Considerations may include: MRSA infection, abscess, sepsis, cellulitis, fracture, other X-Ray, Labs, Meds, VS Vital Signs Date Time Temp Pulse Resp B/P (MAP) Pulse Ox O2 Delivery O2 Flow Rate FiO2 01/29/25 21:19 117 20 97 Nasal Cannula* 2 28 01/29/25 21:19 98.1 108 20 116/75 (89) 97 98.1 01/29/25 19:45 98.4 112 19 112/74 97 98.4 Lab Test 01/29/25 23:02 01/29/25 21:14 Range/Units Lactic Acid Level 2.2 *H 3.1 *H 0.4-2.0 mmol/L White Blood Count 8.5 4.4-10.8 10^3/uL Red Blood Count 4.03 L 4.5-5.90 10^6/uL Hemoglobin 11.4 L 13.5-17.5 g/dL Hematocrit 35.0 L 41.0-53.0 % Mean Corpuscular Volume 86.8 80.0-100.0 fL Mean Corpuscular Hemoglobin 28.3 28.0-32.0 pg Mean Corpuscular Hemoglobin Concent 32.6 32.0-36.0 g/dL Red Cell Distribution Width 15.6 H 11.8-14.3 % Platelet Count 434 140-450 10^3/uL Mean Platelet Volume 8.3 6.9-10.8 fL Neutrophils (%) (Auto) 70.5 37.0-80.0 % Lymphocytes (%) (Auto) 18.8 10.0-50.0 % Monocytes (%) (Auto) 8.9 0.0-12.0 % Eosinophils (%) (Auto) 0.9 0.0-7.0 % Basophils (%) (Auto) 0.9 0.0-2.0 % Neutrophils # (Auto) 6.0 1.6-8.6 10 ^3/uL Lymphocytes # (Auto) 1.6 0.4-5.4 10 ^3/uL Monocytes # (Auto) 0.8 0-1.3 10 ^3/uL Eosinophils # (Auto) 0.1 0-0.8 10 ^3/uL Basophils # (Auto) 0.1 0-0.2 10 ^3/uL Nucleated Red Blood Cells 0.0 % Sodium Level 139 136-145 mmol/L Potassium Level 4.1 3.5-5.1 mmol/L Chloride Level 98 98-107 mmol/L Carbon Dioxide Level 29 20-31 mmol/L Anion Gap 12 5-15 Blood Urea Nitrogen 37 H 9-23 mg/dL Creatinine 2.02 H 0.700-1.30 mg/dL Glomerular Filtration Rate Calc 35 >90 mL/min BUN/Creatinine Ratio 18.3 10.0-20.0 Serum Glucose 180 H 74-106 mg/dL Calcium Level 9.0 8.7-10.4 mg/dL Magnesium Level 1.5 L 1.6-2.6 mg/dL Total Bilirubin 0.5 0.2-1.0 mg/dL Direct Bilirubin 0.2 <0.3 mg/dL Aspartate Amino Transferase (AST) 33 13-40 U/L Alanine Aminotransferase (ALT) 28 7-40 U/L Alkaline Phosphatase 131 H 46-116 U/L B-Type Natriuretic Peptide 419.16 0-100 pg/mL Total Protein 8.2 5.7-8.2 g/dL Albumin 3.7 3.2-4.8 g/dL Triglycerides Level 137 < 150 mg/dL Cholesterol Level 129 < 200 mg/dL LDL Cholesterol 84 < 100 mg/dL HDL Cholesterol 25 L 40-59 mg/dL Plasma/Serum Blood Alcohol < 3.0 <10 mg/dL Current Medications Medications (Trade) Dose Ordered Sig/Delilah Route Start Time Stop Time Status Last Admin Piperacillin Sod/ Tazobactam Sod 100 ml @ 100 mls/hr ONCE ONCE IV 01/29/25 20:15 01/29/25 21:14 DC 01/29/25 20:15 Vancomycin HCl 250 ml @ 250 mls/hr ONCE ONCE IV 01/29/25 20:15 01/29/25 21:14 DC 01/29/25 20:15 Acetaminophen (Tylenol Tablet) 650 mg ONCE ONCE PO 01/29/25 23:00 01/29/25 23:01 DC 01/29/25 23:00 Ketorolac Tromethamine (Toradol Injection) 15 mg ONCE ONCE IV 01/29/25 23:00 01/29/25 23:01 DC 01/29/25 23:00 Time of 1ST Reevaluation: 22:42 Reevaluation 1ST: Unchanged Patient Education/Counseling: Other (Need for admission) Family Education/Counseling: No Family Present SEPSIS Sepsis Screen Date sepsis recognized/suspect: Jan 29, 2025 Time Sepsis recognized/suspect: 2124 Recent Procedure: No On Antibiotic Therapy: No Respiratory Rate >20: No Heart Rate >90: No Temp<36 C (96.8 F) or >38.3 C: No SBP <90 or MAP <65 mmHG: No New Acute Mental Status Change: No Is the patient on CPAP, BIPAP,: No Physician Orders Blood Culture (01/29/25 20:10) Wound Culture W/ Gs (01/29/25 20:10) Vital Signs Date Time Temp Pulse Resp B/P (MAP) Pulse Ox O2 Delivery O2 Flow Rate FiO2 01/29/25 21:19 117 20 97 Nasal Cannula* 2 01/29/25 21:19 98.1 108 20 116/75 (89) 97 98.1 01/29/25 19:45 98.4 112 19 112/74 97 98.4 Laboratory Tests Test 01/29/25 21:14 01/29/25 23:02 Lactic Acid Level 3.1 mmol/L (0.4-2.0) *H 2.2 mmol/L (0.4-2.0) *H White Blood Count 8.5 10^3/uL (4.4-10.8) Medications Medications Dose Ordered Sig/Delilah Route Start Time Stop Time Status Last Admin Dose Admin Acetaminophen 650 mg ONCE ONCE PO 01/29/25 23:00 01/29/25 23:01 DC 01/29/25 23:00 Ketorolac Tromethamine 15 mg ONCE ONCE IV 01/29/25 23:00 01/29/25 23:01 DC 01/29/25 23:00 Piperacillin Sod/ Tazobactam Sod 100 ml @ 100 mls/hr ONCE ONCE IV 01/29/25 20:15 01/29/25 21:14 DC 01/29/25 20:15 Vancomycin HCl 250 ml @ 250 mls/hr ONCE ONCE IV 01/29/25 20:15 01/29/25 21:14 DC 01/29/25 20:15 Departure 1 Departure Time of Disposition: 22:43 Impression: Primary Impression: MRSA infection Disposition: HOME / SELF CARE / HOMELESS Condition: Stable Comments Patient admitted to hospitalist service for further treatment, evaluation and monitoring. Critical Care Note Critical Care Time?: No Stability Stability form required: No Heart Score Heart Score: Heart Score Response (Comments) Value History N/A 0 EKG N/A 0 Age N/A 0 Risk Factors N/A 0 Troponin N/A 0 Total 0 ROSI HERNANDEZ MD Jan 29, 2025 22:43
[2025-01-29] MEDS: ACETAMINOPHEN 325 MG TAB PO ONE (23:00)
[2025-01-29] MEDS: KETOROLAC TROMETH 30 MG/ML 1ML VIAL IV ONE (23:00)
--- NOTE | 2025-01-29 23:48 | DVHHPRES ---
History of Present Illness Resident Creating Document: ANU HOOVER RESIDENT History of Present Illness 69-year-old male with extensive past medical history including atrial fibrillation on Eliquis, hypertension, hyperlipidemia, CHF ( have met 45%), CKD, CAD S/P CABG( 2016), abdominal aortic aneurysm(3.7 cm), COPD on 2 L home oxygen, colon cancer in remission, type 2 diabetes on insulin, BPH, biliary stent placement, insomnia and history of methamphetamine use, presented with severe upper left back pain. Patient reports slipping and falling in the shower 1 week ago, injuring his elbow, back and lower body. He was admitted to [facility] As his left elbow wound began to ooze pus, underwent drainage and suturing but left AMA due to dissatisfaction with care, stating his back pain was not addressed. He currently describes sharp, 10/10 back pain, worsened with palpation and associated with shortness of breaths. He denies chest pain, fever, chills, nausea, vomiting, abdominal pain, or palpitations. Vital signs on admission:HR 112, RR 20, BP 116/75, SpO2 97% on 3 L O2. Lab findings BUN 37, creatinine 2.02, lactate 3.1. Patient has been admitted for further workup and management. Past medical history: As stated above past surgical history: CABG, biliary stent insertion Family history: Reviewed and not contributory to the management of this case Social history: Patient denies drinking alcohol or smoking but has been a chronic meth user and last meth use was few days ago PCP: Dr. Garcia Allergies: None Code status: Full code Review of Systems Allergies: Coded Allergies: No Known Drug Allergy (Verified Allergy, Unknown, 10/31/24) Exam Vital Signs Vital Signs Date Time Temp Pulse Resp B/P (MAP) Pulse Ox O2 Delivery O2 Flow Rate FiO2 01/29/25 21:19 117 20 97 Nasal Cannula* 2 28 01/29/25 21:19 98.1 116/75 (89) 98.1 Labs/Xrays Labs Test 01/29/25 23:02 01/29/25 21:14 Range/Units Lactic Acid Level 2.2 *H 0.4-2.0 mmol/L White Blood Count 8.5 4.4-10.8 10^3/uL Red Blood Count 4.03 L 4.5-5.90 10^6/uL Hemoglobin 11.4 L 13.5-17.5 g/dL Hematocrit 35.0 L 41.0-53.0 % Mean Corpuscular Volume 86.8 80.0-100.0 fL Mean Corpuscular Hemoglobin 28.3 28.0-32.0 pg Mean Corpuscular Hemoglobin Concent 32.6 32.0-36.0 g/dL Red Cell Distribution Width 15.6 H 11.8-14.3 % Platelet Count 434 140-450 10^3/uL Mean Platelet Volume 8.3 6.9-10.8 fL Neutrophils (%) (Auto) 70.5 37.0-80.0 % Lymphocytes (%) (Auto) 18.8 10.0-50.0 % Monocytes (%) (Auto) 8.9 0.0-12.0 % Eosinophils (%) (Auto) 0.9 0.0-7.0 % Basophils (%) (Auto) 0.9 0.0-2.0 % Neutrophils # (Auto) 6.0 1.6-8.6 10 ^3/uL Lymphocytes # (Auto) 1.6 0.4-5.4 10 ^3/uL Monocytes # (Auto) 0.8 0-1.3 10 ^3/uL Eosinophils # (Auto) 0.1 0-0.8 10 ^3/uL Basophils # (Auto) 0.1 0-0.2 10 ^3/uL Nucleated Red Blood Cells 0.0 % Sodium Level 139 136-145 mmol/L Potassium Level 4.1 3.5-5.1 mmol/L Chloride Level 98 98-107 mmol/L Carbon Dioxide Level 29 20-31 mmol/L Anion Gap 12 5-15 Blood Urea Nitrogen 37 H 9-23 mg/dL Creatinine 2.02 H 0.700-1.30 mg/dL Glomerular Filtration Rate Calc 35 >90 mL/min BUN/Creatinine Ratio 18.3 10.0-20.0 Serum Glucose 180 H 74-106 mg/dL Calcium Level 9.0 8.7-10.4 mg/dL SEPSIS Sepsis Screen Date sepsis recognized/suspect: Jan 29, 2025 Time Sepsis recognized/suspect: 2124 Recent Procedure: No On Antibiotic Therapy: No Respiratory Rate >20: No Heart Rate >90: No Temp<36 C (96.8 F) or >38.3 C: No SBP <90 or MAP <65 mmHG: No New Acute Mental Status Change: No Is the patient on CPAP, BIPAP,: No Physician Orders Blood Culture (01/29/25 20:10) Wound Culture W/ Gs (01/29/25 20:10) Admit (01/29/25 23:29) Code Status (01/29/25 23:29) Condition: Unstable (01/29/25 23:29) Stat Ekg For Chest Pain (01/29/25 23:29) Notify Md Of Changes From Base (01/29/25 23:29) Oxygen By Nasal Cannula (01/29/25 23:29) Coal Screener For 24 Hours (01/29/25 23:29) Vital Signs Date Time Temp Pulse Resp B/P (MAP) Pulse Ox O2 Delivery O2 Flow Rate FiO2 01/29/25 21:19 117 20 97 Nasal Cannula* 2 28 01/29/25 21:19 98.1 108 20 116/75 (89) 97 98.1 01/29/25 19:45 98.4 112 19 112/74 97 98.4 Laboratory Tests Test 01/29/25 21:14 01/29/25 23:02 Lactic Acid Level 3.1 mmol/L (0.4-2.0) *H 2.2 mmol/L (0.4-2.0) *H White Blood Count 8.5 10^3/uL (4.4-10.8) Medications Medications Dose Ordered Sig/Delilah Route Start Time Stop Time Status Last Admin Dose Admin Acetaminophen 650 mg ONCE ONCE PO 01/29/25 23:00 01/29/25 23:01 DC 01/29/25 23:00 650 MG Ketorolac Tromethamine 15 mg ONCE ONCE IV 01/29/25 23:00 01/29/25 23:01 DC 01/29/25 23:00 15 MG Piperacillin Sod/ Tazobactam Sod 100 ml @ 100 mls/hr ONCE ONCE IV 01/29/25 20:15 01/29/25 21:14 DC 01/29/25 20:15 100 MLS/HR Vancomycin HCl 250 ml @ 250 mls/hr ONCE ONCE IV 01/29/25 20:15 01/29/25 21:14 DC 01/29/25 20:15 250 MLS/HR Assessment/Plan Assessment/Plan #Sepsis due to right elbow wound, s/p mechanical fall #Acute on chronic L2 compression fracture #Ahai-oc-wrpxrjol multilevel spondylosis #Right elbow wound, s/p I&D and suturing - cefepime 1 g IV q.12 daily - vancomycin as per pharmacy - MRSA screening - wound consult - wound culture - blood culture - Zofran 4 mg IV q.4 PRN - chest x-ray -Thoracic spine CT shows: Increased, up to 50% height loss of the previous L2 compression deformity with new midbody fracture line/Acute on chronic L2 compression fracture new from 12/13/2024.; Ogce-iz-gvoafpby multilevel spondylosis throughout the imaged spine, including features of thoracic DISH; -spinal surgery consult placed -right elbow CT scan #History of paroxysmal atrial fibrillation #CHF, HFrEF 45%, under acute exacerbation #CAD status post CABG #hypertension #hyperlipidemia #abdominal aortic aneurysm 3.7 cm - EKG - repeat echo - BNP 419 - aspirin 81 mg p.o. daily - metoprolol 25 mg b.i.d. daily - therapeutic Lovenox 1 mg/ kg b.i.d. scheduled - Chest x-ray shows: Cardiomegaly with mild pulmonary vascular congestion -furosemide 40 mg IV daily -strict input-output monitoring -strict fluid restriction #Uncontrolled diabetes mellitus type 2, A1c- 8.3 (on 12/14/2024) #Diabetic neuropathy -A1c -insulin Lantus 20 units -mild sliding scale insulin -Accu-Cheks -gabapentin 800 mg t.i.d. # LEO on CKD, due to VMN - 500 mL IV NS once #Hypomagnesemia -Repleted #Normocytic, normochromic anemia -monitor #COPD, not under exacerbation -on 3 L oxygen maintain SpO2 between 88- 92 % -med neb ipratropium bromide 0.5 mg q.4 PRN -med neb albuterol 2.5 mg q.4 PRN #Insomnia -Continue melatonin #Substance abuse, chronic methamphetamine abuse -UDS -patient was counseled by me over 8 minutes regarding the harms, side effects of methamphetamine on his health in his heart and the need of complete cessation #BPH -continue tamsulosin 0.4 mg daily -UA DVT prophylaxis: Therapeutic Lovenox 1 mg/kg b.i.d. scheduled Diet: cardiac, renal, diabetic diet Goals of care discussed with the patient for more than 27 minutes: Full code status Case discussed with Dr. Helms, patient Plan discussed with: Patient My Orders Orders - ANU HOOVER Procedure Category Date Status Time Admit ADMIT 01/29/25 Verified 23:29 Code Status CODE 01/29/25 Verified 23:29 Condition: Unstable [facility] 01/29/25 Verified 23:29 Stat Ekg For Chest ORIN 01/29/25 Verified Pain 23:29 Notify Md Of Changes [facility] 01/29/25 Verified From Base 23:29 Oxygen By Nasal RT 01/29/25 Verified Cannula 23:29 Coal Screener For [facility] 01/29/25 Verified 24 Hours 23:29 Date of Service: Jan 30, 2025 Billing Provider: LOUISE HELMS MD Common Visit Codes: [id number] INP/OBS CARE (HIGH) Secondary Visit Codes: [id number] CARE PLAN 30 MINUTES ANU HOOVER RESIDENT Jan 29, 2025 23:48
[2025-01-30] VITALS (11 sets, daily range): BP systolic 98–153; BP diastolic 65–79; PULSE 72–108; RESP 18–20; TEMP 96.9–98.1; O2SAT 90–100
[2025-01-30] MEDS ORDERED: IPRATROPIUM BROM 0.5 MG/2.5ML INH SOL NEB PRN (00:15)
[2025-01-30] MEDS: HYDROmorphone HCL 2 MG/ML VL/or syr IV ONE (00:15)
[2025-01-30] MEDS ORDERED: DEXTROSE (50%) 50ML SYRG IV PRN (00:15)
[2025-01-30] MEDS: SODIUM CHLORIDE 0.9% 500 ML IV ONE (00:15)
[2025-01-30] MEDS ORDERED: ALBUTEROL SULF 2.5 MG/0.5ML(0.5%) NEB SOLN NEB PRN (00:15)
[2025-01-30] MEDS ORDERED: HYDROcodone-ACET 5/325MG TAB PO PRN (00:15)
[2025-01-30] MEDS ORDERED: VANCOMYCIN PER PHARMACY 0 MG IV SCH (00:15)
[2025-01-30] MEDS ORDERED: ONDANSETRON HCL 4 MG/2 ML VIAL IV PRN (00:15)
--- NOTE | 2025-01-30 01:17 | DVH ---
CHEST RADIOGRAPH Indication: sob Technique: Single frontal view of the chest was obtained COMPARISON: XY CHEST PORTABLE on DOS: 12/13/24, XY CHEST TWO VIEWS ROUTINE on DOS: 10/29/24, XY CHEST P ORTABLE on DOS: 07/17/24, XY CHEST PORTABLE on DOS: 05/21/24, XY CHEST PORTABLE on DOS: 12/15/23 FINDINGS: Lines and Tubes: None Lungs: Mild diffuse increased prominence of the pulmonary vasculature. No evidence of focal consolid ation. Pleura: No effusion. No pneumothorax. Cardiomediastinal contours: Cardiomegaly status post median sternotomy. Bones: Unremarkable IMPRESSION: 1. Cardiomegaly with mild pulmonary vascular congestion.
[2025-01-30 01:35] LABS: Alanine Aminotransferase 28 U/L (7-40); Albumin 3.7 g/dL (3.2-4.8); Alkaline Phosphatase 131 U/L (46-116); Bilirubin, Direct 0.2 mg/dL (<0.3); Bilirubin, Total 0.5 mg/dL (0.2-1.0); Magnesium 1.5 mg/dL (1.6-2.6); Total Protein 8.2 g/dL (5.7-8.2)
[2025-01-30] MEDS: MAGNESIUM OXIDE 400 MG TAB PO ONE (02:00)
[2025-01-30 02:09] LABS: Triglycerides 137 mg/dL (< 150)
[2025-01-30 02:11] LABS: Cholesterol 129 mg/dL (< 200)
[2025-01-30 02:12] LABS: HDL Cholesterol 25 mg/dL (40-59)
--- NOTE | 2025-01-30 02:30 | DVH ---
EXAM: CT THORACIC SPINE WO CONTRAS HISTORY: back pain COMPARISON: CT abdomen/pelvis 12/13/2024 CTDIvol 38.1 mGy, DLP 1757.78 mGy*cm. TECHNIQUE: Multiple axial CT images of the spine were obtained using bone algorithm. Axial and price l reformatting was done. Bone and soft tissue windows were reviewed. FINDINGS: Increased, up to 50% height loss of the previous L2 compression deformity with new midbody fracture l ine. No other vertebral fracture or compression deformity. No listhesis. Tlup-hk-sqszvoun multilevel spondylosis throughout the imaged spine, including features of thoracic DISH. No acute findings of the imaged chest or abdominal contents. Partially visualized pancreaticobiliary stents. IMPRESSION: 1. Acute on chronic L2 compression fracture new from 12/13/2024. 2. No acute thoracic vertebral fracture.
[2025-01-30 02:46] LABS: COVID19 ANTIGEN SOFIA FIA NEGATIVE (NEGATIVE)
[2025-01-30] MEDS: FUROSEMIDE 40 MG TAB PO ONE (02:57)
[2025-01-30] MEDS: FUROSEMIDE 40 MG/4 ML VIAL IV ONE (03:09)
--- NOTE | 2025-01-30 03:31 | ECG ---
[facility] Test Date: 2025-01-30 Test Time: 03:29:45 Pat Name: NICOLAS INGRAM Department: [facility] ED Room: 0238T Gender: M Blood Tester: LAYLA : 1955 Requested By: ANU HOOVER Order Number: [id number] Reading MD: Finn Ridley Measurements Intervals [place] Rate: 108 P: 0 GA: 0 QRS: 105 QRSD: 102 T: 89 QT: 379 QTc: 508 Interpretive Statements Atrial fibrillation Right ventricular hypertrophy Nonspecific T abnormalities, lateral leads Prolonged QT interval Electronically Signed On 02-05-2025 13:18:52 PST by Finn Ridley Please click the below link to view image of tracing.
[2025-01-30] MEDS: GABAPENTIN 400 MG CAP PO SCH (05:55)
[2025-01-30] MEDS ORDERED: PATIENTS OWN MEDICATION (Gabapentin 1 TAB) PO SCH (06:00)
[2025-01-30] MEDS: InsuLIN REG 1unit/0.01ml Soln (100units/ml) SC SCH (06:01)
[2025-01-30] MEDS: ACCU-CHEK COMFORT CURVE STRIP VI SCH (06:01)
[2025-01-30] MEDS: MAGNESIUM SULFATE 1GM/100ML 100 ML IV ONE (06:52)
[2025-01-30 09:04] LABS: Hematocrit 30.7 % (41.0-53.0); Hemoglobin 10.2 g/dL (13.5-17.5); Mean Corpuscular Hemoglobin 28.8 pg (28.0-32.0); Mean Corpuscular Volume 86.7 fL (80.0-100.0); Nucleated Red Blood Cells % 0.0 %
[2025-01-30 09:07] LABS: Chloride 98 mmol/L (98-107); Potassium 3.7 mmol/L (3.5-5.1); Sodium 140 mmol/L (136-145)
[2025-01-30 09:08] LABS: Anion Gap 10 (5-15)
[2025-01-30 09:12] LABS: Calcium 8.4 mg/dL (8.7-10.4); Carbon Dioxide 32 mmol/L (20-31)
[2025-01-30 09:14] LABS: BUN/Creatinine Ratio 19.1 (10.0-20.0)
[2025-01-30] MEDS: CEFEPIME 1GM/50ML 50 ML IV SCH (09:37)
[2025-01-30] MEDS: METOPROLOL SUCCINATE XL 50 MG TAB PO SCH (09:37)
[2025-01-30] MEDS: HYDROmorphone HCL 2 MG/ML VL/or syr IV PRN (09:39)
[2025-01-30] MEDS: FUROSEMIDE 40 MG/4 ML VIAL IV SCH (09:40)
[2025-01-30 09:46] LABS: Blood Urea Nitrogen 40 mg/dL (9-23); Glucose 198 mg/dL (74-106)
[2025-01-30] MEDS: ENOXAPARIN SOD 100 MG/1 ML SYRINGE SC SCH (09:48)
--- NOTE | 2025-01-30 11:25 | DVH ---
CLINICAL INDICATION: draining wound recently I D TECHNIQUE: Noncontrast CT of the right elbow was performed. Sagittal and coronal reformatted images a re provided. COMPARISON: None. CT Dose: CTDI volume is 34.89 mGy. Dose-length product is 1100.2 mGy*cm FINDINGS: No fracture or dislocation. No cortical erosion. There is posterior elbow soft tissue swell ing skin thickening. There is a triceps tendon enthesophyte. Difficult to exclude a fluid collection without intravenous contrast. Joint spaces are maintained. IMPRESSION: 1. No acute osseous abnormality in the right elbow. 2. Posterior elbow soft tissue swelling and skin thickening which may reflect cellulitis or olecranon bursitis. Difficult to exclude fluid collection without intravenous contrast. All CT scans at this medical facility are performed using dose modulation techniques as appropriate t o a performed exam including the following: Automated exposure control was utilized; adjustment of th e MA and/or KV according to patient size; and use of iterative reconstruction technique.
[2025-01-30 12:09] LABS: Iron 38.0 ug/dL (65-175); Total Iron Binding Capacity 271.0 ug/dL (250-425)
[2025-01-30] MEDS: ASPirin-EC 81 mg tab PO SCH (14:24)
--- NOTE | 2025-01-30 14:40 | DVHINCON2 ---
Consultation - Surgical Date Seen: Jan 30, 2025 Referring Physician Referring Physician Attending Doctor: Mariluz Long Resident Resident Creating Document: ANU HOOVER RESIDENT Reason for Consultation severe upper left back pain History of Present Illness History of Present Illness History of Present Illness 69-year-old male with extensive past medical history including atrial fibrillation on Eliquis, hypertension, hyperlipidemia, CHF ( have met 45%), CKD, CAD S/P CABG( 2015), abdominal aortic aneurysm(3.7 cm), COPD on 2 L home oxygen, colon cancer in remission, type 2 diabetes on insulin, BPH, biliary stent placement, insomnia and history of methamphetamine use, presented with severe upper left back pain. Patient reports slipping and falling in the shower 1 week ago, injuring his elbow, back and lower body. He was admitted to [facility] As his left elbow wound began to ooze pus, underwent drainage and suturing but left AMA due to dissatisfaction with care, stating his back pain was not addressed. He currently describes sharp, 10/10 back pain, worsened with palpation and associated with shortness of breaths. He denies chest pain, fever, chills, nausea, vomiting, abdominal pain, or palpitations. Vital signs on admission:HR 112, RR 20, BP 116/75, SpO2 97% on 3 L O2. Lab findings BUN 37, creatinine 2.02, lactate 3.1. Patient has been admitted for further workup and management. Past Medical/Surgical History Past Medical/Surgical History Past medical history: As stated above past surgical history: CABG, biliary stent insertion Family and Social History Family and Social History Family history: Reviewed and not contributory to the management of this case Social history: Patient denies drinking alcohol or smoking but has been a chronic meth user and last meth use was few days ago PCP: Dr. Garcia Allergies: None Code status: Full code Allergies and medications Allergies: Coded Allergies: No Known Drug Allergy (Verified Allergy, Unknown, 10/31/24) Home Meds Active Scripts Ibuprofen (Ibuprofen) 600 Mg Tab, 600 MG PO TID PRN for 10 Days, #30 TAB Prov:AMBREEN LONG RESIDENT 12/18/24 Pantoprazole Sodium Sesquihydr (Pantoprazole Sodium) 40 Mg Tab, 40 MG PO DAILY for 30 Days, #30 TAB Prov:AMBREEN LONG [facility] 12/18/24 Metronidazole (Metronidazole) 500 Mg Tab, 500 MG PO TID for 7 Days, #21 TAB Prov:AMBREEN LONG [facility] 12/18/24 Cephalexin (KEFLEX CAPSULE) 250 Mg Cp, 1 CAP PO QID for 7 Days, #28 CAP Prov:AMBREEN LONG [facility] 12/18/24 Methocarbamol (Methocarbamol) 500 Mg Tab, 500 MG PO QID for 30 Days, #120 TAB Prov:AMBREEN LONG [facility] 12/18/24 Melatonin (Melatonin) 5 Mg Tab, 10 MG PO HS for 30 Days, #30 TAB Prov:AMBREEN LONG [facility] 12/18/24 Ergocalciferol (VITAMIN D 12946 UNIT) 50,000 [place], [address] UNIT PO Q7D for 60 Days, #10 CAP Prov:AMBREEN LONG [facility] 12/18/24 Calamine (Sm Calamine) Lot, 1 APPLIC TOP QIDP PRN for 30 Days, #10 BOTTLE Prov:AMBREEN LONG [facility] 12/18/24 Tamsulosin Hcl (Flomax) 0.4 Mg Cap, 0.4 MG PO QPM for 30 Days, #30 CAP 3 Refills Prov:INGE MENON MD 09/22/23 Silver Sulfadiazine (Silvadene) 1 % Cre, 1 APPLIC TOP DAILY, #50 GRAMS Prov:LUIS E DURAN MD 09/12/23 Insulin Glargine (Lantus Solostar) 100 Unit/Ml Inj, 25 UNIT SC QAM, 10 units sub Q QPM for 50 Days, #5 INJ Prov:LUIS E DURAN MD 09/12/23 Aspirin (Aspirin Low Dose) 81 Mg Tab, 81 MG PO DAILY@1400 for 90 Days, TAB Hold if internal bleeding Called PMD if internal bleeding Prov:LUIS E DURAN MD 09/12/23 Metoprolol Succinate (Metoprolol Succinate Er) 25 Mg Tab, 1 TAB PO BID, #180 TAB 1 Refill Prov:LUIS E DURAN MD 09/12/23 Atorvastatin Calcium (Lipitor) 80 Mg Tab, 1 TAB PO DAILY, #90 TAB 5 Refills Hold if calf muscle pains Prov:LUIS E DURAN MD 09/12/23 Apixaban Base (ELIQUIS) 5 Mg Tab, 5 MG PO BID for 90 Days, #180 TAB Hold if internal bleeding Called PMD if internal bleeding Prov:LUIS E DURAN MD 09/12/23 Sacubitril-Valsartan (Entresto 24-26 mg) 1 Tab Tab, 1 TAB PO BID for 90 Days, #180 TAB Prov:BIENVENIDO MADRIGAL MD 08/24/23 Reported Medications Spironolactone (Spironolactone) 25 Mg Tab, 1 TAB PO DAILY 08/23/23 Empagliflozin (Jardiance) 10 Mg Tab, 1 TAB PO DAILY 08/23/23 Gabapentin (Gabapentin) 800 Mg Tab, 1 TAB PO TID, TAB 08/23/23 Furosemide (Lasix) 20 Mg Tb, 2 TAB PO DAILY 08/20/23 Review of systems Review of Systems: MSK:Abnormal (Patient complaining of severe 10/10 upper left back pain) Examination Vital signs imaging: ORDERING PHYSICIAN: ANU HOOVER RESIDENT PROCEDURE(s): TS2CT - THORACIC SPINE WO CONTRAS REASON: back pain ORDER NUMBER(s): [id number], ACCESSION NUMBER(s): [id number] EXAM: CT THORACIC SPINE WO CONTRAS HISTORY: back pain COMPARISON: CT abdomen/pelvis 12/13/2024 CTDIvol 38.1 mGy, DLP 1757.78 mGy*cm. TECHNIQUE: Multiple axial CT images of the spine were obtained using bone algorithm. Axial and coronal reformatting was done. Bone and soft tissue windows were reviewed. FINDINGS: Increased, up to 50% height loss of the previous L2 compression deformity with new midbody fracture line. No other vertebral fracture or compression deformity. No listhesis. Pecq-up-hmaedehe multilevel spondylosis throughout the imaged spine, including features of thoracic DISH. No acute findings of the imaged chest or abdominal contents. Partially visualized pancreaticobiliary stents. IMPRESSION: 1. Acute on chronic L2 compression fracture new from 12/13/2024. 2. No acute thoracic vertebral fracture. Vital Signs Date Time Temp Pulse Resp B/P (MAP) Pulse Ox O2 Delivery O2 Flow Rate FiO2 01/30/25 14:12 83 20 116/77 01/30/25 12:46 97.0 98 97.0 01/30/25 08:00 Nasal Cannula* 2 28 Medications Current Medications Medications (Trade) Dose Ordered Sig/Delilah Route PRN Reason Start Time Stop Time Status Last Admin Vancomycin HCl 0 ml @ 0 mls/hr PER PHARMACY IV 01/30/25 00:15 Enoxaparin Sodium (Lovenox) 100 mg Q12HR SC 01/30/25 10:00 Acetaminophen/ Hydrocodone Bitart ([place] 5/325MG Tab) 1 tab Q4HPRN PRN PO MODERATE PAIN (4-6 PAIN SCALE) 01/30/25 00:15 Hydromorphone HCl (Dilaudid Injection) 0.25 mg Q4HPRN PRN IV SEVERE PAIN (7-10 PAIN SCALE) 01/30/25 00:15 01/30/25 09:39 Ondansetron HCl (Zofran) 4 mg Q4HPRN PRN IV NAUSEA / VOMITING 01/30/25 00:15 Aspirin (Ecotrin Enteric Coated Tablet) 81 mg DAILY@1400 PO 01/30/25 14:00 Melatonin (Melatonin) 10 mg HS PO 01/30/25 22:00 Patient Own Medication 1 tab TID PO 01/30/25 06:00 UNV Metoprolol Succinate (Toprol Xl) 25 mg BID PO 01/30/25 10:00 01/30/25 09:37 Insulin Glargine (Lantus) 20 units HS SC 01/30/25 22:00 Diagnostic Test (Pha) (Accu-Chek Comfort Curve T) 1 strip ACHS 01/30/25 07:00 01/30/25 12:00 Insulin Human Regular (InsuLIN R) ACHS SC 01/30/25 07:00 01/30/25 12:00 Dextrose 50 ml UD PRN IV Blood Sugar LESS THAN 60 01/30/25 00:15 Ipratropium [place] (Atrovent Medneb) 0.5 mg Q4HPRN PRN NEB SHORTNESS OF BREATH 01/30/25 00:15 Albuterol (Ventolin Medneb) 2.5 mg Q4HPRN PRN NEB SHORTNESS OF BREATH 01/30/25 00:15 Tamsulosin HCl (Flomax) 0.4 mg QPM PO 01/30/25 18:00 Cefepime HCl 50 ml @ 12.5 mls/hr Q12HR IV 01/30/25 10:00 01/30/25 09:37 Gabapentin (Neurontin Capsule) 800 mg TID PO 01/30/25 06:00 01/30/25 05:55 Furosemide (Lasix Injection) 40 mg DAILY IV 01/30/25 10:00 01/30/25 09:40 Laboratory Labs Test 01/30/25 11:43 01/30/25 11:04 01/30/25 08:25 01/30/25 01:40 Range/Units POC Glucose 167 H 70-106 mg/dl Lactic Acid Level 1.5 0.4-2.0 mmol/L Iron Level 38 L 65-175 ug/dL Total Iron Binding Capacity 271 250-425 ug/dL Percent Iron Saturation 14.0 L 20-55 % Ferritin 58.6 22-322 ng/mL Random Vancomycin Level 13.6 H 5-10 ug/mL White Blood Count 6.9 4.4-10.8 10^3/uL Red Blood Count 3.54 L 4.5-5.90 10^6/uL Hemoglobin 10.2 L 13.5-17.5 g/dL Hematocrit 30.7 #L 41.0-53.0 % Mean Corpuscular Volume 86.7 80.0-100.0 fL Mean Corpuscular Hemoglobin 28.8 28.0-32.0 pg Mean Corpuscular Hemoglobin Concent 33.2 32.0-36.0 g/dL Red Cell Distribution Width 15.3 H 11.8-14.3 % Platelet Count 358 140-450 10^3/uL Mean Platelet Volume 8.3 6.9-10.8 fL Neutrophils (%) (Auto) 65.0 37.0-80.0 % Lymphocytes (%) (Auto) 20.0 10.0-50.0 % Monocytes (%) (Auto) 10.4 0.0-12.0 % Eosinophils (%) (Auto) 3.7 0.0-7.0 % Basophils (%) (Auto) 0.9 0.0-2.0 % Neutrophils # (Auto) 4.5 1.6-8.6 10 ^3/uL Lymphocytes # (Auto) 1.4 0.4-5.4 10 ^3/uL Monocytes # (Auto) 0.7 0-1.3 10 ^3/uL Eosinophils # (Auto) 0.3 0-0.8 10 ^3/uL Basophils # (Auto) 0.1 0-0.2 10 ^3/uL Nucleated Red Blood Cells 0.0 % Sodium Level 140 136-145 mmol/L Potassium Level 3.7 3.5-5.1 mmol/L Chloride Level 98 98-107 mmol/L Carbon Dioxide Level 32 H 20-31 mmol/L Anion Gap 10 5-15 Blood Urea Nitrogen 40 H 9-23 mg/dL Creatinine 2.09 H 0.700-1.30 mg/dL Glomerular Filtration Rate Calc 34 >90 mL/min BUN/Creatinine Ratio 19.1 10.0-20.0 Serum Glucose 198 H 74-106 mg/dL Calcium Level 8.4 L 8.7-10.4 mg/dL Influenza Type A Antigen Negative Negative Influenza Type B Antigen Negative Negative SARS-CoV-2 Antigen (Rapid) Negative NEGATIVE Test 01/29/25 21:14 Range/Units Magnesium Level 1.5 L 1.6-2.6 mg/dL Total Bilirubin 0.5 0.2-1.0 mg/dL Direct Bilirubin 0.2 <0.3 mg/dL Aspartate Amino Transferase (AST) 33 13-40 U/L Alanine Aminotransferase (ALT) 28 7-40 U/L Alkaline Phosphatase 131 H 46-116 U/L B-Type Natriuretic Peptide 419.16 0-100 pg/mL Total Protein 8.2 5.7-8.2 g/dL Albumin 3.7 3.2-4.8 g/dL Triglycerides Level 137 < 150 mg/dL Cholesterol Level 129 < 200 mg/dL LDL Cholesterol 84 < 100 mg/dL HDL Cholesterol 25 L 40-59 mg/dL Plasma/Serum Blood Alcohol < 3.0 <10 mg/dL Microbiology Date/Time Source Procedure Growth Status 01/30/25 05:04 Nose MRSA Screen - Final Methicillin Resistant S.aureus Complete Examination: GENERAL:Normal, HEENT:Normal, NECK:Normal, LUNGS:Normal, CVS:Normal, ABDOMEN:Normal, MSK:Abnormal (LBP, acute on chronic L2 fx. pt fell 1.5 mo ago that he remebers, attempting to sit in chair which failed and he landed on his bottom), SKIN:Normal, NEURO:Normal Problem List/Assessment/Plan Problems: (1) Acute on chronic back pain (2) Compression fracture of L2 lumbar vertebra Assessment and Plan Acute on chronic L2 compression fracture new from 12/13/2024 conservative treatment TLSO brace, muscle relaxer, PT Continue care and support per admitting team's discretion Physical therapy evaluation with TLSO brace in place, treatment recommendations and safe discharge planning recommendations Effective pain management including muscle relaxers if the patient is complaining of muscle spasms Discussed treatment options with the patient he is agreeable Follow up ct or xray in 12 weeks to assess fracture healing no barrier to safe DC per admitting team discretion Call with questions Lana Gayle [facility] Orthopaedic Spine Surgery nurse practitioner For Dr Manjit Orozco Patient was examined, chart reviewed, labs evaluated, and diagnostic studies and findings analyzed. Case was discussed with Dr. Jaylen Orozco who formulated the plan of care. This medical document was created using an electronic medical record system with [employer] dictation system. Although this document has been carefully reviewed, there might still be some phonetic and typographical errors. These areas are purely typographical due to imperfections of the software programs, and do not reflect any compromise in the patient's medical care. Plan discussed with Plan discussed with: Patient, Other Visit Coding Surgery Date of Service if different f: Jan 30, 2025 Billing Provider: ANTHONY GAYLE NP Surgery Visit Codes: 89975 - INP CONSULT <55 MIN ANTHONY GAYLE NP Jan 30, 2025 14:40
--- NOTE | 2025-01-30 15:17 | DVH ---
CLINICAL INDICATION: Pain TECHNIQUE: 2 radiographic views of the right foot were obtained. Comparison: XY R FOOT 3 VIEW XRAY on DOS: 10/01/23 FINDINGS/IMPRESSION: There is no evidence of acute fracture or dislocation. The visualized joint space is well maintained. The alignment is anatomical. There is no radiopaque foreign body.
[2025-01-30] MEDS: TAMSULOSIN HYDROCHLORIDE 0.4 MG CAP PO SCH (17:47)
--- NOTE | 2025-01-30 18:41 | DVHPNRES ---
Progress Note Date Seen: Jan 30, 2025 Resident Creating Document: LA HAMLIN RESIDENT Has the PT tested + for MRSA If YES, has PT been informed?: No Medical Necessity Reason Pt with a Central, PICC or Fol: No Subjective Review of Systems Lavelle Scott is a 69-year-old male with a past medical history of aFib (on Eliquis), hypertension, hyperlipidemia, CHF, CKD stage 3b, CAD (CABG 2015), abdominal aortic aneurysm(3.7 cm), COPD (Home O2, 2L), colon cancer in remission, type 2 diabete, BPH, biliary stent placement, insomnia and history of methamphetamine use. The patient came the ED with chief complaint of 1 week of upper back pain, 10/10, irradiates down in the back. On further questioning, the patient reports he had a mechanical fall, he slept in the shower injuring his right elbow and back. He was admitted to [facility] and underwent drainage and suturing of right elbow but left AMA due to dissatisfaction with care, stating that his back pain was not addressed. His patient did not improved, this prompted his visit to the [facility] ED. Vital signs on admission:HR 112, RR 20, BP 116/75, SpO2 97% on 3 L O2. Lab findings BUN 37, creatinine 2.02, lactate 3.1. Patient has been admitted for further workup and management. The patient denies chest pain, fever, chills, nausea, vomiting, abdominal pain, or palpitations. Past medical history: As stated above past surgical history: CABG, biliary stent insertion Family history: Reviewed and not contributory to the management of this case Social history: Patient denies drinking alcohol or smoking but has been a chronic meth user and last meth use was few days ago PCP: Dr. Garcia Allergies: None Code status: Full code Hospitalization course: On 01/30/25, the patient was evaluate and examined at bedside. VS, labs and chart was reviewed. The lactic acid has improved to 1.5. HbA1c is 8.3. Creatinine has increased from baseline. The patient continues on IV antibiotics, wound care and O2 at 2L via NC. Today, the patient reports back pain 8/10, no new complaints. Spine surgery is onboard, they recommended: conservative treatment TLSO brace, muscle relaxer, PT. Nose swab growth MRSA, muporicin ointment was started. We will continue following up with this patient. Objective vital signs Vital Sign Date Time Temp Pulse Resp B/P (MAP) Pulse Ox O2 Delivery O2 Flow Rate FiO2 01/30/25 17:07 86 18 124/90 01/30/25 12:46 97.0 98 97.0 01/30/25 08:00 Nasal Cannula* 2 28 Total Intake and Output 01/29/25 01/29/25 01/30/25 15:00 23:00 07:00 Intake Total 0 ml Balance 0 ml medications Current Medications Medications Dose Ordered Sig/Delilah Route Start Time Stop Time Status Last Admin Dose Admin Vancomycin HCl 0 ml @ 0 mls/hr PER PHARMACY IV 01/30/25 00:15 Enoxaparin Sodium 100 mg Q12HR SC 01/30/25 10:00 Acetaminophen/ Hydrocodone Bitart 1 tab Q4HPRN PRN PO 01/30/25 00:15 Hydromorphone HCl 0.25 mg Q4HPRN PRN IV 01/30/25 00:15 01/30/25 14:23 0.25 MG Ondansetron HCl 4 mg Q4HPRN PRN IV 01/30/25 00:15 Aspirin 81 mg DAILY@1400 PO 01/30/25 14:00 01/30/25 14:24 81 MG Melatonin 10 mg HS PO 01/30/25 22:00 Patient Own Medication 1 tab TID PO 01/30/25 06:00 UNV Metoprolol Succinate 25 mg BID PO 01/30/25 10:00 01/30/25 09:37 25 MG Insulin Glargine 20 units HS SC 01/30/25 22:00 Diagnostic Test (Pha) 1 strip ACHS 01/30/25 07:00 01/30/25 16:57 1 STRIP Insulin Human Regular ACHS SC 01/30/25 07:00 01/30/25 16:58 4 UNITS Dextrose 50 ml UD PRN IV 01/30/25 00:15 Ipratropium [place] 0.5 mg Q4HPRN PRN NEB 01/30/25 00:15 Albuterol 2.5 mg Q4HPRN PRN NEB 01/30/25 00:15 Tamsulosin HCl 0.4 mg QPM PO 01/30/25 18:00 01/30/25 17:47 0.4 MG Cefepime HCl 50 ml @ 12.5 mls/hr Q12HR IV 01/30/25 10:00 01/30/25 09:37 12.5 MLS/HR Gabapentin 800 mg TID PO 01/30/25 06:00 01/30/25 14:24 800 MG Furosemide 40 mg DAILY IV 01/30/25 10:00 01/30/25 09:40 40 MG Mupirocin 1 applic BID EACHNOSTRI 01/30/25 22:00 02/04/25 21:59 laboratory and microbiology Laboratory Tests 01/30/25 08:25 Test 01/30/25 08:25 Range/Units Serum Glucose 198 H 74-106 mg/dL Microbiology Date/Time Source Procedure Growth Status 01/30/25 05:04 Nose MRSA Screen - Final Methicillin Resistant S.aureus Complete Problem List/Assessment/Plan Problem List/Assessment/Plan #Sepsis due to right elbow wound, s/p mechanical fall #Acute on chronic L2 compression fracture #[id number] multilevel spondylosis #Right elbow wound, s/p I&D and suturing - cefepime 1 g IV q.12 daily - vancomycin as per pharmacy - MRSA screening: Positive for MRSA -Isolation - wound consult - wound culture: pending report - blood culture: pending report - Zofran 4 mg IV q.4 PRN - chest x-ray -Thoracic spine CT shows: Increased, up to 50% height loss of the previous L2 compression deformity with new midbody fracture line/Acute on chronic L2 compression fracture new from 12/13/2024.; Pkwm-yd-eekfqums multilevel spondylosis throughout the imaged spine, including features of thoracic DISH; -spinal surgery consult placed -right elbow CT scan: No acute osseous abnormality in the right elbow. Posterior elbow soft tissue swelling and skin thickening which may reflect cellulitis or olecranon bursitis. Difficult to exclude fluid collection without intravenous contrast. -Right foot X-ray: There is no evidence of acute fracture or dislocation. The visualized joint space is well maintained. The alignment is anatomical. There is no radiopaque foreign body. #History of paroxysmal atrial fibrillation #CHF, HFrEF 45%, under acute exacerbation #CAD status post CABG #hypertension #hyperlipidemia #abdominal aortic aneurysm 3.7 cm - EKG - repeat echo - BNP 419 - aspirin 81 mg p.o. daily - metoprolol 25 mg b.i.d. daily - therapeutic Lovenox 1 mg/ kg b.i.d. scheduled - Chest x-ray shows: Cardiomegaly with mild pulmonary vascular congestion -furosemide 40 mg IV daily -strict input-output monitoring -strict fluid restriction #Uncontrolled diabetes mellitus type 2, A1c- 8.3 (on 12/14/2024) #Diabetic neuropathy -A1c pending -insulin Lantus 20 units -mild sliding scale insulin -Accu-Cheks -gabapentin 800 mg t.i.d. # LEO on CKD, due to VMN - 500 mL IV NS once #Hypomagnesemia -Replenish #Normocytic, normochromic anemia -monitor H&H #COPD, not under exacerbation -on 3 L oxygen maintain SpO2 between 88- 92 % -med neb ipratropium bromide 0.5 mg q.4 PRN -med neb albuterol 2.5 mg q.4 PRN #Insomnia -Continue melatonin #Substance abuse, chronic methamphetamine abuse -UDS -patient was counseled by me over 8 minutes regarding the harms, side effects of methamphetamine on his health in his heart and the need of complete cessation #BPH -continue tamsulosin 0.4 mg daily -UA Diet: Low carbohydrate and cardiac diet DVT prophylaxis Goals of care discussed with the patient > 35 min. Discussed plan of care with Dr. Eden Code status: Full code PCP: Does not recall name at this time. Plan discussed with: Patient, the patient agrees with the plan. Plan discussed with: Patient Date of Service: Jan 30, 2025 Billing Provider: YUAN EDEN MD Common Visit Codes: [id number] INP/OBS CARE(HIGH) [place] HAM[place] RESIDENT Jan 30, 2025 18:41 YUAN EDEN MD Jan 30, 2025 21:50
[2025-01-30] MEDS: VANCOMYCIN 500mg/100mL 100 ML IV ONE (20:07)
[2025-01-30] MEDS: MELATONIN 5 MG TAB PO SCH (21:15)
[2025-01-30] MEDS: MUPIROCIN 2% OINT 15gm or 22gm FOR MRSA NARES EACHNOSTRI SCH (21:21)
[2025-01-30] MEDS: INSULIN LANTUS (GLARGINE) 1 /0.01ml (100units/ml) SC SCH (22:01)
[2025-01-31] VITALS (7 sets, daily range): BP systolic 114–118; BP diastolic 59–87; PULSE 56–110; RESP 18–20; TEMP 97.4–97.9; O2SAT 93–99
[2025-01-31 05:17] LABS: Anion Gap 10 (5-15); Carbon Dioxide 30 mmol/L (20-31); Chloride 99 mmol/L (98-107); Hematocrit 31.8 % (41.0-53.0); Hemoglobin 10.6 g/dL (13.5-17.5); Mean Corpuscular Hemoglobin 28.9 pg (28.0-32.0); Mean Corpuscular Volume 86.8 fL (80.0-100.0); Nucleated Red Blood Cells % 0.0 %; Potassium 3.6 mmol/L (3.5-5.1); Sodium 139 mmol/L (136-145)
[2025-01-31 05:19] LABS: Calcium 8.4 mg/dL (8.7-10.4)
[2025-01-31 05:24] LABS: BUN/Creatinine Ratio 25.5 (10.0-20.0)
[2025-01-31 05:27] LABS: Blood Urea Nitrogen 36 mg/dL (9-23); Glucose 121 mg/dL (74-106)
[2025-01-31] MEDS: LIDOCAINE 5% TOPICAL PATCH TOP ONE (10:30)
[2025-01-31] MEDS: BACLOFEN 10 MG TAB PO ONE (10:30)
[2025-01-31] MEDS ORDERED: CEPH250C PO (11:33)
[2025-01-31] MEDS ORDERED: HYDR-4798 PO (17:08)
--- NOTE | 2025-01-31 19:23 | DVHSR ---
APPROVED REPORT EXAM: Two-dimensional and M-mode echocardiogram with Doppler and color Doppler. Blood Pressure: 101/65 mmHg INDICATION sob, history of chf RISK FACTORS Obesity: Height: 6'2, Weight: 213 DIMENSIONS LVDd4.8 (3.8-5.7cm)LA (2D)4.0 (1.9-4.0cm)Aortic Root3.8 (2.0-3.7cm) LVDs3.9 (2.5-4.0cm)LA (MM) (1.9-4.0cm)Aortic Cusp Exc1.2 (1.5-2.0cm) EF (%) 38.0 (55-70%)Rt. Atrium5.0 (1.9-4.0cm)Asc. Aorta cm IVSd0.9 (0.7-1.1cm)RV (D)5.9 (1.8-2.4cm) PWd1.0 (0.7-1.1cm) Mitral Valve MitralMitral Stenosis E wave1.23m/sMV Mean GR.2mmHg A wavem/sMV Peak GR.88mmHg E/A ratio0.02D MVAcm2 DECEL [id number] 1/2 Tim[place] Aortic Valve Aortic ValveAortic Stenosis V10.99m/Lauro Mean GR.7mmHg V21.83m/Lauro Peak GR.13mmHg LVOT Diameter1.9 (1.8-2.4cm)Doppler AVA1.53cm2 Pulmonic Valve V21.04m/s Tricuspid Valve TR Velocity3.15m/s [id number] Other Information Technically limited study due to body habitus.patient position. Conclusion Technically good study. Sinus rhythm. Concentric LVH with the aortic root enlargement. Left atrial enlargement. Mild aortic sclerosis. Mild mitral annular calcification. Calcification at the base of the posterio r mitral leaflet. Slight diminished excursion of the leaflet. Tricuspid and pulmonic or structurall y normal. Left ventricular function is diminished. EF is about 30-35% with global hypokinesis. Doppler reveals [id number]-khhtoe tricuspid regurgitation. Mild MR. No pericardial effusion masses or vegetations.
[2025-01-31] MEDS ORDERED: VANCOMYCIN 750MG KIT 100 ML IV ONE (20:00)
--- NOTE | 2025-02-01 11:21 | DVHDSRES ---
Discharge Summary Date of Admission Resident Creating Document: [place] RESIDENT Jan 29, 2025 at 23:29 Date of Discharge: Jan 31, 2025 Wounds: Right elbow Right foot and sole. Labs/Diagnostic Data: Laboratory Results Test 01/31/25 10:34 01/31/25 04:41 01/30/25 11:04 01/30/25 01:40 POC Glucose 147 mg/dl (70-106) White Blood Count 6.5 10^3/uL (4.4-10.8) Red Blood Count 3.66 10^6/uL (4.5-5.90) Hemoglobin 10.6 g/dL (13.5-17.5) Hematocrit 31.8 % (41.0-53.0) Mean Corpuscular Volume 86.8 fL (80.0-100.0) Mean Corpuscular Hemoglobin 28.9 pg (28.0-32.0) Mean Corpuscular Hemoglobin Concent 33.3 g/dL (32.0-36.0) Red Cell Distribution Width 15.2 % (11.8-14.3) Platelet Count 347 10^3/uL (140-450) Mean Platelet Volume 8.5 fL (6.9-10.8) Neutrophils (%) (Auto) 68.1 % (37.0-80.0) Lymphocytes (%) (Auto) 18.1 % (10.0-50.0) Monocytes (%) (Auto) 8.3 % (0.0-12.0) Eosinophils (%) (Auto) 5.0 % (0.0-7.0) Basophils (%) (Auto) 0.5 % (0.0-2.0) Neutrophils # (Auto) 4.4 10 ^3/uL (1.6-8.6) Lymphocytes # (Auto) 1.2 10 ^3/uL (0.4-5.4) Monocytes # (Auto) 0.5 10 ^3/uL (0-1.3) Eosinophils # (Auto) 0.3 10 ^3/uL (0-0.8) Basophils # (Auto) 0 10 ^3/uL (0-0.2) Nucleated Red Blood Cells 0.0 % Sodium Level 139 mmol/L (136-145) Potassium Level 3.6 mmol/L (3.5-5.1) Chloride Level 99 mmol/L (98-107) Carbon Dioxide Level 30 mmol/L (20-31) Anion Gap 10 (5-15) Blood Urea Nitrogen 36 mg/dL (9-23) Creatinine 1.41 mg/dL (0.700-1.30) Glomerular Filtration Rate Calc 55 mL/min (>90) BUN/Creatinine Ratio 25.5 (10.0-20.0) Serum Glucose 121 mg/dL (74-106) Lactic Acid Level 1.6 mmol/L (0.4-2.0) Calcium Level 8.4 mg/dL (8.7-10.4) Random Vancomycin Level 11.2 ug/mL (5-10) Iron Level 38 ug/dL (65-175) Total Iron Binding Capacity 271 ug/dL (250-425) Percent Iron Saturation 14.0 % (20-55) Ferritin 58.6 ng/mL (22-322) Influenza Type A Antigen Negative (Negative) Influenza Type B Antigen Negative (Negative) SARS-CoV-2 Antigen (Rapid) Negative (NEGATIVE) Test 01/29/25 21:14 Magnesium Level 1.5 mg/dL (1.6-2.6) Total Bilirubin 0.5 mg/dL (0.2-1.0) Direct Bilirubin 0.2 mg/dL (<0.3) Aspartate Amino Transferase (AST) 33 U/L (13-40) Alanine Aminotransferase (ALT) 28 U/L (7-40) Alkaline Phosphatase 131 U/L (46-116) B-Type Natriuretic Peptide 419.16 pg/mL (0-100) Total Protein 8.2 g/dL (5.7-8.2) Albumin 3.7 g/dL (3.2-4.8) Triglycerides Level 137 mg/dL (< 150) Cholesterol Level 129 mg/dL (< 200) LDL Cholesterol 84 mg/dL (< 100) HDL Cholesterol 25 mg/dL (40-59) Plasma/Serum Blood Alcohol < 3.0 mg/dL (<10) Other Laboratory Tests 01/31/25 04:41 Brief Hx & Hospital Course: Lavelle Scott is a 69-year-old male with a past medical history of aFib (on Eliquis), hypertension, hyperlipidemia, CHF, CKD stage 3b, CAD (CABG 2015), abdominal aortic aneurysm(3.7 cm), COPD (Home O2, 2L), colon cancer in remission, type 2 diabete, BPH, biliary stent placement, insomnia and history of methamphetamine use. The patient came the ED with chief complaint of 1 week of upper back pain, 10/10, irradiates down in the back. On further questioning, the patient reports he had a mechanical fall, he slept in the shower injuring his right elbow and back. He was admitted to [facility] and underwent drainage and suturing of right elbow but left AMA due to dissatisfaction with care, stating that his back pain was not addressed. His patient did not improved, this prompted his visit to the [facility]'s ED. Vital signs on admission:HR 112, RR 20, BP 116/75, SpO2 97% on 3 L O2. Lab findings BUN 37, creatinine 2.02, lactate 3.1. Patient has been admitted for further workup and management. The patient denies chest pain, fever, chills, nausea, vomiting, abdominal pain, or palpitations. Past medical history: As stated above past surgical history: CABG, biliary stent insertion Family history: Reviewed and not contributory to the management of this case Social history: Patient denies drinking alcohol or smoking but has been a chronic meth user and last meth use was few days ago PCP: Dr. Garcia Allergies: None Code status: Full code Hospitalization course: On 01/30/25, the patient was evaluate and examined at bedside. VS, labs and chart was reviewed. The lactic acid has improved to 1.5. HbA1c is 8.3. Creatinine has increased from baseline. The patient continues on IV antibiotics, wound care and O2 at 2L via NC. Today, the patient reports back pain 8/10, no new complaints. Spine surgery is onboard, they recommended: conservative treatment TLSO brace, muscle relaxer, PT. Nose swab growth MRSA, muporicin ointment was started. We will continue following up with this patient. On 01/31/25, the patient was evaluate and examined at bedside. VS, labs and chart was reviewed. WBC are wnl. The patient continues on O2 at 2L via NC at his baseline at home. Today, the patient reports back pain 3/10, no new complaints. Spine surgery is onboard, the patient has a back brace. The patient will is being discharged today with analgesia and he will f/u with spine surgery in 12 weeks with a new spine CT scan, also he will f/u with pcp for PT and wound care. The patient agrees with the discharge plan. ROS: Constitutional: denies: chills, diaphoresis, fatigue, fever, malaise, sweats, weakness, others EENTM: denies: blurred vision, double vision, ear bleeding, ear discharge, ear drainage, ear pain, ear ringing, eye pain, eye redness, hearing loss, mouth pain, mouth swelling, nasal discharge, nose bleeding, nose congestion, nose pain, photophobia, tearing, throat pain, throat swelling, voice changes, others Respiratory: denies: cough, hemoptysis, orthopnea, SOB at rest, shortness of breath, SOB with excertion, stridor, wheezing, others Cardiovascular: denies: chest pain, dizzy spells, diaphoresis, Dyspnea on exertion, edema, irregular heart beat, left arm pain, lightheadedness, palpitations, PND, syncope, others Gastrointestinal: reports: Improvement, no new nausea, vomiting or diarrhea; denies: abdomen distended, abdominal pain, blood streaked bowels, constipated, diarrhea, dysphagia, difficulty swallowing, hematemesis, melena, poor appetite, poor fluid intake, rectal bleeding, rectal pain, others Genitourinary: denies: burning, dysuria, flank pain, frequency, hematuria, incontinence, penile discharge, penile sore, pain, testicle pain, testicle swelling, urgency, others Neurological: reports: No headache; denies: dizziness, fainting, left sided numbness, left sided weakness, numbness, paresthesia, pre-existing deficit, right sided numbness, right sided weakness, seizure, speech problems, tingling, tremors, weakness, others Musculoskeletal: Left side back pain. Denies: gout, joint pain, joint swelling, muscle pain, muscle stiffness, neck pain, others Integumetry: denies: bruises, change in color, change in hair/nails, dryness, laceration, lesions, lumps, rash, wounds, others Allergic/Immunocompromised: denies: Difficulty Healing, Frequent Infections, Hives, Itching, others Hematologic/Lymphatic: denies: anemia, blood clots, easy bleeding, easy bruising, swollen glands, others Endocrine: denies: excessive hunger, excessive sweating, excessive thirst, excessive urination, flushing, intolerance to cold, intolerance to heat, unexplained weight gain, unexplained weight loss, others Psychiatric: denies: anxiety, bipolar disorder, depression, hopeless, panic disorder, schizophrenia, sleepless, suicidal, others All Other Systems: Reviewed and Negative Exam General Appearance: Cooperative. Well developed. Well nourished. NAD Head Exam: Normal inspection Neck Exam: Normal inspection. Non-tender. Normal alignment Pulmonary/Respiratory: Chest non-tender. Clear bilateral breath sounds, no crackles, no wheezing. Cardiovascular/Chest: Regular rate and rhythm. No murmurs. No JVD. Peripheral Pulses: 2+ Radial (R). 2+ Radial (L). 2+ Pedal (R). 2+ Pedal (L) Abdominal Exam: Normal bowel sounds. Soft. normal abdomen, no visible veins, Non tender. No hepatospenomegaly. No masses Upper extremities: Right elbow with a wound that is dry with a clean base, no draining, no erythema, no edema. Ankle Exam: Negative ankle edema Lower extremities: Right Lower extremity: with clean dressing cover wound with clean base. Neuro/Mental Status: A&O x3. Coherent. Thoughts/Psych: Normal thought pattern. Appropriate mood and affect. Good judgement and insight Skin Exam: Normal inspection. Normal color. Warm. Dry Consults/Reason for consult Spinal surgery: L2 fracture. Operations or Procedures PROCEDURE(s): CXR1 - CHEST XRAY 1 VIEW REASON: sob ORDER NUMBER(s): [id number], ACCESSION NUMBER(s): [id number] CHEST RADIOGRAPH Indication: sob Technique: Single frontal view of the chest was obtained COMPARISON: XY CHEST PORTABLE on DOS: 12/13/24, XY CHEST TWO VIEWS ROUTINE on DOS: 10/29/24, XY CHEST PORTABLE on DOS: 07/17/24, XY CHEST PORTABLE on DOS: 05/21/24, XY CHEST PORTABLE on DOS: 12/15/23 FINDINGS: Lines and Tubes: None Lungs: Mild diffuse increased prominence of the pulmonary vasculature. No evidence of focal consolidation. Pleura: No effusion. No pneumothorax. Cardiomediastinal contours: Cardiomegaly status post median sternotomy. Bones: Unremarkable IMPRESSION: 1. Cardiomegaly with mild pulmonary vascular congestion. DURE(s): TS2CT - THORACIC SPINE WO CONTRAS REASON: back pain ORDER NUMBER(s): [id number], ACCESSION NUMBER(s): [id number] EXAM: CT THORACIC SPINE WO CONTRAS HISTORY: back pain COMPARISON: CT abdomen/pelvis 12/13/2024 CTDIvol 38.1 mGy, DLP 1757.78 mGy*cm. TECHNIQUE: Multiple axial CT images of the spine were obtained using bone algorithm. Axial and coronal reformatting was done. Bone and soft tissue windows were reviewed. FINDINGS: Increased, up to 50% height loss of the previous L2 compression deformity with new midbody fracture line. No other vertebral fracture or compression deformity. No listhesis. Rshb-tr-[id number] multilevel spondylosis throughout the imaged spine, including features of thoracic DISH. No acute findings of the imaged chest or abdominal contents. Partially visualized pancreaticobiliary stents. IMPRESSION: 1. Acute on chronic L2 compression fracture new from 12/13/2024. 2. No acute thoracic vertebral fracture. EDURE(s): RELCT - CT R ELBOW WO CONTRAST REASON: draining wound recently I&D ORDER NUMBER(s): [id number], ACCESSION NUMBER(s): [id number] CLINICAL INDICATION: draining wound recently I D TECHNIQUE: Noncontrast CT of the right elbow was performed. Sagittal and coronal reformatted images are provided. COMPARISON: None. CT Dose: CTDI volume is 34.89 mGy. Dose-length product is 1100.2 mGy*cm FINDINGS: No fracture or dislocation. No cortical erosion. There is posterior elbow soft tissue swelling skin thickening. There is a triceps tendon enthesophyte. Difficult to exclude a fluid collection without intravenous contrast. Joint spaces are maintained. IMPRESSION: 1. No acute osseous abnormality in the right elbow. 2. Posterior elbow soft tissue swelling and skin thickening which may reflect cellulitis or olecranon bursitis. Difficult to exclude fluid collection without intravenous contrast. All CT scans at this medical facility are performed using dose modulation techniques as appropriate to a performed exam including the following: Automated exposure control was utilized; adjustment of the MA and/or KV according to patient size; and use of iterative reconstruction technique. EDURE(s): RFOT2 - R FOOT 2 VIEW XRAY REASON: Rule out fracture/ dislocation ORDER NUMBER(s): [id number], ACCESSION NUMBER(s): [id number] CLINICAL INDICATION: Pain TECHNIQUE: 2 radiographic views of the right foot were obtained. Comparison: XY R FOOT 3 VIEW XRAY on DOS: 10/01/23 FINDINGS/IMPRESSION: There is no evidence of acute fracture or dislocation. The visualized joint space is well maintained. The alignment is anatomical. There is no radiopaque foreign body. 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 #Chronic Diabetic neuropathy # LEO on CKD, due to VMN #Acute Hypomagnesemia #Normocytic, normochromic anemia #Chronic COPD, not under exacerbation #Chronic Insomnia #Chronic Substance abuse, chronic methamphetamine abuse #Chronic BPH Discharge Disposition: Home SNF Discharge Will this Physician continue t: No Discharge Instruct/Medications Diet: Consistent carbohydrate, Cardiac 2g Na,low cholest Activity: No Restrictions, As Tolerated Follow Up/Referral: F/U with PCP in 1 week F/U with Spinal surgery with lumbar CT in 12 weeks Medications: Ketflex 500mg QID for 7 days [place] 10/375mg po q8h prn for pain Scheduled Apixaban Base (Eliquis), 5 MG PO BID Aspirin (Aspirin Low Dose), 81 MG PO DAILY@1400 Atorvastatin Calcium (Lipitor), 1 TAB PO DAILY Cephalexin (Keflex Capsule), 2 CAP PO QID Empagliflozin (Jardiance), 1 TAB PO DAILY, (Reported) Ergocalciferol (Vitamin D 05366 Unit), 50,000 UNIT PO Q7D Furosemide (Lasix), 2 TAB PO DAILY, (Reported) Gabapentin (Gabapentin), 1 TAB PO TID, (Reported) Insulin Glargine (Lantus Solostar), 25 UNIT SC QAM, 10 units sub Q QPM Melatonin (Melatonin), 10 MG PO HS Methocarbamol (Methocarbamol), 500 MG PO QID Metoprolol Succinate (Metoprolol Succinate Er), 1 TAB PO BID Pantoprazole Sodium Sesquihydr (Pantoprazole Sodium), 40 MG PO DAILY Sacubitril-Valsartan (Entresto 24-26 mg), 1 TAB PO BID Silver Sulfadiazine (Silvadene), 1 APPLIC TOP DAILY Spironolactone (Spironolactone), 1 TAB PO DAILY, (Reported) Tamsulosin Hcl (Flomax), 0.4 MG PO QPM Scheduled PRN Hydrocodone-Acetaminophen (Hydrocodone Bitartrate/AC 10-325 mg), 1 TAB PO Q6HPRN PRN Ibuprofen (Ibuprofen), 600 MG PO TID PRN Discontinued Medications Calamine (Sm Calamine), 1 APPLIC TOP QIDP PRN Cephalexin (Keflex Capsule), 1 CAP PO QID Metronidazole (Metronidazole), 500 MG PO TID Discharge Statement: "Patient was advised to return to the ER or call 911 if any headaches, dizziness, shortness of breath, chest pain, abdominal pain, bleeding, fevers, or worsening of medical condition. Patient was counseled about treatment plan, medications, possible side effects, patientverbalized understanding. All questions were answered to the best of my ability. 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
== END 2025-01-31 14:21 | disposition home or self-care (01) | DRG 871 ==
LOC: EDBD 19:28 → ER 19:28 → OVERFLOW 23:29 → TELE-EAST 01-30 04:30
PROVIDERS: ADMIT Internal Medicine; ATTEND Internal Medicine
DX: A41.9 Sepsis, unspecified organism (principal); I50.23 Acute on chronic systolic (congestive) heart failure; N17.0 Acute kidney failure with tubular necrosis; I13.0 Hypertensive heart and chronic kidney disease with heart failure and stage 1 through stage 4 chronic kidney disease, or unspecified chronic kidney disease; M48.56XA Collapsed vertebra, not elsewhere classified, lumbar region, initial encounter for fracture; E78.5 Hyperlipidemia, unspecified; E11.40 Type 2 diabetes mellitus with diabetic neuropathy, unspecified; J44.9 Chronic obstructive pulmonary disease, unspecified; D64.9 Anemia, unspecified; E11.65 Type 2 diabetes mellitus with hyperglycemia; S50.901A Unspecified superficial injury of right elbow, initial encounter; B95.62 Methicillin resistant Staphylococcus aureus infection as the cause of diseases classified elsewhere; I48.91 Unspecified atrial fibrillation; I71.40 Abdominal aortic aneurysm, without rupture, unspecified; N18.9 Chronic kidney disease, unspecified; E83.42 Hypomagnesemia; F15.10 Other stimulant abuse, uncomplicated; N40.0 Benign prostatic hyperplasia without lower urinary tract symptoms; G47.00 Insomnia, unspecified; Z20.822 Contact with and (suspected) exposure to COVID-19; G89.29 Other chronic pain; I25.10 Atherosclerotic heart disease of native coronary artery without angina pectoris; E11.22 Type 2 diabetes mellitus with diabetic chronic kidney disease; Z79.1 Long term (current) use of non-steroidal anti-inflammatories (NSAID); Z79.2 Long term (current) use of antibiotics; Z79.4 Long term (current) use of insulin; Z99.81 Dependence on supplemental oxygen; Z95.1 Presence of aortocoronary bypass graft; Z85.038 Personal history of other malignant neoplasm of large intestine
CPT/HCPCS: 36415; 71045; 72128; 73200; 73620; 80048; 80061; 80076; 80202; 80320; 82728; 82962; 83540; 83550; 83605; 83735; 83880; 85025; 87040; 87077; 87081; 87186; 87205; 87426; 87804; 93005; 93306; 96365; 97163; G0378; J1815; J1885; J2543

== ENCOUNTER 2025-02-06 12:27 | Emergency (ER) | payer MEDICAID, OTHER ==
[~2025-02-06] VITALS: Ht 175.3 cm; Wt 95.5 kg
[~2025-02-06 12:27] MED LIST changes: -CALALOT11 TOP; +HYDR-4798 PO; -MET500T PO
--- NOTE | 2025-02-06 13:39 | ED.PDOC ---
History of Present Illness HPI Comments Mr. Burns is a 69 year old male with PMHx of AFib on Eliquis, hypertension, hyperlipidemia, CHF, CKD stage 3b, CAD (CABG 2016), abdominal aortic aneurysm(3.7 cm), COPD on home O2 2L NC, colon cancer in remission, type 2 diabetes mellitus, BPH, biliary stent placement, insomnia and history of methamphetamine use, who presents today BIBA from his PCP's (Dr. Madrigal) office. He is a poor historian, history was taken from EMS and previous notes. The patient was recently discharged from this institution where he was admitted for sepsis secondary to right elbow wound on Keflex 250 mg QID. He presented today for post discharge follow up visit and due to the state of the wound on his right elbow and presence of an open the plantar surface of his right foot, he was sent to the emergency department. The patient states he is well, refers recent watery discharge from the wound on his right elbow, denies fever, nausea, vomiting, chest pain, abdominal pain, shortness of breath, and palpitations. On initial evaluation, the patient seems well, oriented, without overt signs of distress. Chief Complaint: Wound check Time Seen by MD: 13:11 Primary Care Provider: aba Reviewed Notes: Nurses Notes, Medications Allergies: Coded Allergies: No Known Drug Allergy (Verified Allergy, Unknown, 10/31/24) Home Meds Active Scripts Hydrocodone-Acetaminophen (Hydrocodone Bitartrate/AC 10-325 mg) 1 Tab Tab, 1 TAB PO Q6HPRN PRN, #20 TAB Prov:YUAN EDEN MD 01/31/25 Cephalexin (KEFLEX CAPSULE) 250 Mg Cp, 2 CAP PO QID for 7 Days, #56 CAP Prov:CIRA CORCORAN 01/31/25 Ibuprofen (Ibuprofen) 600 Mg Tab, 600 MG PO TID PRN for 10 Days, #30 TAB Prov:AMBREEN LONG RESIDENT 12/18/24 Pantoprazole Sodium Sesquihydr (Pantoprazole Sodium) 40 Mg Tab, 40 MG PO DAILY for 30 Days, #30 TAB Prov:AMBREEN LONG RESIDENT 12/18/24 Methocarbamol (Methocarbamol) 500 Mg Tab, 500 MG PO QID for 30 Days, #120 TAB Prov:AMBREEN LONG 12/18/24 Melatonin (Melatonin) 5 Mg Tab, 10 MG PO HS for 30 Days, #30 TAB Prov:AMBREEN LONG [facility] [place] 12/18/24 Ergocalciferol (VITAMIN D 34758 UNIT) 50,000 [place], [address] UNIT PO Q7D for 60 Days, #10 CAP Prov:AMBREEN LONG [facility] [place] 12/18/24 Tamsulosin Hcl (Flomax) 0.4 Mg Cap, 0.4 MG PO QPM for 30 Days, #30 CAP 3 Refills Prov:INGE MENON MD 09/22/23 Silver Sulfadiazine (Silvadene) 1 % Cre, 1 APPLIC TOP DAILY, #50 GRAMS Prov:LUIS E DURAN MD 09/12/23 Insulin Glargine (Lantus Solostar) 100 Unit/Ml Inj, 25 UNIT SC QAM, 10 units sub Q QPM for 50 Days, #5 INJ Prov:LUIS E DURAN MD 09/12/23 Aspirin (Aspirin Low Dose) 81 Mg Tab, 81 MG PO DAILY@1400 for 90 Days, TAB Hold if internal bleeding Called PMD if internal bleeding Prov:LUIS E DURAN MD 09/12/23 Metoprolol Succinate (Metoprolol Succinate Er) 25 Mg Tab, 1 TAB PO BID, #180 TAB 1 Refill Prov:LUIS E DURAN MD 09/12/23 Atorvastatin Calcium (Lipitor) 80 Mg Tab, 1 TAB PO DAILY, #90 TAB 5 Refills Hold if calf muscle pains Prov:LUIS E DURAN MD 09/12/23 Apixaban Base (ELIQUIS) 5 Mg Tab, 5 MG PO BID for 90 Days, #180 TAB Hold if internal bleeding Called PMD if internal bleeding Prov:LUIS E DURAN MD 09/12/23 Sacubitril-Valsartan (Entresto 24-26 mg) 1 Tab Tab, 1 TAB PO BID for 90 Days, #180 TAB Prov:BIENVENIDO MADRIGAL MD 08/24/23 Reported Medications Spironolactone (Spironolactone) 25 Mg Tab, 1 TAB PO DAILY 08/23/23 Empagliflozin (Jardiance) 10 Mg Tab, 1 TAB PO DAILY 08/23/23 Gabapentin (Gabapentin) 800 Mg Tab, 1 TAB PO TID, TAB 08/23/23 Furosemide (Lasix) 20 Mg Tb, 2 TAB PO DAILY 08/20/23 Discontinued Scripts Metronidazole (Metronidazole) 500 Mg Tab, 500 MG PO TID for 7 Days, #21 TAB Prov:ETHANAMBREEN RESIDENT 12/18/24 Cephalexin (KEFLEX CAPSULE) 250 Mg Cp, 1 CAP PO QID for 7 Days, #28 CAP Prov:AMBREEN LONG 12/18/24 Calamine (Sm Calamine) Lot, 1 APPLIC TOP QIDP PRN for 30 Days, #10 BOTTLE Prov:AMBREEN LONG 12/18/24 Information Source: Patient, Emergency Med Personnel, [facility] Medical Record, Past Medical Record Mode of Arrival: EMS Severity: Moderate Timing: Weeks Duration: Since onset Prehospital treatment: Accucheck Past Medical History PAST MEDICAL HISTORY: AFIB, CAD, Cancer, CHF, COPD, DM, High Lipids, HTN Surgical History: CABG, Hernia Repair Family History Family History: Reviewed,noncontributory to illness, No family hx of Cancer, No family hx of DM, No family hx of Heart christie, No family hx of HTN, No family hx ofKidney christie, No family hx of Liver christie, No family hx of Lung christie, No family hx of Stroke Social History Smoker: Non-Smoker Alcohol: Occasionally Drugs: Methamphetamine Lives In: Home Constitutional: denies: chills, diaphoresis, fatigue, fever, malaise, sweats, weakness EENTM: denies: blurred vision, double vision Respiratory: denies: cough, hemoptysis, orthopnea, shortness of breath Cardiovascular: denies: chest pain, dizzy spells, diaphoresis, Dyspnea on exertion, edema, irregular heart beat, left arm pain, lightheadedness, palpitations Gastrointestinal: denies: abdomen distended, abdominal pain, blood streaked bowels, constipated, diarrhea, hematemesis, melena, nausea, poor appetite, poor fluid intake, rectal bleeding, vomiting Genitourinary: denies: burning, dysuria, flank pain, frequency, hematuria, incontinence, pain, urgency Neurological: denies: dizziness, fainting, headache, numbness, paresthesia, pre-existing deficit, seizure, tingling, tremors, weakness Musculoskeletal: reports: joint pain, joint swelling; denies: back pain, gout, muscle pain, muscle stiffness, neck pain Integumetry: reports: wounds Physical Exam General Appearance: Normal HEENT: Normal ENT Inspection, PERRL/EOMI, Pharynx Normal Neck: Full Range of Motion, Non-Tender, Normal Inspection Respiratory: Chest Non-Tender, Lungs Clear, No Accessory Muscle Use, No Respiratory Distress, Normal Breath Sounds Cardiovascular: No Edema, No Murmur, Normal Peripheral Pulses, Regular Rate/Rhythm Breast Exam: Deferred Gastrointestinal: Non Tender, Normal Bowel Sounds, Soft Genitalia: Deferred Pelvic: Deferred Rectal: Deferred Extremities: Other (Presence of erythema and swelling of right elbow with yellow crusted over wound, two sutures are present, it is hard and warm the touch, with limited range of motion. Presence of clean, open right plantar ulcer aproximately 1 cm diameter, without surrounding erythema, induration, or suppuration, presence of dried blood under nail of first toe of right foot ) Neurologic: Alert, Normal Affect Cerebellar Function: Normal Reflexes: NOT DONE Skin: Wounds (As described above ) Peripheral Pulses: 3+ dorsalis pedis (R), 3+ dorsalis pedis (L) Lymphatic: Other (No cervical adenopathy ) Was a procedure done? Was a procedure done?: No Differential Dx Considerations may include: Cellulitis, Osteomyelitis, Erysipela, Hematoma, Abrasion, DVT, Diabetic foot ulcer, sepsis X-Ray, Labs, Meds, VS Vital Signs Date Time Temp Pulse Resp B/P (MAP) Pulse Ox O2 Delivery O2 Flow Rate FiO2 02/06/25 13:45 97.6 88 20 95/65 (75) 98 97.6 02/06/25 13:20 98.9 85 18 95/37 96 98.9 Lab Test 02/06/25 13:40 Range/Units White Blood Count 8.1 4.4-10.8 10^3/uL Red Blood Count 3.96 L 4.5-5.90 10^6/uL Hemoglobin 11.1 L 13.5-17.5 g/dL Hematocrit 34.6 L 41.0-53.0 % Mean Corpuscular Volume 87.4 80.0-100.0 fL Mean Corpuscular Hemoglobin 28.1 28.0-32.0 pg Mean Corpuscular Hemoglobin Concent 32.2 32.0-36.0 g/dL Red Cell Distribution Width 16.0 H 11.8-14.3 % Platelet Count 385 140-450 10^3/uL Mean Platelet Volume 8.8 6.9-10.8 fL Neutrophils (%) (Auto) 74.5 37.0-80.0 % Lymphocytes (%) (Auto) 14.3 10.0-50.0 % Monocytes (%) (Auto) 7.0 0.0-12.0 % Eosinophils (%) (Auto) 3.3 0.0-7.0 % Basophils (%) (Auto) 0.9 0.0-2.0 % Neutrophils # (Auto) 6.0 1.6-8.6 10 ^3/uL Lymphocytes # (Auto) 1.2 0.4-5.4 10 ^3/uL Monocytes # (Auto) 0.6 0-1.3 10 ^3/uL Eosinophils # (Auto) 0.3 0-0.8 10 ^3/uL Basophils # (Auto) 0.1 0-0.2 10 ^3/uL Nucleated Red Blood Cells 0.0 % Sodium Level 140 136-145 mmol/L Potassium Level 3.9 3.5-5.1 mmol/L Chloride Level 99 98-107 mmol/L Carbon Dioxide Level 27 20-31 mmol/L Anion Gap 14 5-15 Blood Urea Nitrogen 44 H 9-23 mg/dL Creatinine 3.13 H 0.700-1.30 mg/dL Glomerular Filtration Rate Calc 21 >90 mL/min BUN/Creatinine Ratio 14.1 10.0-20.0 Serum Glucose 171 H 74-106 mg/dL Lactic Acid Level 2.0 0.4-2.0 mmol/L Calcium Level 8.6 L 8.7-10.4 mg/dL Time of 1ST Reevaluation: 14:30 Reevaluation 1ST: N/A (Patient eloped ) Patient Education/Counseling: Diagnosis, Treatment Family Education/Counseling: No Family Present Comments The patient presents today BIBA from his PCP's office due to worsening of right elbow wound On initial eval, the patient seems well, oriented, without overt signs of distress CBC shows normocytic anemia, BMP significant for elevated creatinine. Lactic acid is 2. Blood cultures were drawn. Right elbow and foot Xray are benign Vancomycin 1g IV, Cefepime 1 g IV, and NS 500 cc bolus were ordered and he was placed for admission. However, per Emma Brice EMT, the patient's came and stated that she would take the patient to a foot doctor for a second opinion. The patient stated he had antibiotics at home. He subsequently left with his . SEPSIS Sepsis Screen Physician Orders R Foot 3 View Xray (02/06/25 13:11) R Elbow 2v Xray (02/06/25 13:11) Urinalysis (02/06/25 13:11) Drug Screen (02/06/25 13:11) Blood Culture (02/06/25 13:11) Vancomycin 1gm/250ml Kit (02/06/25 14:00) Cefepime 1gm/50ml (Maxipime 1gm/50ml) (02/06/25 14:00) Sodium Chloride 0.9% (02/06/25 14:00) Vital Signs Date Time Temp Pulse Resp B/P (MAP) Pulse Ox O2 Delivery O2 Flow Rate FiO2 02/06/25 13:45 97.6 88 20 95/65 (75) 98 97.6 02/06/25 13:20 98.9 85 18 95/37 96 98.9 Laboratory Tests Test 02/06/25 13:40 Lactic Acid Level 2.0 mmol/L (0.4-2.0) White Blood Count 8.1 10^3/uL (4.4-10.8) Departure 1 Departure Time of Disposition: 13:37 Impression: Primary Impression: Cellulitis Disposition: LEFT AWOL/ELOPED Condition: Other (Undetermined ) Critical Care Note Critical Care Time?: No Stability Stability form required: BASILIO Sexton RESIDENT Feb 06, 2025 13:39
[2025-02-06 13:45] VITALS: BP 95/65; PULSE 88; RESP 20; TEMP 97.6; O2SAT 98
--- NOTE | 2025-02-06 13:49 | [facility] ---
CLINICAL INDICATION: Right elbow wound TECHNIQUE: 2 radiographic views of the right elbow were obtained. Comparison: XY R FOOT 2 VIEW XRAY on DOS: 01/30/25, CT CT R ELBOW WO CONTRAST on DOS: 01/30/25, MRI MRI R FOOT WO CONTRAST on DOS: 10/03/23, XY R FOOT 3 VIEW XRAY on DOS: 10/01/23, CT CT R FOOT WO CONTRAST on DOS: 09/05/23 FINDINGS/IMPRESSION: There is no evidence of acute fracture or dislocation. The visualized joint space is well maintained. Small olecranon enthesophyte. Prominence of the posterior elbow soft tissues may represent olecranon bursitis. Atherosclerotic vascular calcifications are visualized. The alignment is anatomical. There is no radiopaque foreign body.
--- NOTE | 2025-02-06 13:49 | [facility] ---
CLINICAL INDICATION: Right foot wound TECHNIQUE: 3 radiographic views of the right foot were obtained. Comparison: XY R FOOT 2 VIEW XRAY on DOS: 01/30/25, MRI MRI R FOOT WO CONTRAST on DOS: 10/03/23, XY R FOOT 3 VIEW XRAY on DOS: 10/01/23, CT CT R FOOT WO CONTRAST on DOS: 09/05/23, CT CT R FOOT WO CONTRAST on DOS: 08/20/23 FINDINGS/IMPRESSION: There is no evidence of acute fracture or dislocation. The visualized joint space is well maintained. Atherosclerotic vascular calcifications are visualized in the right foot. The alignment is anatomical. There is no radiopaque foreign body.
[2025-02-06 13:58] LABS: Hematocrit 34.6 % (41.0-53.0); Hemoglobin 11.1 g/dL (13.5-17.5); Mean Corpuscular Hemoglobin 28.1 pg (28.0-32.0); Mean Corpuscular Volume 87.4 fL (80.0-100.0); Nucleated Red Blood Cells % 0.0 %
[2025-02-06] MEDS ORDERED: SODIUM CHLORIDE 0.9% 500 ML IV ONE (14:00)
[2025-02-06] MEDS ORDERED: VANCOMYCIN 1GM/250ML KIT 250 ML IV ONE (14:00)
[2025-02-06] MEDS ORDERED: CEFEPIME 1GM/50ML 50 ML IV ONE (14:00)
[2025-02-06 14:03] LABS: Chloride 99 mmol/L (98-107); Potassium 3.9 mmol/L (3.5-5.1); Sodium 140 mmol/L (136-145)
[2025-02-06 14:05] LABS: Anion Gap 14 (5-15); Carbon Dioxide 27 mmol/L (20-31)
[2025-02-06 14:10] LABS: BUN/Creatinine Ratio 14.1 (10.0-20.0); Blood Urea Nitrogen 44 mg/dL (9-23); Calcium 8.6 mg/dL (8.7-10.4); Glucose 171 mg/dL (74-106)
== END 2025-02-06 15:15 | disposition left against medical advice (07) ==
LOC: EDBD 12:27 → ER 12:27
DX: L03.113 Cellulitis of right upper limb (principal); E78.5 Hyperlipidemia, unspecified; E11.22 Type 2 diabetes mellitus with diabetic chronic kidney disease; I13.0 Hypertensive heart and chronic kidney disease with heart failure and stage 1 through stage 4 chronic kidney disease, or unspecified chronic kidney disease; N18.32 Chronic kidney disease, stage 3b; I25.10 Atherosclerotic heart disease of native coronary artery without angina pectoris; I48.91 Unspecified atrial fibrillation; J44.9 Chronic obstructive pulmonary disease, unspecified; Z79.01 Long term (current) use of anticoagulants; Z79.82 Long term (current) use of aspirin; Z79.84 Long term (current) use of oral hypoglycemic drugs; Z79.899 Other long term (current) drug therapy; Z95.1 Presence of aortocoronary bypass graft; Z98.890 Other specified postprocedural states; Z99.81 Dependence on supplemental oxygen
CPT/HCPCS: 36415; 73070; 73630; 80048; 83605; 85025; 87040